=== PATIENT | female | born 1970 | race Caucasian/White ===

== ENCOUNTER 2021-09-10 06:50 | Emergency (ER) | payer OTHER ==
[2021-09-10 07:25] LABS: Absolute Lymphocytes (CBC) 0.8 K/uL (0.7-4.9); Hematocrit 40.3 % (36.0-45.0); Lymphocytes % 9.8 % (15.3-44.8); MCV 96.4 fL (80-100); MPV 9.3 fL (7.6-11.3); RBC Red Blood Cell Count 4.18 M/uL (3.86-4.86)
--- NOTE | 2021-09-10 07:39 | RAD REPORT ---
EXAM DESCRIPTION: RAD - Chest Single View - 09/10/2021 7:24 am CLINICAL HISTORY: SOB COMPARISON: No comparisons FINDINGS: Lines: None. Lungs: Mild ill-defined basilar airspace disease. Pleural: No significant pleural effusions or pneumothorax. Cardiac: The heart size is within normal limits. Bones: No acute fractures. Other: IMPRESSION: Mild ill-defined basilar airspace disease could reflect pneumonia/pneumonitis.
[2021-09-10 07:45] LABS: Potassium 3.9 mmol/L (3.5-5.1); Troponin High Sensitivity 9.9 pg/mL (<58.9)
[2021-09-10] MEDS ORDERED: ACETAMINOPHEN 500 MG TAB ONE (07:46)
[2021-09-10] MEDS ORDERED: ASPIRIN EC 81 MG TAB PO ONE (07:47)
[2021-09-10] MEDS ORDERED: CEFTRIAXONE 1000 MG/VIAL ONE (07:47)
[2021-09-10] MEDS ORDERED: NA CHLORIDE 0.9% 1,000 ML ONE (07:47)
[2021-09-10] MEDS ORDERED: FAMOTIDINE 20 MG TAB ONE ×2 (07:47→07:57)
[2021-09-10] MEDS ORDERED: AZITHROMYCIN 250 MG TAB ONE (07:47)
[2021-09-10] MEDS ORDERED: BUDESONIDE 0.5 MG/2 ML NEB IH ONE (08:00)
--- NOTE | 2021-09-10 08:23 | RAD REPORT ---
EXAM DESCRIPTION: CT - Chest For Pe Angio - 09/10/2021 8:13 am CLINICAL HISTORY: dyspnea COMPARISON: Chest Single View dated 09/10/2021; Follow Up Breast Axilla Comp dated 05/27/2021; 3D SCR CALEB BILAT W/CAD dated 03/24/2021 TECHNIQUE: Dynamically enhanced axial 3 mm thick images of the chest were obtained during administra tion of <100> mL Isovue 370 IV contrast. Coronal and oblique reconstruction images were generated and reviewed. Exam utilizes a protocol for optimal evaluation of pulmonary arterial tree. Maximum intensity projections 3D imaging was utilized All CT scans are performed using dose optimization technique as appropriate and may include automated exposure control or mA/KV adjustment according to patient size. FINDINGS: Chest Wall: Right breast masses which have been previously evaluated with mammography and ultrasound. Lungs: Mild atelectasis in lung bases likely accounting for the chest radiograph findings. No acute p rocess identified. Pleura: No significant effusions or pneumothorax. Mediastinum/mynor: No pathologic lymphadenopathy. Pulmonary arteries/Aorta: No filling defect identified. No aortic aneurysm. Heart: No significant pericardial effusion. Normal heart size. Multi-vessel coronary artery disease. Upper abdomen: No acute abnormality. Bones: No acute abnormality. IMPRESSION: Negative for pulmonary embolism. No other acute findings present within the chest.
--- NOTE | 2021-09-10 08:41 | RAD REPORT ---
EXAM DESCRIPTION: US - Extrem Venous W Compress Royce - 09/10/2021 8:29 am CLINICAL HISTORY: PAIN COMPARISON: No comparisons TECHNIQUE: Real-time sonographic evaluation of the lower extremity deep venous systems was performed using color Doppler, grayscale, and compression. FINDINGS: Bilateral lower extremities. Normal compressibility, flow augmentation, phasic flow and spontaneous flow is identified in both the left and right lower extremity deep venous systems. No intraluminal filling defects seen. IMPRESSION: No DVT in either lower extremity.
--- NOTE | 2021-09-10 09:03 | ER ---
Nurse's Notes [facility] Name: Angelika Broderick Age: 51 yrs Sex: Female : 1970 Arrival Date: 09/10/2021 Time: 06:51 Bed 30 Private MD: Diagnosis: Dyspnea;Fever, unspecified;Coronavirus infection, unspecified;SARS-associated coronavirus as the cause of diseases classified elsewhere;Acute upper respiratory infection, unspecified Presentation: 09/10 07:01 Chief complaint: EMS states: pt is here for SOB that began yesterday. her sister tested kd3 positive for COVID recently. Pt denies n/v, headache an diarrhea. pt had a fever of 101.9 en route. 1 gram of Tylenol administered. 07:05 Coronavirus screen: Vaccine status: Patient reports being unvaccinated. Ebola Screen: kd3 No symptoms or risks identified at this time. Initial Sepsis Screen: Does the patient meet any 2 criteria? No. Patient's initial sepsis screen is negative. Does the patient have a suspected source of infection? No. Patient's initial sepsis screen is negative. Risk Assessment: Do you want to hurt yourself or someone else? Patient reports no desire to harm self or others. Onset of symptoms was September 10, 2021. 07:05 Method Of Arrival: EMS: [facility] kd3 07:05 Acuity: MICHAEL 3 kd3 Triage Assessment: 07:06 General: Appears in no apparent distress. Behavior is calm, cooperative. Pain: Denies kd3 pain. 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 - Social history:: Smoking status: unknown. Screenin:07 Abuse screen: Denies threats or abuse. Denies injuries from another. Nutritional kd3 screening: No deficits noted. Tuberculosis screening: No symptoms or risk factors identified. Fall Risk IV access (20 points). Assessment: 07:05 General: SEE TRIAGE NOTE. RECD REPORT FROM JHONY CAVANAUGH. 51YO WF P/W COVID EXPOSURE AND SOB.bp 08:50 Reassessment: PT RETURNED FROM CT. bp Vital Signs: 07:05 BP 117 / 70; Pulse 107; Resp 24; Pulse Ox 98% on R/A; Weight 105.69 kg; Height 5 ft. 9 kd3 in. (175.26 cm); Pain 0/10; 07:10 Temp 101.5(O); kd3 08:50 BP 97 / 56; Pulse 97; Resp 25; Pulse Ox 98% ; bp 07:05 Body Mass Index 34.41 (105.69 kg, 175.26 cm) kd3 ED Course: 06:51 Patient arrived in ED. kd3 06:54 Jhony White, MAO is Primary Nurse. as6 07:05 Inserted saline lock: 22 gauge in right forearm, using aseptic technique. Blood bp collected. 07:06 Triage completed. kd3 07:06 Arm band placed on right wrist. kd3 07:07 Patient has correct armband on for positive identification. kd3 07:22 Mukesh Alvarez MD is Attending Physician. dona 07:25 Primary Nurse role handed off by Jhony White RN 07:26 XRAY Chest (1 view) In Process Unspecified. EDMS 07:29 Faustino Guerrero, MAO is Primary Nurse. bp 08:14 CT Chest For PE Angio In Process Unspecified. EDMS 08:29 US Extremity Venous W Compression Royce In Process Unspecified. EDMS Administered Medications: 07:45 Drug: NS 0.9% 1000 ml Route: IV; Rate: 1 bolus; Site: right forearm; bp 07:45 Drug: Pepcid (famotidine) 40 mg Route: PO; bp 07:45 Drug: Zithromax (azithromycin) 500 mg Route: PO; bp 07:45 Drug: Rocephin (cefTRIAXone) 1 grams Route: IV; Rate: per protocol; Site: right forearm;bp 07:45 Drug: Aspirin 162 mg Route: PO; bp 07:45 Drug: Tylenol 1000 mg Route: PO; bp 07:57 Not Given (Duplicate Order): Budesonide Inhaler 180 mcg/actuation 2 inhalations dona Inhalation once Outcome: 09:03 Discharge ordered by . dona 11:22 Patient left the ED. kj1 Signatures: Dispatcher [employer] EDMS Mukesh Alvarez MD MD cha Peltier, Brian, RN RN bp Aimee Pizarro Kandis kj1 Jhony White RN RN as6 Jennifer Scanlon RN RN kd3 Corrections: (The following items were deleted from the chart) 07:07 07:06 Allergies: No Known Allergies; kd3 kd3 07:56 07:05 General: SEE TRIAGE NOTE. RECD REPORT FROM JHONY CAVANAUGH. 51YO WF P/W COVID EXPOSURE bp AND N/V. bp
--- NOTE | 2021-09-10 09:03 | EDPHYS ---
Physician Documentation [facility] Name: Angelika Broderick Age: 51 yrs Sex: Female : 1970 Arrival Date: 09/10/2021 Time: 06:51 Bed 30 Private MD: ED Physician Mukesh Alvarez HPI: 09/10 08:57 This 51 yrs old Female presents to ER via EMS with complaints of Shortness Of dona Breath. 08:57 The patient has shortness of breath at rest, with light activity. Onset: The dona symptoms/episode began/occurred 2 day(s) ago. Duration: The symptoms are continuous, and are steadily getting worse. The patient's shortness of breath is aggravated by coughing. Associated signs and symptoms: Pertinent positives: non-productive cough. Severity of symptoms: At their worst the symptoms were mild in the emergency department the symptoms are unchanged. The patient has experienced a previous episode. 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 - Social history:: Smoking status: unknown. ROS: 09:00 Constitutional: Negative for fever, chills, and weight loss, Eyes: Negative for injury, dona pain, redness, and discharge, ENT: Negative for injury, pain, and discharge, Neck: Negative for injury, pain, and swelling, Cardiovascular: Negative for chest pain, palpitations, and edema, Abdomen/GI: Negative for abdominal pain, nausea, vomiting, diarrhea, and constipation, Back: Negative for injury and pain, : Negative for injury, bleeding, discharge, and swelling, MS/Extremity: Negative for injury and deformity, Skin: Negative for injury, rash, and discoloration, Neuro: Negative for headache, weakness, numbness, tingling, and seizure, Psych: Negative for depression, anxiety, suicide ideation, homicidal ideation, and hallucinations, Allergy/Immunology: Negative for hives, rash, and allergies, Endocrine: Negative for neck swelling, polydipsia, polyuria, polyphagia, and marked weight changes, Hematologic/Lymphatic: Negative for swollen nodes, abnormal bleeding, and unusual bruising. 09:00 Constitutional: Positive for chills, fatigue, fever, malaise, poor PO intake. 09:00 Respiratory: Positive for cough, shortness of breath, at rest. Exam: 09:00 Head/Face: Normocephalic, atraumatic. Eyes: Pupils equal round and reactive to light, dona extra-ocular motions intact. Lids and lashes normal. Conjunctiva and sclera are non-icteric and not injected. Cornea within normal limits. Periorbital areas with no swelling, redness, or edema. ENT: Nares patent. No nasal discharge, no septal abnormalities noted. Tympanic membranes are normal and external auditory canals are clear. Oropharynx with no redness, swelling, or masses, exudates, or evidence of obstruction, uvula midline. Mucous membranes moist. Neck: Trachea midline, no thyromegaly or masses palpated, and no cervical lymphadenopathy. Supple, full range of motion without nuchal rigidity, or vertebral point tenderness. No Meningismus. Chest/axilla: Normal chest wall appearance and motion. Nontender with no deformity. No lesions are appreciated. Cardiovascular: Regular rate and rhythm with a normal S1 and S2. No gallops, murmurs, or rubs. Normal PMI, no JVD. No pulse deficits. Abdomen/GI: Soft, non-tender, with normal bowel sounds. No distension or tympany. No guarding or rebound. No evidence of tenderness throughout. Back: No spinal tenderness. No costovertebral tenderness. Full range of motion. Skin: Warm, dry with normal turgor. Normal color with no rashes, no lesions, and no evidence of cellulitis. MS/ Extremity: Pulses equal, no cyanosis. Neurovascular intact. Full, normal range of motion. Neuro: Awake and alert, GCS 15, oriented to person, place, time, and situation. Cranial nerves II-XII grossly intact. Motor strength 5/5 in all extremities. Sensory grossly intact. Cerebellar exam normal. Normal gait. Psych: Awake, alert, with orientation to person, place and time. Behavior, mood, and affect are within normal limits. 09:00 Constitutional: The patient appears febrile. 09:09 ECG was reviewed by the Attending Physician. [facility] Vital Signs: 07:05 BP 117 / 70; Pulse 107; Resp 24; Pulse Ox 98% on R/A; Weight 105.69 kg; Height 5 ft. 9 kd3 in. (175.26 cm); Pain 0/10; 07:10 Temp 101.5(O); kd3 08:50 BP 97 / 56; Pulse 97; Resp 25; Pulse Ox 98% ; bp 07:05 Body Mass Index 34.41 (105.69 kg, 175.26 cm) kd3 MDM: 07:22 Patient medically screened. dona 09:08 Differential diagnosis: asthma, Bronchitis CHF exacerbation, bronchitis, flu, URI, dona viral Infection, bacterial infection, URI, bronchitis, pneumonia UTI, gastroenteritis, pneumonia, Pneumothorax pulmonary edema, Pulmonary Embolism Sepsis. Antibiotic administration: The patient is discharged and will get outpatient antibiotics, Zithromax. The patient's Wells Deep Vein Thrombosis Score was calculated as follows: Heart Rate >100 BPM (1.5 Pts) Total Score: 0-2 Pts- Low Risk. The patient's pulmonary embolism risk score was calculated as follows: the patients heart rate is greater than 100 beats per minute (1.5 Pts) Total Score: 0-2 points. This patient was found to be at low risk for a pulmonary embolism by using the Well's assessment criteria. Immunization status: Influenza vaccine:. Data reviewed: vital signs, nurses notes, lab test result(s), EKG, radiologic studies, plain films. Data interpreted: butcherette: rate is 97 beats/min, rhythm is regular. Test interpretation: by ED physician or midlevel provider: ECG, plain radiologic studies. Counseling: I had a detailed discussion with the patient and/or guardian regarding: the historical points, exam findings, and any diagnostic results supporting the discharge/admit diagnosis, lab results, radiology results, the need for outpatient follow up, for definitive care, a family practitioner. 09/10 07:00 Order name: SARS-COV-2 RT PCR (Document "Date of Onset" if Symptomatic); Complete Time: kd3 09:10 09/10 07:00 Order name: Basic Metabolic Panel; Complete Time: 07:55 kd3 09/10 07:00 Order name: CBC with Diff; Complete Time: :55 kd3 09/10 07:00 Order name: Troponin HS; Complete Time: 07:55 kd3 09/10 07:00 Order name: XRAY Chest (1 view); Complete Time: 07:55 kd3 09/10 07:27 Order name: D-Dimer; Complete Time: 07:55 [facility] 09/10 07:55 Order name: US Extremity Venous W Compression Royce; Complete Time: 08:54 [facility] 09/10 07:55 Order name: CT Chest For PE Angio; Complete Time: 08:54 [facility] 09/10 07:00 Order name: EKG; Complete Time: 07:01 09/10 07:00 Order name: Cardiac monitoring; Complete Time: 07:00 3 09/10 07:00 Order name: EKG - Nurse/Tech; Complete Time: 07:00 09/10 07:00 Order name: IV Saline Lock; Complete Time: 07:08 09/10 07:00 Order name: Labs collected and sent; Complete Time: 07:08 09/10 07:00 Order name: O2 Per Protocol; Complete Time: 07:00 09/10 07:00 Order name: O2 Sat Monitoring; Complete Time: 07:00 EC:09 Rate is 109 beats/min. Rhythm is regular. QRS Lamar is Normal. WA interval is normal. dona QRS interval is normal. QT interval is normal. No Q waves. T waves are Normal. No ST changes noted. Clinical impression: LVH, Sinus tachycardia, and No evidence of ischemia. Interpreted by me. Reviewed by me. Administered Medications: 07:45 Drug: NS 0.9% 1000 ml Route: IV; Rate: 1 bolus; Site: right forearm; bp 07:45 Drug: Pepcid (famotidine) 40 mg Route: PO; bp 07:45 Drug: Zithromax (azithromycin) 500 mg Route: PO; bp 07:45 Drug: Rocephin (cefTRIAXone) 1 grams Route: IV; Rate: per protocol; Site: right forearm;bp 07:45 Drug: Aspirin 162 mg Route: PO; bp 07:45 Drug: Tylenol 1000 mg Route: PO; bp 07:57 Not Given (Duplicate Order): Budesonide Inhaler 180 mcg/actuation 2 inhalations dona Inhalation once Disposition Summary: 09/10/21 09:03 Discharge Ordered Location: Home dona Problem: new dona Symptoms: have improved dona Condition: Stable dona Diagnosis - Dyspnea dona - Fever, unspecified dona - Coronavirus infection, unspecified dona - SARS-associated coronavirus as the cause of diseases classified elsewhere dona - Acute upper respiratory infection, unspecified dona Followup: dona - With: Private Physician - When: 2 - 3 days - Reason: Recheck today's complaints, Continuance of care, Re-evaluation by your physician Discharge Instructions: - Discharge Summary Sheet [facility] - Fever, Adult dona - Upper Respiratory Infection, Adult dona - Cool Mist Vaporizer dona - Upper Respiratory Infection, Adult, [id number] dona - Aspirin and Your Heart dona - Cough, Adult dona - Fever, Adult, [id number] dona - COVID-19 [facility] - COVID-19 Frequently Asked Questions [facility] - Things to Know about the COVID-19 Pandemic - [facility] [place] - 10 Things You Can Do to Manage Your COVID-19 Symptoms at Home - [facility] [place] - COVID-19: Quarantine vs. Isolation - [facility] [place] - Prevent the Spread of COVID-19 if You Are Sick - [facility] [place] Forms: - Medication Reconciliation Form [facility] - Thank You Letter [facility] - Antibiotic Education [facility] - Prescription Opioid Use [facility] Prescriptions: - Pepcid 20 mg Oral Tablet - take 1 tablet by ORAL route every 12 hours for 21 days; 42 tablet; Refills: 0, dona Product Selection Permitted - Zithromax Z-Josh 250 mg Oral Tablet - take 1 tablet by ORAL route as directed for 5 days Day 1 - take two (2) tablets [facility] one time. Day 2, 3, 4 , 5 take one (1) tablet once daily.; 6 tablet; Refills: 0, Product Selection Permitted - budesonide 180 mcg/actuation Inhalation aerosol powdr breath activated - inhale 1 puff by INHALATION route 2 times per day; 1 Inhaler; Refills: 0, cp Product Selection Permitted Signatures: Dispatcher [employer] Mukesh Stuart MD MD cha Peltier, Brian, RN RN bp Doucette, Kyli, RN RN kd3 Corrections: (The following items were deleted from the chart) 07:07 07:06 Allergies: No Known Allergies; kd3 kd3
[2021-09-10 11:43] VITALS: O2SAT 98
[2021-09-10 11:44] VITALS: TEMP 101.5
[2021-09-10 11:46] VITALS: BP 97/56
--- NOTE | 2021-09-11 09:53 | EKG ---
Test Date: 2021-09-10 Test Time: 07:02:12 Assembler Skylights: JOSEPH MEASUREMENT RESULTS: Intervals: Rate: 109 NC: 152 QRSD: 90 QT: 328 QTc: 441 [place]bird: P: 34 NC: 152 QRS: 35 T: 37 INTERPRETIVE STATEMENTS: Sinus tachycardia Minimal voltage criteria for LVH, may be normal variant Nonspecific ST and T wave abnormality Abnormal ECG No previous ECG available for comparison Electronically Signed On 09-11-21 09:48:52 CDT by Lee Adams
== END 2021-09-10 11:22 | disposition home or self-care (01) ==
LOC: ER 06:50
DX: U07.1 COVID-19 (principal); J06.9 Acute upper respiratory infection, unspecified; R50.9 Fever, unspecified; Z88.5 Allergy status to narcotic agent; Z88.8 Allergy status to other drugs, medicaments and biological substances
CPT/HCPCS: 93005; 85025; 80048; 36415; 85379; 84484; 71275; 71045; 93970; 96374; 99284; U0003; Q9967; J7030

== ENCOUNTER 2021-12-14 08:40 | Emergency (ER) | payer OTHER ==
[2021-12-14] MEDS ORDERED: IBUPROFEN 200 MG TAB PO ONE (08:55)
[2021-12-14] MEDS ORDERED: IBUPROFEN 400 MG TAB ONE (08:56)
--- NOTE | 2021-12-14 09:48 | RAD REPORT ---
EXAM DESCRIPTION: RAD - Hand Right 3 View - 12/14/2021 9:27 am CLINICAL HISTORY: PAIN COMPARISON: No comparisons FINDINGS: Mild osteopenia. Mild arthritic changes are present. No acute fracture or dislocation seen .
--- NOTE | 2021-12-14 10:13 | ER ---
Nurse's Notes [facility] Name: Angelika Broderick Age: 51 yrs Sex: Female : 1970 Arrival Date: 12/14/2021 Time: 08:42 Bed 8 Private MD: Diagnosis: Contusion of right hand;Abrasion of right hand Presentation: 12/14 09:01 Chief complaint: Patient states: Was seen yesterday in ED for fall injury, sister ph states, " They did a CT of her head but did not xray her hand. Today it is swollen and bruised and she says it hurts." Abrasions, bruising and swelling noted to R index, middle fingers and thumb. Coronavirus screen: Vaccine status: Patient reports being unvaccinated. Ebola Screen: No symptoms or risks identified at this time. Initial Sepsis Screen: Does the patient meet any 2 criteria? No. Patient's initial sepsis screen is negative. Does the patient have a suspected source of infection? No. Patient's initial sepsis screen is negative. Risk Assessment: Do you want to hurt yourself or someone else? Patient reports no desire to harm self or others. Onset of symptoms was December 14, 2021. 09:01 Method Of Arrival: Ambulatory 09:01 Acuity: MICHAEL 4 ph Triage Assessment: 09:05 General: Appears in no apparent distress. comfortable, Behavior is calm, cooperative, ph appropriate for age. Pain: Complains of pain in right hand. Neuro: Level of Consciousness is awake, alert, obeys commands, Oriented to person, place, time, situation. Cardiovascular: Capillary refill < 3 seconds in bilateral fingers Patient's skin is warm and dry. Respiratory: Airway is patent Respiratory effort is even, unlabored. Derm: Bruising that is dark purple, on dorsal aspect of distal phalanx of right thumb, dorsal aspect of middle phalanx of right index finger, dorsal aspect of proximal phalanx of right index finger, dorsal aspect of middle phalanx of right middle finger and dorsal aspect of proximal phalanx of right middle finger. Derm: Bruising that is on left eye. Musculoskeletal: Circulation, motion, and sensation intact. Range of motion: intact in all extremities, Swelling present in right hand. 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 - Social history:: Smoking status: Patient denies any tobacco usage or history of. Screenin:08 Abuse screen: Denies threats or abuse. Denies injuries from another. Nutritional ph screening: No deficits noted. Tuberculosis screening: No symptoms or risk factors identified. Fall Risk Fall in past 12 months (25 points). Secondary diagnosis (15 points) seizures, No IV (0 pts). Ambulatory Aid- None/Bed Rest/Nurse Assist (0 pts). Gait- Normal/Bed Rest/Wheelchair (0 pts) Mental Status- Oriented to own ability (0 pts). Total Ornelas Fall Scale indicates Low Risk Score (25-44 pts). Fall prevention measures have been instituted. Side Rails Up X 2 Placed close to Nursing Station Family Present and informed to notify staff if they need to leave bedside As available Patient and Family Educated on Fall Prevention Program and strategies. Assessment: 10:00 Reassessment: Patient appears in no apparent distress at this time. No changes from db previously documented assessment. Patient and/or family updated on plan of care and expected duration. Pain level reassessed. Patient is alert, oriented x 3, equal unlabored respirations, skin warm/dry/pink. Patient denies pain at this time. General: Appears. General: Appears in no apparent distress. comfortable, Behavior is calm, cooperative, appropriate for age, quiet. Pain: Denies pain. Neuro: No deficits noted. Neuro: Level of Consciousness is awake, alert, obeys commands, Oriented to person, place, time. Cardiovascular: No deficits noted. Reports None. Respiratory: No deficits noted. Respiratory: Reports shortness of breath. GI: No deficits noted. : No deficits noted. EENT: No deficits noted. Derm: No deficits noted. Musculoskeletal: No deficits noted. 10:00 Neuro: Speech is normal, Pupils are PERRLA. Cardiovascular: Capillary refill < 3 db seconds. Respiratory: Airway is patent Respiratory effort is even, unlabored, Respiratory pattern is regular. GI: Abdomen is flat. EENT: No signs and/or symptoms were reported regarding the EENT system. 10:38 Reassessment: Patient appears in no apparent distress at this time. Patient and/or ph family updated on plan of care and expected duration. Pain level reassessed. Patient is alert, oriented x 3, equal unlabored respirations, skin warm/dry/pink. Vital Signs: 09:01 BP 131 / 65; Pulse 87; Resp 18; Temp 98.2; Pulse Ox 99% on R/A; Weight 102.06 kg; ph Height 5 ft. 9 in. (175.26 cm); 10:00 BP 100 / 66; Pulse 72; Resp 18; Pulse Ox 97% ; db 09:01 Body Mass Index 33.23 (102.06 kg, 175.26 cm) ph ED Course: 08:42 Patient arrived in ED. rg4 08:44 Crissy Garzon FNP-C [facility]. kb 08:44 Bruce Dorman MD is Attending Physician. kb 09:01 Roseann Finney, RN is Primary Nurse. ph 09:04 Triage completed. ph 09:08 Arm band placed on Patient placed in an exam room, on a stretcher. ph 09:09 Patient has correct armband on for positive identification. Bed in low position. Call ph light in reach. Side rails up X 1. Pulse ox on. NIBP on. Door closed. Noise minimized. Warm blanket given. 10:32 No provider procedures requiring assistance completed. Patient did not have IV access db during this emergency room visit. Administered Medications: 09:09 Drug: Ibuprofen 600 mg Route: PO; ph 10:36 Follow up: Response: No adverse reaction db Medication: 09:09 VIS not applicable for this client. ph Outcome: 10:13 Discharge ordered by . kb 10:33 Discharged to home ambulatory. db 10:33 Condition: stable 10:33 Discharge instructions given to patient, family, Instructed on discharge instructions, Prescriptions given X 1. 10:39 Patient left the ED. ph Signatures: Crissy Garzon FNP-C TEXTILE DESIGNER-Ckb Roseann Finney, RN RN Fe Caldwell rg4 Fabby Merida RN RN db
--- NOTE | 2021-12-14 10:13 | EDPHYS ---
Physician Documentation [facility] Name: Angelika Broderick Age: 51 yrs Sex: Female : 1970 Arrival Date: 12/14/2021 Time: 08:42 Bed 8 Private MD: ED Physician Bruce Dorman HPI: 12/14 10:39 This 51 yrs old Female presents to ER via Ambulatory with complaints of Hand Injury, kb Fall Injury. 10:39 The patient has not experienced similar symptoms in the past. The patient has been kb recently seen at the [facility] Emergency Department, yesterday, for similar complaints. 10:39 The patient or guardian reports decreased range of motion, injury, pain, swelling, kb tenderness. The complaints affect the right middle finger and Right index finger. Context: The problem was sustained outdoors, resulted from a fall. Onset: The symptoms/episode began/occurred yesterday. Modifying factors: The symptoms are alleviated by nothing, the symptoms are aggravated by movement. Associated signs and symptoms: The patient has no apparent associated signs or symptoms. Severity of symptoms: At their worst the symptoms were moderate, in the emergency department the symptoms are unchanged. Pt states she fell yesterday while walking on the sidewalk. Reports she was seen here for head injury and laceration, but failed to get an x-ray of right hand. c/o pain, swelling, decreased rom and bruising to right second and third digits. . ADMINISTRATIVE DIRECTOR: 10:37 LMP N/A - db Historical: - Allergies: 09:04 Mysoline; ph 09:04 Phenobarbital; ph - Home Meds: 09:04 Depakote ER Oral [Active]; ph - PMHx: 09:04 Seizure; ph - Immunization history:: Adult Immunizations unknown. - Social history:: Smoking status: Patient denies any tobacco usage or history of. ROS: 10:36 Constitutional: Negative for fever, chills, and weight loss. kb 10:36 MS/extremity: Positive for ecchymosis, pain, swelling, tenderness, of the right middle finger and Right index finger. 10:36 All other systems are negative. Exam: 10:36 Constitutional: This is a well developed, well nourished patient who is awake, alert, kb and in no acute distress. ENT: Moist Mucous membranes Respiratory: Respirations even and unlabored. No increased work of breathing. Talking in full sentences Neuro: Awake and alert, GCS 15, oriented to person, place, time, and situation. Moves all extremities. Normal gait. Psych: Awake, alert, with orientation to person, place and time. Behavior, mood, and affect are within normal limits. 10:36 Head/face: Noted is no obvious of injury or deformity except ecchymosis, that is moderate, of the left eye, repaired laceration to right eyebrow with sutures in place. 10:36 Musculoskeletal/extremity: Extremities: grossly normal except: noted in the right middle finger and Right index finger: decreased ROM, ecchymosis, pain, swelling, tenderness, ROM: limited active range of motion due to pain, in the right middle finger and Right index finger, Circulation is intact in all extremities. Sensation intact. 10:36 Skin: injury, abrasion(s), very small abrasion noted, of the right middle finger and Right index finger, contusion(s), that are superficial, of the left knee. Vital Signs: 09:01 BP 131 / 65; Pulse 87; Resp 18; Temp 98.2; Pulse Ox 99% on R/A; Weight 102.06 kg; ph Height 5 ft. 9 in. (175.26 cm); 10:00 BP 100 / 66; Pulse 72; Resp 18; Pulse Ox 97% ; db 09:01 Body Mass Index 33.23 (102.06 kg, 175.26 cm) ph MDM: 08:46 Patient medically screened. kb 10:36 Data reviewed: vital signs, nurses notes. Data interpreted: Pulse oximetry: on room air kb is 97 %. Interpretation: normal. Counseling: I had a detailed discussion with the patient and/or guardian regarding: the historical points, exam findings, and any diagnostic results supporting the discharge/admit diagnosis, radiology results, the need for outpatient follow up, a family practitioner, to return to the emergency department if symptoms worsen or persist or if there are any questions or concerns that arise at home. 12/14 08:50 Order name: Hand Right 3 View XRAY kb 12/14 09:49 Order name: RAD; Complete Time: 09:59 EDMS Administered Medications: 09:09 Drug: Ibuprofen 600 mg Route: PO; ph 10:36 Follow up: Response: No adverse reaction db Disposition: 11:08 PA/PULP GR[employer]ER AND BLENDER's history reviewed, patient interviewed, and examined. I agree with assessment [id number] and care plan and confirm the diagnosis (es) above. Attestation: The patient's history, exam findings, diagnostics, and a summary of any interventions or procedures was reviewed in detail with Crissy HIGGINBOTHAM. Disposition Summary: 12/14/21 10:13 Discharge Ordered Location: Home kb Condition: Stable kb Diagnosis - Contusion of right hand kb - Abrasion of right hand kb Followup: kb - With: Emergency Department - When: As needed - Reason: Worsening of condition Followup: kb - With: Private Physician - When: 2 - 3 days - Reason: Recheck today's complaints, Continuance of care, Re-evaluation by your physician Discharge Instructions: - Discharge Summary Sheet kb - Hand Contusion, [id number] kb Forms: - Medication Reconciliation Form kb - Thank You Letter kb - Antibiotic Education kb - Prescription Opioid Use kb Prescriptions: - Diclofenac Sodium 75 mg Oral tablet,delayed release (DR/EC) - take 1 tablet by ORAL route 2 times per day As needed; 30 tablet; Refills: 0, kb Product Selection Permitted Signatures: Dispatcher [employer] EDMS Crissy Garzon FNP-C FNP-Roseann Nowak, RN RN ph Bruce Dorman MD MD [id number] Fabby Merida RN db Corrections: (The following items were deleted from the chart) 10:41 10:36 Skin: injury, abrasion(s), very small abrasion noted, of the right middle finger kb and Right index finger, kb
[2021-12-14 11:07] VITALS: TEMP 98.2
[2021-12-14 11:11] VITALS: BP 100/66; O2SAT 97
== END 2021-12-14 10:39 | disposition home or self-care (01) ==
LOC: ER 08:40
DX: S60.221A Contusion of right hand, initial encounter (principal); S60.511A Abrasion of right hand, initial encounter; W19.XXXA Unspecified fall, initial encounter; Y93.9 Activity, unspecified; Y92.9 Unspecified place or not applicable
CPT/HCPCS: 99283

== ENCOUNTER 2021-12-29 11:38 | Emergency (ER) | payer OTHER ==
--- OUTSIDE RECORDS SUMMARY | 2021-12-29 11:42 | XMS REPORT | Continuity of Care Document ---
:1970 Author Organization [facility] t Address [address] [place] [address] [place] [address] Care Team Providers Name Role Phone Krista Wise Attending Clinician Unavailable SHANTELLE ASKEW Attending Clinician Unavailable Payers Payer Name Policy Type Policy Number Effective Date Expiration Date Hawk lee [facility] 53 [id number] 2020 [facility] ADVANTAGE 00:00:00 - [facility] MEDICAID OF [id number] 2018 [place] 00:00:00 Problems Condition Condition Condition Status Onset Resolution Last Treating Co mments Source Name Details Category Date Date Treatment Clinician Date [id number] Abnormal Problem Comm on mammogram [facility] [id number] Encounter Problem Com mon for Spirit screening - [facility] for other [facility] [id number] Mentally Problem Comm on disabled [facility] [id number] Bipolar [address] [facility] [id number] Anxiety Problem Common 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:45:08 l cognitive cognitive Herm joseph impairment impairment Active Problem 02/05/2021 [facility] Encounter Encounter Problem Active 2021-02-05 Memoria for for 03:45:08 l long-term long-term Herm joseph (current) (current) use of use of other other medication medication s s Active Problem 02/05/2021 [facility] Malignant Malignant Problem Active 2021-02-05 Memoria neoplasm neoplasm 03:45:08 l of of [place] unspecifie unspecifie d ovary d ovary Active Problem 02/05/2021 [facility] Epilepsy Epilepsy Problem Active 2021-02-05 Memoria Active 03:45:08 l Problem [place] 02/05/2021 [facility] 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 Rajesh n Active Problem 02/05/2021 [facility] Depression Depressio Problem Active 2021-02-05 Memoria n Active 03:45:08 l Problem [place] 02/05/2021 [facility] Hyperglyce Hyperglyc Diagnosis Active 2020-11-06 Memoria satnam emia 02:45:15 l Active [place] Diagnosis 11/06/2020 [facility] Tobacco Tobacco Diagnosis Active 2020-09-06 Memoria non-user non-user 02:46:23 l Active [place] Diagnosis 09/06/2020 [facility] Tremor Tremor Problem Active 2021-02-05 Seymour deloris Active 03:45:08 l Problem [place] 02/05/2021 [facility] Intellectu Intellect Problem Active 2021-02-05 Memoria al ual 03:45:08 l disability disability He rmann Active Problem 02/05/2021 [facility] Iron Iron Problem Active 2021-02-05 Memor ia deficiency deficiency 03:45:08 l anemia, anemia, Jose unspecifie unspecifie d iron d iron deficiency deficiency anemia anemia type type Active Problem 02/05/2021 [facility] Allergies, Adverse Reactions, Alerts Allergy Allergy Status Severity Reaction(s) Onset Inactive Treating Comm ents Source Name Type Date Date Clinician Tegretol Tegretol Active Info Not 2021-1 Seymour deloris Available 03-30 l 00:00: Phenobar Phenobar Active Info Not 2020-03 Seymour deloris bital bital Available 03-30 l 00:00: Dilantin Dilantin Active Info Not 2020-03 Seymour deloris Available 03-30 l 00:00: PHENYTOI DRUG Active Hives 2018- Univers N SODIUM INGREDI 7-18 ity of EXTENDED 00:00: [address] PHENOBAR DRUG Active Unknown-Cmnt Un katina BITAL INGREDI 1-20 ity of 00:00: [address] CARBAMAZ DRUG Active Unknown-Cmnt Un katina EPINE INGREDI 1-20 ity of 00:00: [address] Social History Social Habit Start Date Stop Date Quantity Comments Source History of Tobacco Use Co mmon [facility] Sex Assigned At Com [facility] Smoking Status Start Date Stop Date Source Never Smoker Common [facility] Medications Ordered Filled Start Stop Current Ordering Indication Dosage Frequency Signature Comments Components Source Medication Medication Date Date Medication? Clinician (SIG) Name Name Rosuvastati Rosuvastati No 1{table QD Rosuvastat n Calcium n Calcium 8-11 t} in Calcium 20 MG 20 MG 00:00: 20 MG 00 Rosuvastati Rosuvastati No 1{table QD Rosuvastat n Calcium n Calcium 8-11 t} in Calcium 20 MG 20 MG 00:00: 20 MG 00 Rosuvastati Rosuvastati No 1{table QD Rosuvastat n Calcium n Calcium 8-11 t} in Calcium 20 MG 20 MG 00:00: 20 MG 00 Vimpat 2020-03 Yes Edda 1 tablet Memori a 1-24 Palvadi l 00:00: Depakote 2020-03 Yes Edda 1 tablet Seymour deloris - Palvadi l 03:45: [place] 10 Citalopram 2020-03 Yes Edda 1 tablet Me moria Hydrobromid -19 Palvadi l e 03:45: [place] 10 Keppra 2020-03 Yes Edda 2 tablets Memor ia -19 Palvadi l 03:45: [place] Keppra 2020-03 Yes Edda 1 tablet Memori a 1-19 Palvadi l 03:45: [place] 10 Zonegran 2020-03 Yes Edda 3 capsule Mem oria 1-19 Palvadi qhs l 03:45: Jose 10 Acyclovir 2020-03 Yes Edda 1 tablet Mem oria 1-19 Palvadi l 03:45: Jose 10 Vimpat Yes Edda 1 tablet Memori a 8-25 Palvadi l 00:00: Vimpat Yes Michelle 1 tablet Seymour deloris 7-17 Melgar l 02:47: Depakote Yes Edda 1 tablet Seymour deloris 9-04 Palvadi l 00:00: Citalopram Citalopram Yes Krista 1 tablet Common Hydrobromid Hydrobromid [place] [facility] e e - [facility] Vimpat Vimpat Yes Krista 1 tablet Common [place] [facility] Keppra Keppra Yes Krista 2 [address] [place] [facility] Ibuprofen Ibuprofen Yes Krista 1 tablet Common [place] with food Spirit or milk as - [facility] needed [facility] Yes Krista [address] [facility] Zonegran Zonegran Yes Krista [address] [facility] Imodium A-D Imodium A-D Yes Krista 1 tablet Common [place] as needed [facility] Tylenol Tylenol Yes Krista 2 tablets Com mon [place] as needed [facility] - [facility] Widener Widener Yes Krista 1 tablet Common [place] as needed [facility] Acyclovir Acyclovir Yes Krista 2 capsules Common [place] [facility] No 2{table Depakote 500 MG 500 MG ts} 500 MG Vimpat 200 Vimpat 200 No 1{table BID Vimpat 200 MG MG t} MG Zonegran Zonegran No 3{capsu Zonegran 100 MG 100 MG les} 100 MG Keppra 750 Keppra 750 No 2{table Keppra 750 MG MG ts} MG Imodium A-D Imodium A-D No 1{table BID Imodium 2 MG 2 MG t_as_ne A-D 2 MG eded} Citalopram Citalopram No 1{table Citalopram Hydrobromid Hydrobromid t} Hydrobromi e 20 MG e 20 MG de 20 MG Ibuprofen Ibuprofen No QID Ibuprofen 600 MG 600 MG 600 MG Depakote Depakote No 2{table Depakote 500 MG 500 MG ts} 500 MG Vimpat 200 Vimpat 200 No 1{table BID Vimpat 200 MG MG t} MG Zonegran Zonegran No 3{capsu Zonegran 100 MG 100 MG les} 100 MG Keppra 750 Keppra 750 No 2{table Keppra 750 MG MG ts} MG Imodium A-D Imodium A-D No 1{table BID Imodium 2 MG 2 MG t_as_ne A-D 2 MG eded} Citalopram Citalopram No 1{table Citalopram Hydrobromid Hydrobromid t} Hydrobromi e 20 MG e 20 MG de 20 MG Ibuprofen Ibuprofen No QID Ibuprofen 600 MG 600 MG 600 MG Depakote Depakote No 2{table Depakote 500 MG 500 MG ts} 500 MG Vimpat 200 Vimpat 200 No 1{table BID Vimpat 200 MG MG t} MG Zonegran Zonegran No 3{capsu Zonegran 100 MG 100 MG les} 100 MG Keppra 750 Keppra 750 No 2{table Keppra 750 MG MG ts} MG Imodium A-D Imodium A-D No 1{table BID Imodium 2 MG 2 MG t_as_ne A-D 2 MG eded} Oxybutynin Oxybutynin No Oxybutynin Chloride ER Chloride ER Chloride 5 MG 5 MG ER 5 MG Depakote Depakote No 2{table Depakote 500 MG 500 MG ts} 500 MG Keppra 750 Keppra 750 No 2{table Keppra 750 MG MG ts} MG Imodium A-D Imodium A-D No 1{table BID Imodium 2 MG 2 MG t_as_ne A-D 2 MG eded} Citalopram Citalopram No 1{table Citalopram Hydrobromid Hydrobromid t} Hydrobromi e 20 MG e 20 MG de 20 MG Zonegran Zonegran No 3{capsu Zonegran 100 MG 100 MG les} 100 MG Vimpat 200 Vimpat 200 No 1{table BID Vimpat 200 MG MG t} MG Ibuprofen Ibuprofen No QID Ibuprofen 600 MG 600 MG 600 MG Zonegran Zonegran No 3{capsu Zonegran 100 MG 100 MG les} 100 MG Depakote Depakote No 2{table Depakote 500 MG 500 MG ts} 500 MG Keppra 750 Keppra 750 No 2{table Keppra 750 MG MG ts} MG Imodium A-D Imodium A-D No 1{table BID Imodium 2 MG 2 MG t_as_ne A-D 2 MG eded} Citalopram Citalopram No 1{table Citalopram Hydrobromid Hydrobromid t} Hydrobromi e 20 MG e 20 MG de 20 MG Vimpat 200 Vimpat 200 No 1{table BID Vimpat 200 MG MG t} MG Ibuprofen Ibuprofen No QID Ibuprofen 600 MG 600 MG 600 MG Depakote Depakote No 2{table Depakote 500 MG 500 MG ts} 500 MG Keppra 750 Keppra 750 No 2{table Keppra 750 MG MG ts} MG Imodium A-D Imodium A-D No 1{table BID Imodium 2 MG 2 MG t_as_ne A-D 2 MG eded} Citalopram Citalopram No 1{table Citalopram Hydrobromid Hydrobromid t} Hydrobromi e 20 MG e 20 MG de 20 MG Zonegran Zonegran No 3{capsu Zonegran 100 MG 100 MG les} 100 MG Vimpat 200 Vimpat 200 No 1{table BID Vimpat 200 MG MG t} MG Ibuprofen Ibuprofen No QID Ibuprofen 600 MG 600 MG 600 MG Depakote Depakote No 2{table Depakote 500 MG 500 MG ts} 500 MG Ibuprofen Ibuprofen No QID Ibuprofen 600 MG 600 MG 600 MG Keppra 750 Keppra 750 No 2{table Keppra 750 MG MG ts} MG Zonegran Zonegran No 3{capsu Zonegran 100 MG 100 MG les} 100 MG Citalopram Citalopram No 1{table Citalopram Hydrobromid Hydrobromid t} Hydrobromi e 20 MG e 20 MG de 20 MG Vimpat 200 Vimpat 200 No 1{table BID Vimpat 200 MG MG t} MG Imodium A-D Imodium A-D No 1{table BID Imodium 2 MG 2 MG t_as_ne A-D 2 MG eded} Vimpat 200 Vimpat 200 No 1{table BID Vimpat 200 MG MG t} MG Zonegran Zonegran No 3{capsu Zonegran 100 MG 100 MG les} 100 MG Citalopram Citalopram No 1{table Citalopram Hydrobromid Hydrobromid t} Hydrobromi e 20 MG e 20 MG de 20 MG Keppra 750 Keppra 750 No 2{table Keppra 750 MG MG ts} MG Ibuprofen Ibuprofen No QID Ibuprofen 600 MG 600 MG 600 MG Imodium A-D Imodium A-D No 1{table BID Imodium 2 MG 2 MG t_as_ne A-D 2 MG eded} Depakote Depakote No 2{table Depakote 500 MG 500 MG ts} 500 MG Vimpat 200 Vimpat 200 No 1{table BID Vimpat 200 MG MG t} MG Zonegran Zonegran No 3{capsu Zonegran 100 MG 100 MG les} 100 MG Citalopram Citalopram No 1{table Citalopram Hydrobromid Hydrobromid t} Hydrobromi e 20 MG e 20 MG de 20 MG Keppra 750 Keppra 750 No 2{table Keppra 750 MG MG ts} MG Ibuprofen Ibuprofen No QID Ibuprofen 600 MG 600 MG 600 MG Imodium A-D Imodium A-D No 1{table BID Imodium 2 MG 2 MG t_as_ne A-D 2 MG eded} Depakote Depakote No 2{table Depakote 500 MG 500 MG ts} 500 MG Depakote Depakote No 2{table Depakote 500 MG 500 MG ts} 500 MG Ibuprofen Ibuprofen No QID Ibuprofen 600 MG 600 MG 600 MG Citalopram Citalopram No 1{table Citalopram Hydrobromid Hydrobromid t} Hydrobromi e 20 MG e 20 MG de 20 MG Vimpat 200 Vimpat 200 No 1{table BID Vimpat 200 MG MG t} MG Zonegran Zonegran No 3{capsu Zonegran 100 MG 100 MG les} 100 MG Imodium A-D Imodium A-D No 1{table BID Imodium 2 MG 2 MG t_as_ne A-D 2 MG eded} Keppra 750 Keppra 750 No 2{table Keppra 750 MG MG ts} MG Depakote Depakote No 2{table Depakote 500 MG 500 MG ts} 500 MG Ibuprofen Ibuprofen No QID Ibuprofen 600 MG 600 MG 600 MG Citalopram Citalopram No 1{table Citalopram Hydrobromid Hydrobromid t} Hydrobromi e 20 MG e 20 MG de 20 MG Vimpat 200 Vimpat 200 No 1{table BID Vimpat 200 MG MG t} MG Zonegran Zonegran No 3{capsu Zonegran 100 MG 100 MG les} 100 MG Imodium A-D Imodium A-D No 1{table BID Imodium 2 MG 2 MG t_as_ne A-D 2 MG eded} Keppra 750 Keppra 750 No 2{table Keppra 750 MG MG ts} MG Depakote Depakote No 2{table Depakote 500 MG 500 MG ts} 500 MG Ibuprofen Ibuprofen No QID Ibuprofen 600 MG 600 MG 600 MG Citalopram Citalopram No 1{table Citalopram Hydrobromid Hydrobromid t} Hydrobromi e 20 MG e 20 MG de 20 MG Vimpat 200 Vimpat 200 No 1{table BID Vimpat 200 MG MG t} MG Zonegran Zonegran No 3{capsu Zonegran 100 MG 100 MG les} 100 MG Imodium A-D Imodium A-D No 1{table BID Imodium 2 MG 2 MG t_as_ne A-D 2 MG eded} Keppra 750 Keppra 750 No 2{table Keppra 750 MG MG ts} MG Citalopram Citalopram No 1{table Citalopram Hydrobromid Hydrobromid t} Hydrobromi e 20 MG e 20 MG de 20 MG Ibuprofen Ibuprofen No QID Ibuprofen 600 MG 600 MG 600 MG Depakote Depakote No 2{table Depakote 500 MG 500 MG ts} 500 MG Vimpat 200 Vimpat 200 No 1{table BID Vimpat 200 MG MG t} MG Zonegran Zonegran No 3{capsu Zonegran 100 MG 100 MG les} 100 MG Keppra 750 Keppra 750 No 2{table Keppra 750 MG MG ts} MG Imodium A-D Imodium A-D No 1{table BID Imodium 2 MG 2 MG t_as_ne A-D 2 MG eded} Citalopram Citalopram No 1{table Citalopram Hydrobromid Hydrobromid t} Hydrobromi e 20 MG e 20 MG de 20 MG Ibuprofen Ibuprofen No QID Ibuprofen 600 MG 600 MG 600 MG Depakote Depakote No 2{table Depakote 500 MG 500 MG ts} 500 MG Vimpat 200 Vimpat 200 No 1{table BID Vimpat 200 MG MG t} MG Zonegran Zonegran No 3{capsu Zonegran 100 MG 100 MG les} 100 MG Keppra 750 Keppra 750 No 2{table Keppra 750 MG MG ts} MG Imodium A-D Imodium A-D No 1{table BID Imodium 2 MG 2 MG t_as_ne A-D 2 MG eded} Citalopram Citalopram No 1{table Citalopram Hydrobromid Hydrobromid t} Hydrobromi e 20 MG e 20 MG de 20 MG Ibuprofen Ibuprofen No QID Ibuprofen 600 MG 600 MG 600 MG Oxybutynin Oxybutynin 2021- No Oxybutynin Chloride ER Chloride ER 07-04 Chloride 5 MG 5 MG 00:00 ER 5 MG :00 Oxybutynin Oxybutynin 2021- No Oxybutynin Chloride ER Chloride ER 07-04 Chloride 5 MG 5 MG 00:00 ER 5 MG :00 Oxybutynin Oxybutynin 2021- No Oxybutynin Chloride ER Chloride ER 06-07 Chloride 5 MG 5 MG 00:00 ER 5 MG :00 Vital Signs Vital Name Observation Time Observation Value Comments Source height 2021-07-20 08:40:00 69 [in_i] [facility] weight 2021-07-20 08:40:00 222.8 [lb_av] [facility] temperature 2021-07-20 08:40:00 97.0 [degF] [facility] bmi 2021-07-20 08:40:00 32.9 kg/m2 [facility] oximetry 2021-07-20 08:40:00 94 % Common [facility] respiratory rate 2021-07-20 08:40:00 16 /min Comm on [facility] blood pressure 2021-07-20 08:40:00 99 mm[Hg] Common [facility] - systolic [facility] blood pressure 2021-07-20 08:40:00 56 mm[Hg] Common [facility] - diastolic [facility] height 2021-02-18 15:40:00 69 [in_i] Common [facility] weight 2021-02-18 15:40:00 209.2 [lb_av] [facility] temperature 2021-02-18 15:40:00 97.5 [degF] [facility] bmi 2021-02-18 15:40:00 30.89 kg/m2 [facility] oximetry 2021-02-18 15:40:00 96 % [facility] respiratory rate 2021-02-18 15:40:00 16 /min Comm on [facility] blood pressure 2021-02-18 15:40:00 132 mm[Hg] Common [facility] - systolic [facility] blood pressure 2021-02-18 15:40:00 70 mm[Hg] Common [facility] diastolic [facility] height 2021-02-18 15:20:00 69 [in_i] Common [facility] weight 2021-02-18 15:20:00 209.2 [lb_av] [facility] temperature 2021-02-18 15:20:00 97.5 [degF] [facility] bmi 2021-02-18 15:20:00 30.89 kg/m2 [facility] oximetry 2021-02-18 15:20:00 96 % [facility] respiratory rate 2021-02-18 15:20:00 16 /min Comm on [facility] blood pressure 2021-02-18 15:20:00 132 mm[Hg] [facility] - systolic [facility] blood pressure 2021-02-18 15:20:00 70 mm[Hg] [facility] - diastolic [facility] Weight 2020-06-27 15:00:00 [facility] [place] Height 2020-06-27 15:00:00 [facility] [place] [facility] Rate 2020-06-27 15:00:00 [facility] [place] Weight 2020-03-28 14:00:00 [facility] [place] Height 2020-03-28 14:00:00 [facility] [place] Heart Rate 2020-03-28 14:00:00 [facility] [place] Weight 2019-04-25 15:00:00 [facility] [place] Height 2019-04-25 15:00:00 [facility] [place] Heart Rate 2019-04-25 15:00:00 [facility] [place] Procedures This patient has no known procedures. Encounters Start End Encounter Admission Attending Care Care Encounter Source Date/Time Date/Time Type Type Clinicians Facility Department ID 2021-12-29 Outpatient [id number] Memoria 11:41:25 [id number] [place] [id number] 2021-10-20 Outpatient [place], STLMLC STLMLC [id number] Common 10:41:[address] [facility] 2021-10-16 Outpatient [place], STLMLC STLMLC [id number] Common 08:16:[address] [facility] 2021-08-06 Outpatient [place], STLMLC STLMLC [id number] Common 09:01:[address] [facility] 2021-07-20 Outpatient [place], STLMLC STLMLC [id number] Common 08:34:[address] [facility] 2021-07-16 Outpatient [place], STLMLC STLMLC [id number] Common 13:15:[address] [facility] 2021-06-15 Outpatient [place], STLMLC STLMLC [id number] Common 11:02:[address] [facility] 2021-05-15 Outpatient [place], STLMLC STLMLC [id number] Common 14:49:[address] [facility] 2021-04-08 Outpatient [place], STLMLC STLMLC [id number] Common 11:38:[id number] [facility] 2021-04-08 Outpatient [place], STLMLC STLMLC [id number] Common 11:37:[id number] [facility] 2021-04-08 Outpatient [place], STLMLC STLMLC [id number] Common 11:37:[id number] [facility] 2021-10-22 2021-10-22 (TEL) STLMLC STLMLC [id number] Co mmon 00:00:00 00:00:00 [facility] 2021-10-21 2021-10-21 (TEL) STLMLC STLMLC [id number] Co mmon 00:00:00 00:00:00 [facility] 2021-09-18 2021-09-18 OFFICE STLMLC STLMLC [id number] Co mmon 00:00:00 00:00:00 VISIT Spirit ESTAB PT - [facility] LEVEL 2 [facility] 2021-09-18 2021-09-18 (TEL) STLMLC STLMLC [id number] Co mmon 00:00:00 00:00:00 [facility] 2021-07-20 2021-07-20 OFFICE STLMLC STLMLC [id number] Co mmon 00:00:00 00:00:00 VISIT EST Spir it PT LEVEL 3 - [facility] 2021-05-28 2021-05-28 (TEL) STLMLC STLMLC [id number] Co mmon 00:00:00 00:00:00 [facility] 2021-05-20 2021-05-20 (TEL) STLMLC STLMLC [id number] Co mmon 00:00:00 00:00:00 [facility] 2021-05-15 2021-05-15 (TEL) STLMLC STLMLC [id number] Co mmon 00:00:00 00:00:00 [facility] 2021-04-16 2021-04-16 (TEL) STLMLC STLMLC [id number] Co mmon 00:00:00 00:00:00 [facility] 2021-04-14 2021-04-14 (TEL) STLMLC STLMLC [id number] Co mmon 00:00:00 00:00:00 [facility] 2021-02-20 2021-02-20 (TEL) STLMLC STLMLC [id number] Co mmon 00:00:00 00:00:00 [facility] 2021-02-18 2021-02-18 SUB ANNUAL STLMLC STLMLC [id number] Common 00:00:00 00:00:00 MCR [facility] VISIT [facility] 2021-02-18 2021-02-18 OFFICE STLMLC STLMLC [id number] Co mmon 00:00:00 00:00:00 VISIT EST Spir it PT LEVEL 3 [facility] 2021-02-03 2021-02-03 Outpatient [facility] [id number] eClinic 20:38:00 20:38:00 [facility] 2021-01-28 2021-01-28 Outpatient [facility] [id number] eClinic 14:20:00 14:20:00 Neurologi [facility]rolog[facility] 2020-11-05 2020-11-05 Outpatient [facility] [id number] eClinic 12:04:00 12:04:00 Neurologi Neurologica [facility]Works [facility] 2020-11-05 2020-11-05 Outpatient [facility] [id number] eClinic 11:00:00 11:00:[facility] 2020-07-06 2020-07-06 Outpatient [facility] [id number] eClinic 20:40:00 20:40:00 Neurologi [facility]rolog[facility] 2020-06-27 2020-06-27 Outpatient [facility] [id number] eClinic 10:00:00 10:00:00 Neurologi Neurologica [facility]Works [facility] [address] [facility] [address] 2020-05-30 2020-05-30 Outpatient [facility] [id number] eClinic 12:10:00 12:10:00 Neurologi Neurologica alWorks [facility] 2020-04-24 2020-04-24 Outpatient [facility] [id number] eClinic 13:34:00 13:34:00 Neurologi Neurologica alWorks yazan l [facility] 2020-04-09 2020-04-09 Outpatient [facility] [id number] eClinic 09:30:00 09:30:00 Sleep Sleep alWork [facility] 2020-03-28 2020-03-28 Outpatient [facility] [id number] eClinic 09:00:00 09:00:00 Neurologi Neurologica alWorks y[facility]an [facility] 2020-03-27 2020-03-27 Outpatient [facility] [id number] eClinic 09:13:00 09:13:00 Neurologi Neurologica alWorks yazan l [facility] 2020-03-19 2020-03-19 Outpatient [facility] [id number] eClinic 15:22:00 15:22:00 Neurologi Neurologica alWorks y[facility]an [facility] 2020-02-28 2020-02-28 Outpatient [facility] [id number] eClinic 10:02:00 10:02:00 Neurologi Neurologica alWorks ayzan l [facility] 2020-02-20 2020-02-20 Outpatient [facility] [id number] eClinic 13:53:00 13:53:00 Neurologi Neurologica alWorks y[facility]an [facility] 2020-02-18 2020-02-18 Outpatient Mem Mem [id number] eClinic 10:35:[facility] 2020-02-11 2020-02-11 Outpatient [facility] [id number] eClinic 15:26:00 15:26:00 Neurologi Neurologica alWorks y[facility]an [facility] 2020-01-30 2020-01-30 Outpatient [facility] [id number] eClinic 10:24:00 10:24:00 Neurologi Neurologica alWorks y[facility] 2020-01-12 2020-01-12 Outpatient [facility] [id number] eClinic 10:46:00 10:46:00 Neurologi Neurologica alWorks [facility] 2019-12-11 2019-12-11 Outpatient [facility] [id number] eClinic 13:57:00 13:57:00 Neurologi Neurologica alWorks [facility] 2019-12-11 2019-12-11 Emergency X AZAR, [facility] ERT [id number] Univers 10:04:00 10:04:00 SHANTELLE lacy [facility] 2019-12-11 2019-12-11 [facility] [id number] Common 00:00:00 00:00:00 [facility] 2019-11-16 2019-11-16 Outpatient [facility] [id number] eClinic 19:02:00 19:02:00 Neurologi Neurologica alWorks [facility] 2019-11-16 2019-11-16 Outpatient [facility] [id number] eClinic 08:01:00 08:01:00 Neurologi Neurologica alWorks yazan l [facility] 2019-11-15 2019-11-15 [id number] Common 12:40:00 12:40:00 t [facility] 2019-11-13 2019-11-13 Outpatient [facility] [id number] eClinic 09:01:00 09:01:00 Neurologi Neurologica alWorks y[facility]an [facility] 2019-11-07 2019-11-07 Outpatient [facility] [id number] Common 10:27:00 10:27:00 [facility] 2019-10-29 2019-10-29 Outpatient [facility] [id number] eClinic 15:12:00 15:12:00 Neurologi Neurologica alWorks yazan l [facility] 2019-10-29 2019-10-29 [facility] [id number] Common 13:20:00 13:20:00 t [facility] 2019-10-24 2019-10-24 Outpatient [facility] [id number] eClinic 08:40:00 08:40:00 Neurologi Neurologica alWorks [facility] [address] 2019-10-22 2019-10-22 Outpatient [facility] [id number] eClinic 15:39:00 15:39:00 Neurologi Neurologica alWorks yazan l [facility] 2019-10-16 2019-10-16 Outpatient [facility] [id number] eClinic 11:13:00 11:13:00 Neurologi Neurologica Audrey hand [facility] 2019-04-25 2019-04-25 Outpatient [facility] [id number] eClinic 10:00:00 10:00:00 [facility] [address] 2018-10-26 2018-10-26 Outpatient [facility] [id number] eClinic 10:32:00 10:32:00 Neurologi Neurolog[facility] 2018-09-11 2018-09-11 [id number] Common 13:15:00 13:15:[address] [facility] [address] [facility] [address] [facility] 2018-08-28 2018-08-28 [facility] [id number] Common 14:45:00 14:45:00 t Urgent [facility] 2018-06-01 2018-06-01 [facility] [id number] Common 11:15:00 11:15:[address] [facility] 2018-02-20 2018-02-20 [id number] Common 11:42:00 11:42:[address] [facility] Results Test Description Test Time Test Comments Results Result Comments Source SARS-COV 2 Antigen SARS-COV 2 [facility]
--- NOTE | 2021-12-29 12:12 | ER ---
Nurse's Notes [facility] Name: Angelika Brdoerick Age: 51 yrs Sex: Female : 1970 Arrival Date: 12/29/2021 Time: 11:43 Bed 9 Private MD: Krista Wise Diagnosis: Encounter for removal of sutures Presentation: 12/29 11:53 Chief complaint: Patient states: Needs sutures removed from L eyebrow, placed here 2 ll1 weeks ago. No fever or pain. Coronavirus screen: Vaccine status: Patient reports receiving the 2nd dose of the covid vaccine. Client denies travel out of the [place] in the last 14 days. At this time, the client does not indicate any symptoms associated with coronavirus-19. Ebola Screen: Patient denies travel to an Ebola-affected area in the 21 days before illness onset. Initial Sepsis Screen: Does the patient meet any 2 criteria? No. Patient's initial sepsis screen is negative. Does the patient have a suspected source of infection? Yes: Skin breakdown/wound. Risk Assessment: Do you want to hurt yourself or someone else? Patient reports no desire to harm self or others. Onset of symptoms was December 16, 2021. 11:53 Method Of Arrival: Ambulatory ll1 11:53 Acuity: MICHAEL 5 ll1 Triage Assessment: 11:54 General: Appears in no apparent distress. Behavior is calm, cooperative. Pain: Denies ll1 pain. EENT: Reports need stitches removed from L eyebrow. 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 - Social history:: Smoking status: Patient denies any tobacco usage or history of. Screenin:02 Abuse screen: Denies threats or abuse. Denies injuries from another. Nutritional kb3 screening: No deficits noted. Tuberculosis screening: No symptoms or risk factors identified. Fall Risk None identified. Assessment: 12:02 General: Appears in no apparent distress. Behavior is calm, cooperative, Received care kb3 of pt from triage. See triage assessment. 12:02 Reassessment: No changes from previously documented assessment. kb3 Vital Signs: 11:53 BP 136 / 106; Pulse 99; Resp 17; Temp 98.1; Pulse Ox 95% ; Weight 102.06 kg; Height 5 ll1 ft. 9 in. (175.26 cm); Pain 0/10; 11:53 Body Mass Index 33.23 (102.06 kg, 175.26 cm) ll1 ED Course: 11:43 Patient arrived in ED. mr 11:44 Krista Wise is Private Physician. mr 11:50 Jayesh Blackmon PA is PHCP. lanre 11:50 Mukesh Alvarez MD is Attending Physician. [facility] 11:54 Triage completed. ll1 11:55 Arm band placed on. ll1 11:58 Kalyani Min, RN is Primary Nurse. kb3 12:02 Patient has correct armband on for positive identification. Bed in low position. kb3 12:02 Suture removal kit to bedside. RN standby for pt comfort measures. Patient did not have kb3 IV access during this emergency room visit. 12:11 Krista Wise is Referral Physician. [facility] Administered Medications: No medications were administered Medication: 12:02 VIS not applicable for this client. kb3 Outcome: 12:11 Discharge ordered by . [facility] 12:25 Discharged to home ambulatory. kb3 12:25 Condition: stable 12:25 Discharge instructions given to patient, family, Instructed on discharge instructions, follow up and referral plans. wound care, Demonstrated understanding of instructions, follow-up care, wound care. 12:25 Patient left the ED. kb3 Signatures: Jayesh Blackmon PA PA jm Pricilla MonzonJanel, RN RN ll1 Kalyani Min, RN RN kb3 Corrections: (The following items were deleted from the chart) 12:10 12:02 IV discontinued, kb3 kb3
--- NOTE | 2021-12-29 12:12 | EDPHYS ---
Physician Documentation [facility] Name: Angelika Broderick Age: 51 yrs Sex: Female : 1970 Arrival Date: 12/29/2021 Time: 11:43 Bed 9 Private MD: Krista Wise ED Physician Mukesh Alvarez HPI: 12/29 12:08 This 51 yrs old Female presents to ER via Ambulatory with complaints of Suture Removal. jmm 12:08 The patient has sutures on the middle aspect of left eyebrow. Sutures/sade progress: jmm The patient has no c/o's. The wound is well-healing with no redness, swelling, discharge, or dehiscence reported. The patient has not experienced similar symptoms in the past. 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 - Social history:: Smoking status: Patient denies any tobacco usage or history of. ROS: 12:08 Eyes: Positive for jmm 12:08 Skin: Positive for laceration(s). 12:08 All other systems are negative. Exam: 12:08 Constitutional: This is a well developed, well nourished patient who is awake, alert, jmm and in no acute distress. 12:08 Cardiovascular: Regular rate and rhythm. No edema appreciated Respiratory: Normal respirations, no respiratory distress appreciated Abdomen/GI: Non distended Back: Normal ROM 12:08 Head/face: Noted is healing laceration noted to the left eyebrow. 12:08 Skin: Healing laceration of the left eyebrow. No purulent drainage, no induration appreciated. 12:08 Neuro: Orientation: is normal, Mentation: is normal, Memory: is normal. 12:08 Psych: Behavior/mood is pleasant, cooperative. Vital Signs: 11:53 BP 136 / 106; Pulse 99; Resp 17; Temp 98.1; Pulse Ox 95% ; Weight 102.06 kg; Height 5 ll1 ft. 9 in. (175.26 cm); Pain 0/10; 11:53 Body Mass Index 33.23 (102.06 kg, 175.26 cm) ll1 Procedures: 12:11 Suture/Staple removal: Removed 7 sutures, from middle aspect of left eyebrow, site jmm appears well healed, dressed with Patient tolerated well. MDM: 12:07 Patient medically screened. [facility] 12:11 Data reviewed: vital signs, nurses notes. Counseling: I had a detailed discussion with diaz the patient and/or guardian regarding: the historical points, exam findings, and any diagnostic results supporting the discharge/admit diagnosis, the need for outpatient follow up, to return to the emergency department if symptoms worsen or persist or if there are any questions or concerns that arise at home. Administered Medications: No medications were administered Disposition Summary: 12/29/21 12:11 Discharge Ordered Location: Home [facility] Condition: Stable [facility] Diagnosis - Encounter for removal of sutures [facility] Followup: [facility] - With: Krista Wise - When: As needed - Reason: Recheck today's complaints, Continuance of care, Re-evaluation by your physician Discharge Instructions: - Discharge Summary Sheet [facility] - Suture Removal, Care After [facility] Forms: - Medication Reconciliation Form [facility] - Thank You Letter [facility] - Antibiotic Education [facility] - Prescription Opioid Use [facility] Signatures: Jayesh Blackmon PA PA jmm Lewis, Lynsay, RN RN ll1 Kalyani Min, RN RN kb3
[2021-12-29 12:37] VITALS: BP 136/106; TEMP 98.1; O2SAT 95
== END 2021-12-29 12:25 | disposition home or self-care (01) ==
LOC: ER 11:38
DX: Z48.02 Encounter for removal of sutures (principal)
CPT/HCPCS: 99281

== ENCOUNTER 2022-07-27 09:23 | Emergency (ER) | payer OTHER ==
--- OUTSIDE RECORDS SUMMARY | 2022-07-27 09:33 | XMS REPORT | Continuity of Care Document ---
:1970 Author Organization [facility] t Address [address] [place] [address] Care Team Providers Name Role Phone Krista Wise Primary Care Physician Krista Wise Attending Clinician Unavailable SANCHEZ CHINCHILLA Attending Clinician Unavailable Sanchez Chinchilla MD Attending Clinician SHANTELLE ASKEW Attending Clinician Unavailable Payers Payer Name Policy Type Policy Number Effective Date Expiration Date Hawk lee [facility] [id number] 2022 DUAL COMP HMO D 00:00:00 [facility] MEDICAID OF [id number] 2018 [place] 00:00:00 [facility] [id number] 2020 [facility] ADVANTAGE 00:00:00 - [facility] Problems Condition Condition Condition Status Onset Resolution Last Treating Co mments Source Name Details Category Date Date Treatment Clinician Date Malignant Malignant Problem Active 2021-02-05 Memoria neoplasm neoplasm 03:45:08 l 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 Active Problem 02/05/2021 [facility] Epilepsy Epilepsy Problem Active 2021-02-05 Memoria Active 03:45:08 l Problem [place] 02/05/2021 [facility] 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 Rajesh n Active Problem 02/05/2021 [facility] Depression Depressio Problem Active 2021-02-05 Memoria n Active 03:45:08 l Problem [place] 02/05/2021 [facility] Hyperglyce Hyperglyc Diagnosis Active 2020-11-06 Memoria satnam emia 02:45:15 l Active Jose Diagnosis 11/06/2020 [facility] Patient Patient Diagnosis Active 2020-09-06 Memoria had no had no 02:46:23 l falls in falls in Rajesh n past year past year Active Diagnosis 09/06/2020 [facility] Tremor Tremor Problem Active 2021-02-05 Seymour deloris Active 03:45:08 l Problem [place] 02/05/2021 [facility] Intellectu Intellect Problem Active 2021-02-05 Memoria al ual 03:45:08 l disability disability He rmann Active Problem 02/05/2021 [facility] Iron Iron Problem Active 2021-02-05 Memor ia deficiency deficiency 03:45:08 l anemia, anemia, Jose unspecifie unspecifie d iron d iron deficiency deficiency anemia anemia type type Active Problem 02/05/2021 [facility] 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:45:08 l cognitive cognitive Herm joseph impairment impairment Active Problem 02/05/2021 [facility] [id number] Abnormal Problem Comm on mammogram [facility] [id number] Encounter Problem Com mon for [facility] screening - [facility] for other [facility] [id number] Intrinsic Problem Comm on eczema [facility] [id number] Mentally Problem Comm on disabled [facility] [id number] Bipolar 1 Problem Com mon disorder [facility] [id number] Anxiety Problem Common [facility] [id number] Mixed Problem Common stress and Spirit urge - [facility] urinary [facility] [id number] Seizures Problem Commo n Spirit - [facility] [id number] Petit mal Problem Commo n seizure Spirit status - [facility] [id number] Right-side Problem Co mmon d low back Spirit pain - [facility] without [facility] chronicity [id number] Generalize Problem Com mon d weakness [facility] - [facility] Encounter Encounter Problem Active 2021-02-05 Memoria for for 03:45:08 l long-term long-term Herm joseph (current) (current) use of use of other other medication medication s s Active Problem 02/05/2021 [facility] Allergies, Adverse Reactions, Alerts Allergy Allergy Status Severity Reaction(s) Onset Inactive Treating Comm ents Source Name Type Date Date Clinician Tegretol Tegretol Active Info Not 2020-03 Seymour deloris Available 17 l 00:00: Phenobar Phenobar Active Info Not 2020-03 Seymour deloris bital bital Available 17 l 00:00: Dilantin Dilantin Active Info Not 2020-03 Seymour deloris Available 17 l 00:00: Phenytoi Propensi Active Hives 2019-0 Univer s n Sodium ty to 7-18 ity of Extended adverse 00:00: [place] reaction 00 Medical s Branch PHENYTOI DRUG Active Hives 2019-0 Univers N SODIUM INGREDI 7-18 ity of EXTENDED 00:00: [place] 00 Medical Branch Phenobar Propensi Active Unknown - 2019-0 Uni vers bital ty to See comments 1-20 ity of adverse 00:00: [place] reaction 00 Medical s Branch Carbamaz Propensi Active Unknown - 2019-0 Uni vers epine ty to See comments 1-20 ity of adverse 00:00: [place] reaction 00 Medical s Branch PHENOBAR DRUG Active Unknown-Cmnt 2019-0 Un katina BITAL INGREDI 1-20 ity of 00:00: [place] 00 Medical Branch CARBAMAZ DRUG Active Unknown-Cmnt 2019-0 Un katina EPINE INGREDI 1-20 ity of 00:00: [place] 00 Medical Branch Social History Social Habit Start Date Stop Date Quantity Comments Source History of Tobacco [facility] - [facility] Use [facility] Exposure to 2022-04-19 2022-04-29 Not sure [facility] SARS-CoV-2 (event) 00:00:00 12:41:00 [facility] Sex Assigned At [birth year] [facility] [place] 00:00:00 00:00:00 Medical Branch Smoking Status Start Date Stop Date Source Tobacco smoking consumption [facility] [place] [facility] unknown Branch Never Smoker [facility] Medications Ordered Filled Start Stop Current Ordering Indication Dosage Frequency Signature Comments Components Source Medication Medication Date Date Medication? Clinician (SIG) Name Name amoxicillin 2022- No 1{tbl} 1 tablet, Univers -clavulanat 04-29 Oral, ONCE i ty of e 21:15: 20:30 NOW, 1 [place] (AUGMENTIN) 00 :00 dose, On [facility] 875-125 mg Hayley Branch per tablet 04/29/22 at 1 tablet 1515, Routine
Reason for Anti-Infec tive: Documented Infection< br>Documen tj Infection Site: HEENT
D uration of Therapy: Other (see Comments) ketorolac No 20mg 20 mg, Unive rs (TORADOL) 04-29 Oral, ONCE ity of tablet 20 20:00: 19:13 NOW, 1 [place] mg 00 :00 [facility] 04/29/22 at 1400, SANJEEV loratadine No 10mg 10 mg, Univ ers (CLARITIN) 04-29 Oral, ONCE it y of tablet 10 20:00: 19:13 NOW, 1 [place] mg 00 :00 [facility], [facility] 04/29/22 at 1400, SANJEEV dextrometho 2022- No 10mL 10 mL, Uni vers rphan-guaif 04-29 Oral, ONCE i ty of enesin 20:00: 19:15 NOW, 1 [place] (ROBITUSSIN 00 :00 dose, On [facility] DM) 10-100 Hayley Branch mg/5 mL 04/29/22 at solution 10 1400, mL Routine meloxicam Yes [id number] 15mg Take 1 Un katina 15 mg 2-16 tablet by ity of tablet 00:00: mouth in [place] 00 the Medical morning. Branch dextrometho Yes [id number] 1{tbl} Take 1 Univers rphan-guaif 2-16 tablet by ity of enesin 00:00: mouth in [place] (MUCINEX 00 the Medical DM) 30-600 morning Branch mg per and 1 tablet tablet in the evening. acetaminoph Yes [id number] 650mg Take 1 Univers en (TYLENOL 2-16 tablet by ity of ARTHRITIS 00:00: mouth [place] PAIN) 650 00 every 8 Medical mg CR (eight) Branch tablet hours as needed for Pain. amoxicillin 2022- Yes [id number] 1{tbl} Take 1 Univers -clavulanat 2-16 02-27 tablet by it y of e 875-125 00:00: 05:59 mouth [place] mg per 00 :00 every 12 Medical tablet (twelve) Branch hours for 10 days. Oxybutynin Oxybutynin 2021-03- No 1{table BID Oxybutynin Chloride 5 Chloride 5 03-21 t} Chloride 5 MG MG 00:00: 00:00 MG 00 :00 Oxybutynin Oxybutynin 2021-03- No 1{table BID Oxybutynin Chloride 5 Chloride 5 03-21 t} Chloride 5 MG MG 00:00: 00:00 MG 00 :00 Betamethaso Betamethaso 2021-03- No 1{appli QD Betamethas ne ne 03-21 cation} one Dipropionat Dipropionat 00:00: 00:00 Dipropiona e 0.05 % e 0.05 % 00 :00 te 0.05 % Rosuvastati Rosuvastati No 1{table QD Rosuvastat n [...] tablet Memori a 1-24 Palvadi l 00:00: Jose Vimpat 2020-03 Yes Edda 1 tablet Memori a 1-24 Palvadi l 00:00: Jose Keppra 2020-03 Yes Edda 1 tablet Memori a 1-19 Palvadi l 03:45: Jose [facility] 2020-03 Yes Edda 3 capsule Mem oria 1-19 Palvadi qhs l 03:45: Jose Acyclovir 2020-03 Yes Edda 1 tablet Mem oria 1-19 Palvadi l 03:45: Jose Depakote 2020-03 Yes Edda 1 tablet Seymour deloris 1-19 Palvadi l 03:45: Jose Citalopram 2020-03 Yes Edda 1 tablet Me moria Hydrobromid 1-19 Palvadi l e 03:45: Jose ppra 2020-03 Yes Edda 2 tablets Memor ia 1-19 Palvadi l 03:45: [facility] Edda 1 tablet Memori a 1-19 Palvadi l 03:45: Jose [facility] 2020-03 Yes Edda 3 capsule Mem oria 1-19 Palvadi qhs l 03:45: Jose Acyclovir 2020-03 Yes Edda 1 tablet Mem oria 1-19 Palvadi l 03:45: Jose Depakote 2020-03 Yes Edda 1 tablet Seymour deloris 1-19 Palvadi l 03:45: Jose Citalopram 2020-03 Yes Edda 1 tablet Me moria Hydrobromid 1-19 Palvadi l e 03:45: Jose Keppra 2020-03 Yes Edda 2 tablets Memor ia 1-19 Palvadi l 03:45: [facility] Memori a 8-25 Palvadi l 00:00: [facility] 1 tablet Memori a 8-25 Palvadi l 00:00: [facility] Michelle 1 tablet Seymour deloris 7-17 Melgar l 02:47: Vimpat Yes Michelle 1 tablet Seymour deloris 7- Melgar l 02:47: Depakote Yes Edda 1 tablet Seymour deloris 11-15 Palvadi l 00:00: Depakote Yes Edda 1 tablet Seymour deloris 11-15 Palvadi l 00:00: Citalopram Citalopram Yes Krista 1 tablet Common Hydrobromid Hydrobromid [facility] - [facility] Vimpat Vimpat Yes Krista 1 tablet Common [facility] Keppra Keppra Yes Krista 2 tablets Commo n [facility] Ibuprofen Ibuprofen Yes Krista 1 tablet Common [facility] with food Spirit or milk as - [facility] needed [facility] Depakote Depakote Yes Krista 2 tablets C ommon [facility] Zonegran Zonegran Yes Krista 3 capsules Common [facility] Imodium A-D Imodium A-D Yes Krista 1 tablet Common [facility] as needed [facility] Tylenol Tylenol Yes Krista 2 tablets Com mon [facility] as needed [facility] Randolph Randolph Yes Krista 1 tablet Common [facility] as needed [facility] Acyclovir Acyclovir Yes Krista 2 capsules Common [facility] Depakote Depakote No 2{table Depakote 500 MG [...] 2{table Keppra 750 MG MG ts} MG Vimpat 200 Vimpat 200 No 1{table BID Vimpat 200 MG MG t} MG Citalopram Citalopram No 1{table Citalopram Hydrobromid [...] 500 MG 500 MG ts} 500 MG Imodium A-D Imodium A-D No 1{table BID Imodium 2 MG 2 MG t_as_ne A-D 2 MG eded} Keppra 750 Keppra 750 No 2{table Keppra 750 MG MG ts} MG Imodium A-D Imodium A-D No 1{table BID Imodium 2 MG 2 MG t_as_ne A-D 2 MG eded} Ibuprofen Ibuprofen No QID Ibuprofen 600 MG 600 MG 600 MG Citalopram Citalopram No 1{table Citalopram Hydrobromid Hydrobromid t} Hydrobromi e 20 MG e 20 MG de 20 MG Depakote Depakote No 2{table Depakote 500 [...] Name Observation Time Observation Value Comments Source Systolic blood 2022-04-29 20:31:28 145 mm[Hg] [facility] Diastolic blood 2022-04-29 20:31:28 77 mm[Hg] [facility] Heart rate 2022-04-29 20:31:28 100 /min [facility] Respiratory rate 2022-04-29 20:31:28 16 /min [facility] Oxygen saturation in 2022-04-29 20:31:28 94 /min [facility] blood by [facility] Pulse oximetry Branch Body temperature 2022-04-29 18:42:00 37.61 Marilyn [facility] Body height 2022-04-29 18:42:00 175.3 cm [facility] Body weight 2022-04-29 18:42:00 111.131 kg [facility] BMI 2022-04-29 18:42:00 36.18 kg/m2 [facility] height 2022-01-19 10:40:00 69 [in_i] Common [facility] weight 2022-01-19 10:40:00 240.8 [lb_av] Common [facility] temperature 2022-01-19 10:40:00 97.5 [degF] Common [facility] bmi 2022-01-19 10:40:00 35.56 kg/m2 [facility] oximetry 2022-01-19 10:40:00 97 % [facility] respiratory rate 2022-01-19 10:40:00 16 /min Comm on [facility] blood pressure 2022-01-19 10:40:00 130 mm[Hg] Common [facility] - systolic [facility] blood pressure 2022-01-19 10:40:00 72 mm[Hg] Common [facility] - diastolic [facility] height 2021-07-20 08:40:00 69 [in_i] Common S pirit [facility] weight 2021-07-20 08:40:00 222.8 [lb_av] Common [facility] temperature 2021-07-20 08:40:00 97.0 [degF] [facility] bmi 2021-07-20 08:40:00 32.9 kg/m2 [facility] oximetry 2021-07-20 08:40:00 94 % Common [facility] respiratory rate 2021-07-20 08:40:00 16 /min Comm on [facility] blood pressure 2021-07-20 08:40:00 99 mm[Hg] Common [facility] - systolic [facility] blood pressure 2021-07-20 08:40:00 56 mm[Hg] Common [facility] - diastolic [facility] height 2021-02-18 15:40:00 69 [in_i] Common [facility] weight 2021-02-18 15:40:00 209.2 [lb_av] [facility] temperature 2021-02-18 15:40:00 97.5 [degF] Common S pirit [facility] bmi 2021-02-18 15:40:00 30.89 kg/m2 Common S [facility] oximetry 2021-02-18 15:40:00 96 % Common S [facility] respiratory rate 2021-02-18 15:40:00 16 /min Comm on [facility] blood pressure 2021-02-18 15:40:00 132 mm[Hg] Common [facility] - systolic [facility] blood pressure 2021-02-18 15:40:00 70 mm[Hg] Common [facility] - diastolic [facility] height 2021-02-18 15:20:00 69 [in_i] Common [facility] weight 2021-02-18 15:20:00 209.2 [lb_av] [facility] temperature 2021-02-18 15:20:00 97.5 [degF] Common [facility] bmi 2021-02-18 15:20:00 30.89 kg/m2 [facility] oximetry 2021-02-18 15:20:00 96 % [facility] respiratory rate 2021-02-18 15:20:00 16 /min Comm on [facility] blood pressure 2021-02-18 15:20:00 132 mm[Hg] Common [facility] - systolic [facility] blood pressure 2021-02-18 15:20:00 70 mm[Hg] Common [facility] - diastolic [facility] Weight 2020-06-27 15:00:00 [facility] Height 2020-06-27 15:00:00 [facility] Heart Rate 2020-06-27 15:00:00 [facility] Weight 2020-03-28 14:00:00 [facility] Height 2020-03-28 14:00:00 [facility] Heart Rate 2020-03-28 14:00:00 [facility] Weight 2019-04-25 15:00:00 [facility] [place] Height 2019-04-25 15:00:[address] [facility] [place] Heart Rate 2019-04-25 15:00:00 [facility] Procedures Procedure Date / Time Performed Performing Clinician [facility] e RAPID STREP SCREEN 2022-04-29 19:11:00 [facility] RAPID INFLUENZA A/B 2022-04-29 19:11:00 Sanchez Chinchilla [facility] Medical Branch COVID-19 (ID NOW 2022-04-29 19:11:00 Sanchez Chinchilla [facility] RAPID TESTING) Medical Branch CONSENT/REFUSAL FOR 2022-04-29 18:38:14 [facility], [facility] AND Name Medical Branch TREATMENT Encounters Start End Encounter Admission Attending Care Care Encounter Source Date/Time Date/Time Type Type Clinicians Facility Department ID 2022-07-27 Outpatient [id number] Memoria 09:30:48 [id number] Outpatient Burton, STLMLC STLMLC [id number] Common 13:37:00 Krista 16389 [facility] 2022-07-01 Outpatient [facility], STLMLC STLMLC [id number] Common 10:31:00 Krista 56346 [facility] 2022-04-13 Outpatient [facility], STLMLC STLMLC [id number] Common 11:04:02 Krista 38363 [facility] 2022-04-09 Outpatient [facility], STLMLC STLMLC [id number] Common 08:48:01 Krista 05899 [facility] 2021-12-29 Outpatient [id number] Memoria 11:41:25 [id number] 2021-10-20 Outpatient [facility], STLMLC STLMLC [id number] Common 10:41:00 Krista [facility] 2021-10-16 Outpatient [facility], STLMLC STLMLC [id number] Common 08:16:00 Krista [facility] 2021-08-06 Outpatient [facility], STLMLC STLMLC [id number] Common 09:01:00 Krista [facility] 2021-07-20 Outpatient [facility], STLMLC STLMLC [id number] Common 08:34:01 Krista [facility] 2021-07-16 Outpatient [facility], STLMLC STLMLC [id number] Common 13:15:01 Krista [facility] 2021-06-15 Outpatient [facility], STLMLC STLMLC [id number] Common 11:02:01 Krista [facility] 2021-05-15 Outpatient [facility], STLMLC STLMLC [id number] Common 14:49:00 Krista [facility] 2021-04-08 Outpatient [facility], STLMLC STLMLC [id number] Common 11:38:47 Krista [facility] 2021-04-08 Outpatient [facility], STLMLC STLMLC [id number] Common 11:37:31 Krista 89121 [facility] 2021-04-08 Outpatient [facility], STLMLC STLMLC [id number] Common 11:37:08 Krista 52832 [facility] 2022-04-29 2022-04-29 Emergency X RENÉE, RUST ERT [id number] Univers 12:43:00 14:37:00 SANCHEZ lacy [facility] 2022-04-29 2022-04-29 Emergency Renée, RUST [id number] Univers 12:43:00 14:37:00 Sanchez CHATTERJEE [id number] i [facility] [id number] [facility] [id number] [address] 2022-01-20 2022-01-20 (TEL) STLMLC STLMLC [id number] Co mmon 00:00:00 00:00:00 [facility] 2022-01-19 2022-01-19 OFFICE STLMLC STLMLC [id number] Co mmon 00:00:00 00:00:00 VISIT EST Spir it PT LEVEL 3 - [facility] 2021-10-22 2021-10-22 (TEL) STLMLC STLMLC [id number] Co mmon 00:00:00 00:00:00 [facility] 2021-10-21 2021-10-21 (TEL) STLMLC STLMLC [id number] Co mmon 00:00:00 00:00:00 [facility] 2021-09-18 2021-09-18 OFFICE STLMLC STLMLC [id number] Co mmon 00:00:00 00:00:00 VISIT Spirit ESTAB PT [facility] LEVEL 2 [facility] 2021-09-18 2021-09-18 (TEL) STLMLC STLMLC [id number] Co mmon 00:00:00 00:00:00 [facility] 2021-07-20 2021-07-20 OFFICE STLMLC STLMLC [id number] Co mmon 00:00:00 00:00:00 VISIT EST Spir it PT LEVEL 3 [facility] 2021-05-28 2021-05-28 (TEL) STLMLC STLMLC [id number] Co mmon 00:00:00 00:00:00 [facility] 2021-05-20 2021-05-20 (TEL) STLMLC STLMLC [id number] Co mmon 00:00:00 00:00:00 [facility] 2021-05-15 2021-05-15 (TEL) STLMLC STLMLC [id number] Co mmon 00:00:00 00:00:00 [facility] 2021-04-16 2021-04-16 (TEL) STLMLC STLMLC [id number] Co mmon 00:00:00 00:00:00 [facility] 2021-04-14 2021-04-14 (TEL) STLMLC STLMLC [id number] Co mmon 00:00:00 00:00:00 [facility] 2021-02-20 2021-02-20 (TEL) STLMLC STLMLC [id number] Co mmon 00:00:00 00:00:00 [facility] 2021-02-18 2021-02-18 SUB ANNUAL STLMLC STLMLC [id number] Common 00:00:00 00:00:00 MCR Spirit WELLNESS - [facility]I VISIT [facility] 2021-02-18 2021-02-18 OFFICE STLMLC STLMLC [id number] Co mmon 00:00:00 00:00:00 VISIT EST Spir it PT LEVEL 3 - [facility] 2021-02-03 2021-02-03 Outpatient [facility] [id number] eClinic 20:38:00 20:38:00 Neurologi [facility] yazan l Norden Norden 2021-01-28 2021-01-28 Outpatient [facility] [id number] eClinic 14:20:00 14:20:00 [facility]rolog[facility] yazan l Norden Norden PL 2020-11-05 2020-11-05 Outpatient [facility] [id number] eClinic 12:04:00 12:04:00 [facility]rologi [facility] yazan l Norden Norden 2020-11-05 2020-11-05 Outpatient [facility] [id number] eClinic 11:00:00 11:00:00 [facility]rolog[facility] yazan l Norden Norden PL 2020-07-06 2020-07-06 Outpatient [facility] [id number] eClinic 20:40:00 20:40:00 [facility]rologi [facility] yazan l Norden Norden 2020-06-27 2020-06-27 Outpatient [facility] [id number] eClinic 10:00:00 10:00:00 [facility]rologi [facility] yazan l Norden Norden PL PL 2020-05-30 2020-05-30 Outpatient [facility] [id number] eClinic 12:10:00 12:10:00 [facility]rologi [facility] yazan l Norden Norden 2020-04-24 2020-04-24 Outpatient [facility] [id number] eClinic 13:34:00 13:34:00 Neurologi [facility] yazan l Norden Norden 2020-04-09 2020-04-09 Outpatient [facility] [id number] eClinic 09:30:00 09:30:00 Sleep Sleep alWork s Disorder Disorder [facility] PL 2020-03-28 2020-03-28 Outpatient [facility] [id number] eClinic 09:00:00 09:00:00 Neurologi [facility] yazan l Norden Norden PL PL 2020-03-27 2020-03-27 Outpatient [facility] [id number] eClinic 09:13:00 09:13:00 Neurologi [facility] yazan l Norden Norden 2020-03-19 2020-03-19 Outpatient [facility] [id number] eClinic 15:22:00 15:22:00 Neurologi Neurologica al[facility] 2020-02-28 2020-02-28 Outpatient [facility] [id number] eClinic 10:02:00 10:02:00 Neurologi Neurologica alR [facility] 2020-02-20 2020-02-20 Outpatient [facility] [id number] eClinic 13:53:00 13:53:00 Neurologi Neurologica alR [facility] 2020-02-18 2020-02-18 Outpatient Mem Mem [id number] eClinic 10:35:00 10:35:00 [facility] [place] [facility] 2020-02-11 2020-02-11 Outpatient [facility] [id number] eClinic 15:26:00 15:26:00 Neurologi Neurologica alR [facility] 2020-01-30 2020-01-30 Outpatient [facility] [id number] eClinic 10:24:00 10:24:00 Neurologi Neurologica alR [facility] 2020-01-12 2020-01-12 Outpatient [facility] [id number] eClinic 10:46:00 10:46:00 Neurologi Neurologica [facility] 2019-12-11 2019-12-11 Outpatient [facility] [id number] eClinic 13:57:00 13:57:00 Neurologi Neurologica alR [facility] 2019-12-11 2019-12-11 Emergency X ASKEW, RUST ERT [id number] Univers 10:04:00 10:04:00 SHANTELLE lacy [facility] 2019-12-11 2019-12-11 Outpatient [facility] [id number] Common 00:00:00 00:00:00 [facility] 2019-11-16 2019-11-16 Outpatient [facility] [id number] eClinic 19:02:00 19:02:00 Neurologi Neurologica al[facility] 2019-11-16 2019-11-16 Outpatient [facility] [id number] eClinic 08:01:00 08:01:00 Neurologi Neurologica alR [facility] 2019-11-15 2019-11-15 [id number] Common 12:40:00 12:40:[address] Spir it [facility] 2019-11-13 2019-11-13 Outpatient [facility] [id number] eClinic 09:01:00 09:01:00 Neurologi [facility] yazan l Norden Norden 2019-11-07 2019-11-07 Outpatient [facility] [id number] Common 10:27:00 10:27:[address] [facility] [facility] 2019-10-29 2019-10-29 Outpatient [facility] [id number] eClinic 15:12:00 15:12:00 [facility] yazan l Norden Norden 2019-10-29 2019-10-29 [id number] Common 13:20:00 13:20:00 [facility] 2019-10-24 2019-10-24 Outpatient [facility] [id number] eClinic 08:40:00 08:40:00 [facility] [address] 2019-10-22 2019-10-22 Outpatient [facility] [id number] eClinic 15:39:00 15:39:00 [facility] yazan l Norden Norden 2019-10-16 2019-10-16 Outpatient [facility] [id number] eClinic 11:13:00 11:13:00 [facility] yazan l Norden Norden 2019-04-25 2019-04-25 Outpatient [facility] [id number] eClinic 10:00:00 10:00:00 [facility] yazan l Norden Norden [facility] 2018-10-26 2018-10-26 Outpatient [facility] [id number] eClinic 10:32:00 10:32:00 [facility] yazan l Norden Norden 2018-09-11 2018-09-11 [facility] [id number] Common 13:15:00 13:15:00 [facility] 2018-08-28 2018-08-28 [facility] [id number] Common 14:45:00 14:45:00 t [facility] 2018-06-01 2018-06-01 [facility] [id number] Common 11:15:00 11:15:[address] [facility] 2018-02-20 2018-02-20 [facility] [id number] Common 11:42:00 11:42:[address] [facility] [address] [facility] [address] [facility] Results Test Description Test Time Test Comments Results Result Comments Source SARS-COV 2 Antigen SARS-COV 2 Antigen
[2022-07-27] MEDS ORDERED: LIDOCAINE 1% MPF 5 ML VIAL ONE (10:09)
--- NOTE | 2022-07-27 10:48 | EDPHYS ---
Physician Documentation [facility] Name: Angelika Broderick Age: 52 yrs Sex: Female : 1970 Arrival Date: 07/27/2022 Time: 09:23 Bed 12 Private MD: ED Physician Charles Hook HPI: 07/27 10:39 This 52 yrs old Female presents to ER via Wheelchair with complaints of Foreign Body - rn in foot, Puncture Wound To Foot - glass 3 days ago. 10:39 The patient or guardian reports the patient has a suspected foreign body, foot. The rn reported likely foreign body is a fragment of glass. Onset: The symptoms/episode began/occurred 5 day(s) ago. Current symptoms: foreign body sensation. The patient has not experienced similar symptoms in the past. Pt reports stepped on broken glass 5 days ago, increased pain and swelling to bottom of left foot. . 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 - Social history:: Smoking status: . - Family history:: not pertinent. - Hospitalizations: : No recent hospitalization is reported. ROS: 10:39 Constitutional: Negative for fever, chills, and weight loss, Skin: + foreign body rn sensation to bottom of left foot. Exam: 10:39 Constitutional: This is a well developed, well nourished patient who is awake, alert, rn and in no acute distress. MS/ Extremity: Pulses equal, no cyanosis. Neurovascular intact. Full, normal range of motion. Equal circumference. 0.5cm area of swelling and tenderness plantar surface of left foot. Vital Signs: 09:44 BP 133 / 52; Pulse 75; Resp 16; Temp 98.1; Pulse Ox 100% on R/A; iw Procedures: 10:39 Foreign Body Removal: a fragment of glass, from the left foot, by incising to remove, rn using lidocaine 1% without epinephrine to anesthesize the area, tweezers, Dressing: bandaid, The patient tolerated the removal well, Using ultrasound guidance, fragment of glass identified along with much smaller glass dust, only single piece of glass identified. Glass fragment removed and given to patient, post ultrasound at bedside show only remaining punctate pieces of glass. Small amount of purulence on initial incision, and wound cleaned/irrigated with betadine after procedure complete. . MDM: 09:28 Patient medically screened. rn 10:39 Data reviewed: vital signs, nurses notes, radiologic studies, ultrasound, and as a rn result, I will discharge patient. Counseling: I had a detailed discussion with the patient and/or guardian regarding: the historical points, exam findings, and any diagnostic results supporting the discharge/admit diagnosis, radiology results, the need for outpatient follow up, to return to the emergency department if symptoms worsen or persist or if there are any questions or concerns that arise at home. Response to treatment: the patient's symptoms have markedly improved after treatment, and as a result, I will discharge patient. Special discussion: I discussed with the patient/guardian in detail that at this point there is no indication for admission to the hospital. It is understood, however, that if the symptoms persist or worsen the patient needs to return immediately for re-evaluation. Based on the history and exam findings, there is no indication for further emergent testing or inpatient evaluation. I discussed with the patient/guardian the need to see the release of information specialist for further evaluation of the symptoms. I discussed with the patient/guardian the need to see the primary care provider for further evaluation of the symptoms. ED course: Pt improved, singular glass fragment approx a few mm in size removed, told patient multiple punctate pieces of glass still in foot, will give abx for signs of infection and to see hemp fiber taker off if continues to give problems. Patient thankful and pain decreased significantly. . 07/27 10:01 Order name: Suture Tray at Bedside; Complete Time: 11:06 rn Administered Medications: 10:50 Drug: Lidocaine Infiltration (1 %) 1 vials Volume: 5 ml; Route: Infiltration; iw 11:00 Follow up: Response: No adverse reaction iw Disposition Summary: 07/27/22 10:46 Discharge Ordered Location: Home rn Problem: new rn Symptoms: have improved rn Condition: Stable rn Diagnosis - Puncture wound with foreign body, left foot rn Followup: rn - With: Judd Riley DPM - When: As needed - Reason: Recheck today's complaints, Re-evaluation by your physician Discharge Instructions: - Discharge Summary Sheet rn - Hand or Foot Foreign Body, Adult rn Forms: - Medication Reconciliation Form rn - Thank You Letter rn - Antibiotic sport intern - Prescription Opioid Use rn Prescriptions: - Clindamycin HCl 300 mg Oral Capsule - take 1 capsule by ORAL route every 6 hours for 10 days; 40 capsule; Refills: 0, rn Product Selection Permitted Signatures: Alexandria Gutiérrez RN RN Charles Rodriguez MD MD rn
--- NOTE | 2022-07-27 10:48 | ER ---
Nurse's Notes [facility] Name: Angelika Broderick Age: 52 yrs Sex: Female : 1970 Arrival Date: 07/27/2022 Time: 09:23 Bed 12 Private MD: Diagnosis: Puncture wound with foreign body, left foot Presentation: 07/27 09:44 Chief complaint: Patient states: believes there is s piece of glass stuck in her left iw foot X 3-4 days. Coronavirus screen: At this time, the client does not indicate any symptoms associated with coronavirus-19. Ebola Screen: Patient negative for fever greater than or equal to 101.5 degrees Fahrenheit, and additional compatible Ebola Virus Disease symptoms Patient denies exposure to infectious person. Patient denies travel to an Ebola-affected area in the 21 days before illness onset. No symptoms or risks identified at this time. Initial Sepsis Screen: Does the patient meet any 2 criteria? No. Patient's initial sepsis screen is negative. Does the patient have a suspected source of infection? No. Patient's initial sepsis screen is negative. Risk Assessment: Do you want to hurt yourself or someone else? Patient reports no desire to harm self or others. Onset of symptoms was July 24, 2022. 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 - Social history:: Smoking status: . - Family history:: not pertinent. - Hospitalizations: : No recent hospitalization is reported. Screenin:10 [facility] ED Fall Risk Assessment (Adult) History of falling in the last 3 months, iw including since admission. Abuse screen: Denies threats or abuse. Denies injuries from another. Nutritional screening: No deficits noted. Tuberculosis screening: No symptoms or risk factors identified. Assessment: 10:09 General: Appears in no apparent distress. Behavior is calm, cooperative. Pain: iw Complains of pain in left foot. Neuro: Level of Consciousness is awake, alert, obeys commands, Oriented to person, place, time, situation, Moves all extremities. Cardiovascular: Patient's skin is warm and dry. Respiratory: Respiratory effort is even, unlabored, Respiratory pattern is regular, symmetrical. Derm: Skin is intact. Musculoskeletal: Range of motion: intact in all extremities. Vital Signs: 09:44 BP 133 / 52; Pulse 75; Resp 16; Temp 98.1; Pulse Ox 100% on R/A; iw ED Course: 09:25 Patient arrived in ED. am2 09:28 Charles Hook MD is Attending Physician. rn 09:45 Triage completed. iw 09:45 Arm band placed on. iw 10:06 Alexandria Gutiérrez RN is Primary Nurse. iw 10:09 Patient has correct armband on for positive identification. iw 10:46 Judd Riley DPM is Referral Physician. rn 11:00 Assist provider with foreign body removal from left foot. iw 11:05 Patient did not have IV access during this emergency room visit. iw Administered Medications: 10:50 Drug: Lidocaine Infiltration (1 %) 1 vials Volume: 5 ml; Route: Infiltration; iw 11:00 Follow up: Response: No adverse reaction iw Medication: 10:10 VIS not applicable for this client. iw Outcome: 10:46 Discharge ordered by . rn 11:06 Discharged to home via wheelchair. iw 11:06 Condition: good 11:06 Discharge instructions given to patient, Instructed on discharge instructions, follow up and referral plans. medication usage, Demonstrated understanding of instructions, follow-up care, medications, Prescriptions given X 1. 11:07 Patient left the ED. iw Signatures: Alexandria Gutiérrez RN RN Charles Hook MD MD rn Moreno, Amanda am2 Corrections: (The following items were deleted from the chart) 15:23 12:00 Assist provider with foreign body removal from left foot iw iw
[2022-07-27 11:17] VITALS: BP 133/52; TEMP 98.1; O2SAT 100
== END 2022-07-27 11:07 | disposition home or self-care (01) ==
LOC: ER 09:23
PROC: 0JCR3ZZ Extirpation of Matter from Left Foot Subcutaneous Tissue and Fascia, Percutaneous Approach (ICD-10-PCS; principal; 2022-07-27)
DX: S91.342A Puncture wound with foreign body, left foot, initial encounter (principal); Z88.5 Allergy status to narcotic agent; Z88.8 Allergy status to other drugs, medicaments and biological substances
CPT/HCPCS: 99283; 10120; J2001

== ENCOUNTER 2022-09-20 08:39 | Inpatient (IN) | payer OTHER ==
--- OUTSIDE RECORDS SUMMARY | 2022-09-20 08:43 | XMS REPORT | Continuity of Care Document ---
:1970 Author Organization [facility] t Address [address] [facility] [address] [place] [address] Care Team Providers Name Role Phone Krista Wise Primary Care Physician Krista Wise Attending Clinician Unavailable SANCHEZ CHINCHILLA Attending Clinician Unavailable Sanchez Chinchilla MD Attending Clinician SHANTELLE ASKEW Attending Clinician Unavailable Payers Payer Name Policy Type Policy Number Effective Date Expiration Date Hawk lee [facility] [id number] 2022 DUAL COMP HMO D 00:00:00 [facility] MEDICAID OF [id number] 2018 [place] 00:00:00 [facility] [id number] 2020 [facility] ADVANTAGE 00:00:00 - [facility] Problems Condition Condition Condition Status Onset Resolution Last Treating Co mments Source Name Details Category Date Date Treatment Clinician Date Malignant Malignant Problem Active 2021-02-05 Memoria neoplasm neoplasm 03:45:08 l of of [place] unspecifie unspecifie d ovary d ovary Active Problem 02/05/2021 [facility] Epilepsy Epilepsy Problem Active 2021-02-05 Memoria Active 03:45:08 l Problem [place] 02/05/2021 [facility] 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 Rajesh n Active Problem 02/05/2021 [facility] Depression Depressio Problem Active 2021-02-05 Memoria n Active 03:45:08 l Problem [place] 02/05/2021 [facility] Hyperglyce Hyperglyc Diagnosis Active 2020-11-06 Memoria satnam emia 02:45:15 l Active [place] Diagnosis 11/06/2020 [facility] [id number] Abnormal Problem Comm on mammogram [facility] [id number] Encounter Problem Com mon for Spirit screening - [facility] for other [facility] [id number] Intrinsic Problem Comm on eczema [facility] [id number] Mentally Problem Comm on disabled [facility] [id number] Bipolar 1 Problem Com mon disorder [facility] [id number] Anxiety Problem Common [facility] [id number] Mixed Problem Common stress and Spirit urge - [facility] urinary [facility] Patient Patient Diagnosis Active 2020-09-06 Memoria had no had no 02:46:23 l falls in falls in Rajesh n past year past year Active Diagnosis 09/06/2020 [facility] [id number] Seizures Problem Commo n [facility] [id number] Petit mal Problem Commo n seizure [facility] [id number] Right-side Problem Co mmon d low back [facility] pain - [facility] without [facility] chronicity [id number] Generalize Problem Com mon d weakness [facility] Tremor Tremor Problem Active 2021-02-05 Seymour deloris Active 03:45:08 l Problem [place] 02/05/2021 [facility] Intellectu Problem Active 2021-02-05 M emoria al Intellectu 03:45:08 l disability al Rajesh n disability Active Problem 02/05/2021 [facility] Iron Iron Problem Active 2021-02-05 Memor ia deficiency deficiency 03:45:08 l anemia, anemia, [place] unspecifie unspecifie d iron d iron deficiency deficiency anemia anemia type type Active Problem 02/05/2021 [facility] 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:45:08 l cognitive cognitive Herm joseph impairment impairment Active Problem 02/05/2021 [facility] Encounter Encounter Problem Active 2021-02-05 Memoria for for 03:45:08 l long-term long-term Herm joseph (current) (current) use of use of other other medication medication s s Active Problem 02/05/2021 [facility] Allergies, Adverse Reactions, Alerts [...] 17 l 00:00: Phenytoi Propensi Active Hives 2018-0 Univer s n Sodium ty to 7-18 ity of Extended adverse 00:00: [place] reaction 00 Medical s Branch PHENYTOI DRUG Active Hives 2018-0 Univers N SODIUM INGREDI 7-18 ity of [...] of Tobacco [facility] - [facility] Use [facility] Exposure to 2022-04-19 2022-04-29 Not sure [facility] SARS-CoV-2 (event) 00:00:00 12:41:00 Medica l Branch Sex Assigned At [birth year] [facility] [place] 00:00[facility]00 00:00:00 Medical Branch Smoking Status Start Date Stop Date Source Tobacco [facility] Never Smoker [facility] Medications Ordered Filled Start Stop Current Ordering Indication Dosage Frequency Signature Comments Components Source Medication Medication Date Date Medication? Clinician (SIG) Name Name amoxicillin 2022- No 1{tbl} 1 tablet, Univers -clavulanat 04-29 Oral, ONCE i ty of e 21:15: 20:30 NOW, 1 [place] (AUGMENTIN) 00 :00 dose, On [facility] 875-125 mg Hay[place] Branch per tablet 04/29/22 at 1 tablet 1515, Routine
Reason for Anti-Infec tive: Documented Infection< br>Documen tj Infection Site: HEENT
D uration of Therapy: Other (see Comments) ketorolac 2022- No 20mg 20 mg, Unive rs (TORADOL) 04-29 Oral, ONCE ity of tablet 20 20:00: 19:13 NOW, 1 [place] mg 00 :00 dose, On Medical [place] Branch 04/29/22 at 1400, SANJEEV loratadine 2022- No 10mg 10 mg, Univ ers (CLARITIN) 04-29 Oral, ONCE it y of tablet 10 20:00: 19:13 NOW, 1 [place] mg 00 :00 dose, On Medical [place] Branch 04/29/22 at 1400, SANJEEV dextrometho 2022- No 10mL 10 mL, Uni vers rphan-guaif 04-29 Oral, ONCE i ty of enesin 20:00: 19:15 NOW, 1 [place] (ROBITUSSIN 00 :00 dose, On [facility] DM) 10-100 Hayley Branch mg/5 mL 04/29/22 at solution 10 1400, mL Routine meloxicam Yes [id number] 15mg Take 1 Un katina 15 mg 2-16 tablet by ity of tablet 00:00: mouth in [place] 00 the Medical morning. Branch dextrometho Yes [id number] 1{tbl} Take 1 Univers rphan-guaif 2-16 tablet by ity of enesin 00:00: mouth in [place] (MUCINEX 00 the Medical DM) 30-600 morning Branch mg per and 1 tablet tablet in the evening. acetaminoph Yes [id number] 650mg Take 1 Univers en (TYLENOL 2-16 tablet by ity of ARTHRITIS 00:00: mouth [place] PAIN) 650 00 every 8 Medical mg CR (eight) Branch tablet hours as needed for Pain. amoxicillin 2022- No [id number] 1{tbl} Take 1 Univers -clavulanat 2-16 -27 tablet by it y of e 875-125 [...] MG 20 MG 00:00: 20 MG [facility] Edda 1 tablet Memori a 1-24 Palvadi l 00:00: [facility] Edda 1 tablet Memori a 1-24 Palvadi l 00:00: Jose [facility] Yes Edda 1 tablet Memori a 1-24 Palvadi l 00:00: [place] 00 Citalopram 2020-03 Yes Edda 1 tablet Me moria Hydrobromid 1-19 Palvadi l e 03:45: [facility] Edda 2 tablets Memor ia 1-19 Palvadi l 03:45: Jose [facility]-03 Yes Edda 1 tablet Memori a 1-19 Palvadi l 03:45: Jose [facility] 2020-03 Yes Edda 3 capsule Mem oria 1-19 Palvadi qhs l 03:45: Jose Acyclovir 2020-03 Yes Edda 1 tablet Mem oria 1-19 Palvadi l 03:45: [facility] Yes Edda 1 tablet Seymour deloris 1-19 Palvadi l 03:45: Jose 10 Citalopram 2020-03 Yes Edda 1 tablet Me moria Hydrobromid 1-19 Palvadi l e 03:45: Jose [facility]2020-03 Yes Edda 2 tablets Memor ia 1-19 Palvadi l 03:45: Jose [facility]2020-03 Yes Edda 1 tablet Memori a 1-19 Palvadi l 03:45: Jose [facility] 2020-03 Yes Edda 3 capsule Mem oria 1-19 Palvadi qhs l 03:45: [place] 10 Acyclovir 2020-03 Yes Edda 1 tablet Mem oria 1-19 Palvadi l 03:45: [facility] Edda 1 tablet Seymour deloris 1-19 Palvadi l 03:45: Jose Citalopram 2020-03 Yes Edda 1 tablet Me moria Hydrobromid 1-19 Palvadi l e 03:45: Jose [facility]1 Yes Edda 2 tablets Memor ia 1-19 Palvadi l 03:45: Jose Zonegran 2020-03 Yes Edda 3 capsule Mem oria 1-19 Palvadi qhs l 03:45: Jose Keppra 2020-03 Yes Edda 1 tablet Memori a 1-19 Palvadi l 03:45: Jose Acyclovir 2020-03 Yes Edda 1 tablet Mem oria 1-19 Palvadi l 03:45: Jose Depakote 2020-03 Yes Edda 1 tablet Seymour deloris 1-19 Palvadi l 03:45: Jose Vimpat Yes Edda 1 tablet Memori a 8-25 Palvadi l 00:00: Vimpat Yes Edda 1 tablet Memori a 8-25 Palvadi l 00:00: [facility] Yes Edda 1 tablet Memori a 8-25 Palvadi l 00:00: Vimpat Yes Michelle 1 tablet Seymour deloris 7-17 Melgar l 02:47: Vimpat Yes Michelle 1 tablet Seymour deloris 7-17 Melgar l 02:47: [facility] Yes Michelle 1 tablet Seymour deloris 7-17 Melgar l 02:47: Depakote Yes Edda 1 tablet Seymour deloris 9-04 Palvadi l 00:00: Depakote Yes Edda 1 tablet Seymour deloris 9-04 Palvadi l 00:00: Depakote Yes Edda 1 tablet Seymour deloris 9-04 Palvadi l 00:00: Citalopram Citalopram Yes Krista 1 tablet Common Hydrobromid Hydrobromid [facility] Vimpat Vimpat Yes Krista 1 tablet Common [facility] Keppra Kera Yes Krista 2 tablets Commo n [facility] Ibuprofen Ibuprofen Yes Krista 1 tablet Common [facility] with food Spirit or milk as - [facility] needed [facility] Depakote Depakote Yes Krista 2 tablets C ommon [facility] Zonegran Zonegran Yes Krista 3 capsules Common [facility] Imodium A-D Imodium A-D Yes Krista 1 tablet Common [facility] as needed [facility] Tylenol Tylenol Yes Krista 2 tablets Com mon [facility] as needed [facility] Rawson Rawson Yes Krista 1 tablet Common [facility] as needed [facility] Acyclovir Acyclovir Yes Krista 2 capsules Common [facility] Depakote Depakote No 2{table Depakote 500 [...] blood 2022-04-29 20:31:28 145 mm[Hg] Univer [facility] Diastolic blood 2022-04-29 20:31:28 77 mm[Hg] [facility] 2022-04-29 20:31:28 100 /min [facility] Respiratory rate 2022-04-29 20:31:28 16 /min [facility] Oxygen saturation in 2022-04-29 20:31:28 94 /min University Arterial blood by [facility] [place] [facility] Pulse oximetry Branch Body temperature 2022-04-29 18:42:00 37.61 Marilyn [facility] Body height 2022-04-29 18:42:00 175.3 cm Universi ty [facility] Body weight 2022-04-29 18:42:00 111.131 kg Universi [facility] [place] BMI 2022-04-29 18:42:00 36.18 kg/m2 Universi [facility] [place] height 2022-01-19 10:40:00 69 [in_i] Common [facility] weight 2022-01-19 10:40:00 240.8 [lb_av] [facility] temperature 2022-01-19 10:40:00 97.5 [degF] [facility] bmi 2022-01-19 10:40:00 35.56 kg/m2 [facility] oximetry 2022-01-19 10:40:00 97 % [facility] respiratory rate 2022-01-19 10:40:00 16 /min Comm on [facility] blood pressure 2022-01-19 10:40:00 130 mm[Hg] Common [facility] - systolic [facility] blood pressure 2022-01-19 10:40:00 72 mm[Hg] Common [facility] - diastolic [facility] height 2021-07-20 08:40:00 69 [in_i] Common [facility] weight 2021-07-20 08:40:00 222.8 [lb_av] [facility] temperature 2021-07-20 08:40:00 97.0 [degF] [facility] bmi 2021-07-20 08:40:00 32.9 kg/m2 [facility] oximetry 2021-07-20 08:40:00 94 % Common S pirit [facility] respiratory rate 2021-07-20 08:40:00 16 /min Comm on [facility] blood pressure 2021-07-20 08:40:00 99 mm[Hg] Common [facility] - systolic [facility] blood pressure 2021-07-20 08:40:00 56 mm[Hg] Common [facility] - diastolic [facility] height 2021-02-18 15:40:00 69 [in_i] [facility] weight 2021-02-18 15:40:00 209.2 [lb_av] [facility] temperature 2021-02-18 15:40:00 97.5 [degF] Common [facility] bmi 2021-02-18 15:40:00 30.89 kg/m2 [facility] oximetry 2021-02-18 15:40:00 96 % Common [facility] respiratory rate 2021-02-18 15:40:00 16 /min Comm on [facility] blood pressure 2021-02-18 15:40:00 132 mm[Hg] Common [facility] - systolic [facility] blood pressure 2021-02-18 15:40:00 70 mm[Hg] Common [facility] - diastolic [facility] height 2021-02-18 15:20:00 69 [in_i] Common [facility] weight 2021-02-18 15:20:00 209.2 [lb_av] [facility] temperature 2021-02-18 15:20:00 97.5 [degF] Common [facility] bmi 2021-02-18 15:20:00 30.89 kg/m2 Common [facility] oximetry 2021-02-18 15:20:00 96 % [facility] respiratory rate 2021-02-18 15:20:00 16 /min Comm on [facility] blood pressure 2021-02-18 15:20:00 132 mm[Hg] [facility] - systolic [facility] blood pressure 2021-02-18 15:20:00 70 mm[Hg] [facility] - diastolic [facility] Weight 2020-06-27 15:00:00 [facility] [place] Height 2020-06-27 15:00:00 [facility] [place] Heart Rate 2020-06-27 15:00:00 [facility] Jose Weight 2020-03-28 14:00:00 [facility] [place] Height 2020-03-28 14:00:00 [facility] [place] Heart Rate 2020-03-28 14:00:00 [facility] Jose Weight 2019-04-25 15:00:00 [facility] [place] Height 2019-04-25 15:00:00 [facility] 2019-04-25 15:00:00 [facility] Procedures Procedure Date / Time Performed Performing Clinician [facility] e RAPID STREP SCREEN 2022-04-29 19:11:00 Sanchez Chinchilla [facility] FOR GROUP A Medical Branch RAPID INFLUENZA A/B 2022-04-29 19:11:00 Sanchez Chinchilla [facility] Medical Branch COVID-19 (ID NOW 2022-04-29 19:11:00 Sanchez Chinchilla [facility] RAPID TESTING) Medical Branch CONSENT/REFUSAL FOR 2022-04-29 18:38:14 Doctor Unassigned, No Un [facility] DIAGNOSIS AND Name Medical Branch TREATMENT Encounters Start End Encounter Admission Attending Care Care Encounter Source Date/Time Date/Time Type Type Clinicians Facility Department ID 2022-09-20 Outpatient [id number] Memoria 08:41:54 [id number] Jose [id number] 2022-07-27 Outpatient [id number] Memoria 09:30:48 [id number] [place] [id number] Outpatient Barber, STLMLC STLMLC [id number] Common 13:37:00 Krista [id number] [facility] 2022-07-01 Outpatient Barber, STLMLC STLMLC [id number] Common 10:31:00 Krista 83923 [facility] 2022-04-13 Outpatient Barber, STLMLC STLMLC [id number] Common 11:04:02 Krista 71203 [facility] 2022-04-09 Outpatient Barber, STLMLC STLMLC [id number] Common 08:48:01 Krista [facility] 2021-12-29 Outpatient [id number] Memoria 11:41:25 [id number] [place] [id number] 2021-10-20 Outpatient Barber, STLMLC STLMLC [id number] Common 10:41:00 Krista [facility] 2021-10-16 Outpatient Barber, STLMLC STLMLC [id number] Common 08:16:00 Krista [facility] 2021-08-06 Outpatient Barber, STLMLC STLMLC [id number] Common 09:01:00 Krista [facility] 2021-07-20 Outpatient Barber, STLMLC STLMLC [id number] Common 08:34:01 Krista [facility] 2021-07-16 Outpatient Barber, STLMLC STLMLC [id number] Common 13:15:01 Krista [facility] 2021-06-15 Outpatient Barber, STLMLC STLMLC [id number] Common 11:02:01 Krista [facility] 2021-05-15 Outpatient Barber, STLMLC STLMLC [id number] Common 14:49:00 Krista [facility] 2021-04-08 Outpatient Barber, STLMLC STLMLC [id number] Common 11:38:47 Krista [id number] [facility] 2021-04-08 Outpatient Barber, STLMLC STLMLC [id number] Common 11:37:31 Krista 47061 [facility] 2021-04-08 Outpatient Barber, STLMLC STLMLC [id number] Common 11:37:08 Krista 10624 [facility] 2022-04-29 2022-04-29 Emergency X RENÉE, [facility] ERT [id number] Univers 12:43:00 14:37:00 SANCHEZ lacy [facility] 2022-04-29 2022-04-29 Emergency Renée, [facility] [id number] Univers 12:43:00 14:37:00 Sanchez CHATTERJEE [id number] i [facility] [place] [place] [id number] [facility] [id number] [address] 2022-01-20 2022-01-20 (TEL) STLMLC STLMLC [id number] Co mmon 00:00:00 00:00:00 [facility] 2022-01-19 2022-01-19 OFFICE STLMLC STLMLC [id number] Co mmon 00:00:00 00:00:00 VISIT EST Spir it PT LEVEL 3 - [facility] 2021-10-22 2021-10-22 (TEL) STLMLC STLMLC [id number] Co mmon 00:00:00 00:00:00 [facility] 2021-10-21 2021-10-21 (TEL) STLMLC STLMLC [id number] Co mmon 00:00:00 00:00:00 [facility] 2021-09-18 2021-09-18 OFFICE STLMLC STLMLC [id number] Co mmon 00:00:00 00:00:00 VISIT Spirit [facility] PT [facility] LEVEL 2 [facility] 2021-09-18 2021-09-18 (TEL) STLMLC STLMLC [id number] Co mmon 00:00:00 00:00:00 [facility] 2021-07-20 2021-07-20 OFFICE STLMLC STLMLC [id number] Co mmon 00:00:00 00:00:00 VISIT EST Spir it PT LEVEL 3 - [facility] 2021-05-28 2021-05-28 (TEL) STLMLC STLMLC [id number] Co mmon 00:00:00 00:00:00 [facility] 2021-05-20 2021-05-20 (TEL) STLMLC STLMLC [id number] Co mmon 00:00:00 00:00:00 [facility] 2021-05-15 2021-05-15 (TEL) STLMLC STLMLC [id number] Co mmon 00:00:00 00:00:00 [facility] 2021-04-16 2021-04-16 (TEL) STLMLC STLMLC [id number] Co mmon 00:00:00 00:00:00 [facility] 2021-04-14 2021-04-14 (TEL) STLMLC STLMLC [id number] Co mmon 00:00:00 00:00:00 [facility] 2021-02-20 2021-02-20 (TEL) STLMLC STLMLC [id number] Co mmon 00:00:00 00:00:00 [facility] 2021-02-18 2021-02-18 SUB ANNUAL STLMLC STLMLC [id number] Common 00:00:00 00:00:00 MCR [facility] VISIT [facility] 2021-02-18 2021-02-18 OFFICE STLMLC STLMLC [id number] Co mmon 00:00:00 00:00:00 VISIT EST Spir it PT LEVEL 3 - [facility] 2021-02-03 2021-02-03 Outpatient [facility] [id number] eClinic 20:38:00 20:38:00 Neurologi [facility] 2021-01-28 2021-01-28 Outpatient [facility] [id number] eClinic 14:20:00 14:20:00 Neurologi [facility] yazan l [address] 2020-11-05 2020-11-05 Outpatient [facility] [id number] eClinic 12:04:00 12:04:00 Neurologi [facility] yazan l [facility] 2020-11-05 2020-11-05 Outpatient [facility] [id number] eClinic 11:00:00 11:00:00 Neurologi [facility] yazan l [address] 2020-07-06 2020-07-06 Outpatient [facility] [id number] eClinic 20:40:00 20:40:00 Neurologi [facility] yazan l [place] [facility] 2020-06-27 2020-06-27 Outpatient [facility] [id number] eClinic 10:00:00 10:00:00 Neurologi [facility] yazan l [address] 2020-05-30 2020-05-30 Outpatient [facility] [id number] eClinic 12:10:00 12:10:00 Neurologi [facility] yazan l [facility] 2020-04-24 2020-04-24 Outpatient [facility] [id number] eClinic 13:34:00 13:34:00 Neurologi [facility] yazan l [place] [facility] 2020-04-09 2020-04-09 Outpatient [facility] [id number] eClinic 09:30:00 09:30:00 Sleep Sleep alWork s Disorder Disorder Center [facility] 2020-03-28 2020-03-28 Outpatient [facility] [id number] eClinic 09:00:00 09:00:00 Neurologi [facility] yazan l [address] 2020-03-27 2020-03-27 Outpatient [facility] [id number] eClinic 09:13:00 09:13:00 Neurologi [facility]rolog[facility]Works yazan l [place] [facility] 2020-03-19 2020-03-19 Outpatient [facility] [id number] eClinic 15:22:00 15:22:00 Neurologi [facility] yazan l [facility] 2020-02-28 2020-02-28 Outpatient [facility] [id number] eClinic 10:02:00 10:02:00 Neurologi [facility]rolog[facility]Works yazan l [facility] 2020-02-20 2020-02-20 Outpatient [facility] [id number] eClinic 13:53:00 13:53:00 Neurologi [facility]Works yazan l [place] [facility] 2020-02-18 2020-02-[address] [facility] [id number] eClinic 10:35:00 10:35:00 [facility] [place] 2020-02-11 2020-02-11 Outpatient [facility] [id number] eClinic 15:26:00 15:26:00 Neurologi Neurologica [facility]Works yazan l [facility] 2020-01-30 2020-01-30 Outpatient [facility] [id number] eClinic 10:24:00 10:24:00 Neurologi [facility]rolog[facility]Works yazan l [facility] 2020-01-12 2020-01-12 Outpatient [facility] [id number] eClinic 10:46:00 10:46:00 Neurologi [facility]Works yazan l [facility] 2019-12-11 2019-12-11 Outpatient [facility] [id number] eClinic 13:57:00 13:57:00 [facility] 2019-12-11 2019-12-11 Emergency X ASKEW, [facility] ERT [id number] Univers 10:04:00 10:04:00 SHANTELLE lacy [facility] 2019-12-11 2019-12-11 Outpatient STLMLC STLMLC [id number] Common 00:00:00 00:00:00 [facility] 2019-11-16 2019-11-16 Outpatient [facility] [id number] eClinic 19:02:00 19:02:00 Neurologi Neurologica [facility] 2019-11-16 2019-11-16 Outpatient [facility] [id number] eClinic 08:01:00 08:01:[address] [facility] [address] [facility] [address] [facility] 2019-11-15 2019-11-15 [id number] Common 12:40:00 12:40:00 t [facility] 2019-11-13 2019-11-13 Outpatient [facility] [id number] eClinic 09:01:00 09:01:00 [facility] 2019-11-07 2019-11-07 Outpatient [facility] [address] [id number] Common 10:27:00 10:27:00 [facility] Medical [facility] Medical Group [facility] 2019-10-29 2019-10-29 Outpatient [facility] [id number] eClinic 15:12:00 15:12:00 Neurologi Neurologica alTellme yazan l [place] 2019-10-29 2019-10-29 [facility] [id number] Common 13:20:00 13:20:00 t [facility] [address] Spir [address] [facility] 2019-10-24 2019-10-24 Outpatient [facility] [id number] eClinic 08:40:00 08:40:00 Neurologi Neurologica alTellme yazan l [address] 2019-10-22 2019-10-22 Outpatient [facility] [id number] eClinic 15:39:00 15:39:00 Neurologi Neurologica alTellme yazan l [place] 2019-10-16 2019-10-16 Outpatient [facility] [id number] eClinic 11:13:00 11:13:00 Neurologi Neurologica alTellme yazan l [place] [facility] 2019-04-25 2019-04-25 Outpatient [facility] [id number] eClinic 10:00:00 10:00:00 Neurologi Neurologica alTellme yazan l [place] [facility] 2018-10-26 2018-10-26 Outpatient [facility] [id number] eClinic 10:32:00 10:32:00 Neurologi Neurologica alTellme yazan l [place] 2018-09-11 2018-09-11 [facility] [id number] Common 13:15:00 13:15:00 t [facility] Spir [address] [facility] 2018-08-28 2018-08-28 Outpatient [facility] [place] [id number] Common 14:45:00 14:45:00 t [facility] 2018-06-01 2018-06-01 [facility] [id number] Common 11:15:00 11:15:[address] [facility] 2018-02-20 2018-02-20 [facility] [place] [id number] Common 11:42:00 11:42:00 t [facility] [address] [facility] Results Test Description Test Time Test Comments Results Result Comments Source SARS-COV 2 Antigen SARS-COV 2 Antigen
[2022-09-20] MEDS ORDERED: NA CHLORIDE 0.9% 1,000 ML ONE ×3 (09:08→17:42)
[2022-09-20 09:20] LABS: Hematocrit 37.8 % (36.0-45.0); Lymphocytes % 20.8 % (15.3-44.8); MCV 97.6 fL (80-100); MPV 10.2 fL (7.6-11.3); RBC Red Blood Cell Count 3.87 M/uL (3.86-4.86)
[2022-09-20 09:40] LABS: Albumin 3.2 g/dL (3.4-5.0); Bilirubin Total 0.2 mg/dL (0.2-1.0); Potassium 3.9 mEq/L (3.5-5.1); Protein, Total 6.8 g/dL (6.4-8.2)
[2022-09-20 10:32] LABS: Specific Gravity 1.013 (1.005-1.030); Urine Bilirubin NEGATIVE (Negative); Urine Blood Negative (Negative); Urine Clarity Clear (Clear); Urine Color Light-Yellow (Yellow); Urine Glucose NEGATIVE (Negative); Urine Protein NEGATIVE (Negative); Urine Urobilinogen Normal (Normal); Urine pH 5.5 (5.0-7.0)
--- NOTE | 2022-09-20 11:21 | RAD REPORT ---
EXAM DESCRIPTION: CT - Abdomen Pelvis W Contrast - 09/20/2022 9:56 am CLINICAL HISTORY: Abd pain;Nausea / vomiting COMPARISON: No comparisons TECHNIQUE: Thin cut axial CT imaging of the abdomen and pelvis was performed following intravenous a dministration of 100 mL Isovue 300. Multiplanar reformats were generated and reviewed. All CT scans are performed using dose optimization technique as appropriate and may include automated exposure control or mA/KV adjustment according to patient size. FINDINGS: Motion artifact at the level of the mid abdomen limits evaluation. No suspicious findings in the lung bases. The liver, spleen, and pancreas show no suspicious findings. Gallbladder and biliary tree are also wi thout suspicious finding. Symmetric renal function is seen with no hydronephrosis or suspicious renal mass. Bilateral small neal al cysts as well as an exophytic left renal mid pole 4.4 centimeter fluid density cyst. Long segment wall thickening with mild adjacent fat stranding involving the tortuous proximal to mid sigmoid colon. Sequelae of distal small bowel resection and probable enterocolic anastomosis, closely approximating the anterior abdominal wall near the midline. No free air, free fluid, fluid collectio ns, or inflammatory stranding. No hernia, mass or bulky lymphadenopathy. The urinary bladder is witho ut significant finding. No suspicious bony findings. IMPRESSION: Long segment wall thickening with mild adjacent fat stranding involving the tortuous pro ximal to mid sigmoid colon, most suggestive of segmental infectious or inflammatory colitis. No evide nce of complications. .
[2022-09-20] MEDS ORDERED: METRONIDAZOLE 500mg IVPB 500 MG/100 ML BAG IV ONE (12:11)
[2022-09-20] MEDS ORDERED: CIPROFLOXACIN 400mg IV 400 MG/200 ML BAG IV ONE (12:11)
--- NOTE | 2022-09-20 12:18 | ER ---
Nurse's Notes [facility] [place] Name: Angelika Broderick Age: 52 yrs Sex: Female : 1970 Arrival Date: 09/20/2022 Time: 08:39 Bed 14 Private MD: Diagnosis: Diverticulitis of large intestine without perforation or abscess without bleeding;Hypotension, unspecified;Dehydration;Muscle weakness (generalized) Presentation: 09/20 08:45 Chief complaint: EMS states: paged out for nausea, vomiting and low blood pressure. ko1 Patient lives at home and has a caregiver. Coronavirus screen: At this time, the client does not indicate any symptoms associated with coronavirus-19. Ebola Screen: No symptoms or risks identified at this time. Initial Sepsis Screen: Does the patient meet any 2 criteria? No. Patient's initial sepsis screen is negative. Does the patient have a suspected source of infection? No. Patient's initial sepsis screen is negative. Risk Assessment: Do you want to hurt yourself or someone else? Patient reports no desire to harm self or others. Onset of symptoms was September 20, 2022. Care prior to arrival: Medication(s) given: Normal saline infusion, 200cc out of 1000cc bag. zofran 4 mg, IV initiated. 20 GA, in the right antecubital area. 08:45 Method Of Arrival: EMS: [facility] ko1 08:45 Acuity: MICHAEL 3 ko1 Triage Assessment: 09:08 General: Appears in no apparent distress. uncomfortable, Behavior is calm, cooperative, ko1 appropriate for age. Pain: Complains of pain in abdomen. Historical: - Allergies: 09:08 Mysoline; ko1 09:08 Phenobarbital; ko1 - Home Meds: 09:08 Depakote ER Oral [Active]; ko1 - PMHx: 09:08 Seizure; ko1 - Immunization history:: Adult Immunizations unknown. - Social history:: Smoking status: Patient denies any tobacco usage or history of. - Family history:: not pertinent. - Hospitalizations: : No recent hospitalization is reported. Screenin:09 [facility] ED Fall Risk Assessment (Adult) History of falling in the last 3 months, ko1 including since admission No falls in past 3 months (0 pts) Confusion or Disorientation No (0 pts) Intoxicated or Sedated No (0 pts) Impaired Gait No (0 pts) Mobility Assist Device Used No (0 pt) Altered Elimination No (0 pt) Score/Fall Risk Level 0 - 2 = Low Risk Oriented to surroundings, Maintained a safe environment, Educated pt \T\ family on fall prevention, incl call for assistance when getting out of bed, Assessed \T\ reinforced patient's understanding of fall precautions, Provided non-skid footwear, Hourly rounding (assess needs \T\ fall precautionary measures) done, Used ambulatory aids as needed (educated on \T\ assisted with), Used gait belt as appropriate. Abuse screen: Denies threats or abuse. Denies injuries from another. Nutritional screening: No deficits noted. Tuberculosis screening: No symptoms or risk factors identified. Assessment: 09:09 Neuro: No deficits noted. Cardiovascular: No deficits noted. Respiratory: No deficits ko1 noted. GI: Reports lower abdominal pain, constipation, diarrhea, nausea, vomiting. : No deficits noted. EENT: No deficits noted. Derm: No deficits noted. Musculoskeletal: No deficits noted. 10:37 Reassessment: Patient ambulated to bathroom, states she had a bowel movement that was ko1 very painful (due to constipation). 19:16 Reassessment: Assumed care of pt from MAO [place]. PT states she brought her own medicine vc1 and would like to use it instead of being charged for medications here. Pt took home night time medications. Vital Signs: 08:45 BP 99 / 60; Pulse 67; Resp 18; Temp 98.8(O); Pulse Ox 100% ; ko1 09:15 BP 95 / 56; Pulse 86; Resp 18; Pulse Ox 99% ; ko1 10:39 BP 100 / 78; Pulse 78; Resp 18; Pulse Ox 99% ; ko1 19:17 BP 115 / 52; Pulse 62; Resp 17; Pulse Ox 97% ; vc1 ED Course: 08:43 Patient arrived in ED. em1 08:45 Charles Hook MD is Attending Physician. rn 08:54 Julienne Sullivan, MAO is Primary Nurse. ko1 09:08 Triage completed. ko1 09:08 Arm band placed on right wrist. Patient placed in an exam room, on a stretcher, on ko1 production assistant, on pulse oximetry, Patient notified of wait time. 09:09 Patient has correct armband on for positive identification. Bed in low position. Call ko1 light in reach. Side rails up X2. Client placed on continuous cardiac and pulse oximetry monitoring. NIBP monitoring applied. music library assistant on. Door closed. Noise minimized. Warm blanket given. 09:09 Maintain EMS IV. Dressing intact. Site clean \T\ dry. Gauge \T\ site: 20g R AC. ko 1 09:13 CBC with Diff Sent. ko1 09:13 CMP Sent. ko1 09:13 Lipase Sent. ko1 09:14 Missed attempt(s): 22 gauge in left forearm. Bleeding controlled, band aid applied, ds4 catheter tip intact. 09:15 Provided Education on: IV start/labs. ko1 09:58 CT Abd/Pelvis - IV Contrast Only In Process Unspecified. EDMS 10:39 No provider procedures requiring assistance completed. ko1 12:17 Mauricio Hook MD is Hospitalizing Provider. rn 13:00 First set of blood cultures drawn by me, Second set of blood cultures drawn by me. ds4 13:06 Inserted saline lock: 22 gauge in left upper arm, using aseptic technique. Blood ds4 collected. 13:30 Blood Culture Adult (2) Sent. ko1 13:30 Lactate w/ 2H reflex if indic. Sent. ko1 19:51 Patient admitted, IV remains in place. vc1 Administered Medications: 08:59 Drug: NS 0.9% IV 1000 ml Route: IV; Rate: 1 bolus; Site: right antecubital; ko1 10:13 Follow up: Response: No adverse reaction; IV Status: Completed infusion; IV Intake: ko1 1000ml 13:30 Drug: Ciprofloxacin IVPB 400 mg Volume: 200 ml; Route: IVPB; Infused Over: 60 mins; ko1 Site: right antecubital; 13:30 Drug: NS 0.9% IV 1000 ml Route: IV; Rate: 1000 ml; Site: right antecubital; ko1 13:52 Drug: metroNIDAZOLE IVPB 500 mg Volume: 100 ml; Route: IVPB; Rate: 200 ml/hr; Infused ko1 Over: 30 mins; Site: right antecubital; Medication: 10:39 VIS not applicable for this client. ko1 Intake: 10:13 IV: 1000ml; Total: 1000ml. ko1 Outcome: 12:18 Decision to Hospitalize by Provider. rn 19:51 Admitted to Med/surg accompanied by tech, via wheelchair, room 212, Report called to omid Auguste RN 19:51 Condition: good 19:51 Instructed on the need for admit. 19:59 Patient left the ED. [facility] Signatures: Dispatcher [employer] EDCharles Man MD MD rn Martinez, Eric em1 Swanson, Donovan ds4 Rubi Chun RN RN vc1 Julienne Sullivan RN RN ko1 Corrections: (The following items were deleted from the chart) 12:10 12:06 Ciprofloxacin IVPB 400 mg 200 ml IVPB in right antecubital over 60 mins ko1 ko1
--- NOTE | 2022-09-20 12:18 | EDPHYS ---
Physician Documentation [facility] Name: Angelika Broderick Age: 52 yrs Sex: Female : 1970 Arrival Date: 09/20/2022 Time: 08:39 Bed 14 Private MD: ED Physician Charles Hook HPI: 09/20 10:15 This 52 yrs old Female presents to ER via EMS with complaints of abd pain. rn 10:15 The patient presents with abdominal pain right lower quadrant, in the left lower rn quadrant. Onset: The symptoms/episode began/occurred last night. The symptoms do not radiate. Associated signs and symptoms: Pertinent positives: nausea and vomiting, constipation, Pertinent negatives: fever. The symptoms are described as intermittent, sharp. Modifying factors: The symptoms are alleviated by nothing, the symptoms are aggravated by touching the area. Severity of pain: At its worst the pain was moderate in the emergency department the pain is unchanged. The patient has not experienced similar symptoms in the past. The patient has not recently seen a physician. Historical: - Allergies: 09:08 Mysoline; ko1 09:08 Phenobarbital; ko1 - Home Meds: 09:08 Depakote ER Oral [Active]; ko1 - PMHx: 09:08 Seizure; ko1 - Immunization history:: Adult Immunizations unknown. - Social history:: Smoking status: Patient denies any tobacco usage or history of. - Family history:: not pertinent. - Hospitalizations: : No recent hospitalization is reported. ROS: 10:15 Constitutional: Negative for fever, chills, and weight loss, Eyes: Negative for injury, rn pain, redness, and discharge, Neck: Negative for injury, pain, and swelling, Cardiovascular: Negative for chest pain, palpitations, and edema, Respiratory: Negative for shortness of breath, cough, wheezing, and pleuritic chest pain, Abdomen/GI: + abd pain and nausea/vomiting MS/Extremity: Negative for injury and deformity, Skin: Negative for injury, rash, and discoloration, Neuro: + generalized weakness Exam: 10:15 Constitutional: This is a well developed, well nourished patient who is awake, alert, rn appears in pain Cardiovascular: Regular rate and rhythm. No pulse deficits. Respiratory: No increased work of breathing, no retractions or nasal flaring. Abdomen/GI: soft, + LLQ and suprapubic tenderness, no rebound Skin: Warm, dry MS/ Extremity: Pulses equal, no cyanosis. Neuro: Awake and alert, GCS 15 Vital Signs: 08:45 BP 99 / 60; Pulse 67; Resp 18; Temp 98.8(O); Pulse Ox 100% ; ko1 09:15 BP 95 / 56; Pulse 86; Resp 18; Pulse Ox 99% ; ko1 10:39 BP 100 / 78; Pulse 78; Resp 18; Pulse Ox 99% ; ko1 19:17 BP 115 / 52; Pulse 62; Resp 17; Pulse Ox 97% ; vc1 MDM: 08:45 Patient medically screened. rn 12:15 Differential diagnosis: bowel obstruction, diverticulitis, non-specific abd pain, rn pancreatitis, Peritonitis, Pyelonephritis, Ureterolithiasis, urinary tract infection. Data reviewed: vital signs, nurses notes, lab test result(s), radiologic studies, CT scan, and as a result, I will admit patient. Consideration of Admission/Observation Patient was admitted/placed on observation. Escalation of care including admission/observation considered. Counseling: I had a detailed discussion with the patient and/or guardian regarding: the historical points, exam findings, and any diagnostic results supporting the discharge/admit diagnosis, lab results, radiology results, the need for further work-up and treatment in the hospital. Response to treatment: the patient's symptoms have mildly improved after treatment. ED course: Ct shows colitis/diverticulitis, presented with hypotension, BP improving with fluids, still borderline, lactate ordered and pending, abx ordered to be given after blood cultures obtained. . 09/20 08:53 Order name: CBC with Diff; Complete Time: 09:46 rn 09/20 08:53 Order name: CMP; Complete Time: 09:46 rn 09/20 08:53 Order name: Lipase; Complete Time: 09:46 rn 09/20 08:53 Order name: Urinalysis w/ reflexes; Complete Time: 10:40 rn 09/20 12:09 Order name: Blood Culture Adult (2) rn 09/20 12:09 Order name: Lactate w/ 2H reflex if indic.; Complete Time: 13:51 rn 09/20 17:11 Order name: Phosphorus EDMS 09/20 17:11 Order name: Magnesium EDMS 09/20 17:40 Order name: Hemoglobin A1c EDMS 09/20 08:53 Order name: CT Abd/Pelvis - IV Contrast Only; Complete Time: 11:59 rn 09/20 08:53 Order name: IV Saline Lock; Complete Time: 08:59 rn 09/20 08:53 Order name: Labs collected and sent; Complete Time: 09:13 rn 09/20 16:41 Order name: Labs - recollect needed: recollect all please; Complete Time: 17:27 em1 Administered Medications: 08:59 Drug: NS 0.9% IV 1000 ml Route: IV; Rate: 1 bolus; Site: right antecubital; ko1 10:13 Follow up: Response: No adverse reaction; IV Status: Completed infusion; IV Intake: ko1 1000ml 13:30 Drug: Ciprofloxacin IVPB 400 mg Volume: 200 ml; Route: IVPB; Infused Over: 60 mins; ko1 Site: right antecubital; 13:30 Drug: NS 0.9% IV 1000 ml Route: IV; Rate: 1000 ml; Site: right antecubital; ko1 13:52 Drug: metroNIDAZOLE IVPB 500 mg Volume: 100 ml; Route: IVPB; Rate: 200 ml/hr; Infused ko1 Over: 30 mins; Site: right antecubital; Disposition Summary: 09/20/22 12:18 Hospitalization Ordered Hospitalization Status: Inpatient Admission rn Provider: Mauricio Hook rn [facility] rn Condition: Stable rn Problem: new rn Symptoms: have improved rn Bed/Room Type: Standard rn Room Assignment: [facility](09/20/22 18:42) em1 Diagnosis - Diverticulitis of large intestine without perforation or abscess without bleeding rn - Hypotension, unspecified rn - Dehydration rn - Muscle weakness (generalized) rn Forms: - Medication Reconciliation Form rn - SBAR form rn Signatures: Dispatcher [employer] [facility] Charles Hook MD MD rn Martinez, Eric emJulienne Diallo RN RN ko1 Corrections: (The following items were deleted from the chart) 18:42 12:18 rn em1
[2022-09-20] MEDS ORDERED: ACETAMINOPHEN 325 MG TABLET PO PRN (14:02)
[2022-09-20] MEDS ORDERED: MORPHINE 2 MG/ML SYR IV PRN (14:04)
[2022-09-20] MEDS ORDERED: ONDANSETRON 4 MG/2 ML VIAL IV PRN (15:21)
--- NOTE | 2022-09-20 15:31 | P.HP ---
Certification for Inpatient Patient admitted to: Inpatient With expected LOS: >2 Midnights Patient will require the following post-hospital care: None Practitioner: I am a practitioner with admitting privileges, knowledge of patient current condition, hospital course, and medical plan of care. Services: Services provided to patient in accordance with Admission requirements found in Title 42 Section 412.3 of the Code of Federal Regulations Patient History Date of Service: 09/20/22 Reason for admission: Nausea and generalized abdominal pain History of Present Illness: Patient is a 52-year-old female with a past medical history significant for seizure presents with complaint of nausea and generalized abdominal pain onset yesterday. Patient rated pain as 10/10 in severity and described as aching\stabbing in quality. Patient reported associated signs and symptoms of dizziness. Patient denies any other signs and symptoms. Symptoms are a ggravated or relieved by nothing. Patient decided to present to the hospital due to worsening symptoms. Of note, patient reported that she had a partial colectomy and hysterectomy status post uterine cancer. Allergies phenobarbital Allergy (Mild, Verified 01/04/12 22:54) Hives phenytoin sodium [From Dilantin] Allergy (Mild, Verified 01/04/12 22:54) Hives phenytoin sodium extended [From Dilantin] Allergy (Mild, Verified 01/04/12 22:54) Hives sertraline Allergy (Mild, Verified 01/04/12 22:54) Rash sertraline HCl [From Zoloft] Allergy (Mild, Verified 01/04/12 22:54) Hives/Rash topiramate [From Topamax] Allergy (Mild, Verified 01/04/12 22:54) Hives Home Medications: Lacosamide [Vimpat] 200 mg PO DAILY 01/04/12 Quetiapine Fumarate [Seroquel] 25 mg PO BID #60 tablet 01/08/12 Divalproex [Depakote Delayed Release*] 1,000 mg PO DAILY 01/11/18 Levetiracetam [Keppra] 1,500 mg PO BID 01/11/18 Mirtazapine [Remeron] 15 mg PO DAILY 01/11/18 - Past Medical/Surgical History Diabetic: No -: epilectic siezures -: cognitive delay -: R knee replacement -: Hysterectomy cancer removed 10inch mass - Social History Smoking Status: Never smoker Alcohol use: No CD- Drugs: No Caffeine use: Yes Place of Residence: Home Review of Systems General: Unremarkable Eyes: Unremarkable ENT: Unremarkable Respiratory: Unremarkable Cardiovascular: Unremarkable Gastrointestinal: Nausea, Abdominal Pain Genitourinary: Unremarkable Musculoskeletal: Unremarkable Integumentary: Unremarkable Neurological: Other (Dizziness) Lymphatics: Unremarkable Physical Examination - Physical Exam General: Alert, In no apparent distress, Oriented x3, Cooperative HEENT: Atraumatic, PERRLA, Mucous membr. moist/pink, EOMI, Sclerae nonicteric Neck: Supple, 2+ carotid pulse no bruit, No LAD, Without JVD or thyroid abnormality Respiratory: Clear to auscultation bilaterally, Normal air movement Cardiovascular: No edema, Regular rate/rhythm, Normal S1 S2 Capillary refill: <2 Seconds Gastrointestinal: Normal bowel sounds, Non-distended, Tenderness Musculoskeletal: No clubbing, No contractures, No tenderness Integumentary: No rashes, No significant lesion Neurological: Normal speech, Normal strength at 5/5 x4 extr, Normal tone, Normal affect Lymphatics: No axilla or inguinal lymphadenopathy - Studies Laboratory Data (last 24 hrs) 09/20/22 09:11: Sodium 142, Potassium 3.9, BUN 24 H, Creatinine 0.91, Glucose 157 H, Total Bilirubin 0.2, AST 11 L, ALT 21, Alkaline Phosphatase 68, Lipase 38 09/20/22 09:11: WBC 9.40, Hgb 12.2, Hct 37.8, Plt Count 175 Assessment and Plan - Plan --Colitis. CT imaging indicates Long segment wall thickening with mild adjacent fat stranding involving the tortuous proximal to mid sigmoid colon, most suggestive of segmental infectious or inflammatory colitis. Blood cultures pending. Patient placed on antibiotics and IV hydration. Continue supportive care. --Dehydration. Continue with IV hydration. --Nausea. Antiemetics on board. Continue IV hydration. --Acute pain. We will manage pain on current pain medication regimen. -- CKD 2. Stable. We will continue to monitor renal functions. --History of seizures. Seizure precautions. Continue home medications. --History of cognitive delay. Continue supportive care. --DVT prophylaxis with Lovenox subQ. Discharge Plan: Home Plan to discharge in: Greater than 2 days - Advance Directives Does patient have a Living Will: No Does patient have a Durable POA for Healthcare: No - Code Status/Comfort Care Code Status Assessed: Yes Physician Review: Patient Assessed, Agree with Above Assessment and Plan Critical Care: No
[2022-09-20] MEDS: ENOXAPARIN 40 MG/0.4 ML SQ SCH (16:00)
[2022-09-20] MEDS: NA CHLORIDE 0.9% 1,000 ML IV SCH ×2 (16:00→20:17)
[2022-09-20] MEDS ORDERED: METRONIDAZOLE 500mg IVPB 500 MG/100 ML BAG IV SCH (17:00)
[2022-09-20 17:10] LABS: Magnesium 1.9 mg/dL (1.6-2.4); Phosphorus 2.8 mg/dL (2.5-4.9)
[2022-09-20] MEDS ORDERED: ENOXAPARIN 40 MG/0.4 ML SQ ONE (17:42)
[2022-09-20] MEDS: CIPROFLOXACIN 400mg IV 400 MG/200 ML BAG IV SCH (20:17)
--- NOTE | 2022-09-20 20:35 | P.PN ---
Date of Service: 09/21/22 Subjective: ROS: 10 point ROS as noted above, otherwise negative Physical Exam: Gen: Alert, NAD, AOx3 HEENT: normal conjunctiva, sclera anicteric CV: regular rate & rhythm, no edema Pulm: non-labored respirations on room air, clear bilaterally Abd: soft, non-tender, non-distended MSK: no joint tenderness Neuro: normal speech, normal affect, moves all extremities Problem List: 1. Colitis 2. Dehydration 3. Nausea 4. CKD 2 5. History of seizures 6. History of cognitive delay. PLAN CT imaging indicates Long segment wall thickening with mild adjacent fat stranding involving the tortuous proximal to mid sigmoid colon, most suggestive of segmental infectious or inflammatory colitis. Blood cultures pending. Continue cipro and flagyl (09/20-) Continue IVF Clear liquids Antiemetics on board. PRN pain medication Renal function stable. Continue to monitor Seizure precautions. Continue home medications. Continue supportive care. VTE: Lovenox sq
[2022-09-20 21:01] VITALS: BMI 34.7
[2022-09-21] MEDS: METRONIDAZOLE 500mg IVPB 500 MG/100 ML BAG IV SCH ×3 (01:29→16:04)
[2022-09-21 04:12] LABS: Absolute Lymphocytes (CBC) 2.3 K/uL (0.7-4.9); Hematocrit 32.2 % (36.0-45.0); Lymphocytes % 35.3 % (15.3-44.8); MCV 96.9 fL (80-100); MPV 11.1 fL (7.6-11.3); RBC Red Blood Cell Count 3.33 M/uL (3.86-4.86)
[2022-09-21 05:12] LABS: Potassium 3.6 mEq/L (3.5-5.1)
[2022-09-21] MEDS: NA CHLORIDE 0.9% 1,000 ML IV SCH ×2 (06:01→20:27)
[2022-09-21] MEDS: ASPIRIN 81 MG CHEWABLE TABLET PO SCH (08:26)
[2022-09-21] MEDS: ENOXAPARIN 40 MG/0.4 ML SQ SCH (08:26)
[2022-09-21] MEDS: CIPROFLOXACIN 400mg IV 400 MG/200 ML BAG IV SCH ×2 (08:27→20:06)
[2022-09-21] MEDS ORDERED: POTASSIUM CL SA 10 MEQ TAB PO ONE (09:00)
[2022-09-22] MEDS: METRONIDAZOLE 500mg IVPB 500 MG/100 ML BAG IV SCH ×2 (00:42→08:03)
[2022-09-22 03:56] LABS: Potassium 3.8 mEq/L (3.5-5.1)
[2022-09-22 04:10] LABS: Absolute Lymphocytes (CBC) 2.8 K/uL (0.7-4.9); Hematocrit 33.8 % (36.0-45.0); Lymphocytes % 48.5 % (15.3-44.8); MCV 96.5 fL (80-100); MPV 9.8 fL (7.6-11.3)
[2022-09-22] MEDS: ASPIRIN 81 MG CHEWABLE TABLET PO SCH (08:02)
[2022-09-22] MEDS: ENOXAPARIN 40 MG/0.4 ML SQ SCH (08:02)
[2022-09-22] MEDS: CIPROFLOXACIN 400mg IV 400 MG/200 ML BAG IV SCH (08:04)
[2022-09-22] MEDS: NA CHLORIDE 0.9% 1,000 ML IV SCH (08:09)
[2022-09-22 08:42] VITALS: O2SAT 98
[2022-09-22] MEDS ORDERED: POTASSIUM CL SA 10 MEQ TAB PO ONE (09:00)
[2022-09-22 15:45] VITALS: BP 113/51; TEMP 97.9
[2022-09-22] MEDS ORDERED: MUPIROCIN 2% OINT 22GM TUBE TOP SCH (21:00)
== END 2022-09-22 16:40 | disposition home or self-care (01) | DRG 392 ==
LOC: ER 08:39 → ERHOLD 14:01 → 2ND 19:19
PROVIDERS: ADMIT Hospitalist; ATTEND Hospitalist
DX: K57.32 Diverticulitis of large intestine without perforation or abscess without bleeding (principal); E86.0 Dehydration; N18.2 Chronic kidney disease, stage 2 (mild); K52.9 Noninfective gastroenteritis and colitis, unspecified; I95.9 Hypotension, unspecified; Z88.8 Allergy status to other drugs, medicaments and biological substances; Z90.49 Acquired absence of other specified parts of digestive tract; Z90.710 Acquired absence of both cervix and uterus; Z79.899 Other long term (current) drug therapy; Z96.651 Presence of right artificial knee joint
CPT/HCPCS: 36415; 74177; 80048; 80053; 80061; 81003; 83036; 83605; 83690; 83735; 84100; 85025; 87040; 96361; 96374; 96375; 99285; J0744; J1650; J7030; Q9967

== ENCOUNTER 2022-10-20 05:26 | Emergency (ER) | payer OTHER ==
--- OUTSIDE RECORDS SUMMARY | 2022-10-20 05:31 | XMS REPORT | Continuity of Care Document ---
:1970 Author Organization [facility] t Address [address] [facility] [address] [place] [address] Care Team Providers Name Role Phone Krista Wise Primary Care Physician Krista Wise Attending Clinician Unavailable [email or web address] Attending Clinician Unavailable SANCHEZ CHINCHILLA Attending Clinician Unavailable Sanchez Chinchilla MD Attending Clinician SHANTELLE ASKEW Attending Clinician Unavailable [email or web address] Admitting Clinician Unavailable Payers Payer Name Policy Type Policy Number Effective Date Expiration Date S jesus [employer]/[facility] [id number] 2022 DUAL COMP HMO D 00:00:00 [facility] MEDICAID [place] [id number] 2018 [place] 00:00:00 [id number] 2020 [facility] ADVANTAGE 00:00:00 [facility] Problems Condition Condition Condition Status Onset Resolution Last Treating Co mments Source Name Details Category Date Date Treatment Clinician Date [id number] Abnormal Problem Comm on mammogram [facility] [id number] Encounter Problem Com mon for Spirit screening [facility] for other [facility] [id number] Intrinsic Problem Comm on eczema [facility] [id number] Mentally Problem Comm on disabled [facility] [id number] Bipolar 1 Problem Com mon disorder [facility] [id number] Anxiety Problem Common [facility] [id number] Mixed Problem Common stress and Spirit urge - [facility] urinary [facility] [id number] Seizures Problem Commo n [facility] [id number] Petit mal Problem Commo n seizure Spirit status - [facility] [id number] Right-side Problem Co mmon d low back Spirit pain - 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 Rajesh n Active Problem 02/05/2021 [facility] Encounter Encounter Problem Active 2021-02-05 Memoria for for 03:45:08 l long-term long-term Herm joseph (current) (current) use of use of other other medication medication s s Active Problem 02/05/2021 [facility] Depression Depressio Problem Active 2021-02-05 Memoria n Active 03:45:08 l Problem [place] 02/05/2021 [facility] Hyperglyce Hyperglyc Diagnosis Active 2020-11-06 Memoria satnam emia 02:45:15 l Active [place] Diagnosis 11/06/2020 [facility] Patient Patient Diagnosis Active 2020-09-06 Memoria had no had no 02:46:23 l falls in falls in Rajesh n past year past year Active Diagnosis 09/06/2020 [facility] Tremor Tremor Problem Active 2021-02-05 Seymour deloris Active 03:45:08 l Problem [place] 02/05/2021 [facility] Intellectu Problem Active 2021-02-05 M emoria al Intellectu 03:45:08 l disability al Rajesh n disability Active Problem 02/05/2021 [facility] Iron Iron Problem Active 2021-02-05 Memor ia deficiency deficiency 03:45:08 l anemia, anemia, [place] unspecifie unspecifie d iron d iron deficiency deficiency anemia anemia type type Active Problem 02/05/2021 [facility] 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:45:08 l cognitive cognitive Herm joseph impairment impairment Active Problem 02/05/2021 [facility] Allergies, Adverse Reactions, Alerts [...] of Extended adverse 00:00: [place] reaction 00 [facility] [place] PHENYTOI DRUG Active Hives 2019-0 Univers N SODIUM INGREDI 7-18 ity of EXTENDED 00:00: [place] 00 Medical [place] Phenobar Propensi Active Unknown - 2019-0 Uni vers bital ty to See comments 1-20 ity of adverse 00:00: [place] reaction 00 [facility] [place] Carbamaz Propensi Active Unknown - 2019-0 Uni vers epine ty to See comments 1-20 ity of adverse 00:00: [place] reaction 00 [facility] [place] PHENOBAR DRUG Active Unknown-Cmnt 2019-0 Un katina BITAL INGREDI 1-20 ity of 00:00: [place] 00 Medical [place] CARBAMAZ DRUG Active Unknown-Cmnt 2019-0 Un katina EPINE INGREDI 1-20 ity of 00:00: [place] 00 Medical [place] Social History Social Habit Start Date Stop Date Quantity Comments Source History of Tobacco [facility] Use [facility] Exposure to 2022-04-19 2022-04-29 Not sure [facility] SARS-CoV-2 (event) 00:00:00 12:41:00 Medica l Branch Sex Ass[birth year] [facility] [place] 00:00:00 00:00:00 Medical Branch Smoking Status Start Date Stop Date Source Tobacco smoking consumption [facility] Branch Never Smoker [facility] Medications Ordered Filled Start Stop Current Ordering Indication Dosage Frequency Signature Comments Components Source Medication Medication Date Date Medication? Clinician (SIG) Name Name amoxicillin 2022- No 1{tbl} 1 tablet, Univers -clavulanat 04-29 Oral, ONCE i ty of e 21:15: 20:30 NOW, 1 [place] (AUGMENTIN) 00 :00 dose, On Medi yazan 875-125 mg [place] Branch per tablet 04/29/22 [...] ty of enesin 20:00: 19:15 NOW, 1 [place] (ROBITUSSIN 00 :00 dose, On Medi yazan DM) 10-100 [facility] mg/5 mL 04/29/22 at solution 10 1400, mL Routine meloxicam Yes [id number] 15mg Take 1 Un katina 15 mg 2-16 tablet by ity of tablet 00:00: mouth in [place] 00 the Medical morning. Branch dextrometho Yes [id number] 1{tbl} Take 1 Univers rphan-guaif 2-16 tablet by ity of enesin 00:00: mouth in [place] (MUCINEX 00 the Medical DM) 30-600 morning Branch mg per and 1 tablet tablet in the evening. acetaminoph Yes [id number] 650mg Take 1 Univers en (TYLENOL 2-16 tablet by ity of ARTHRITIS 00:00: mouth [place] PAIN) 650 00 every 8 Medical mg CR (eight) Branch tablet hours as needed for Pain. amoxicillin 2022- No [id number] 1{tbl} Take 1 Univers -clavulanat 2-16 - tablet by it y of e 875-125 [...] MG 20 MG 00:00: 20 MG 00 [facility] 2020-03 Yes Edda 1 tablet Memori a 1-24 Palvadi l 00:00: [facility] 2020-03 Yes Edda 1 tablet Memori a 1-24 Palvadi l 00:00: [facility] 2020-03 Yes Edda 1 tablet Memori a 1-24 Palvadi l 00:00: [facility] 2020-03 Yes Edda 1 tablet Memori a 1-24 Palvadi l 00:00: [facility] 2020-03 Yes Edda 1 tablet Seymour deloris 1-19 Palvadi l 03:45: [place] 10 Citalopram 2020-03 Yes Edda 1 tablet Me moria Hydrobromid 1-19 Palvadi l e 03:45: [facility] Edda 2 tablets Memor ia 1-19 Palvadi l 03:45: [facility] Yes Edda 1 tablet Memori a 1-19 Palvadi l 03:45: Jose 10 [facility] 2020-03 Yes Edda 3 capsule Mem oria 1-19 Palvadi qhs l 03:45: Acyclovir 2020-03 Yes Edda 1 tablet Mem oria 1-19 Palvadi l 03:45: [place] [facility] Yes Edda 1 tablet Seymour deloris 1-19 Palvadi l 03:45: [place] 10 Citalopram 2020-03 Yes Edda 1 tablet Me moria Hydrobromid 1-19 Palvadi l e 03:45: Jose 10 Keppra 2020-03 Yes Edda 2 tablets Memor ia 1-19 Palvadi l 03:45: [facility] Yes Edda 1 tablet Memori a 1-19 Palvadi l 03:45: Jose 10 [facility] 2020-03 Yes Edda 3 capsule Mem oria 1-19 Palvadi qhs l 03:45: [place] 10 Acyclovir 2020-03 Yes Edda 1 tablet Mem oria 1-19 Palvadi l 03:45: Jose Depakote 2020-03 Yes Edda 1 tablet Seymour deloris 1-19 Palvadi l 03:45: Jose Citalopram 2020-03 Yes Edda 1 tablet Me moria Hydrobromid 1-19 Palvadi l e 03:45: Jose Keppra 2020-03 Yes Edda 2 tablets Memor ia 1-19 Palvadi l 03:45: Jose [facility] 2020-03 Yes Edda 3 capsule Mem oria [...] Memor ia 1-19 Palvadi l 03:45: Jose [facility] 2020-03 Yes Edda 3 capsule Mem oria 1-19 Palvadi qhs l 03:45: Jose Keppra 2020-03 Yes Edda 1 tablet Memori a 1-19 Palvadi l 03:45: Jose Acyclovir 2020-03 Yes Edda 1 tablet Mem oria 1-19 Palvadi l 03:45: Jose Vimpat 0 Yes Edda 1 tablet Memori a 8-25 Palvadi l 00:00: Jose Vimpat 0 Yes Edda 1 tablet Memori a 8-25 Palvadi l 00:00: Jose Vimpat 0 Yes Edda 1 tablet Memori a 8-25 Palvadi l 00:00: Jose Vimpat 0 Yes Edda 1 tablet Memori a 8-25 Palvadi l 00:00: Jose Vimpat 2021-0 Yes Michelle 1 tablet Seymour deloris 7-17 [...] Yes Krista 1 tablet Common Hydrobromid Hydrobromid [place] Spirit e e - [facility] Vimpat Vimpat Yes Krista 1 tablet Common Hesperus [facility] Keppra Keppra Yes Krista 2 tablets Commo n Hesperus [facility] Ibuprofen Ibuprofen Yes Krista 1 tablet Common [place] with food Spirit or milk as - [facility] Krista 2 tablets C ommon [facility] Zonegran Zonegran Yes Krista 3 capsules Common [facility] Imodium A-D Imodium A-D Yes Krista 1 tablet Common [place] as needed [facility] Tylenol Tylenol Yes Krista 2 tablets Com mon [place] as needed [facility] [place]win Irwin Yes Krista 1 tablet Common [place] as needed [facility] Acyclovir Acyclovir Yes Krista 2 capsules Common [place] [facility] Depakote Depakote No 2{table Depakote 500 [...] blood 2022-04-29 20:31:28 145 mm[Hg] Univer [facility] Diastolic blood 2022-04-29 20:31:28 77 mm[Hg] [facility] Heart rate 2022-04-29 20:31:28 100 /min [facility] Respiratory rate 2022-04-29 20:31:28 16 /min [facility] Oxygen saturation in 2022-04-29 20:31:28 94 /min [facility] Arterial blood by [facility] Pulse oximetry Branch Body temperature 2022-04-29 18:42:00 37.61 Marilyn [facility] Body height 2022-04-29 18:42:[address] [facility] Body weight 2022-04-29 18:42:[address] [facility] BMI 2022-04-29 18:42:00 36.18 kg/m2 [facility] height 2022-01-19 10:40:00 69 [in_i] Common S pirit [facility] weight 2022-01-19 10:40:00 240.8 [lb_av] Common [facility] temperature 2022-01-19 10:40:00 97.5 [degF] [facility] 2022-01-19 10:40:00 35.56 kg/m2 Common [facility] oximetry 2022-01-19 10:40:00 97 % Common S [facility] respiratory rate 2022-01-19 10:40:00 16 /min Comm on [facility] blood pressure 2022-01-19 10:40:00 130 mm[Hg] Common [facility] - systolic [facility] blood pressure 2022-01-19 10:40:00 72 mm[Hg] Common [facility] - diastolic [facility] height 2021-07-20 08:40:00 69 [in_i] Common [facility] weight 2021-07-20 08:40:00 222.8 [lb_av] [facility] temperature 2021-07-20 08:40:00 97.0 [degF] Common S [facility] bmi 2021-07-20 08:40:00 32.9 kg/m2 [facility] oximetry 2021-07-20 08:40:00 94 % Common [facility] respiratory rate 2021-07-20 08:40:00 16 /min Comm on [facility] blood pressure 2021-07-20 08:40:00 99 mm[Hg] [facility] - systolic [facility] blood pressure 2021-07-20 08:40:00 56 mm[Hg] Common [facility] - diastolic [facility] height 2021-02-18 15:40:00 69 [in_i] Common [facility] weight 2021-02-18 15:40:00 209.2 [lb_av] [facility] temperature 2021-02-18 15:40:00 97.5 [degF] Common S pirit [facility] bmi 2021-02-18 15:40:00 30.89 kg/m2 Common S [facility] oximetry 2021-02-18 15:40:00 96 % Common [facility] respiratory rate 2021-02-18 15:40:00 16 /min Comm on [facility] blood pressure 2021-02-18 15:40:00 132 mm[Hg] Common [facility] - systolic [facility] blood pressure 2021-02-18 15:40:00 70 mm[Hg] Common [facility] - diastolic [facility] height 2021-02-18 15:20:00 69 [in_i] Common [facility] weight 2021-02-18 15:20:00 209.2 [lb_av] [facility] temperature 2021-02-18 15:20:00 97.5 [degF] Common [facility] bmi 2021-02-18 15:20:00 30.89 kg/m2 Common S [facility] oximetry 2021-02-18 15:20:00 96 % Common [facility] respiratory rate 2021-02-18 15:20:00 16 /min Comm on [facility] blood pressure 2021-02-18 15:20:00 132 mm[Hg] Common [facility] - systolic [facility] blood pressure 2021-02-18 15:20:00 70 mm[Hg] Common [facility] - diastolic [facility] Weight 2020-06-27 15:00:00 [facility] Height 2020-06-27 15:00:00 [facility] Heart Rate 2020-06-27 15:00:00 [facility] [place] Weight 2020-03-28 14:00:00 [facility] [place] Height 2020-03-28 14:00:00 [facility] [place] Heart Rate 2020-03-28 14:00:00 Memorial [place] Weight 2019-04-25 15:00:00 [facility] [place] Height 2019-04-25 15:00:00 [facility] [place] Heart Rate 2019-04-25 15:00:00 [facility] [place] Procedures Procedure Date / Time Performed Performing Clinician Sour e RAPID STREP SCREEN 2022-04-29 19:11:00 Sanchez Chinchilla [facility] FOR GROUP A Medical Branch RAPID INFLUENZA A/B 2022-04-29 19:11:00 Sanchez Chicnhilla [facility] Medical Branch COVID-19 (ID NOW 2022-04-29 19:11:00 Sanchez Chinchilla [facility] RAPID TESTING) Medical Branch CONSENT/REFUSAL FOR 2022-04-29 18:38:14 Doctor Unassigned, No Un [facility] DIAGNOSIS AND Name Medical Branch TREATMENT Encounters Start End Encounter Admission Attending Care Care Encounter Source Date/Time Date/Time Type Type Clinicians Facility Department ID 2022-10-20 Outpatient [id number] Memoria 05:29:23 [id number] 2022-09-20 Outpatient Hesperus [facility] [id number] Common 09:40:00 Krista [id number] [facility] 2022-09-20 Outpatient [id number] Memoria 08:41:53 [id number] Jose [id number] 2022-07-27 Outpatient [id number] Memoria 09:30:48 [id number] 1760-04-24 Outpatient Billie [facility] [id number] Common 13:37:00 Krista [id number] [facility] 2022-07-01 Outpatient [place], STLMLC STLMLC [id number] Common 10:31:00 Krista [id number] [facility] 2022-04-13 Outpatient [place], STLMLC STLMLC [id number] Common 11:04:02 Krista 21374 [facility] 2022-04-09 Outpatient [place], STLMLC STLMLC [id number] Common 08:48:01 Krista [facility] 2021-12-29 Outpatient [id number] Memoria 11:41:25 [id number] [place] [id number] 2021-10-20 Outpatient [place]us, STLMLC STLMLC [id number] Common 10:41:00 Krista [facility] 2021-10-16 Outpatient [place], STLMLC STLMLC [id number] Common 08:16:00 Krista [facility] 2021-08-06 Outpatient [place], STLMLC STLMLC [id number] Common 09:01:00 Krista [facility] 2021-07-20 Outpatient [place], STLMLC STLMLC [id number] Common 08:34:01 Krista [facility] 2021-07-16 Outpatient [place], STLMLC STLMLC [id number] Common 13:15:01 Krista [facility] 2021-06-15 Outpatient [place], STLMLC STLMLC [id number] Common 11:02:01 Krista [facility] 2021-05-15 Outpatient [place], STLMLC STLMLC [id number] Common 14:49:00 Krista [facility] 2021-04-08 Outpatient [place], STLMLC STLMLC [id number] Common 11:38:47 Krista [facility] 2021-04-08 Outpatient Billie, STLMLC STLMLC [id number] Common 11:37:31 Krista [id number] [facility] 2021-04-08 Outpatient Billie, STDAMONLC STLMLC [id number] Common 11:37:08 Krista [id number] [facility] 2022-10-01 2022-10-01 Outpatient [email or web address] PRIV PRIV [id number] [facility] 00:00:00 00:00:00 Intire_E [id number] Medic al 2022-04-29 2022-04-29 Emergency X RENÉE, [facility] ERT [id number] Univers 12:43:00 14:37:00 SANCHEZ lacy [facility] 2022-04-29 2022-04-29 Emergency Renée, [facility] [id number] Univers 12:43:00 14:37:00 Sanchez CHATTERJEE [id number] i [facility] [id number] [facility] [id number] [address] 2022-01-20 2022-01-20 (TEL) STLMLC STLMLC [id number] Co mmon 00:00:00 00:00:00 [facility] 2022-01-19 2022-01-19 OFFICE STLMLC STLMLC [id number] Co mmon 00:00:00 00:00:00 VISIT EST Spir it PT LEVEL 3 - [facility] 2021-10-22 2021-10-22 (TEL) STLMLC STLMLC [id number] Co mmon 00:00:00 00:00:00 [facility] 2021-10-21 2021-10-21 (TEL) STLMLC STLMLC [id number] Co mmon 00:00:00 00:00:00 [facility] 2021-09-18 2021-09-18 OFFICE STLMLC STLMLC [id number] Co mmon 00:00:00 00:00:00 VISIT Spirit ESTAB PT - CHI LEVEL 2 [facility] 2021-09-18 2021-09-18 (TEL) STLMLC STLMLC [id number] Co mmon 00:00:00 00:00:00 [facility] 2021-07-20 2021-07-20 OFFICE STLMLC STLMLC [id number] Co mmon 00:00:00 00:00:00 VISIT EST Spir it PT LEVEL 3 - CHI [facility] 2021-05-28 2021-05-28 (TEL) STLMLC STLMLC [id number] Co mmon 00:00:00 00:00:00 [facility] 2021-05-20 2021-05-20 (TEL) STLMLC STLMLC [id number] Co mmon 00:00:00 00:00:00 [facility] 2021-05-15 2021-05-15 (TEL) STLMLC STLMLC [id number] Co mmon 00:00:00 00:00:00 [facility] 2021-04-16 2021-04-16 (TEL) STLMLC STLMLC [id number] Co mmon 00:00:00 00:00:00 [facility] 2021-04-14 2021-04-14 (TEL) STLMLC STLMLC [id number] Co mmon 00:00:00 00:00:00 [facility] 2021-02-20 2021-02-20 (TEL) STLMLC STLMLC [id number] Co mmon 00:00:00 00:00:00 [facility] 2021-02-18 2021-02-18 SUB ANNUAL STLMLC STLMLC [id number] Common 00:00:00 00:00:00 MCR [facility] VISIT [facility] 2021-02-18 2021-02-18 OFFICE STLMLC STLMLC [id number] Co mmon 00:00:00 00:00:00 VISIT EST Spir it PT LEVEL 3 - [facility] 2021-02-03 2021-02-03 Outpatient [facility] [id number] eClinic 20:38:00 20:38:00 [facility] 2021-01-28 2021-01-28 Outpatient [facility] [id number] eClinic 14:20:00 14:20:00 Neurologi Neurologica alWorks [place]an [place] [address] 2020-11-05 2020-11-05 Outpatient [facility] [id number] eClinic 12:04:00 12:04:00 Neurologi Neurologica alWorks yazan l [place] 2020-11-05 2020-11-05 Outpatient [facility] [id number] eClinic 11:00:00 11:00:00 Neurologi Neurologica alWorks yazan l [place] [facility] [place] [address] 2020-07-06 2020-07-06 Outpatient [facility] [id number] eClinic 20:40:00 20:40:00 Neurologi Neurologica alWorks yazan l [place] 2020-06-27 2020-06-27 Outpatient [facility] [id number] eClinic 10:00:00 10:00:00 Neurologi Neurologica alWorks yazan l [place] [facility] 2020-05-30 2020-05-30 Outpatient [facility] [id number] eClinic 12:10:00 12:10:00 Neurologi Neurologica alWorks yazan l [place] 2020-04-24 2020-04-24 Outpatient [facility] [id number] eClinic 13:34:00 13:34:00 Neurologi Neurologica alWorks yazan l [place] 2020-04-09 2020-04-09 Outpatient [facility] [id number] eClinic 09:30:00 09:30:00 Sleep Sleep alWork s [facility] 2020-03-28 2020-03-28 Outpatient [facility] [id number] eClinic 09:00:00 09:00:00 Neurologi Neurologica alWorks yazan l [place] [facility] 2020-03-27 2020-03-27 Outpatient [facility] [id number] eClinic 09:13:00 09:13:00 Neurologi Neurologica alWorks yazan l [place] 2020-03-19 2020-03-19 Outpatient [facility] [id number] eClinic 15:22:00 15:22:00 Neurologi Neurologica alWorks yazan l [place] 2020-02-28 2020-02-28 Outpatient [facility] [id number] eClinic 10:02:00 10:02:00 Neurologi Neurologica alWorks yazan l [place] 2020-02-20 2020-02-20 Outpatient [facility] [id number] eClinic 13:53:00 13:53:00 Neurologi Neurologica alWorks yazan l [facility] 2020-02-18 2020-02-18 Outpatient [facility] [id number] eClinic 10:35:00 10:35:00 [facility] [place] 2020-02-11 2020-02-11 Outpatient [facility] [id number] eClinic 15:26:00 15:26:00 Neurologi Neurologica alWorks yazan l [facility] 2020-01-30 2020-01-30 Outpatient [facility] [id number] eClinic 10:24:00 10:24:00 Neurologi Neurologica alWorks [facility] 2020-01-12 2020-01-12 Outpatient [facility] [id number] eClinic 10:46:00 10:46:00 [facility] 2019-12-11 2019-12-11 Outpatient [facility] [id number] eClinic 13:57:00 13:57:00 [facility] 2019-12-11 2019-12-11 Emergency X ASKEW, [facility] ERT [id number] Univers 10:04:00 10:04:00 SHANTELLE lacy [facility] 2019-12-11 2019-12-11 Outpatient STLMLC STLMLC [id number] Common 00:00:00 00:00:00 [facility] 2019-11-16 2019-11-16 Outpatient [facility] [id number] eClinic 19:02:00 19:02:00 Neurologi Neurologica [facility] 2019-11-16 2019-11-16 Outpatient [facility] [id number] eClinic 08:01:00 08:01:00 [facility] 2019-11-15 2019-11-15 [id number] Common 12:40:00 12:40:00 [address] [facility] [address] [facility] 2019-11-13 2019-11-13 Outpatient [facility] [id number] eClinic 09:01:00 09:01:00 [facility] 2019-11-07 2019-11-[address] [facility] [id number] Common 10:27:00 10:27:00 [facility] 2019-10-29 2019-10-29 Outpatient [facility] [id number] eClinic 15:12:00 15:12:00 Neurologi Neurologica alWorks yazan l [place] 2019-10-29 2019-10-29 [facility] [id number] Common 13:20:00 13:20:[address] [facility] 2019-10-24 2019-10-24 Outpatient [facility] [id number] eClinic 08:40:00 08:40:00 Neurologi Neurologica alAppSpotr yazan l [place] [facility] 2019-10-22 2019-10-22 Outpatient [facility] [id number] eClinic 15:39:00 15:39:00 Neurologi Neurologica alAppSpotr yazan l [place] 2019-10-16 2019-10-16 Outpatient [facility] [id number] eClinic 11:13:00 11:13:00 Neurologi Neurologica al[employer] yazan l [place] 2019-04-25 2019-04-25 Outpatient [facility] [id number] eClinic 10:00:00 10:00:00 Neurologi Neurologica alAppSpotr yazan l [place] [facility] 2018-10-26 2018-10-26 Outpatient [facility] [id number] eClinic 10:32:00 10:32:00 Neurologi Neurologica alAppSpotr yazan l [place] 2018-09-11 2018-09-11 [id number] Common 13:15:00 13:15:[address] [facility] [address] [facility] [address] [facility] 2018-08-28 2018-08-28 [id number] Common 14:45:00 14:45:00 t [facility] 2018-06-01 2018-06-01 [facility] [id number] Common 11:15:00 11:15:[address] [facility] 2018-02-20 2018-02-20 [facility] [id number] Common 11:42:00 11:42:[address] [facility] [address] [facility] Results Test Description Test Time Test Comments Results Result Comments Source SARS-COV 2 Antigen SARS-COV 2 Antigen
[2022-10-20] MEDS ORDERED: NA CHLORIDE 0.9% 1,000 ML ONE (06:05)
[2022-10-20] MEDS ORDERED: LORazepam 2 MG/ML VIAL ONE (06:05)
[2022-10-20] MEDS ORDERED: NA CHLORIDE 0.9% 100 ML ONE (06:08)
[2022-10-20] MEDS ORDERED: VALPROATE NA 500 MG/5 ML INJ IV ONE (06:08)
[2022-10-20 06:30] LABS: Absolute Lymphocytes (CBC) 1.5 K/uL (0.7-4.9); Lymphocytes % 19.3 % (15.3-44.8); MCV 96.3 fL (80-100); MPV 9.8 fL (7.6-11.3); Platelets 188 thou/uL (152-406); RBC Red Blood Cell Count 4.16 M/uL (3.86-4.86)
[2022-10-20 06:33] LABS: Protime INR 0.96
[2022-10-20 06:50] LABS: ALT/SGPT 32 U/L (13-56); AST/SGOT 22 U/L (15-37); Albumin 3.7 g/dL (3.4-5.0); Alkaline Phosphatase 65 U/L (45-117); BUN Blood Urea Nitrogen 18 mg/dL (7-18); Bicarbonate 24 mEq/L (21-32); Bilirubin Total 0.2 mg/dL (0.2-1.0); Glomerular Filtration Rate 75 ml/min (=/>90); Glucose Level 159 mg/dL (74-106); NT PRO-BNP 269 pg/mL (<125); Potassium 3.4 mEq/L (3.5-5.1); Protein, Total 7.6 g/dL (6.4-8.2); Sodium Level 139 mEq/L (136-145); Troponin High Sensitivity 29.6 pg/mL (<58.9)
[2022-10-20 06:52] LABS: Bilirubin Direct < 0.1 mg/dL (0-0.2); Bilirubin Indirect, Calculated ND mg/dL (0.2-0.8)
--- NOTE | 2022-10-20 07:15 | ER ---
Nurse's Notes [facility] Name: Angelika Broderick Age: 52 yrs Sex: Female : 1970 Arrival Date: 10/20/2022 Time: 05:26 Bed 19 Private MD: Diagnosis: Other seizures;Breakthrough seizures, epilepsy Presentation: 10/20 05:28 Chief complaint: Patient states: seizures x 4 episodes [employer]EIGN CORRESPONDENT. [facility] stated pf1 witnessed patient having 1 seizure FOREIGN CORRESPONDENT and patient stated has 3 seizures before they arrived. Patient C/O right foot pain and right posterior head pain of 5. Patient stated fell from couch when having a seizure. Patient stated is currently does not have her seizure medication,since her daughter threw it in the [place] yesterday. 05:28 Coronavirus screen: Vaccine status: Patient reports being unvaccinated. Client denies pf1 travel out of the [place] in the last 14 days. At this time, the client does not indicate any symptoms associated with coronavirus-19. Ebola Screen: Patient negative for fever greater than or equal to 101.5 degrees Fahrenheit, and additional compatible Ebola Virus Disease symptoms. Initial Sepsis Screen: Does the patient meet any 2 criteria? No. Patient's initial sepsis screen is negative. Does the patient have a suspected source of infection? No. Patient's initial sepsis screen is negative. Risk Assessment: Do you want to hurt yourself or someone else? Patient reports no desire to harm self or others. 05:28 Method Of Arrival: EMS: [facility] pf1 05:28 Acuity: MICHAEL 3 pf1 Historical: - Allergies: 06:24 Mysoline; pf1 06:24 Phenobarbital; pf1 - PMHx: 06:24 Seizure; ovarian cancer; pf1 - PSHx: 06:24 None; pf1 - Immunization history:: Adult Immunizations up to date, Client reports having NOT received the Covid vaccine. Last tetanus immunization: < 5 years ago Flu vaccine is up to date. - Social history:: Smoking status: Patient denies any tobacco usage or history of. Patient/guardian denies using alcohol, street drugs. - Family history:: not pertinent. Screenin:28 [facility] ED Fall Risk Assessment (Adult) History of falling in the last 3 months, ha1 including since admission No falls in past 3 months (0 pts) Confusion or Disorientation No (0 pts) Intoxicated or Sedated No (0 pts) Impaired Gait No (0 pts) Mobility Assist Device Used No (0 pt) Altered Elimination No (0 pt) Score/Fall Risk Level 0 - 2 = Low Risk Oriented to surroundings, Maintained a safe environment, Educated pt \T\ family on fall prevention, incl call for assistance when getting out of bed. Abuse screen: Denies threats or abuse. Denies injuries from another. Nutritional screening: No deficits noted. Tuberculosis screening: No symptoms or risk factors identified. Assessment: 05:30 General: Appears comfortable, Behavior is calm, cooperative. Pain: Denies pain. Neuro: ha1 Level of Consciousness is awake, alert, obeys commands, Oriented to person, place, time, situation. Neuro: Reports seizure activities . Cardiovascular: Patient's skin is warm and dry. Rhythm is sinus rhythm. Respiratory: Airway is patent Respiratory effort is even, unlabored, Respiratory pattern is regular, symmetrical. GI: No signs and/or symptoms were reported involving the gastrointestinal system. Abdomen is round non-distended. 06:27 Reassessment: Elisa Vásquez (sister) [phone]. pf1 07:00 Reassessment: Patient appears in no apparent distress at this time. No changes from [facility] previously documented assessment. Patient is alert, oriented x 3, equal unlabored respirations, skin warm/dry/pink. Patient denies pain at this time. Patient states feeling better. Patient states symptoms have improved. 07:20 Reassessment: d/c pending [facility] completion. order faxed to [facility]. [facility] 08:00 Reassessment: Patient appears in no apparent distress at this time. No changes from [facility] previously documented assessment. Patient and/or family updated on plan of care and expected duration. Pain level reassessed. Patient is alert, oriented x 3, equal unlabored respirations, skin warm/dry/pink. Patient denies pain at this time. Patient states feeling better. Patient states symptoms have improved. 08:19 Reassessment: attempted to call britni Jj and sister Elisa in regards to pt getting 6 a ride home. no answer at this time. 08:46 Reassessment: was able to contact britni Jj. stated she will be here around 10am. 6 MAO Ibrahim notified. 09:00 Reassessment: Patient appears in no apparent distress at this time. No changes from kc6 previously documented assessment. Patient and/or family updated on plan of care and expected duration. Pain level reassessed. Patient is alert, oriented x 3, equal unlabored respirations, skin warm/dry/pink. Vital Signs: 05:28 BP 126 / 71; Pulse 84; Resp 16; Temp 98.4; Pulse Ox 97% on R/A; Weight 106.14 kg; pf1 Height 5 ft. 9 in. ; Pain 5/10; 05:34 BP 126 / 71; Pulse 80; Resp 18 S; Pulse Ox 94% on R/A; ha1 06:00 BP 126 / 76; Pulse 78; Resp 16; Pulse Ox 97% on R/A; ha1 08:46 BP 153 / 85; Pulse 76; Resp 20 S; Pulse Ox 100% on R/A; kc6 09:38 BP 123 / 72; Pulse 76; Resp 21 S; Pulse Ox 94% on R/A; kc6 05:28 Body Mass Index 34.56 (106.14 kg, 175.26 cm) pf1 05:28 Pain Scale: Adult pf1 ED Course: 05:28 Patient arrived in ED. rv1 05:28 Arm band placed on right wrist. ha1 05:28 Patient has correct armband on for positive identification. Placed in gown. Bed in low ha1 position. Call light in reach. Side rails up X2. Seizure precautions initiated. 05:39 Luis Angel Solis MD is Attending Physician. sp4 05:40 No provider procedures requiring assistance completed. Inserted saline lock: 20 gauge pf1 in right antecubital area, using aseptic technique. Blood collected. 06:08 Foot Right 3 View XRAY In Process Unspecified. EDMS 06:24 Triage completed. pf1 06:42 CT Head Brain wo Cont In Process Unspecified. EDMS 06:46 Basic Metabolic Panel Sent. ha1 06:46 LFT's Sent. ha1 06:46 Magnesium Sent. ha1 06:46 NT PRO-BNP Sent. ha1 06:46 Troponin HS Sent. ha1 07:00 Report received from Viviana Mclean RN. kc6 10:36 IV discontinued, intact, bleeding controlled, No redness/swelling at site. Pressure kc6 dressing applied. Administered Medications: 06:05 Drug: Ativan IVP 1 mg Route: IVP; Site: right antecubital; pf1 07:54 Follow up: Response: No adverse reaction; RASS: Drowsy (-1) kc6 06:05 Drug: NS 0.9% IV 1000 ml Route: IV; Rate: 125 ml/hr; Site: right antecubital; pf1 06:15 Drug: Valproic Acid IV 500 mg Route: IV; Rate: calculated rate; Infused Over: 60 mins; ha1 Site: right antecubital; 07:55 Follow up: Response: No adverse reaction; IV Status: Completed infusion; IV Intake: kc6 100ml 07:54 Drug: Keppra IV 1000 mg Route: IV; Rate: calculated rate; Site: right antecubital; kc6 08:31 Follow up: Response: No adverse reaction; IV Status: Completed infusion; IV Intake: kc6 100ml Medication: 10:36 VIS not applicable for this client. kc6 Intake: 07:55 IV: 100ml; Total: 100ml. kc6 08:31 IV: 100ml; Total: 200ml. kc6 Outcome: 07:14 Discharge ordered by . sp4 10:35 Discharged to home via wheelchair. kc6 10:35 Condition: improved 10:36 Discharge instructions given to patient, Instructed on discharge instructions, follow kc6 up and referral plans. medication usage, Demonstrated understanding of instructions, follow-up care, medications, Prescriptions given X 4. 10:36 Patient left the ED. kc6 Signatures: Dispatcher [employer] EDMS Viviana Mclean RN RN 1 Nicki Adhikari RN RN kc6 Finley, Pamala, RN RN pf1 Haven Ríos rv1 Luis Angel Solis MD MD sp4 Corrections: (The following items were deleted from the chart) 08:20 07:55 Pulse 72bpm; Resp 19bpm; Spontaneous; Pulse Ox 98% RA; kc6 kc6 08:49 07:55 BP 153 / 85; Pulse 72bpm; Resp 19bpm; Spontaneous; Pulse Ox 98% RA; kc6 kc6
--- NOTE | 2022-10-20 07:15 | EDPHYS ---
Physician Documentation [facility] Name: Angelika Broderick Age: 52 yrs Sex: Female : 1970 Arrival Date: 10/20/2022 Time: 05:26 Bed 19 Private MD: ED Physician Luis Angel Solis HPI: 10/20 05:39 This 52 yrs old Female presents to ER via Unassigned with complaints of sp4 seizure. 05:39 . sp4 06:53 52-year-old female with history of seizure disorder on Vimpat and Depakote, presents sp4 with EMS for 4 seizures at home.. Patient sustained 3 seizures at home and then EMS witnessed another seizure in the route. EMS administered intranasal Versed 5 mg. Patient states that her daughter threw away her seizure medications. Patient has not taken any past seizure medication for the past 24 hours. . 06:59 Patient reports that she fell on a couch while having a seizure and injured her head sp4 and her right great toe. Historical: - Allergies: 06:24 Mysoline; pf1 06:24 Phenobarbital; pf1 - PMHx: 06:24 Seizure; ovarian cancer; pf1 - PSHx: 06:24 None; pf1 - Immunization history:: Adult Immunizations up to date, Client reports having NOT received the Covid vaccine. Last tetanus immunization: < 5 years ago Flu vaccine is up to date. - Social history:: Smoking status: Patient denies any tobacco usage or history of. Patient/guardian denies using alcohol, street drugs. - Family history:: not pertinent. ROS: 06:59 Constitutional: Negative for fever, chills, and weight loss, positive seizure x 4 sp4 Neuro: Negative for headache, weakness, numbness, tingling, positive seizure x 4 06:59 All other systems are negative. Exam: 06:59 Constitutional: This is a well developed, well nourished patient who is awake, alert, sp4 and in no acute distress. Head/Face: Normocephalic, atraumatic. Eyes: Pupils equal round and reactive to light, extra-ocular motions intact. Lids and lashes normal. Conjunctiva and sclera are not injected. Cornea within normal limits. Periorbital areas with no swelling, redness, or edema. ENT: Nares patent. No nasal discharge, no septal abnormalities noted. Tympanic membranes are normal and external auditory canals are clear. Oropharynx with no redness, swelling, or masses, exudates, or evidence of obstruction, uvula midline. Mucous membranes moist. Neck: Trachea midline, no thyromegaly or masses palpated, and no cervical lymphadenopathy. Supple, full range of motion without nuchal rigidity, or vertebral point tenderness. Chest/axilla: Normal chest wall appearance and motion. Nontender with no deformity. No lesions are appreciated. Cardiovascular: Regular rate and rhythm with a normal S1 and S2. No gallops, murmurs, or rubs. Normal PMI, no JVD. No pulse deficits. Respiratory: Lungs have equal breath sounds bilaterally, clear to auscultation and percussion. No rales, rhonchi or wheezes noted. No increased work of breathing, no retractions or nasal flaring. Abdomen/GI: Soft, non-tender, with normal bowel sounds. No distension or tympany. No guarding or rebound. No evidence of tenderness throughout. Back: No spinal tenderness. No costovertebral tenderness. Skin: Warm, dry with normal turgor. Normal color with no rashes, no lesions, and no evidence of cellulitis. MS/ Extremity: Pulses equal, no cyanosis. Neurovascular intact. Full, normal range of motion. Positive right great toe contusion and mild discoloration Neuro: Awake and alert, GCS 15, oriented to person, place, time, and situation. Cranial nerves II-XII grossly intact. Motor strength 5/5 in all extremities. Sensory grossly intact. Psych: Awake, alert, with orientation to person, place and time. Behavior, mood, and affect are within normal limits 07:19 ECG was reviewed by the Attending Physician. There is normal sinus rhythm at the rate sp4 of 74, no ST elevation or depression, no ectopy, EKG time 0 620 Rene left ventricular hypertrophy Vital Signs: 05:28 BP 126 / 71; Pulse 84; Resp 16; Temp 98.4; Pulse Ox 97% on R/A; Weight 106.14 kg; pf1 Height 5 ft. 9 in. ; Pain 5/10; 05:34 BP 126 / 71; Pulse 80; Resp 18 S; Pulse Ox 94% on R/A; ha1 06:00 BP 126 / 76; Pulse 78; Resp 16; Pulse Ox 97% on R/A; ha1 08:46 BP 153 / 85; Pulse 76; Resp 20 S; Pulse Ox 100% on R/A; kc6 09:38 BP 123 / 72; Pulse 76; Resp 21 S; Pulse Ox 94% on R/A; kc6 05:28 Body Mass Index 34.56 (106.14 kg, 175.26 cm) pf1 05:28 Pain Scale: Adult pf1 MDM: 05:51 Patient medically screened. sp4 07:01 ED course: COMPARISONS: None FINDINGS: There is no evidence of fracture or dislocation. sp4 There is no significant arthritis or degenerative change. No focal lytic or sclerotic bone lesions are seen. There is a small plantar calcaneal spur and small posterior calcaneal enthesophyte. There are minimal degenerative changes involving the first metatarsal phalangeal joint. Bone mineralization is normal. No acute soft tissue abnormalities are identified. IMPRESSION: No evidence of acute osseous injury involving the right foot. There are minimal degenerative changes as described above.. 07:19 Differential Diagnosis altered mental status, sepsis, flu. Data reviewed: vital signs, sp4 nurses notes, EMS record, old medical records, lab test result(s), EKG, radiologic studies. 07:19 Consideration of Admission/Observation Escalation of care including sp4 admission/observation considered. ED course: CT head is unremarkable. Right foot x-ray is unremarkable. Patient will be given loading doses for her medications specifically Depakote and Keppra. Patient will be provided refills for her medications for 1 months duration until she can see her primary care or neurologist for refill on her medications.. 10/20 05:49 Order name: Basic Metabolic Panel; Complete Time: 06:59 sp4 10/20 05:49 Order name: CBC with Diff; Complete Time: 06:59 sp4 10/20 05:49 Order name: LFT's; Complete Time: 06:59 sp4 10/20 05:49 Order name: Magnesium; Complete Time: 06:59 sp4 10/20 05:49 Order name: NT PRO-BNP; Complete Time: 06:59 sp4 10/20 05:49 Order name: PT-INR; Complete Time: 06:59 sp4 10/20 05:49 Order name: Troponin HS; Complete Time: 06:59 sp4 10/20 05:49 Order name: CT Head Brain wo Cont sp4 10/20 05:50 Order name: Foot Right 3 View XRAY sp4 10/20 05:49 Order name: EKG; Complete Time: 05:50 sp4 10/20 05:49 Order name: Cardiac monitoring; Complete Time: 06:11 sp4 10/20 05:49 Order name: EKG - Nurse/Tech; Complete Time: 06:43 sp4 10/20 05:49 Order name: IV Saline Lock; Complete Time: 06:11 sp4 10/20 05:49 Order name: Labs collected and sent; Complete Time: 06:46 sp4 10/20 05:49 Order name: O2 Per Protocol; Complete Time: 06:11 sp4 10/20 05:49 Order name: O2 Sat Monitoring; Complete Time: 06:11 sp4 EC:19 Rate is 74 beats/min. Rhythm is regular, Normal Sinus Rhythm. QRS [place] is Normal. [place] sp4 interval is normal. QRS interval is normal. QT interval is normal. T waves are Normal. No ST changes noted. Clinical impression: No evidence of ischemia. Interpreted by me. Administered Medications: 06:05 Drug: Ativan IVP 1 mg Route: IVP; Site: right antecubital; pf1 07:54 Follow up: Response: No adverse reaction; RASS: Drowsy (-1) kc6 06:05 Drug: NS 0.9% IV 1000 ml Route: IV; Rate: 125 ml/hr; Site: right antecubital; pf1 06:15 Drug: Valproic Acid IV 500 mg Route: IV; Rate: calculated rate; Infused Over: 60 mins; ha1 Site: right antecubital; 07:55 Follow up: Response: No adverse reaction; IV Status: Completed infusion; IV Intake: kc6 100ml 07:54 Drug: Keppra IV 1000 mg Route: IV; Rate: calculated rate; Site: right antecubital; kc6 08:31 Follow up: Response: No adverse reaction; IV Status: Completed infusion; IV Intake: kc6 100ml Disposition Summary: 10/20/22 07:14 Discharge Ordered Location: Home sp4 Problem: new sp4 Symptoms: have improved sp4 Condition: Stable sp4 Diagnosis - Other seizures sp4 - Breakthrough seizures, epilepsy sp4 Followup: sp4 - With: Private Physician - When: 7 - 10 days - Reason: Recheck today's complaints Discharge Instructions: - Discharge Summary Sheet sp4 - Epilepsy sp4 Forms: - Patient Portal Instructions sp4 Prescriptions: - Depakote ER 500 mg Oral Tablet, Extended Release 24 hr - take 2 tablet by ORAL route daily; 60 tablet; Refills: 0, Product Selection sp4 Permitted - Seroquel 25 mg Oral tablet - take 1 tablet by ORAL route every 12 hours; 60 tablet; Refills: 0, Product sp4 Selection Permitted - lacosamide 200 mg Oral tablet - take 1 tablet by ORAL route daily; 30 tablet; Refills: 0, Product Selection sp4 Permitted - Keppra 750 mg Oral Tablet - take 2 tablet by ORAL route every 12 hours; 60 tablet; Refills: 0, Product sp4 Selection Permitted Signatures: Dispatcher [employer] Viviana Hawkins RN RN ha1 Nicki Adhikari RN RN [id number] Kaela Bang RN RN pf1 Luis Angel Solis MD MD sp4
[2022-10-20] MEDS ORDERED: levETIRAcetam 1,000 MG in NA CHLORIDE 0.9% 100 ML IV ONE (07:30)
--- NOTE | 2022-10-20 07:42 | RAD REPORT ---
EXAM DESCRIPTION: CT - Head Brain Wo Cont - 10/20/2022 6:41 am CLINICAL HISTORY: seizure , head injury COMPARISON: Facial Bones W/ Mpr dated 12/13/2021; HEAD BRAIN W O CONTRAST dated 01/03/2012 TECHNIQUE: Noncontrast head CT images were obtained without IV contrast. Multiplanar reformats were generated and reviewed. All CT scans are performed using dose optimization technique as appropriate and may include automated exposure control or mA/KV adjustment according to patient size. FINDINGS: No intracranial hemorrhage, mass, or edema. Midline structures are unremarkable. Normal ventricular caliber for age. Tapia-white matter differentiation is preserved, without evidence of acute infarct. No abnormal extra- axial fluid collections. Mastoid air cells and visualized portions of the paranasal sinuses are clear. No acute bony findings. IMPRESSION: No evidence of an acute intracranial process.
[2022-10-20 10:52] VITALS: TEMP 98.4
[2022-10-20 11:08] VITALS: BP 123/72; O2SAT 94
--- NOTE | 2022-10-20 13:59 | RAD REPORT ---
EXAM DESCRIPTION: RAD - Foot Right 3 View - 10/20/2022 6:06 am CLINICAL HISTORY: 52 years Female foot injury TECHNIQUE: Three x-ray views of the right foot were performed on 10/20/2022 at 6:01 AM. COMPARISON: None FINDINGS: There is no evidence of fracture or dislocation. There is no significant arthritis or dege nerative change. No focal lytic or sclerotic bone lesions are seen. There is a small plantar calcan eal spur and small posterior calcaneal enthesophyte. There are minimal degenerative changes involving the first metatarsal phalangeal joint. Bone mineralization is normal. No acute soft tissue abnormalities are identified. IMPRESSION: No evidence of acute osseous injury involving the right foot. There are minimal degenera tive changes as described above. Electronically signed by: Charity Schmidt DO 10/20/2022 6:39 AM CDT Due to temporary technical issues with the PACS/Fluency reporting system, reports are being signed by the in house radiologist without review as a courtesy to ensure prompt reporting. The interpreting r adiologist is fully responsible for the content of the report.
--- NOTE | 2022-10-20 18:07 | EKG ---
Test Date: 2022-10-20 Test Time: 06:20:25 Criminal Defense Lawyer: CALVIN MEASUREMENT RESULTS: Intervals: Rate: 74 MT: 162 QRSD: 92 QT: 388 QTc: 430 [place]: P: 12 MT: 162 QRS: 12 T: 19 INTERPRETIVE STATEMENTS: Normal sinus rhythm Voltage criteria for left ventricular hypertrophy Nonspecific T wave abnormality Abnormal ECG Compared to ECG 09/10/2021 07:02:12 T-wave abnormality now present Sinus tachycardia no longer present ST (T wave) deviation no longer present Electronically Signed On 10-20-22 18:06:08 CDT by Crispin Posey
== END 2022-10-20 10:36 | disposition home or self-care (01) ==
LOC: ER 05:26
DX: G40.802 Other epilepsy, not intractable, without status epilepticus (principal); Z88.5 Allergy status to narcotic agent; Z88.8 Allergy status to other drugs, medicaments and biological substances
CPT/HCPCS: 93005; 85025; 80048; 36415; 83735; 85610; 80076; 84484; 83880; 70450; 73630; J1953; J7030

== ENCOUNTER → 2023-03-09 | Emergency (ER) | payer OTHER ==
[~2023-03-09] MED LIST: BACI/NEOMYCIN/POLY OINT 15GM TOP ONE; NA CHLORIDE 0.9% 1,000 ML ONE; NA CHLORIDE 0.9% 50 ML ONE; VALPROATE NA 500 MG/5 ML INJ IV ONE
--- NOTE | 2023-03-09 21:43 | RAD REPORT ---
EXAM DESCRIPTION: CT - [id number] - 03/09/2023 9:32 pm CLINICAL HISTORY: Trauma, head and neck injury. TRAUMA COMPARISON: Head C Spine Mpr Wo Con dated 12/13/2021 TECHNIQUE: Axial 5 mm thick images of the head were obtained. Axial 2 mm thick images of the cervical spine were obtained with sagittal and coronal reconstruction images generated and reviewed. All CT scans are performed using dose optimization technique as appropriate and may include automated exposure control or mA/KV adjustment according to patient size. FINDINGS: CT HEAD WITHOUT CONTRAST: No acute hemorrhage, hydrocephalus or extra-axial collection is identified.No areas of brain edema or midline shift. The paranasal sinuses and mastoids are clear.The calvarium is intact. CT CERVICAL SPINE WITHOUT CONTRAST: No fracture or subluxation.No prevertebral soft tissues swelling is identified. IMPRESSION: No acute intracranial or cervical spine findings.
[2023-03-09 21:50] LABS: Absolute Lymphocytes (CBC) 3.3 K/uL (0.7-4.9); Hematocrit 39.1 % (36.0-45.0); MCV 95.7 fL (80-100); MPV 9.7 fL (7.6-11.3); Platelets 224 thou/uL (152-406); RBC Red Blood Cell Count 4.09 M/uL (3.86-4.86)
[2023-03-09 22:01] LABS: Bilirubin Total 0.3 mg/dL (0.2-1.0); Protein, Total 6.8 g/dL (6.4-8.2); Valproic Acid (Depakene) Level 88.5 mcg/mL (50.0-100.0)
--- NOTE | 2023-03-09 22:04 | RAD REPORT ---
EXAM DESCRIPTION: RAD - Knee Right 3 View - 03/09/2023 9:55 pm CLINICAL HISTORY: PAIN Fall, pain COMPARISON: <Comparisons> FINDINGS: Right total knee arthroplasty. No evidence of fracture. Soft tissue swelling is seen anter ior to the patellar tendon.
--- NOTE | 2023-03-09 22:05 | RAD REPORT ---
EXAM DESCRIPTION: RAD - Knee Left 3 View - 03/09/2023 9:55 pm CLINICAL HISTORY: PAIN COMPARISON: No comparisons FINDINGS: Soft tissue swelling is seen along the anterior knee. No fracture or dislocation seen. No joint effusion.
[2023-03-09 22:12] LABS: Potassium 3.9 mEq/L (3.5-5.1)
--- NOTE | 2023-03-09 23:22 | EDPHYS ---
Physician Documentation [facility] Name: Angelika Broderick Age: 52 yrs Sex: Female : 1970 Arrival Date: 03/09/2023 Time: 20:48 Bed 16 Private MD: ED Physician Mukesh Alvarez HPI: 03/09 23:13 This 52 yrs old Female presents to ER via EMS with complaints of Fall Injury. dona 23:13 Details of fall: The patient fell from an upright position, while walking. Onset: The dona symptoms/episode began/occurred just prior to arrival. Associated injuries: The patient sustained injury to the head, right leg and left leg, decreased range of motion, painful injury, swelling. Severity of symptoms: At their worst the symptoms were mild, in the emergency department the symptoms are unchanged. The patient has not experienced similar symptoms in the past. Historical: - Allergies: 20:57 Phenobarbital; tm6 20:57 Mysoline; tm6 20:57 Dilantin; tm6 20:57 Tegretol; tm6 - PMHx: 20:57 ovarian cancer; Seizure; tm6 - Immunization history:: Adult Immunizations up to date. - Social history:: Smoking status: unknown. ROS: 23:15 Constitutional: Negative for fever, chills, and weight loss, Eyes: Negative for injury, dona pain, redness, and discharge, ENT: Negative for injury, pain, and discharge, Neck: Negative for injury, pain, and swelling, Cardiovascular: Negative for chest pain, palpitations, and edema, Respiratory: Negative for shortness of breath, cough, wheezing, and pleuritic chest pain, Abdomen/GI: Negative for abdominal pain, nausea, vomiting, diarrhea, and constipation, Back: Negative for injury and pain, : Negative for injury, bleeding, discharge, and swelling, Skin: Negative for injury, rash, and discoloration, Neuro: Negative for headache, weakness, numbness, tingling, and seizure, Psych: Negative for depression, anxiety, suicide ideation, homicidal ideation, and hallucinations, Allergy/Immunology: Negative for hives, rash, and allergies, Endocrine: Negative for neck swelling, polydipsia, polyuria, polyphagia, and marked weight changes, Hematologic/Lymphatic: Negative for swollen nodes, abnormal bleeding, and unusual bruising, 23:15 MS/extremity: Positive for abrasion, decreased range of motion, pain, swelling, tenderness, of the right leg and left leg, Exam: 23:15 Constitutional: This is a well developed, well nourished patient who is awake, alert, dona and in no acute distress. Head/Face: Normocephalic, atraumatic. Eyes: Pupils equal round and reactive to light, extra-ocular motions intact. Lids and lashes normal. Conjunctiva and sclera are non-icteric and not injected. Cornea within normal limits. Periorbital areas with no swelling, redness, or edema. ENT: Nares patent. No nasal discharge, no septal abnormalities noted. Tympanic membranes are normal and external auditory canals are clear. Oropharynx with no redness, swelling, or masses, exudates, or evidence of obstruction, uvula midline. Mucous membranes moist. Neck: Trachea midline, no thyromegaly or masses palpated, and no cervical lymphadenopathy. Supple, full range of motion without nuchal rigidity, or vertebral point tenderness. No Meningismus. Chest/axilla: Normal chest wall appearance and motion. Nontender with no deformity. No lesions are appreciated. Cardiovascular: Regular rate and rhythm with a normal S1 and S2. No gallops, murmurs, or rubs. Normal PMI, no JVD. No pulse deficits. Respiratory: Lungs have equal breath sounds bilaterally, clear to auscultation and percussion. No rales, rhonchi or wheezes noted. No increased work of breathing, no retractions or nasal flaring. Abdomen/GI: Soft, non-tender, with normal bowel sounds. No distension or tympany. No guarding or rebound. No evidence of tenderness throughout. Back: No spinal tenderness. No costovertebral tenderness. Full range of motion. Female : Normal external genitalia. Skin: Warm, dry with normal turgor. Normal color with no rashes, no lesions, and no evidence of cellulitis. Neuro: Awake and alert, GCS 15, oriented to person, place, time, and situation. Cranial nerves II-XII grossly intact. Motor strength 5/5 in all extremities. Sensory grossly intact. Cerebellar exam normal. Normal gait. Psych: Awake, alert, with orientation to person, place and time. Behavior, mood, and affect are within normal limits. 23:15 Musculoskeletal/extremity: ROM: intact in all extremities, full active range of motion, full passive range of motion, Circulation is intact in all extremities. Sensation intact. Compartment Syndrome exam of affected extremity: is normal. Joints: All joints appear normal with full range of motion. Weight bearing: able to fully bear weight, DVT Exam: negative Homans' sign noted on exam, no appreciated bluish discoloration, no erythema, no increased warmth, pain, swelling, tenderness, Vital Signs: 20:55 BP 130 / 69; Pulse 81; Resp 17; Pulse Ox 96% ; Weight 110.68 kg; Height 5 ft. 9 in. ; tm6 Pain 8/10; 22:15 BP 132 / 67; Pulse 71; Resp 17; Temp 98.2; Pulse Ox 100% on R/A; tm6 23:41 BP 123 / 52; Pulse 69; Resp 21; Pulse Ox 100% on R/A; tm6 20:55 Body Mass Index 36.03 (110.68 kg, 175.26 cm) tm6 20:55 Pain Scale: Adult tm6 [place] Coma Score: 23:17 Eye Response: spontaneous(4). Motor Response: obeys commands(6). Verbal Response: dona oriented(5). Total: 15. MDM: 20:52 Patient medically screened. dona 23:17 Differential diagnosis: abrasion, closed head injury, contusion, fracture, laceration, dona multiple trauma, sprain, strain. Data reviewed: vital signs, nurses notes, lab test result(s), radiologic studies. Consideration of Admission/Observation Escalation of care including admission/observation considered. I considered the following discharge prescriptions or medication management in the emergency department Medications were administered in the Emergency Department. See MAR. Independent interpretation of the following test(s) in the Emergency Department CT Scan: My interpretation is ct head and c spine. Test considered but Not performed: CT: no ct chest/abd/pelvis. 03/09 20:54 Order name: CBC with Diff; Complete Time: 23:06 [facility] 03/09 20:54 Order name: Comprehensive Metabolic Panel; Complete Time: 23:06 [facility] 03/09 20:54 Order name: Depakote; Complete Time: 23:06 [facility] 03/09 20:54 Order name: Knee Right 3 View XRAY; Complete Time: 23:06 [facility] 03/09 20:54 Order name: Knee Left 3 View XRAY; Complete Time: 23:06 [facility] 03/09 20:54 Order name: CT Head C Spine; Complete Time: 23:06 [facility] 03/09 20:54 Order name: Seizure Precautions; Complete Time: 21:28 [facility] 03/09 20:54 Order name: Ice pack; Complete Time: 23:14 dona Administered Medications: 22:13 Drug: NS 0.9% IV 1000 ml IV at 1 bolus Per protocol; 1000 mL bolus Route: IV; Rate: 1 tm6 bolus; Site: right forearm; 23:41 Follow up: Response: No adverse reaction; IV Intake: 1000ml tm6 22:13 Drug: Depacon IV 500 mg 5 ml IV at calculated rate once Volume: 5 ml; Route: IV; Rate: tm6 calculated rate; Site: right forearm; 23:40 Drug: Gvwqfjgj-Kitldbpvej-Caokudkih Topical Ointment 1 application Topical once Route: tm6 Topical; Site: wound; Disposition Summary: 03/09/23 23:21 Discharge Ordered Notes: Location: Home dona Problem: new dona Symptoms: have improved dona Condition: Stable dona Diagnosis - Fall on same level, unspecified dona - Abrasion of lower leg dona - Unspecified injury of head, initial encounter dona - Contusion of lower leg dona - Contusion of unspecified part of head - forehaed and chin dona Followup: dona - With: Private Physician - When: 2 - 3 days - Reason: Recheck today's complaints, Continuance of care, Re-evaluation by your physician Followup: dona - With: Jamir Trevizo MD - When: 2 - 3 days - Reason: Recheck today's complaints, Re-evaluation by your physician Discharge Instructions: - Discharge Summary Sheet dona - Abrasion dona - Contusion dona - Head Injury, Adult dona - Knee Sprain, Adult dona - Contusion, Ldwr-ay-[id number] dona - Abrasion, Pdnq-tz-Wftr dona - Knee Sprain, Adult, Tota-ql-Kefz dona - Head Injury, Adult, Xkxt-iq-Jfub dona Forms: - Medication Reconciliation Form [facility] - Thank You Letter [facility] - Antibiotic Education dona - Prescription Opioid Use dona - Patient Portal Instructions [facility] - Leadership Thank You Letter [facility] Prescriptions: - acetaminophen-codeine 300-30 mg Oral tablet - take 1 tablet ORAL route every 4-6 hours as needed for pain; 20 tablet; [facility] Refills: 0, Product Selection Permitted Signatures: Dispatcher [employer] Mukesh Stuart MD MD cha Masterson, Tawney, RN RN tm6
--- NOTE | 2023-03-09 23:22 | ER ---
Nurse's Notes [facility] Name: Angelika Broderick Age: 52 yrs Sex: Female : 1970 Arrival Date: 03/09/2023 Time: 20:48 Bed 16 Private MD: Diagnosis: Fall on same level, unspecified;Abrasion of lower leg;Unspecified injury of head, initial encounter;Contusion of lower leg;Contusion of unspecified part of head-forehaed and chin Presentation: 03/09 20:55 Chief complaint: EMS states: patient fell in parking lot. Abrasion to left forehead. tm6 Complaining of bilateral knee pain. Coronavirus screen: Client denies travel out of the [place] in the last 14 days. Ebola Screen: Patient negative for fever greater than or equal to 101.5 degrees Fahrenheit, and additional compatible Ebola Virus Disease symptoms Patient denies exposure to infectious person. Patient denies travel to an Ebola-affected area in the 21 days before illness onset. No symptoms or risks identified at this time. Initial Sepsis Screen: Does the patient meet any 2 criteria? No. Patient's initial sepsis screen is negative. Does the patient have a suspected source of infection? No. Patient's initial sepsis screen is negative. Risk Assessment: Do you want to hurt yourself or someone else? Patient reports no desire to harm self or others. Onset of symptoms was March 09, 2023. 20:55 Method Of Arrival: EMS: [facility] tm6 20:55 Acuity: MICHAEL 3 tm6 Triage Assessment: 21:28 General: Appears in no apparent distress. Behavior is calm, cooperative. Pain: tm6 Complains of pain in forehead, lateral aspect of right knee, posterior aspect of right knee, medial aspect of right knee and right knee Pain currently is 8 out of 10 on a pain scale. EENT: No signs and/or symptoms were reported regarding the EENT system. Neuro: Level of Consciousness is awake, alert, obeys commands, Oriented to person, place, time, situation, Cardiovascular: Capillary refill < 3 seconds Patient's skin is warm and dry. Respiratory: Airway is patent Respiratory effort is even, unlabored, Respiratory pattern is regular, symmetrical. GI: Abdomen is round non-distended. : No signs and/or symptoms were reported regarding the genitourinary system. Derm: Skin abrasion to forehead and bilateral knees. Musculoskeletal: No signs and/or symptoms reported regarding the musculoskeletal system. Historical: - Allergies: 20:57 Phenobarbital; tm6 20:57 Mysoline; tm6 20:57 Dilantin; tm6 20:57 Tegretol; tm6 - PMHx: 20:57 ovarian cancer; Seizure; tm6 - Immunization history:: Adult Immunizations up to date. - Social history:: Smoking status: unknown. Screenin:34 [facility] ED Fall Risk Assessment (Adult) History of falling in the last 3 months, tm6 including since admission Yes- single mechanical fall (1 pt). Abuse screen: Denies threats or abuse. Denies injuries from another. Nutritional screening: No deficits noted. Tuberculosis screening: No symptoms or risk factors identified. Assessment: 21:34 Reassessment: see triage assessment. tm6 22:49 Reassessment: No changes from previously documented assessment. Patient and/or family vc1 updated on plan of care and expected duration. Pain level reassessed. Patient is alert, oriented x 3, equal unlabored respirations, skin warm/dry/pink. 23:41 Reassessment: No changes from previously documented assessment. tm6 Vital Signs: 20:55 BP 130 / 69; Pulse 81; Resp 17; Pulse Ox 96% ; Weight 110.68 kg; Height 5 ft. 9 in. ; tm6 Pain 8/10; 22:15 BP 132 / 67; Pulse 71; Resp 17; Temp 98.2; Pulse Ox 100% on R/A; tm6 23:41 BP 123 / 52; Pulse 69; Resp 21; Pulse Ox 100% on R/A; tm6 20:55 Body Mass Index 36.03 (110.68 kg, 175.26 cm) tm6 20:55 Pain Scale: Adult tm6 [place] Coma Score: 23:17 Eye Response: spontaneous(4). Motor Response: obeys commands(6). Verbal Response: dona oriented(5). Total: 15. ED Course: 20:49 Patient arrived in ED. cm10 20:52 Mukesh Alvarez MD is Attending Physician. dona 20:54 Ronnell Walden, MAO is Primary Nurse. tm6 20:57 Triage completed. tm6 21:28 Arm band placed on right wrist. tm6 21:34 CT Head C Spine In Process Unspecified. EDMS 21:34 Patient has correct armband on for positive identification. Bed in low position. Call tm6 light in reach. Side rails up X2. Seizure precautions initiated. Provided Education on: plan of care. Client placed on continuous cardiac and pulse oximetry monitoring. NIBP monitoring applied. monitor technician on. Door closed. Noise minimized. Warm blanket given. 21:34 No provider procedures requiring assistance completed. Inserted saline lock: 20 gauge tm6 in right forearm, using aseptic technique. 21:57 Knee Right 3 View XRAY In Process Unspecified. EDMS 21:57 Knee Left 3 View XRAY In Process Unspecified. EDMS 23:20 Jamir Trevizo MD is Referral Physician. dona 23:46 IV discontinued, intact, bleeding controlled, No redness/swelling at site. Pressure tm6 dressing applied. Administered Medications: 22:13 Drug: NS 0.9% IV 1000 ml IV at 1 bolus Per protocol; 1000 mL bolus Route: IV; Rate: 1 tm6 bolus; Site: right forearm; 23:41 Follow up: Response: No adverse reaction; IV Intake: 1000ml tm6 22:13 Drug: Depacon IV 500 mg 5 ml IV at calculated rate once Volume: 5 ml; Route: IV; Rate: tm6 calculated rate; Site: right forearm; 23:40 Drug: Qpatetvh-Aaqskvakgv-Wefrkqozz Topical Ointment 1 application Topical once Route: tm6 Topical; Site: wound; Medication: 21:34 VIS not applicable for this client. tm6 Intake: 23:41 IV: 1000ml; Total: 1000ml. tm6 Outcome: 23:21 Discharge ordered by . dona 23:45 Discharged to home via wheelchair, tm6 23:45 Condition: stable 23:45 Discharge instructions given to patient, Instructed on discharge instructions, follow up and referral plans. medication usage, Demonstrated understanding of instructions, follow-up care, medications, Prescriptions given X 1, 23:58 Patient left the ED. tm6 Signatures: Dispatcher [employer] Mukesh Stuart MD MD cha Calcote, Vanessa RN RN vc1 Daiana Gonzalez RN RN cm10 Ronnell Walden RN RN tm6
[2023-03-10 05:15] VITALS: TEMP 98.2; O2SAT 100
[2023-03-10 05:22] VITALS: BP 123/52
== END ==
LOC: ER 20:48
DX: S80.812A Abrasion, left lower leg, initial encounter (principal); S80.811A Abrasion, right lower leg, initial encounter; S00.83XA Contusion of other part of head, initial encounter; S80.12XA Contusion of left lower leg, initial encounter; S80.11XA Contusion of right lower leg, initial encounter; W18.30XA Fall on same level, unspecified, initial encounter; Z88.5 Allergy status to narcotic agent; Z88.8 Allergy status to other drugs, medicaments and biological substances
CPT/HCPCS: 85025; 36415; 80164; 80053; 70450; 72125; 73562 ×2; 96374; 99285; J7030

== ENCOUNTER 2024-06-01 15:30 | Emergency (ER) | payer OTHER ==
[2024-06-01] MEDS ORDERED: LEVETIRACETAM 500 MG/5 ML VIAL IV ONE ×2 (16:16→16:19)
[2024-06-01] MEDS ORDERED: NA CHLORIDE 0.9% 100 ML ONE (16:17)
[2024-06-01 16:48] LABS: Hematocrit 40.8 % (36.0-45.0); Hemoglobin 13.9 g/dL (12.0-15.0); MCH 32.1 pg (27.0-35.0); MCHC 34.1 g/dL (32.0-36.0); MPV 11.2 fL (7.6-11.3); Platelets 145 thou/uL (152-406); RBC Red Blood Cell Count 4.34 M/uL (3.86-4.86); Red Cell Distribution Width 13.8 % (12.1-15.2)
[2024-06-01 16:53] LABS: Blood Morphology Comment NOT SEEN (NOT SEEN); Platelet Estimate DECR; White Blood Cell Scan OK (OK)
--- NOTE | 2024-06-01 17:49 | EDPHYS ---
Physician Documentation [facility] Name: Angelika Broderick Age: 54 yrs Sex: Female : 1970 Arrival Date: 06/01/2024 Time: 15:30 Bed 18 Private MD: ED Physician Dyana Felix Historical: - Allergies: 06/01 15:28 Dilantin; db 15:28 Phenobarbital; db 15:28 Mysoline; db 15:28 Tegretol; db - PMHx: 15:28 ovarian cancer; Seizure; db - PSHx: 15:28 R knee surgery (e); db - Immunization history:: Adult Immunizations unknown. - Infectious Disease History:: Denies. - Social history:: Smoking status: Patient denies any tobacco usage or history of. Vital Signs: 15:28 BP 110 / 56; Pulse 71; Resp 16; Temp 98; Pulse Ox 99% ; Weight 97.98 kg; Height 5 ft. 9 db in. ; 16:00 BP 114 / 62; Pulse 62; Resp 16; Pulse Ox 100% ; db 16:30 BP 125 / 74; Pulse 63; Resp 18; Pulse Ox 99% on R/A; db 17:30 BP 112 / 60; Pulse 53; Resp 16; Pulse Ox 100% on R/A; db 15:28 Body Mass Index 31.90 (97.98 kg, 175.26 cm) db MDM: 15:39 Medical Screening Exam initiated 1 06/01 16:10 Order name: CBC w/o diff; Complete Time: 17:31 [facility] 06/01 16:10 Order name: BMP; Complete Time: 17:31 [facility] 06/01 16:53 Order name: CBC Smear Scan; Complete Time: 17:31 EDMS Administered Medications: 17:20 Drug: Keppra IV 1500 mg IV at bolus once Route: IV; Rate: bolus; Site: right forearm; db 18:06 Follow up: Response: No adverse reaction; IV Status: Completed infusion; IV Intake: db 100ml 17:56 CANCELLED (Other Intervention Used): tetanus-diphtheria toxoidadult 0.5 ml IM once; gb1 Provide Vaccine Information Statement (VIS). Disposition Summary: 06/01/24 17:49 Discharge Ordered Notes: Location: Home gb1 Problem: an ongoing problem gb1 Symptoms: have improved gb1 Condition: Stable gb1 Diagnosis - Epileptic seizures related to external causes, not intractable gb1 - Patient's other noncompliance with medication regimen gb1 Followup: gb1 - With: Private Physician - When: - Reason: Further diagnostic work-up Discharge Instructions: - Discharge Summary Sheet gb1 - Seizure, Adult, Lywx-gt-Eabp gb1 Forms: - Medication Reconciliation Form gb1 - Antibiotic Education gb1 - Prescription Opioid Use gb1 - Patient Portal Instructions gb1 - Leadership Thank You Letter gb1 Signatures: Dispatcher [employer] Fabby Fernandez, RN RN db Dyana Felix MD MD gb1 Corrections: (The following items were deleted from the chart) 17:56 17:55 Tetanus-Diphtheria Toxoid IM Adult 0.5 ml IM once; Provide Vaccine Information gb1 Statement (VIS). ordered. gb1
--- NOTE | 2024-06-01 17:49 | ER ---
Nurse's Notes [facility] Name: Angelika Broderick Age: 54 yrs Sex: Female : 1970 Arrival Date: 06/01/2024 Time: 15:30 Bed 18 Private MD: Diagnosis: Epileptic seizures related to external causes, not intractable;Patient's other noncompliance with medication regimen Presentation: 06/01 15:28 Chief complaint: EMS states: POSSIBLE SEIZURE. PT WAS TALKING ON THE PHONE PERSON ON db THE OTHER LINE CALLED 911 DUE TO PT ALTERED AND HAD POSSIBLE SEIZURE. PT WAS ORIENTED FOR EMS. UPON ARRIVAL PT BECAME CONFUSED DURING TRIAGE PULLED OUT IV AND DID NOT KNOW WHAT SHE WAS DOING OR WHERE SHE WAS. BECAME ORIENTED WITHIN 2 MIN OF INCIDENT. Coronavirus screen: Client denies travel out of the [place] in the last 14 days. At this time, the client does not indicate any symptoms associated with coronavirus-19. Ebola Screen: Patient negative for fever greater than or equal to 101.5 degrees Fahrenheit, and additional compatible Ebola Virus Disease symptoms Patient denies exposure to infectious person. Patient denies travel to an Ebola-affected area in the 21 days before illness onset. No symptoms or risks identified at this time. Initial Sepsis Screen: Does the patient meet any 2 criteria? No. Patient's initial sepsis screen is negative. Does the patient have a suspected source of infection? No. Patient's initial sepsis screen is negative. Risk Assessment: Do you want to hurt yourself or someone else? Patient reports no desire to harm self or others. Onset of symptoms was June 01, 2024. Care prior to arrival: IV initiated. 20 GA, in the right hand, Glucose check: 67. 15:28 Method Of Arrival: EMS: [facility] db 15:28 Acuity: MICHAEL 2 db Triage Assessment: 15:28 General: Appears in no apparent distress. comfortable, Behavior is cooperative. Pain: db Denies pain. Neuro: Level of Consciousness is awake, alert, obeys commands, Oriented to person. Respiratory: Airway is patent Respiratory effort is even, unlabored, Respiratory pattern is regular, symmetrical. Historical: - Allergies: 15:28 Dilantin; db 15:28 Phenobarbital; db 15:28 Mysoline; db 15:28 Tegretol; db - PMHx: 15:28 ovarian cancer; Seizure; db - PSHx: 15:28 R knee surgery (e); db - Immunization history:: Adult Immunizations unknown. - Infectious Disease History:: Denies. - Social history:: Smoking status: Patient denies any tobacco usage or history of. Screenin:04 [facility] ED Fall Risk Assessment (Adult) History of falling in the last 3 months, db including since admission No falls in past 3 months (0 pts) Confusion or Disorientation No (0 pts) Intoxicated or Sedated No (0 pts) Impaired Gait No (0 pts) Mobility Assist Device Used No (0 pt) Altered Elimination No (0 pt) Score/Fall Risk Level 0 - 2 = Low Risk Oriented to surroundings, Maintained a safe environment. Abuse screen: Denies threats or abuse. Denies injuries from another. Nutritional screening: No deficits noted. Tuberculosis screening: No symptoms or risk factors identified. Assessment: 15:52 Reassessment: SEE TRIAGE FOR INITIAL ASSESSMENT. db 15:52 Reassessment: PT REMOVED IV FROM RIGHT HAND. CATHETER INTACT. BANDAGE APPLIED. db 18:04 Reassessment: Patient appears in no apparent distress at this time. Patient and/or db family updated on plan of care and expected duration. Pain level reassessed. Patient is alert, oriented x 3, equal unlabored respirations, skin warm/dry/pink. General: Appears in no apparent distress. comfortable, Behavior is calm, cooperative. Neuro: Level of Consciousness is awake, alert, obeys commands, Oriented to person, place, time, situation. Respiratory: Airway is patent Respiratory effort is even, unlabored, Respiratory pattern is regular, symmetrical. Vital Signs: 15:28 BP 110 / 56; Pulse 71; Resp 16; Temp 98; Pulse Ox 99% ; Weight 97.98 kg; Height 5 ft. 9 db in. ; 16:00 BP 114 / 62; Pulse 62; Resp 16; Pulse Ox 100% ; db 16:30 BP 125 / 74; Pulse 63; Resp 18; Pulse Ox 99% on R/A; db 17:30 BP 112 / 60; Pulse 53; Resp 16; Pulse Ox 100% on R/A; db 15:28 Body Mass Index 31.90 (97.98 kg, 175.26 cm) db ED Course: 15:28 Arm band placed on Patient placed in an exam room. db 15:34 Patient arrived in ED. db 15:35 Dyana Felix MD is Attending Physician. gb1 15:51 Triage completed. db 16:34 Initial lab(s) drawn, sent to lab. db 16:40 Fabby Merida RN is Primary Nurse. db 16:40 Missed attempt(s): 22 gauge in right hand. Bleeding controlled, band aid applied, db catheter tip intact. 17:00 Missed attempt(s): 22 gauge in left antecubital area. BY STOCK SORTER. Bleeding controlled, db band aid applied, catheter tip intact. 17:20 Inserted saline lock: 24 gauge in right forearm, using aseptic technique. Blood db collected. Flushed with 10 mL NS. 18:04 Patient has correct armband on for positive identification. Bed in low position. Call db light in reach. Side rails up X 1. Seizure precautions initiated. Provided Education on: DISCHARGE AND FOLLOWUP. Client placed on continuous cardiac and pulse oximetry monitoring. NIBP monitoring applied. box strapper on. Pulse ox on. NIBP on. Warm blanket given. Pillow given. 18:04 No provider procedures requiring assistance completed. IV discontinued, intact, db bleeding controlled, No redness/swelling at site. Administered Medications: 17:20 Drug: Keppra IV 1500 mg IV at bolus once Route: IV; Rate: bolus; Site: right forearm; db 18:06 Follow up: Response: No adverse reaction; IV Status: Completed infusion; IV Intake: db 100ml 17:56 CANCELLED (Other Intervention Used): tetanus-diphtheria toxoidadult 0.5 ml IM once; gb1 Provide Vaccine Information Statement (VIS). Medication: 18:04 VIS not applicable for this client. db Intake: 18:06 IV: 100ml; Total: 100ml. db Outcome: 17:49 Discharge ordered by . gb1 18:04 Discharged to home ambulatory, with family, db 18:04 Condition: stable 18:04 Discharge instructions given to patient, Instructed on discharge instructions, follow up and referral plans. 18:06 Patient left the ED. db Signatures: Fabby Merida, RN RN db Dyana Feilx MD MD gb1
[2024-06-01 18:13] VITALS: BP 112/60; O2SAT 100
== END 2024-06-01 18:06 | disposition home or self-care (01) ==
LOC: ER 15:30
DX: G40.509 Epileptic seizures related to external causes, not intractable, without status epilepticus (principal); Z91.148 Patient's other noncompliance with medication regimen for other reason
CPT/HCPCS: 96365; 80048; 36415; 85027; 99285; J1953 ×2

== ENCOUNTER 2024-08-06 13:10 | Emergency (ER) | payer OTHER ==
--- OUTSIDE RECORDS SUMMARY | 2024-08-06 13:16 | XMS REPORT | Continuity of Care Document ---
Author Name Unknown Address [address] [facility] [address] [place] [address] [facility] Address [address] [facility] [address] [place] [address] Care Team Providers Care Bow Maker Gift Wrapping Name Role Phone Krista Wise Primary Care Physician [phone] Krista Wise Attending Clinician Unavailable Екатерина Sutton MA Attending Clinician UnavailDalila Baker MD Attending Clinician [phone] NP Attending Clinician [phone] DALILA MCCLURE Attending Clinician Unavailable Judith Paige MD Attending Clinician + Mishel Hall Attending Clinician [phone] Adry Alvarado MA Attending Clinician Unavail able MISHEL HAYNES L Attending Clinician Unavailabl e [email or web address] Attending Clinician SANCHEZ Bui Attending Clinician Unavailable Sanchez Chinchilla MD Attending Clinician SHANTELLE ASKEW Attending Clinician Unavailable [email or web address] Admitting Clinician Cali fisher Payers Payer Name Policy Type Policy Number Effective Date Expirati on Date Source [facility] AARP MCR Advantage (HMO-POS) [id number] 2020 00:00:00 [facility] MEDICARE ADVANTAGE Medicare [id number] 2023 00:00:00 [facility] DUAL COMP HMO D SNP [id number] 2022 00:00:00 MED[place]ID [place] [id number] 2018 00:00:00 Problems Condition Name Condition Details Condition Category Status Onset Date Resolution Date Last Treatment Date Treating Clinician Comments Source 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 Disease Active 10-03 00:00: 00 Jose Martin Garcia Epic Encounter for long-term current use of medication Encounter for long-term current use of medication Disease Active 08-31 00:00: 00 Jose Martin Garcia Epic Encounter for long-term current use of medication Encounter for long-term current use of medication Disease Active 08-31 00:00: 00 Jose Martin Garcia Epic Malignant neoplasm of unspecifie d ovary Malignant neoplasm of unspecifie d ovary Active Problem 02/05/2021 [facility] Problem Active 2021-02-05 03:45:08 Jose Martin Garcia Epilepsy Epilepsy Active Problem 02/05/2021 [facility] Problem Active 2021-02-05 03:45:08 Jose Martin Garcia Complex partial epilepsy Complex partial epilepsy Active Problem 02/05/2021 [facility] Problem Active 2021-02-05 03:45:08 Jose Martin Garcia Depression Depression Active Problem 02/05/2021 [facility] Problem Active 2021-02-05 03:45:08 Jose Martin Garcia Hyperglyce satnam Hyperglyce satnam Active Diagnosis 11/06/2020 [facility] Diagnosis Active 2020-11-06 02:45:15 Jose Martin Garcia Patient had no falls in past year Patient had no falls in past year Active Diagnosis 09/06/2020 [facility] Diagnosis Active 2020-09-06 02:46:23 Jose Martin Garcia Epilepsy Epilepsy Disease Active Memjeff Garcia Epic Encounter for long-term (current) use of medication s Encounter for long-term (current) use of medication s Active Diagnosis 09/22/2020 [facility] Diagnosis Active 2020-09-22 02:47:16 Jose Martin Garcia Tremor Tremor Active Problem 02/05/2021 [facility] Problem Active 2021-02-05 03:45:08 Jose Martin Garcia Intellectu al disability Intellectu al disability Active Problem 02/05/2021 [facility] Problem Active 2021-02-05 03:45:08 Jose Martin Garcia Iron deficiency anemia, unspecifie d iron deficiency anemia type Iron deficiency anemia, unspecifie d iron deficiency anemia type Active Problem 02/05/2021 [facility] Problem Active 2021-02-05 03:45:08 Jose Martin Garcia Neurodegen erative cognitive impairment Neurodegen erative cognitive impairment Active Problem 02/05/2021 [facility] Problem Active 2021-02-05 03:45:08 Jose Martin Garcia [id number] Abnormal mammogram Problem [facility] [id number] Intrinsic eczema Problem [facility] [id number] Hx of ovarian cancer Problem [facility] [id number] Malignant neoplasm of ovary, unspecifie d laterality Problem [facility] [id number] Other fatigue Problem [facility] Gynecologi yazan examinatio n normal Well woman exam with routine gynecologi yazan exam Problem [facility] Diverticul itis Diverticul itis Problem [facility] [id number] Mixed hyperlipid emia Problem [facility] [id number] Type 2 diabetes mellitus with hyperglyce satnam, without long-term current use of insulin Problem [facility] [id number] Asymptomat ic postmenopa usal state Problem [facility] [id number] Mentally disabled Problem [facility] [id number] Bipolar 1 disorder Problem [facility] [id number] Anxiety Problem [facility] [id number] Gastroesop hageal reflux disease without esophagiti s Problem [facility] [id number] Mixed stress and urge urinary incontinen ce Problem [facility] [id number] Seizures Problem [facility] [id number] Petit mal seizure status Problem [facility] [id number] Right-side d low back pain without sciatica, unspecifie d chronicity Problem [facility] [id number] Generalize d weakness Problem [facility] [id number] Injury of left wrist, initial encounter Problem [facility] Allergies, Adverse Reactions, Alerts Allergy Name Allergy Type Status Severity Reaction(s) Onset Date Inactive Date Treating Clinician Comments Source Carbamaz epine Allergy to substanc e Active Unknown 08-31 00:00: 00 Jose Martin Garcia Epic Phenobar bital Allergy to substanc e Active Unknown 08-31 00:00: 00 Memjorge Garcia Epic Phenytoi n Allergy to substanc e Active Unknown 08-31 00:00: 00 Jose Martin Garcia Epic CARBAMAZ EPINE DRUG INGREDI Active Unknown 08-31 00:00: 00 [facility] PHENOBAR BITAL DRUG INGREDI Active Unknown 08-31 00:00: 00 [facility] PHENYTOI N DRUG INGREDI Active Unknown 08-31 00:00: 00 [facility] Tegretol Tegretol Active Info Not Available 2020-03 00:00: 00 Jose Martin Garcia Phenobar bital Phenobar bital Active Info Not Available 2020-03 00:00: 00 Jose Martin Garcia Dilantin Dilantin Active Info Not Available 2020-03 00:00: 00 Jose Martin Garcia Phenytoi n Sodium Extended Propensi ty to adverse reaction s Active Hives 18 00:00: 00 [facility] PHENYTOI N SODIUM EXTENDED DRUG INGREDI Active Hives 09-28 00:00: 00 [facility] Phenobar bital Propensi ty to adverse reaction s Active Unknown - See comments 04-02 00:00: 00 [facility] Carbamaz epine Propensi ty to adverse reaction s Active Unknown - See comments 04-02 00:00: 00 [facility] PHENOBAR BITAL DRUG INGREDI Active Unknown-Cmnt 04-02 00:00: 00 [facility] CARBAMAZ EPINE DRUG INGREDI Active Unknown-Cmnt 04-02 00:00: 00 [facility] ALLERGIE S NOT ON FILE SYSTEMIC Active [facility] NO KNOWN ALLERGIE S SYSTEMIC Active [facility] Social History Social Habit Start Date Stop Date Quantity Comments Source Gender identity 2023-06-04 06:57:01 Identifies as female gender (finding) [facility] Sexual orientation [facility] ASSERTION Possible [facility] History of Tobacco Use [facility] Alcoholic beverage intake 2024-02-29 00:00:00 2024-02-29 00:00:00 Lifetime non-drinker (finding) [facility] History of Social function 2024-02-29 00:00:00 2024-02-29 00:00:00 [facility] Tobacco use and exposure 2023-09-01 00:00:00 2023-09-01 00:00:00 Smokeless tobacco non-user [facility] Exposure to SARS-CoV-2 (event) 2022-04-19 00:00:00 2022-04-29 12:41:00 Not sure [facility] Sex Assigned At 1970 00:00:00 1970 00:00:00 [facility] Smoking Status Start Date Stop Date Source Tobacco smoking consumption unknown [facility] Never smoked tobacco Jose Martin Garcia [facility] Medications Ordered Medication Name Filled Medication Name Start Date Stop Date Current Medication? Ordering Clinician Indication Dosage Frequency Signature (SIG) Comments Components Source levETIRAcet am (Keppra) 750 MG tablet levETIRAcet am (Keppra) 750 MG tablet 5-13 00:00: 00 Yes [id number] 1500mg Q.5D Take 2 tablets by mouth in the morning and 2 tablets in the evening. Jose Martin Garcia [facility] levETIRAcet am (Keppra) 750 MG tablet levETIRAcet am (Keppra) 750 MG tablet 5-09 00:00: 00 07-23 00:00 :00 No [id number] 1500mg Q.5D Take 2 tablets by mouth in the morning and 2 tablets in the evening. Jose Martin Reardon lacosamide (Vimpat) 200 mg tablet tablet lacosamide (Vimpat) 200 mg tablet tablet -09 00:00: 00 Yes [id number] 200mg Q.5D Take 1 tablet by mouth in the morning and 1 tablet in the evening. Jose Martin Reardon lacosamide (Vimpat) 200 mg tablet tablet lacosamide (Vimpat) 200 mg tablet tablet 04-30 00:00: 00 06-20 00:00 :00 No [id number] 200mg Q.5D Take 1 tablet by mouth in the morning and 1 tablet in the evening. Jose Martin Garcia [facility] divalproex (Depakote) 500 MG EC tablet divalproex (Depakote) 500 MG EC tablet 1-20 00:00: 00 09-29 23:59 :00 No [id number] 500mg Q.5D Take 1 tablet by mouth in the morning and 1 tablet in the evening. Jose Martin Garcia [facility] zonisamide (Zonegran) 100 MG capsule zonisamide (Zonegran) 100 MG capsule 2023-0318 00:00: 00 08-27 23:59 :00 No [id number] 300mg QD Take 3 capsules by mouth 1 time each day. Jose Martin Garcia [facility] levETIRAcet am (Keppra) 750 MG tablet levETIRAcet am (Keppra) 750 MG tablet 2023-03-18 00:00: 00 07-20 00:00 :00 No [id number] 1500mg Q.5D Take 2 tablets by mouth in the morning and 2 tablets in the evening. Jose Martin Garcia [facility] divalproex (Depakote) 500 MG EC tablet divalproex (Depakote) 500 MG EC tablet 2023-03 2-18 00:00: 00 04-02 00:00 :00 No [id number] 500mg Q.5D Take 1 tablet by mouth in the morning and 1 tablet in the evening. Jose Martin Reardon zonisamide (Zonegran) 100 MG capsule zonisamide (Zonegran) 100 MG capsule 2023-03 2-11 00:00: 00 02-28 00:00 :00 No [id number] 300mg QD Take 3 capsules by mouth 1 time each day. Jose Martin Reardon lacosamide (Vimpat) 200 mg tablet tablet lacosamide (Vimpat) 200 mg tablet tablet 2023-03 0- 00:00: 00 04-30 00:00 :00 No [id number] 200mg Q.5D Take 1 tablet by mouth in the morning and 1 tablet in the evening. Jose Martin Reardon divalproex (Depakote) 500 MG EC tablet divalproex (Depakote) 500 MG EC tablet 2023-03 0- 00:00: 00 02-28 00:00 :00 No [id number] 500mg Q.5D Take 1 tablet by mouth twice daily. Jose Martin Reardon levETIRAcet am (Keppra) 750 MG tablet levETIRAcet am (Keppra) 750 MG tablet 2023-03 0-01 00:00: 00 02-28 00:00 :00 No 1500mg Q.5D Take 2 tablets by mouth in the morning and 2 tablets in the evening. Jose Martin Reardon divalproex (Depakote) 500 MG EC tablet divalproex (Depakote) 500 MG EC tablet 8-09 00:00: 00 12-12 00:00 :00 No 500mg Q.5D Take 1 tablet by mouth twice daily. Jose Martin Reardon citalopram (CeleXA) 20 MG tablet citalopram (CeleXA) 20 MG tablet 8-07 00:00: 00 Yes 20mg QD Take 1 tablet by mouth daily. Jose Martin Reardon divalproex (Depakote) 500 MG EC tablet divalproex (Depakote) 500 MG EC tablet 09-20 00:00: 00 10-20 00:00 :00 No 500mg Q.5D Take 1 tablet by mouth twice daily. Jose Martin Reardon lacosamide (Vimpat) 200 mg tablet tablet lacosamide (Vimpat) 200 mg tablet tablet 09-18 00:00: 00 12-12 00:00 :00 No [id number] 200mg Q.5D Take 1 tablet by mouth twice daily. Jose Martin Reardon metFORMIN, OSM, (Fortamet) 500 MG 24 hr tablet metFORMIN, OSM, (Fortamet) 500 MG 24 hr tablet 08-31 13:50: 06 02-28 00:00 :00 No 500mg Take 500 mg by mouth in the evening. Take with meals.. Do not crush, chew, or split. Jose Martin Reardon oxybutynin XL (Ditropan-X L) 10 MG 24 hr tablet oxybutynin XL (Ditropan-X L) 10 MG 24 hr tablet 08-31 13:49: 21 Yes 1{tbl} Q12H 1 tablet Orally twice a day Jose Martin Reardon rosuvastati n (Crestor) 20 MG tablet rosuvastati n (Crestor) 20 MG tablet 08-31 13:49: 21 Yes 1{tbl} 1 tablet Orally Once a day for 30 days Jose Martin Reardon levETIRAcet am (Keppra) 750 MG tablet levETIRAcet am (Keppra) 750 MG tablet 08-31 13:49: 21 02-28 00:00 :00 No 2{tbl} Q12H Take 2 tablets by mouth twice daily. for 90 days Jose Martin Reardon zonisamide (Zonegran) 100 MG capsule zonisamide (Zonegran) 100 MG capsule 08-31 13:49: 21 02-21 00:00 :00 No 3{capsu le} 3 capsules Orally at bedtime for 90 days Jose Martin Reardon citalopram (CeleXA) 20 MG tablet citalopram (CeleXA) 20 MG tablet 08-31 13:49: 21 10-18 00:00 :00 No Take 1 tablet by mouth daily. for 90 Jose Martin Reardon metFORMIN HCl ER 500 MG metFORMIN HCl ER 500 MG 08-31 00:00: 00 No 1{table t_with_ evening _meal} QD metFORMIN HCl ER 500 MG divalproex (Depakote) 500 MG EC tablet divalproex (Depakote) 500 MG EC tablet 08-21 00:00: 00 09-20 00:00 :00 No 500mg Q.5D Take 1 tablet by mouth twice daily. Jose Martin Reardon lacosamide (Vimpat) 200 mg tablet tablet lacosamide (Vimpat) 200 mg tablet tablet 06-01 00:00: 00 02-28 00:00 :00 No 1{tbl} Q12H 1 tablet Orally Twice a day for 90 days Jose Martin Reardon omeprazole (PriLOSEC) [address] capsule omeprazole (PriLOSEC) [address] capsule 2022-03 00:00: 00 Yes 1 capsule 30 minutes before morning meal Orally Once a day for 30 day(s) Jose Martin Reardon lacosamide (Vimpat) 200 mg tablet tablet lacosamide (Vimpat) 200 mg tablet tablet 2022-03 0-17 00:00: 00 02-28 00:00 :00 No 1{tbl} Q12H 1 tablet Orally Twice a day for 90 days Jose Martin Reardon amoxicillin -clavulanat e (AUGMENTIN) 875-125 mg per tablet 1 tablet -16 21:15: 00 04-29 20:30 :00 No 1{tbl} 1 tablet, Oral, ONCE NOW, 1 dose, On Tue04/29/22 at 1515, Routine
Reason for Anti-Infec tive: Documented Infection< br>Documen tj Infection Site: HEENT
D uration of Therapy: Other (see Comments) [facility] ketorolac (TORADOL) tablet 20 mg 2023-0 2-16 20:00: 00 04-29 19:13 :00 No 20mg 20 mg, Oral, ONCE NOW, 1 dose, On Hayley 04/29/22 at 1400, SANJEEV [facility] loratadine (CLARITIN) tablet 10 mg 04-29 20:00: 00 04-29 19:13 :00 No 10mg 10 mg, Oral, ONCE NOW, 1 dose, [facility]29[facility]22 [facility] 1400[facility] dextrometho rphan-guaif enesin (ROBITUSSIN DM) 10-100 mg/5 mL solution 10 mL 04-29 20:00: 00 04-29 19:15 :00 No 10mL 10 mL, Oral, ONCE NOW, 1 dose, On Hayley 04/29/22 at 1400, Routine [facility] meloxicam 15 mg tablet 04-29 00:00: 00 Yes [id number] 15mg Take 1 tablet by mouth in the morning. [facility] dextromeo rphan-guaif enesin (MUCINEX DM) 30-600 mg per tablet 04-29 00:00: 00 Yes [id number] 1{tbl} Take 1 tablet by mouth in the morning and 1 tablet in the evening. [facility] acetaminoph en (TYLENOL ARTHRITIS PAIN) 650 mg CR tablet 04-29 00:00: 00 Yes [id number] 650mg Take 1 tablet by mouth every 8 (eight) hours as needed for Pain. [facility] amoxicillin -clavulanat e 875-125 mg per tablet 04-29 00:00: 00 05-10 05:59 :00 No [id number] 1{tbl} Take 1 tablet by mouth every 12 (twelve) hours for 10 days. [facility] oxyBUTYnin Chloride 5 MG oxyBUTYnin Chloride 5 MG 2021-03 108 00:00: 00 04-19 00:00 :00 No 1{table t} BID oxyBUTYnin Chloride 5 MG Rosuvastati n Calcium 20 MG Rosuvastati n Calcium 20 MG 8-11 00:00: 00 No 1{table t} QD Rosuvastat in Calcium 20 MG Vimpat 2020-03 1 00:00: 00 Yes Dalila Palvadi 1 tablet Memjorge Garcia Depakote 2020-03 03:45: 10 Yes Dalila Palvadi 1 tablet Memjorge Garcia Citalopram Hydrobromid e 2020-03 03:45: 10 Yes Dalila Palvadi 1 tablet Memoria maurilio Garcia Keppra 2020-03 03:45: 10 Yes Dalila Palvadi 2 tablets Memoria maurilio Garcia Keppra 2020-03 03:45: 10 Yes Dalila Palvadi 1 tablet Memjorge Garcia Zonegran 2020-03 03:45: 10 Yes Dalila Palvadi 3 capsule qhs Memojrge Garcia Acyclovir 2020-03 03:45: 10 Yes Dalila Palvadi 1 tablet Memjorge Garcia Vimpat 8 00:00: 00 Yes Dalila Palvadi 1 tablet Memjorge Garcia Vimpat 7-17 02:47: 20 Yes Mishel Haynes 1 tablet Memjorge Garcia Depakote 9-04 00:00: 00 Yes Dalila Palvadi 1 tablet Memjorge Garcia Depakote 500 MG Depakote 500 MG No 2{table ts} Depakote 500 MG Vimpat 200 MG Vimpat 200 MG No 1{table t} BID Vimpat 200 MG Zonegran 100 MG Zonegran 100 MG No 3{capsu les} Zonegran 100 MG Keppra 750 MG Keppra 750 MG No 2{table ts} Keppra 750 MG Imodium A-D 2 MG Imodium A-D 2 MG No 1{table t_as_ne eded} BID Imodium A-D 2 MG Ibuprofen 600 MG Ibuprofen 600 MG No QID Ibuprofen 600 MG Immunizations Ordered Immunization Name Filled Immunization Name Date Status Comments Source Prevnar 20 (PCV20) Prevnar 20 (PCV20) Unknown Completed [facility] Prevnar 20 (PCV20) Prevnar 20 (PCV20) Unknown Completed [facility] Prevnar 20 (PCV20) Prevnar 20 (PCV20) Unknown Completed [facility] Prevnar 20 (PCV20) Prevnar 20 (PCV20) Unknown Completed [facility] Prevnar 20 (PCV20) Prevnar 20 (PCV20) Unknown Completed [facility] Prevnar 20 (PCV20) Prevnar 20 (PCV20) Unknown Completed [facility] Prevnar 20 (PCV20) Prevnar 20 (PCV20) Unknown Completed [facility] Prevnar 20 (PCV20) Prevnar 20 (PCV20) Unknown Completed [facility] Prevnar 20 (PCV20) Prevnar 20 (PCV20) Unknown Completed [facility] Prevnar 20 (PCV20) Prevnar 20 (PCV20) Unknown Completed [facility] Prevnar 20 (PCV20) Prevnar 20 (PCV20) Unknown Completed [facility] Prevnar 20 (PCV20) Prevnar 20 (PCV20) Unknown Completed [facility] Prevnar 20 (PCV20) Prevnar 20 (PCV20) Unknown Completed [facility] Prevnar 20 (PCV20) Prevnar 20 (PCV20) Unknown Completed [facility] Prevnar 20 (PCV20) Prevnar 20 (PCV20) Unknown Completed [facility] Vital Signs Vital Name Observation Time Observation Value Comments S ource Systolic blood pressure 2024-02-29 13:59:00 140 mm[Hg] [facility] Diastolic blood pressure 2024-02-29 13:59:00 84 mm[Hg] [facility] Body height 2024-02-29 13:59:00 175.3 cm [facility] Body weight 2024-02-29 13:59:00 97.977 kg [facility] BMI 2024-02-29 13:59:00 31.90 kg/m2 [facility] Systolic blood pressure 2024-02-29 13:59:00 140 mm[Hg] [facility] Diastolic blood pressure 2024-02-29 13:59:00 84 mm[Hg] [facility] Body height 2024-02-29 13:59:00 175.3 cm Seymour Garcia [facility] Body weight 2024-02-29 13:59:00 97.977 kg Seymour Garcia [facility] BMI 2024-02-29 13:59:00 31.90 kg/m2 Seymour Jimenezann [facility] height 2023-09-29 16:20:00 69 [in_i] [facility] weight 2023-09-29 16:20:00 233 [lb_av] [facility] bmi 2023-09-29 16:20:00 34.4 kg/m2 [facility] Systolic blood pressure 2023-09-01 13:43:00 122 mm[Hg] [facility] Diastolic blood pressure 2023-09-01 13:43:00 70 mm[Hg] [facility] Body height 2023-09-01 13:43:00 175.3 [facility] 2023-09-01 13:43:00 105.688 kg [facility] 2023-09-01 13:43:00 34.41 kg/m2 [facility] Sy[facility] 2023-09-01 13:43:00 122 mm[Hg] [facility] Diastolic blood pressure 2023-09-01 13:43:00 70 mm[Hg] [facility] Body height 2023-09-01 13:43:00 175.3 cm [facility] 2023-09-01 13:43:00 105.688 kg [facility]ourjesus [facility]uel [facility] BMI 2023-09-01 13:43:00 34.41 kg/m2 [facility] 2023-09-01 08:20:00 69 [in_i] [facility] weight 2023-09-01 08:20:00 233.6 [lb_av] [facility] temperature 2023-09-01 08:20:00 97.2 [degF] [facility] bmi 2023-09-01 08:20:00 34.49 kg/m2 [facility] oximetry 2023-09-01 08:20:00 98 % [facility] respiratory rate 2023-09-01 08:20:00 15 /min [facility] blood pressure systolic 2023-09-01 08:20:00 128 mm[Hg] [facility] blood pressure diastolic 2023-09-01 08:20:00 78 mm[Hg] [facility] height 2023-08-17 09:20:00 69 [in_i] [facility] weight 2023-08-17 09:20:00 234.0 [lb_av] Co [facility] temperature 2023-08-17 09:20:00 97.0 [degF] Com [facility] bmi 2023-08-17 09:20:00 34.55 kg/m2 [facility] oximetry 2023-08-17 09:20:00 95 % [facility] respiratory rate 2023-08-17 09:20:00 15 /min [facility] blood pressure systolic 2023-08-17 09:20:00 129 mm[Hg] [facility] blood pressure diastolic 2023-08-17 09:20:00 63 mm[Hg] [facility] height 2023-02-14 15:00:00 69 [in_i] [facility] weight 2023-02-14 15:00:00 244.4 [lb_av] Co [facility] temperature 2023-02-14 15:00:00 97.9 [degF] Com [facility] bmi 2023-02-14 15:00:00 36.09 kg/m2 [facility] oximetry 2023-02-14 15:00:00 95 % [facility] respiratory rate 2023-02-14 15:00:00 16 /min [facility] blood pressure systolic 2023-02-14 15:00:00 130 mm[Hg] [facility] blood pressure diastolic 2023-02-14 15:00:00 80 mm[Hg] [facility] height 2022-07-13 10:40:00 69 [in_i] [facility] weight 2022-07-13 10:40:00 239.8 [lb_av] [facility] temperature 2022-07-13 10:40:00 97.8 [degF] [facility] bmi 2022-07-13 10:40:00 35.41 kg/m2 [facility] oximetry 2022-07-13 10:40:00 96 % [facility] respiratory rate 2022-07-13 10:40:00 15 /min [facility] blood pressure systolic 2022-07-13 10:40:00 108 mm[Hg] [facility] blood pressure diastolic 2022-07-13 10:40:00 68 mm[Hg] [facility] Systolic blood pressure 2022-04-29 20:31:28 145 mm[Hg] [facility] Diastolic blood pressure 2022-04-29 20:31:28 77 mm[Hg] [facility] Heart rate 2022-04-29 20:31:28 100 /min [facility] Respiratory rate 2022-04-29 20:31:28 16 /min [facility] Oxygen saturation in Arterial blood by Pulse oximetry 2022-04-29 20:31:28 94 /min [facility] Body temperature 2022-04-29 18:42:00 37.61 Marilyn [facility] Body height 2022-04-29 18:42:00 175.3 cm [facility] Body weight 2022-04-29 18:42:00 111.131 kg [facility] BMI 2022-04-29 18:42:00 36.18 kg/m2 [facility] height 2022-04-13 10:00:00 69 [in_i] [facility] weight 2022-04-13 10:00:00 247.8 [lb_av] [facility] temperature 2022-04-13 10:00:00 97.7 [degF] [facility] bmi 2022-04-13 10:00:00 36.59 kg/m2 [facility] oximetry 2022-04-13 10:00:00 99 % [facility] respiratory rate 2022-04-13 10:00:00 17 /min [facility] blood pressure systolic 2022-04-13 10:00:00 132 mm[Hg] [facility] [place] [facility] blood pressure diastolic 2022-04-13 10:00:00 63 mm[Hg] Common [place] height 2022-01-19 10:40:00 69 [in_i] [facility] weight 2022-01-19 10:40:00 240.8 [lb_av] Co mmon [facility] temperature 2022-01-19 10:40:00 97.5 [degF] Com mon [facility] bmi 2022-01-19 10:40:00 35.56 kg/m2 Comm on [facility] oximetry 2022-01-19 10:40:00 97 % [facility] respiratory rate 2022-01-19 10:40:00 16 /min Common [facility] blood pressure systolic 2022-01-19 10:40:00 130 mm[Hg] [facility] blood pressure diastolic 2022-01-19 10:40:00 72 mm[Hg] Common [place] height 2021-07-20 08:40:00 69 [in_i] [facility] weight 2021-07-20 08:40:00 222.8 [lb_av] Co mmon [facility] temperature 2021-07-20 08:40:00 97.0 [degF] Com [facility] bmi 2021-07-20 08:40:00 32.9 kg/m2 [facility] oximetry 2021-07-20 08:40:00 94 % [facility] respiratory rate 2021-07-20 08:40:00 16 /min Common [facility] blood pressure systolic 2021-07-20 08:40:00 99 mm[Hg] [facility] [place] [facility] blood pressure diastolic 2021-07-20 08:40:00 56 mm[Hg] Common [place] height 2021-02-18 15:40:00 69 [in_i] [facility] weight 2021-02-18 15:40:00 209.2 [lb_av] Co mmon [facility] temperature 2021-02-18 15:40:00 97.5 [degF] Com [facility] bmi 2021-02-18 15:40:00 30.89 kg/m2 Comm on [facility] oximetry 2021-02-18 15:40:00 96 % [facility] respiratory rate 2021-02-18 15:40:00 16 /min Common [facility] blood pressure systolic 2021-02-18 15:40:00 132 mm[Hg] Common [facility] blood pressure diastolic 2021-02-18 15:40:00 70 mm[Hg] Common [place] height 2021-02-18 15:20:00 69 [in_i] [facility] weight 2021-02-18 15:20:00 209.2 [lb_av] Co mmon [facility] temperature 2021-02-18 15:20:00 97.5 [degF] Com mon [facility] bmi 2021-02-18 15:20:00 30.89 kg/m2 Comm on [facility] oximetry 2021-02-18 15:20:00 96 % [facility] respiratory rate 2021-02-18 15:20:00 16 /min Common [facility] blood pressure systolic 2021-02-18 15:20:00 132 mm[Hg] [facility] blood pressure diastolic 2021-02-18 15:20:00 70 mm[Hg] [facility] Weight 2020-06-27 15:00:00 [facility] Height 2020-06-27 15:00:00 [facility] [place] Heart Rate 2020-06-27 15:00:00 [facility] [place] Weight 2020-03-28 14:00:00 [facility] Height 2020-03-28 14:00:00 [facility] Heart Rate 2020-03-28 14:00:00 [facility] [place] Weight 2019-04-25 15:00:00 [facility] Height 2019-04-25 15:00:00 [facility] [place] Heart Rate 2019-04-25 15:00:00 [facility] [place] Procedures Procedure Date / Time Performed Performing Clinicia n Source Zonisamide level 2024-05-15 00:00:00 Seymour rial [place] Epic Keppra (Leveitracetam) 2024-05-15 00:00:00 [facility] Lacosamide level 2024-05-15 00:00:00 Se[facility] rial [facility] Epic ZONISAMIDE LEVEL 2024-05-11 14:11:00 Dalila Mcclure Me morial [place] Epic LACOSAMIDE LEVEL 2024-05-11 14:11:00 Dalila Mcclure [facility]ial [place] Epic ZONISAMIDE LEVEL 2023-09-09 11:51:00 Mishel Haynes [facility] [place] Epic LACOSAMIDE LEVEL 2023-09-09 11:51:00 Mishel Haynes [facility] RAPID STREP SCREEN FOR GROUP A 2022-04-29 19:11:00 Sanchez Chinchilla [facility] RAPID INFLUENZA A/B 2022-04-29 19:11:00 Greg Chinchilla [facility] COVID-19 (ID NOW RAPID TESTING) 2022-04-29 19:11:00 Sanchez Chinchilla [facility] CONSENT/REFUSAL FOR DIAGNOSIS AND TREATMENT 2022-04-29 18:38:14 Doctor Unassigned, [place] [facility] Encounters Start Date/Time End Date/Time Encounter Type Admission Type Attending [facility] Care Facility Care Department Encounter ID Source 2023-10-11 12:47:00 Outpatient Krista Wise STLMLC STLMLC [id number] [facility] 2023-10-04 13:32:00 Outpatient Krista Wise STLMLC STLMLC [id number] [facility] 2023-09-13 12:55:00 Outpatient Krista Wise STLMLC STLMLC [id number] [facility] 2023-09-08 11:08:00 Outpatient Krista Wise STLMLC STLMLC [id number] [facility] 2023-08-10 13:25:00 Outpatient Krista Wise STLMLC STLMLC [id number] [facility] 2023-06-15 08:46:00 Outpatient Krista Wise STLMLC STLMLC [id number] [facility] 2023-02-14 15:09:00 Outpatient Krista Wise STLMLC STLMLC [id number] [facility] 2022-12-28 10:37:00 Outpatient Krista Wise STLMLC STLMLC [id number] [facility] 2022-09-20 09:40:00 Outpatient Krista Wise STLMLC STLMLC [id number] [facility] 2022-07-05 13:37:00 Outpatient [place] STLMLC STLMLC [id number] [facility] 2022-07-01 10:31:00 Outpatient [place] francois STLMLC STLMLC [id number] [facility] 2022-04-13 11:04:02 Outpatient [place] francois STLMLC STLMLC [id number] [facility] 2022-04-09 08:48:01 Outpatient [place] francois STLMLC STLMLC [id number] [facility] 2021-10-20 10:41:00 Outpatient [place] franc[place] STLMLC STLMLC [id number] [facility] 2021-10-16 08:16:00 Outpatient [place] franc[place] STLMLC STLMLC [id number] [facility] 2021-08-06 09:01:00 Outpatient [place] franc[place] STLMLC STLMLC [id number] [facility] 2021-07-20 08:34:01 Outpatient [place] franc[place] STLMLC STLMLC [id number] [facility] 2021-07-16 13:15:01 Outpatient [place] franc[place] STLMLC STLMLC [id number] [facility] 2021-06-15 11:02:01 Outpatient [place] francois STLMLC STLMLC [id number] [facility] 2021-05-15 14:49:00 Outpatient [place] STLMLC STLMLC [id number] [facility] 2021-04-08 11:38:47 Outpatient [place] STLMLC STLMLC [id number] [facility] 2021-04-08 11:37:31 Outpatient [place] STLMLC STLMLC [id number] [facility] 2021-04-08 11:37:08 Outpatient Krista Wise [facility] [id number] [facility] 2024-07-23 00:00:00 2024-07-24 00:57:51 Refill Herman, Екатерина Herman, Екатерина [place] [id number] 1.2.840.114 350.1.13.70 8.2.7.2.686 [id number] [facility] 2024-07-20 00:00:00 2024-07-20 05:18:04 Refill Shweta Mcclurelupe [place] [id number] 1.2.840.114 350.1.13.70 8.2.7.2.686 [id number] [facility] 2024-05-14 00:00:00 2024-07-14 20:35:05 Results Follow-Up Palvanichelle Dalila [place] [id number] 1.2.840.114 350.1.13.70 8.2.7.2.686 [id number] [facility] 2024-06-20 00:00:00 2024-06-20 19:54:15 Refill Dalila Mcclureland [id number] 1.2.840.114 350.1.13.70 8.2.7.2.686 [id number] [facility] 2024-05-15 00:00:00 2024-06-15 23:47:58 Orders Only PalShweta garciati [place] [id number] 1.2.840.114 350.1.13.70 8.2.7.2.686 [id number] [facility] 2024-05-01 00:00:00 2024-05-01 11:54:27 Telephone PalShweta garciati [place] [id number] 1.2.840.114 350.1.13.70 8.2.7.2.686 [id number] [facility] maurilio [facility] 2024-04-30 00:00:00 2024-04-30 11:43:24 Telephone Dalila Mcclure [place] [id number] 1.2.840.114 350.1.13.70 8.2.7.2.686 [id number] [facility] 2024-03-29 00:00:00 2024-04-29 23:52:27 Telephone Mishel [place] [id number] 1.2.840.114 350.1.13.70 8.2.7.2.686 [id number] 2 [id number] [facility] 2024-03-30 00:00:00 2024-04-02 13:04:13 Telephone Dalila Mcclure [place] [id number] 1.2.840.114 350.1.13.70 8.2.7.2.686 [id number] [facility] 2024-03-08 00:00:00 2024-03-08 00:00:00 (TEL) [facility] [id number] [facility] 2024-03-05 00:00:00 2024-03-05 00:00:00 (TEL) [facility] [id number] [facility] 2024-03-02 00:00:00 2024-03-02 00:00:00 (TEL) [facility] [id number] [facility] 2024-02-29 14:00:00 2024-02-29 14:37:23 Office Visit Dalila Mcclureland [id number] 1.2.840.114 350.1.13.70 8.2.7.2.686 [id number] [facility] 2024-02-29 13:45:04 2024-02-29 14:37:23 Outpatient Elective DALILA MCCLURE EOUT EOUT [id number] [facility] 2024-02-29 00:00:00 2024-02-29 00:00:00 (TEL) [facility] [id number] [facility] 2024-02-22 00:00:00 2024-02-22 09:43:44 Refill Dalila Mcclure [id number] 1.2.840.114 350.1.13.70 8.2.7.2.686 [id number] Jose Martin [facility] 2024-02-17 00:00:00 2024-02-17 00:00:00 (TEL) [facility] [id number] [facility] 2023-12-13 00:00:00 2023-12-13 16:02:21 Refill Judith Paigeadena [id number] 1.2.840.114 350.1.13.70 8.2.7.2.686 [id number] [facility] 2023-12-13 00:00:00 2023-12-13 13:06:11 Refill Екатерина [place] [id number] 1.2.840.114 350.1.13.70 8.2.7.2.686 [id number] Jose Martin [facility] 2023-12-13 00:00:00 2023-12-13 13:04:25 Refill Heidi Dalila Tuttleadena [id number] 1.2.840.114 350.1.13.70 8.2.7.2.686 [id number] [facility] 2023-12-01 00:00:00 2023-12-01 00:00:00 (TEL) [facility] [id number] [facility] 2023-10-10 00:00:00 2023-11-10 23:52:18 Telephone Mishel Haynes [place] [id number] 1.2.840.114 350.1.13.70 8.2.7.2.686 [id number] Jose Martin thorpe [facility] 2023-11-01 00:00:00 2023-11-01 00:00:00 (TEL) STLMLC STLMLC [id number] [facility] 2023-10-27 00:00:00 2023-10-27 00:00:00 (TEL) STLMLC STLMLC [id number] [facility] 2023-10-21 00:00:00 2023-10-21 17:29:48 Refill Judith Paige [place] [id number] 1.2.840.114 350.1.13.70 8.2.7.2.686 [id number] Jose Martin thorpe [facility] 2023-10-19 00:00:00 2023-10-19 08:44:17 Refill Mishel Haynes [place] [id number] 1.2.840.114 350.1.13.70 8.2.7.2.686 [id number] Jose Martin thorpe [facility] 2023-10-14 00:00:00 2023-10-14 00:00:00 (TEL) STLMLC STLMLC [id number] [facility] 2023-10-13 00:00:00 2023-10-13 00:00:00 (TEL) STLMLC STLMLC [id number] [facility] 2023-10-05 00:00:00 2023-10-05 09:32:48 Telephone AlvaradoAdry Goldman Mayra [place] [id number] 1.2.840.114 350.1.13.70 8.2.7.2.686 [id number] 2 [id number] Jose Martin thorpe [facility] 2023-10-04 00:00:00 2023-10-04 00:00:00 (TEL) STLMLC STLMLC [id number] [facility] 2023-09-29 00:00:00 2023-09-29 00:00:00 OFFICE VISIT ESTAB PT LEVEL 4 STLMLC STLMLC [id number] [facility] 2023-09-20 00:00:00 2023-09-21 10:17:02 Refill RoyalJudith chandmel [place] [id number] 1.2.840.114 350.1.13.70 8.2.7.2.686 [id number] [facility] 2023-09-19 00:00:00 2023-09-19 19:50:06 Refill Dalila Mcclure [id number] 1.2.840.114 350.1.13.70 8.2.7.2.686 [id number] [facility] 2023-09-14 00:00:00 2023-09-14 00:00:00 (TEL) STLC STLC [id number] [facility] 2023-09-14 00:00:00 2023-09-14 00:00:00 (TEL) STLC STLMLC [id number] [facility] 2023-09-14 00:00:00 2023-09-14 00:00:00 (TEL) STLMLC STLMLC [id number] [facility] 2023-09-13 00:00:00 2023-09-13 00:00:00 (TEL) STLMLC STLMLC [id number] [facility] 2023-09-08 00:00:00 2023-09-08 00:00:00 (TEL) STLC STLMLC [id number] [facility] 2023-09-02 00:00:00 2023-09-02 09:37:58 Telephone Dalila Mcclure [id number] 1.2.840.114 350.1.13.70 8.2.7.2.686 [id number] [facility] 2023-09-01 14:00:00 2023-09-01 14:53:34 Office Visit Mishel Haynes [id number] 1.2.840.114 350.1.13.70 8.2.7.2.686 [id number] Jose Martin Garcia [facility] 2023-09-01 13:42:16 2023-09-01 14:53:34 Outpatient Elective MISHEL HAYNES [facility] [id number] [facility] 2023-09-01 00:00:00 2023-09-01 00:00:00 OFFICE VISIT ESTAB PT LEVEL 4 STLMLC STLMLC [id number] [facility] 2023-08-22 00:00:00 2023-08-22 00:00:00 (TEL) STLMLC STLMLC [id number] [facility] 2023-08-22 00:00:00 2023-08-22 00:00:00 (TEL) STLMLC STLMLC [id number] [facility] 2023-08-17 00:00:00 2023-08-17 00:00:00 OFFICE VISIT ESTAB PT LEVEL 4 STLMLC STLMLC [id number] [facility] 2023-06-08 00:00:00 2023-06-08 00:00:00 (TEL) STLMLC STLMLC [id number] [facility] 2023-04-07 00:00:00 2023-04-07 00:00:00 (TEL) STLMLC STLMLC [id number] [facility] 2023-02-14 00:00:00 2023-02-14 00:00:00 (WELLNESS) Wellness Visit STLMLC STLMLC [id number] [facility] 2022-11-18 00:00:00 2022-11-18 00:00:00 (TEL) STLMLC STLMLC [id number] [facility] 2022-10-01 00:00:00 2022-10-01 00:00:00 Outpatient GC_GCBZW_Mc Intire_E [facility] [id number] [facility] 2022-09-27 00:00:00 2022-09-27 00:00:00 (TEL) STLMLC STLMLC [id number] [facility] 2022-09-02 00:00:00 2022-09-02 00:00:00 (TEL) STLMLC STLMLC [id number] [facility] 2022-08-30 00:00:00 2022-08-30 00:00:00 (TEL) STLMLC STLMLC [id number] [facility] 2022-07-15 00:00:00 2022-07-15 00:00:00 (TEL) STLMLC STLMLC [id number] [facility] 2022-07-13 00:00:00 2022-07-13 00:00:00 OFFICE VISIT ESTAB PT LEVEL 4 STLMLC STLMLC [id number] [facility] 2022-07-05 00:00:00 2022-07-05 00:00:00 (TEL) STLMLC STLMLC [id number] [facility] 2022-07-02 00:00:00 2022-07-02 00:00:00 (TEL) STLMLC STLMLC [id number] [facility] 2022-06-21 00:00:00 2022-06-21 00:00:00 (TEL) STLMLC STLMLC [id number] [facility] 2022-05-31 00:00:00 2022-05-31 00:00:00 (TEL) STLMLC STLMLC [id number] [facility] 2022-04-29 12:43:00 2022-04-29 14:37:00 Emergency X SANCHEZ CHINCHILLA [facility] ERT [id number] [facility] 2022-04-29 12:43:00 2022-04-29 14:37:00 Emergency Sanchez Chinchilla [facility] 1.2.840.114 350.1.13.10 4.2.7.2.686 [id number] [facility] 2022-04-13 00:00:00 2022-04-13 00:00:00 OFFICE VISIT ESTAB PT LEVEL 3 STLMLC STLMLC [id number] [facility] 2022-01-20 00:00:00 2022-01-20 00:00:00 (TEL) STLMLC STLMLC [id number] [facility] 2022-01-19 00:00:00 2022-01-19 00:00:00 OFFICE VISIT EST PT LEVEL 3 STLMLC STLMLC [id number] [facility] 2021-10-22 00:00:00 2021-10-22 00:00:00 (TEL) STLMLC STLMLC [id number] [facility] 2021-10-21 00:00:00 2021-10-21 00:00:00 (TEL) STLMLC STLMLC [id number] [facility] 2021-09-18 00:00:00 2021-09-18 00:00:00 OFFICE VISIT ESTAB PT LEVEL 2 STLMLC STLMLC [id number] [facility] 2021-09-18 00:00:00 2021-09-18 00:00:00 (TEL) STLMLC STLMLC [id number] [facility] 2021-07-20 00:00:00 2021-07-20 00:00:00 OFFICE VISIT EST PT LEVEL 3 STLMLC STLMLC [id number] [facility] 2021-05-28 00:00:00 2021-05-28 00:00:00 (TEL) STLMLC STLMLC [id number] [facility] 2021-05-20 00:00:00 2021-05-20 00:00:00 (TEL) STLMLC STLMLC [id number] [facility] 2021-05-15 00:00:00 2021-05-15 00:00:00 (TEL) STLMLC STLMLC [id number] [facility] 2021-04-16 00:00:00 2021-04-16 00:00:00 (TEL) STLMLC STLMLC [id number] [facility] 2021-04-14 00:00:00 2021-04-14 00:00:00 (TEL) STLMLC STLMLC [id number] [facility] 2021-02-20 00:00:00 2021-02-20 00:00:00 (TEL) STLMLC STLMLC [id number] [facility] 2021-02-18 00:00:00 2021-02-18 00:00:00 SUB ANNUAL [facility] WELLNESS VISIT STLMLC STLMLC [id number] [facility] 2021-02-18 00:00:00 2021-02-18 00:00:00 OFFICE VISIT EST PT LEVEL 3 STLMLC STLMLC [id number] [facility] 2019-12-11 10:04:00 2019-12-11 10:04:00 Emergency X SHANTELLE ASKEW [facility] [id number] [facility] 2019-12-11 00:00:00 2019-12-11 00:00:00 Outpatient STLMLC STLMLC [id number] [facility] 2019-11-15 12:40:00 2019-11-15 12:40:00 Outpatient [facility] [id number] [facility] 2019-11-07 10:27:00 2019-11-07 10:27:[address] [facility] [id number] [facility] 2019-10-29 13:20:00 2019-10-29 13:20:00 Outpatient [facility] [id number] [facility] 2018-09-11 13:15:00 2018-09-11 13:15:00 Outpatient [facility] [id number] [facility] 2018-08-28 14:45:00 2018-08-28 14:45:00 Outpatient [facility] [id number] [facility] 2018-06-01 11:15:00 2018-06-01 11:15:00 Outpatient [facility] [id number] [facility] 2018-02-20 11:42:00 2018-02-20 11:42:00 Outpatient [facility] [id number] [facility] Results Test Description Test Time Test Comments Results Result Co mments Source [facility] EpicLacosamide [id number] 10:46:35* Test Item Value Reference Range Interpretation Comme nts Lacosamide Lvl (test code = 71445-3) mcg/mL (Note)Expected c oncentrations of Lacosamide in patients receivingrecommended daily dosages: Up to 15.0 mcg/mL.Toxic range notestablished..This test was developed and its analytical performancecharacteristics have been determined by [employer].It has not been cleared or approved by the FDA. This assayhas been validated pursuant to the CLIA regulations and isused for clinical purposes..MDFmed [id number] [place] [address],[address] [place] [address] [phone] Webster MD, PhD [facility] EpicKeppra (Leveitracetam)2024-05-15 10:46:34* Test Item Value Reference Range Interpretation Comme nts Keppra Lvl (test code = 06614-6) See_Comment H Brivaracetam (Briviact(R), Rikelta(R)) exhibits significantcross-react ivity in the Levetiracetam (Keppra(R), Spritam(R))immunoassay . If Brivaracetam has been prescribed, order TestCode 22077 Levetiracetam by LCMSMS. [Automated message] The system which generated this result transmitted reference range: 6.0 - 46.0 mcg/mL. The reference range was not used to interpret this result as normal/abnormal. Lab Interpretation (test code = 22670-3) Abnormal Mari Garcia EpicLacosamide [id number] 10:44:09* Test Item Value Reference Range Interpretation Comme nts Lacosamide Lvl (test code = 77213-4) mcg/mL Expected concent rations of Lacosamide in patientsreceiving recommended daily dosages: Up to 15.0 mcg/mL.Toxic range not established..This test was developed and its analytical performance characteristics have been determined by [employer]. It has not been cleared or approved by theFDA. This assay has been validated pursuant to the CLIA regulations and is used for clinical purposes.. DIXIE (test code = DIXIE) Mari Garcia EpicZonisamide [id number] 10:44:09* Test Item Value Reference Range Interpretation Comme nts Zonisamide Lvl (test code = 19684-8) See_Comment .This test was d princeoped and its analytical performance characteristics have been determined by [employer]. It has not been cleared or approved by theFDA. This assay has been validated pursuant to the CLIA regulations and is used for clinical purposes.. [Automated message] The system which generated this result transmitted reference range: 10.0 - 40.0 mcg/mL. The reference range was not used to interpret this result as normal/abnormal. DIXIE (test code = DIXIE) Mari Garcia EpicKeppra (Leveitracetam)2023-09-14 10:44:09* Test Item Value Reference Range Interpretation Comme nts Keppra Lvl (test code = 77887-3) See_Comment H Brivaracetam (Briviact(R), Rikelta(R)) exhibits significantcross-react ivity in the Levetiracetam (Keppra(R), Spritam(R))immunoassay . If Brivaracetam has been prescribed, order TestCode 99579 Levetiracetam by LCMSMS. [Automated message] The system which generated this result transmitted reference range: 6.0 - 46.0 mcg/mL. The reference range was not used to interpret this result as normal/abnormal. DIXIE (test code = DIXIE) Lab Interpretation (test code = 77529-2) Abnormal [facility] EpicComp. Metabolic Panel (14) (CMP)2023-08-17 00:00:00* Test Item Value Reference Range Interpretation Comme nts A/G Ratio (test code = 1759-0) 1.5 1.2-2.2 Albumin (test code = 1751-7) 4.4 g/dL See_Comment [Automated [employer]] The system which generated this result transmitted reference range: 3.8-4.9 g/dL. The reference range was not used to interpret this result as normal/abnormal. Alkaline Phosphatase (test code = 6768-6) 74 IU/L See_Comment [Automated message] The system which generated this result transmitted reference range: 44-121 IU/L. The reference range was not used to interpret this result as normal/abnormal. ALT (SGPT) (test code = 1742-6) 9 IU/L See_Comment [Automated [employer]] The system which generated this result transmitted reference range: 0-32 IU/L. The reference range was not used to interpret this result as normal/abnormal. AST (SGOT) (test code = 1920-8) 14 IU/L See_Comment [Automated [employer]] The system which generated this result transmitted reference range: 0-40 IU/L. The reference range was not used to interpret this result as normal/abnormal. Bilirubin, Total (test code = 1975-2) <0.2 mg/dL See_Comment [Automated [employer]] The system which generated this result transmitted reference range: 0.0-1.2 mg/dL. The reference range was not used to interpret this result as normal/abnormal. BUN (test code = 3094-0) 21 mg/dL See_Comment [Automated [employer]] The system which generated this result transmitted reference range: 6-24 mg/dL. The reference range was not used to interpret this result as normal/abnormal. BUN/Creatinine Ratio (test code = 3097-3) 26 9-23 H Calcium (test code = 13287-3) 9.9 mg/dL See_Comment [Automated [employer]] The system which generated this result transmitted reference range: 8.7-10.2 mg/dL. The reference range was not used to interpret this result as normal/abnormal. Carbon Dioxide, Total (test code = 2027-9) 23 mmol/L See_Comment [Automated message] The system which generated this result transmitted reference range: 20-29 mmol/L. The reference range was not used to interpret this result as normal/abnormal. Chloride (test code = 2075-0) 104 mmol/L See_Comment [Automated messa ge] The system which generated this result transmitted reference range: 96-106 mmol/L. The reference range was not used to interpret this result as normal/abnormal. Creatinine (test code = 2160-0) 0.81 mg/dL See_Comment [Automated messa ge] The system which generated this result transmitted reference range: 0.57-1.00 mg/dL. The reference range was not used to interpret this result as normal/abnormal. Globulin, Total (test code = 93570-0) 3.0 g/dL See_Comment [Automated messa ge] The system which generated this result transmitted reference range: 1.5-4.5 g/dL. The reference range was not used to interpret this result as normal/abnormal. Glucose (test code = 2345-7) 106 mg/dL See_Comment H [Automated messa ge] The system which generated this result transmitted reference range: 70-99 mg/dL. The reference range was not used to interpret this result as normal/abnormal. Potassium (test code = 2823-3) 4.3 mmol/L See_Comment [Automated messa ge] The system which generated this result transmitted reference range: 3.5-5.2 mmol/L. The reference range was not used to interpret this result as normal/abnormal. Protein, Total (test code = 2885-2) 7.4 g/dL See_Comment [Automated messa ge] The system which generated this result transmitted reference range: 6.0-8.5 g/dL. The reference range was not used to interpret this result as normal/abnormal. Sodium (test code = 2951-2) 141 mmol/L See_Comment [Automated messa ge] The system which generated this result transmitted reference range: 134-144 mmol/L. The reference range was not used to interpret this result as normal/abnormal. 3D SCR CALEB BILAT W/CAD3D SCR CALEB BILAT W/CADSARS-COV 2 AntigenSARS-COV 2 Antigen Notes Upcoming Encounters Date/Time Note Provider Source 2024-07-24 00:58:02 [facility] Due Date Last Done Comments CT Colonography 1969 Colonoscopy 1969 Colorectal Cancer Screening 1969 Diabetes: Hemoglobin A1C 1969 FIT-DNA 1969 FIT 1969 FOBT 1969 Lipid Panel 1969 Medicare Annual Wellness (AWV) 1969 Sigmoidoscopy 1969 Diabetes: Foot Exam 1979 Diabetes: Retinopathy Screening 1979 DTaP/Tdap/Td Vaccines (1 - Tdap) 1988 Diabetes: Urine Protein Screening 1988 Hepatitis B Vaccines (1 of 3 - 19+ 3-dose series) 1988 Pap Smear 1990 Cervical Cancer Screening 1999 HPV/Cotest 1999 Mammogram 2009 Zoster Vaccines (1 of 2) 2019 Influenza Vaccine (Season Ended) 2024 Respiratory Syncytial Virus (RSV) Adult Series (1 - 1-dose 75+ series) 2044 Pneumococcal Vaccine: 50+ Years Completed 3 Pneumococcal Vaccine: Pediat rics (0 to 5 Years) and At-Risk Patients (6 to 64 Years) Aged Out 04/13/2022 No longer eligible b ased on patient's age to complete this topic HIB Vaccines Aged Out No longer eligi ble based on patient's age to complete this topic HPV Vaccines Aged Out No longer eligi ble based on patient's age to complete this topic Hepatitis A Vaccines Aged Out No long er eligible based on patient's age to complete this topic IPV Vaccines Aged Out No longer eligi ble based on patient's age to complete this topic Meningococcal Vaccine Aged Out No huang nancy eligible based on patient's age to complete this topic Rotavirus Vaccines Aged Out No longer eligible based on patient's age to complete this topic [facility]Ikikdvl0961-47-72 00:58:02 Diagnosis Other generalized epilepsy a nd epileptic syndromes, not intractable, without status epilepticus (CMS/HCC) (HCC) [facility] CenterFehvndd2473-35-30 00:58:02 [facility] CenterSsxramk6651-10-43 05:18:15* [facility] CenterEkmucjn9805-45-43 05:18:15Upcoming Encounters Health Maintenance Due Date Last Done Comments CT Colonography 1969 Colonoscopy 1969 Colorectal Cancer Screening 1969 Diabetes: Hemoglobin A1C 1969 FIT-DNA 1969 FIT 1969 FOBT 1969 Lipid Panel 1969 Medicare Annual Wellness (AWV) 1969 Sigmoidoscopy 1969 Diabetes: Foot Exam 1979 Diabetes: Retinopathy Screening 1979 DTaP/Tdap/Td Vaccines (1 - Tdap) 1988 Diabetes: Urine Protein Screening 1988 Hepatitis B Vaccines (1 of 3 - 19+ 3-dose series) 1988 Pap Smear 1990 Cervical Cancer Screening 1999 HPV/Cotest 1999 Mammogram 2009 Zoster Vaccines (1 of 2) 2019 Influenza Vaccine (Season Ended) 2024 Respiratory Syncytial Virus (RSV) Adult Series (1 - 1-dose 75+ series) 2044 Pneumococcal Vaccine: 50+ Years Completed Pneumococcal Vaccine: Pediat rics (0 to 5 Years) and At-Risk Patients (6 to 64 Years) Aged Out 04/13/2022 No longer eligible b ased on patient's age to complete this topic HIB Vaccines Aged Out No longer eligi ble based on patient's age to complete this topic HPV Vaccines Aged Out No longer eligi ble based on patient's age to complete this topic Hepatitis A Vaccines Aged Out No long er eligible based on patient's age to complete this topic IPV Vaccines Aged Out No longer eligi ble based on patient's age to complete this topic Meningococcal Vaccine Aged Out No huang nancy eligible based on patient's age to complete this topic Rotavirus Vaccines Aged Out No longer eligible based on patient's age to complete this topic [facility] CenterEhnbzji1768-49-99 05:18:15 Diagnosis Other generalized epilepsy a nd epileptic syndromes, not intractable, without status epilepticus (CMS/HCC) (HCC) [facility] CenterOaqeerj2540-21-07 05:18:15 [facility] CenterNnleppg5376-96-68 20:37:27Upcoming Encounters Health Maintenance Due Date Last Done Comments CT Colonography 1969 Colonoscopy 1969 Colorectal Cancer Screening 1969 Diabetes: Hemoglobin A1C 1969 FIT-DNA 1969 FIT 1969 FOBT 1969 Lipid Panel 1969 Medicare Annual Wellness (AWV) 1969 Sigmoidoscopy 1969 Diabetes: Foot Exam 1979 Diabetes: Retinopathy Screening 1979 DTaP/Tdap/Td Vaccines (1 - Tdap) 1988 Diabetes: Urine Protein Screening 1988 Hepatitis B Vaccines (1 of 3 - 19+ 3-dose series) 1988 Pap Smear 1990 Cervical Cancer Screening 1999 HPV/Cotest 1999 Mammogram 2009 Zoster Vaccines (1 of 2) 2019 Influenza Vaccine (Season Ended) 2024 Respiratory Syncytial Virus (RSV) Adult Series (1 - 1-dose 75+ series) 2044 Pneumococcal Vaccine: 50+ Years Completed 3 Pneumococcal Vaccine: Pediat rics (0 to 5 Years) and At-Risk Patients (6 to 64 Years) Aged Out 04/13/2022 No longer eligible b ased on patient's age to complete this topic HIB Vaccines Aged Out No longer eligi ble based on patient's age to complete this topic HPV Vaccines Aged Out No longer eligi ble based on patient's age to complete this topic Hepatitis A Vaccines Aged Out No long er eligible based on patient's age to complete this topic IPV Vaccines Aged Out No longer eligi ble based on patient's age to complete this topic Meningococcal Vaccine Aged Out No huang nancy eligible based on patient's age to complete this topic Rotavirus Vaccines Aged Out No longer eligible based on patient's age to complete this topic [facility]akhfk5978[facility] 20:37:27 [facility]Sstsryq2653-16-37 19:54:15* [facility]Obmcgff4335-29-46 19:54:15Upcoming Encounters Health Maintenance Due Date Last Done Comments CT Colonography 1969 Colonoscopy 1969 Colorectal Cancer Screening 1969 Diabetes: Hemoglobin A1C 1969 FIT-DNA 1969 FIT 1969 FOBT 1969 Lipid Panel 1969 Medicare Annual Wellness (AWV) 1969 Sigmoidoscopy 1969 Diabetes: Foot Exam 1979 Diabetes: Retinopathy Screening 1979 DTaP/Tdap/Td Vaccines (1 - Tdap) 1988 Diabetes: Urine Protein Screening 1988 Hepatitis B Vaccines (1 of 3 - 19+ 3-dose series) 1988 Pap Smear 1990 Cervical Cancer Screening 1999 HPV/Cotest 1999 Mammogram 2009 Zoster Vaccines (1 of 2) 2019 Influenza Vaccine (Season Ended) 2024 Respiratory Syncytial Virus (RSV) Adult Series (1 - 1-dose 75+ series) 2044 Pneumococcal Vaccine: 50+ Years Completed Pneumococcal Vaccine: Pediat rics (0 to 5 Years) and At-Risk Patients (6 to 64 Years) Aged Out 04/13/2022 No longer eligible b ased on patient's age to complete this topic HIB Vaccines Aged Out No longer eligi ble based on patient's age to complete this topic HPV Vaccines Aged Out No longer eligi ble based on patient's age to complete this topic Hepatitis A Vaccines Aged Out No long er eligible based on patient's age to complete this topic IPV Vaccines Aged Out No longer eligi ble based on patient's age to complete this topic Meningococcal Vaccine Aged Out No huang nancy eligible based on patient's age to complete this topic Rotavirus Vaccines Aged Out No longer eligible based on patient's age to complete this topic [facility] CenterYvmvgkz6194-41-64 19:54:15 Diagnosis Other generalized epilepsy a nd epileptic syndromes, not intractable, without status epilepticus ([facility]) ([facility]) [facility] CenterZfylgyu5838-69-19 19:54:15 [facility] CenterJwokogg4870-00-46 23:49:35Upcoming Encounters Health Maintenance Due Date Last Done Comments CT Colonography 1969 Colonoscopy 1969 Colorectal Cancer Screening 1969 Diabetes: Hemoglobin A1C 1969 FIT-DNA 1969 FIT 1969 FOBT 1969 Lipid Panel 1969 Medicare Annual Wellness (AWV) 1969 Sigmoidoscopy 1969 Diabetes: Foot Exam 1979 Diabetes: Retinopathy Screening 1979 DTaP/Tdap/Td Vaccines (1 - Tdap) 1988 Diabetes: Urine Protein Screening 1988 Hepatitis B Vaccines (1 of 3 - 19+ 3-dose series) 1988 Pap Smear 1990 Cervical Cancer Screening 1999 HPV/Cotest 1999 Mammogram 2009 Zoster Vaccines (1 of 2) 2019 Influenza Vaccine (#1) 2023 Pneumococcal Vaccine: 50+ Years Completed Pneumococcal Vaccine: Pediat rics (0 to 5 Years) and At-Risk Patients (6 to 64 Years) Aged Out 04/13/2022 No longer eligible b ased on patient's age to complete this topic HIB Vaccines Aged Out No longer eligi ble based on patient's age to complete this topic HPV Vaccines Aged Out No longer eligi ble based on patient's age to complete this topic Hepatitis A Vaccines Aged Out No long er eligible based on patient's age to complete this topic IPV Vaccines Aged Out No longer eligi ble based on patient's age to complete this topic Meningococcal Vaccine Aged Out No huang nancy eligible based on patient's age to complete this topic Rotavirus Vaccines Aged Out No longer eligible based on patient's age to complete this topic [facility] CenterJziacbv0834-33-91 23:49:35 Diagnosis Generalized convulsive epilepsy (HCC) Generalized convulsive epilepsy without mention of intractable epilepsy [facility] CenterZmunzza3802-71-20 23:49:35 [place] [address]-02-18 11:54:28Upcoming Encounters Scheduled Orders Name Type Priority Associated Diagnoses Orde r Schedule Zonisamide level Lab Routine Generalized convulsive epilepsy (HCC) Expected: 05/15/2024 (Approximate), Expires: 05/01/2025 Keppra (Leveitracetam) Lab Routine Gener alized convulsive epilepsy (HCC) Expected: 05/15/2024 (Approximate), Expires: 05/01/2025 Lacosamide level Lab Routine Generalized convulsive epilepsy (HCC) Expected: 05/15/2024 (Approximate), Expires: 05/01/2025 Health Maintenance Due Date Last Done Comments CT Colonography 1969 Colonoscopy 1969 Colorectal Cancer Screening 1969 Diabetes: Hemoglobin A1C 1969 FIT-DNA 1969 FIT 1969 FOBT 1969 Lipid Panel 1969 Medicare Annual Wellness (AWV) 1969 Sigmoidoscopy 1969 Annual Physical 1972 Diabetes: Foot Exam 1979 Diabetes: Retinopathy Screening 1979 DTaP/Tdap/Td Vaccines (1 - Tdap) 1988 Diabetes: Urine Protein Screening 1988 Hepatitis B Vaccines (1 of 3 - 19+ 3-dose series) 1988 Pap Smear 1990 Cervical Cancer Screening 1999 HPV/Cotest 1999 Mammogram 2009 Zoster Vaccines (1 of 2) 2019 Influenza Vaccine (#1) 2023 Pneumococcal Vaccine: Pediat rics (0 to 5 Years) and At-Risk Patients (6 to 64 Years) Aged Out 04/13/2022 No longer eligible b ased on patient's age to complete this topic HIB Vaccines Aged Out No longer eligi ble based on patient's age to complete this topic HPV Vaccines Aged Out No longer eligi ble based on patient's age to complete this topic Hepatitis A Vaccines Aged Out No long er eligible based on patient's age to complete this topic IPV Vaccines Aged Out No longer eligi ble based on patient's age to complete this topic Meningococcal Vaccine Aged Out No huang nancy eligible based on patient's age to complete this topic Rotavirus Vaccines Aged Out No longer eligible based on patient's age to complete this topic [facility] CenterBoibali7025-98-24 11:54:28 Diagnosis Generalized convulsive epilepsy (HCC) - Primary Generalized convulsive epilepsy without mention of intractable epilepsy [facility] CenterYmpnbek2616-13-91 11:54:28 [facility] CenterJvmwyeg7829-00-66 11:43:34* [facility] CenterTdmwzpo2449-20-44 11:43:34Upcoming Encounters Health Maintenance Due Date Last Done Comments CT Colonography 1969 Colonoscopy 1969 Colorectal Cancer Screening 1969 Diabetes: Hemoglobin A1C 1969 FIT-DNA 1969 FIT 1969 FOBT 1969 Lipid Panel 1969 Medicare Annual Wellness (AWV) 1969 Sigmoidoscopy 1969 Annual Physical 1972 Diabetes: Foot Exam 1979 Diabetes: Retinopathy Screening 1979 DTaP/Tdap/Td Vaccines (1 - Tdap) 1988 Diabetes: Urine Protein Screening 1988 Hepatitis B Vaccines (1 of 3 - 19+ 3-dose series) 1988 Pap Smear 1990 Cervical Cancer Screening 1999 HPV/Cotest 1999 Mammogram 2009 Zoster Vaccines (1 of 2) 2019 Influenza Vaccine (#1) 2023 Pneumococcal Vaccine: Pediat rics (0 to 5 Years) and At-Risk Patients (6 to 64 Years) Aged Out 04/13/2022 No longer eligible b ased on patient's age to complete this topic HIB Vaccines Aged Out No longer eligi ble based on patient's age to complete this topic HPV Vaccines Aged Out No longer eligi ble based on patient's age to complete this topic Hepatitis A Vaccines Aged Out No long er eligible based on patient's age to complete this topic IPV Vaccines Aged Out No longer eligi ble based on patient's age to complete this topic Meningococcal Vaccine Aged Out No huang nancy eligible based on patient's age to complete this topic Rotavirus Vaccines Aged Out No longer eligible based on patient's age to complete this topic [facility] CenterEsktimr7154-44-45 11:43:34 Diagnosis Other generalized epilepsy a nd epileptic syndromes, not intractable, without status epilepticus (CMS/HCC) (HCC) [facility] CenterDhidnjb1533-10-64 11:43:34 [facility] CenterIgnboqg6604-16-94 09:08:17 Pt is calling asking for refill for - lacosamide (Vimpat) 200 mg tablet tablet Lion Vjtozaa7985-60-96 23:56:59* [facility]Xcbulym7032-80-45 23:56:59 Upcoming Encounters Health Maintenance Due Date Last Done Comments CT Colonography 1969 Colonoscopy 1969 Colorectal Cancer Screening 1969 Diabetes: Hemoglobin A1C 1969 FIT-DNA 1969 FIT 1969 FOBT 1969 Lipid Panel 1969 Medicare Annual Wellness (AWV) 1969 Sigmoidoscopy 1969 Annual Physical 1972 Diabetes: Foot Exam 1979 Diabetes: Retinopathy Screening 1979 DTaP/Tdap/Td Vaccines (1 - Tdap) 1988 Diabetes: Urine Protein Screening 1988 Hepatitis B Vaccines (1 of 3 - 19+ 3-dose series) 1988 Pap Smear 1990 Cervical Cancer Screening 1999 HPV/Cotest 1999 Mammogram 2009 Zoster Vaccines (1 of 2) 2019 Influenza Vaccine (#1) 2023 Pneumococcal Vaccine: Pediat rics (0 to 5 Years) and At-Risk Patients (6 to 64 Years) Aged Out 04/13/2022 No longer eligible b ased on patient's age to complete this topic HIB Vaccines Aged Out No longer eligi ble based on patient's age to complete this topic HPV Vaccines Aged Out No longer eligi ble based on patient's age to complete this topic Hepatitis A Vaccines Aged Out No long er eligible based on patient's age to complete this topic IPV Vaccines Aged Out No longer eligi ble based on patient's age to complete this topic Meningococcal Vaccine Aged Out No huang nancy eligible based on patient's age to complete this topic Rotavirus Vaccines Aged Out No longer eligible based on patient's age to complete this topic [facility]aCcxaywa9419-89-89 23:56:59 Diagnosis Partial symptomatic epilepsy with complex partial seizures, not intractable, without status epilepticus (HCC) [facility]Pavxcbc3009-15-75 23:56:59 [facility] CenterLcelhte5980-40-31 13:04:22Upcoming Encounters Health Maintenance Due Date Last Done Comments CT Colonography 1969 Colonoscopy 1969 Colorectal Cancer Screening 1969 Diabetes: Hemoglobin A1C 1969 FIT-DNA 1969 FIT 1969 FOBT 1969 Lipid Panel 1969 Medicare Annual Wellness (AWV) 1969 Sigmoidoscopy 1969 Annual Physical 1972 Diabetes: Foot Exam 1979 Diabetes: Retinopathy Screening 1979 DTaP/Tdap/Td Vaccines (1 - Tdap) 1988 Diabetes: Urine Protein Screening 1988 Hepatitis B Vaccines (1 of 3 - 19+ 3-dose series) 1988 Pap Smear 1990 Cervical Cancer Screening 1999 HPV/Cotest 1999 Mammogram 2009 Zoster Vaccines (1 of 2) 2019 Influenza Vaccine (#1) 2023 Pneumococcal Vaccine: Pediat rics (0 to 5 Years) and At-Risk Patients (6 to 64 Years) Aged Out 04/13/2022 No longer eligible b ased on patient's age to complete this topic HIB Vaccines Aged Out No longer eligi ble based on patient's age to complete this topic HPV Vaccines Aged Out No longer eligi ble based on patient's age to complete this topic Hepatitis A Vaccines Aged Out No long er eligible based on patient's age to complete this topic IPV Vaccines Aged Out No longer eligi ble based on patient's age to complete this topic Meningococcal Vaccine Aged Out No huang nancy eligible based on patient's age to complete this topic Rotavirus Vaccines Aged Out No longer eligible based on patient's age to complete this topic [facility] CenterAvwhwtn2721-42-75 13:04:22 Diagnosis Partial symptomatic epilepsy with complex partial seizures, not intractable, without status epilepticus (HCC) [facility] CenterQnaunpg7490-17-54 13:04:22 [facility] CenterRwfxwpx0140-98-25 09:18:24 Patient is calling office stating she can not take the depakote that was prescribed due to the fillers that it has in it the pills she was given are dark red and the ones she normally takes are a light pink.. She is stating the pill she is a able to take is manufactured by [employer]. Pharmacy on file was verified w patient. Pt is out of medication and needs refill to be sent. Lion Zztpytt0686-70-91 10:23:09 Patient request fill for Locosamide and Divalproex be sent to her [facility] listed in her chart. [facility] Mari GarciaAmgjyhk2278-41-04 18:31:09* [facility] CenterUlxmtyq4505-12-43 18:31:09* Audit- C Score Answer Date of Assessment Author 0 02/29/2024 10:32 AM INLETTER Arabella Austin MA * [facility] CenterVtsnhhp4924-52-61 18:31:09* Dalila Mcclure MD - 02/29/2024 2:00 PM INLETTER Images from the original note were not included. Greg Broderick 1970 BP 140/84 | Ht 1.753 m (5' 9") | Wt 98 kg (216 lb) | BMI 31.90 kg/m? Chief Complaint Patient presents with Seizures No seizure HPI -53-year-old woman with history of chronic intractable epilepsy Is here for follow-up, She has been doing well with her current medication. She states that her medications were denied and patient is upset regarding this. Her PCP filled her medications for 3 months. She lives alone and manages her own finance s. She does have a sister that she meets frequently. She has a daughter in [place] in a group foster home. She has valproic acid embropathy. Her last seizure was 7 years ago. She has care provider 7 days a week. She has a room mate who is male . She has 2 dogs. Previous Note- September 2023Encounter for long-term current use of medication - Lacosamide level; Future - Zonisamide level; Future - Keppra (Leveitracetam); Future Partial symptomatic epilepsy with complex partial seizures, not intractable, without status epilepticus (HCC) Encounter for long-term (current) use of medications Current Outpatient Medications:citalopram (CeleXA) 20 MG tablet, Take 1 tablet by mouth daily., Disp: 90 tablet, Rfl: 3 lacosamide (Vimpat) 200 mg tablet tablet, Take 1 tablet by mouth in the morning and 1 tablet in the evening., Disp: 180 tablet, Rfl: 0 omeprazole (PriLOSEC) [address] capsule, 1 capsule 30 minutes before morning meal Orally Once a day for 30 day(s), Disp: , Rfl: oxybutynin XL (Ditropan-XL) 10 MG 24 hr tablet, 1 tablet Orally twice a day, Disp: , Rfl: rosuvastatin (Crestor) 20 MG tablet, 1 tablet Orally Once a day for 30 days, Disp: , Rfl: divalproex (Depakote) 500 MG EC tablet, Take 1 tablet by mouth in the morning and 1 tablet in the evening., Disp: 180 tablet, Rfl: 1 levETIRAcetam (Keppra) 750 MG tablet, Take 2 tablets by mouth in the morning and 2 tablets in the evening., Disp: 360 tablet, Rfl: 1 zonisamide (Zonegran) 100 MG capsule, Take 3 capsules by mouth 1 time each day., Disp: 270 capsule, Rfl: 1 Past Medical History:Diagnosis Date Anxiety Depression Diabetes mellitus (HCC) Epilepsy (HCC) Ovarian cancer (HCC) No family history on file.Past Surgical History: Procedure Laterality Date SECTION, CLASSIC COLONOSCOPY HYSTERECTOMY KNEE SURGERY OMENTECTOMY TONSILLECTOMY Tobacco Use: Low Risk (02/29/2024) Patient History Smoking Tobacco Use: Never Smokeless Tobacco Use: Never Passive Exposure: Never Alcohol Use: Not At Risk (02/29/2024)AUDIT-C Frequency of Alcohol Consumption: Never Average Number of Drinks: Patient does not drink Frequency of Binge Drinking: Never Physical Activity: Not on file Review of SystemsConstitutional: Full ROS was completed by patient and reviewed by provider See attached scanned document Allergies Allergen Reactions Carbamazepine Unknown Phenobarbital Unknown Phenytoin Unknown Neurological ExamMental Status Awake, alert and oriented to person, place and time. Speech is normal. Language is fluent with no aphasia. MotorStrength is 5/5 throughout all four extremities. GaitCasual gait is normal including stance, stride, and arm swing. Physical Exam:Neurological: Motor: Motor strength is normal. Psychiatric: Speech: Speech normal. Assessment & PlanDiagnoses and all orders for this visit: Other generalized epilepsy and epileptic syndromes, not intractable, without status epilepticus (CMS/HCC) ([facility]) Comments: Her last seizure was over 7 years ago. She has been compliant with all her medications. Will refill medications today. Orders: - zonisamide (Zonegran) 100 MG capsule; Take 3 capsules by mouth 1 time each day. - levETIRAcetam (Keppra) 750 MG tablet; Take 2 tablets by mouth in the morning and 2 tablets in the evening. Partial symptomatic epilepsy with complex partial seizures, not intractable, without status epilepticus (HCC) - divalproex (Depakote) 500 MG EC tablet; Take 1 tablet by mouth in the morning and 1 tablet in the evening. [facility] [address] [place] [address] PH: [phone] [facility]2024-12-18 18:31:09Upcoming Encounters Health Maintenance Due Date Last Done Comments CT Colonography 1969 Colonoscopy 1969 Colorectal Cancer Screening 1969 Diabetes: Hemoglobin A1C 1969 FIT-DNA 1969 FIT 1969 FOBT 1969 Lipid Panel 1969 Medicare Annual Wellness (AWV) 1969 Sigmoidoscopy 1969 Annual Physical 1972 Diabetes: Foot Exam 1979 Diabetes: Retinopathy Screening 1979 DTaP/Tdap/Td Vaccines (1 - Tdap) 1988 Diabetes: Urine Protein Screening 1988 Hepatitis B Vaccines (1 of 3 - 19+ 3-dose series) 1988 Pap Smear 1990 Cervical Cancer Screening 1999 HPV/Cotest 1999 Mammogram 2009 Zoster Vaccines (1 of 2) 2019 Influenza Vaccine (#1) 2023 Pneumococcal Vaccine: Pediat rics (0 to 5 Years) and At-Risk Patients (6 to 64 Years) Aged Out 04/13/2022 No longer eligible b ased on patient's age to complete this topic HIB Vaccines Aged Out No longer eligi ble based on patient's age to complete this topic HPV Vaccines Aged Out No longer eligi ble based on patient's age to complete this topic Hepatitis A Vaccines Aged Out No long er eligible based on patient's age to complete this topic IPV Vaccines Aged Out No longer eligi ble based on patient's age to complete this topic Meningococcal Vaccine Aged Out No huang nancy eligible based on patient's age to complete this topic Rotavirus Vaccines Aged Out No longer eligible based on patient's age to complete this topic [facility] CenterZrzzqdk7433-72-74 18:31:09 Diagnosis Other generalized epilepsy a nd epileptic syndromes, not intractable, without status epilepticus (CMS/HCC) (HCC) Partial symptomatic epilepsy with complex partial seizures, not intractable, without status epilepticus (HCC) [facility] CenterPybxhgk5069-17-08 18:31:09 [facility] CenterUwfnmry8117-17-34 18:31:09* [facility] CenterVwufxpe2626-51-13 18:31:09* Audit- C Score Answer Date of Assessment Author 0 02/29/2024 10:32 AM INLETTER Arabella Austin MA * [facility] CenterWrzxqiw0012-13-85 18:31:09* Dalila Mcclure MD - 02/29/2024 2:00 PM INLETTER Images from the original note were not included. Greg Broderick 1970 BP 140/84 | Ht 1.753 m (5' 9") | Wt 98 kg (216 lb) | BMI 31.90 kg/m? Chief Complaint Patient presents with Seizures No seizure HPI -53-year-old woman with history of chronic intractable epilepsy Is here for follow-up, She has been doing well with her current medication. She states that her medications were denied and patient is upset regarding this. Her PCP filled her medications for 3 months. She lives alone and manages her own finance s. She does have a sister that she meets frequently. She has a daughter in [place] in a group foster home. She has valproic acid embropathy. Her last seizure was 7 years ago. She has care provider 7 days a week. She has a room mate who is male . She has 2 dogs. Previous Note- September 2023Encounter for long-term current use of medication - Lacosamide level; Future - Zonisamide level; Future - Keppra (Leveitracetam); Future Partial symptomatic epilepsy with complex partial seizures, not intractable, without status epilepticus (HCC) Encounter for long-term (current) use of medications Current Outpatient Medications:citalopram (CeleXA) 20 MG tablet, Take 1 tablet by mouth daily., Disp: 90 tablet, Rfl: 3 lacosamide (Vimpat) 200 mg tablet tablet, Take 1 tablet by mouth in the morning and 1 tablet in the evening., Disp: 180 tablet, Rfl: 0 omeprazole (PriLOSEC) [address] capsule, 1 capsule 30 minutes before morning meal Orally Once a day for 30 day(s), Disp: , Rfl: oxybutynin XL (Ditropan-XL) 10 MG 24 hr tablet, 1 tablet Orally twice a day, Disp: , Rfl: rosuvastatin (Crestor) 20 MG tablet, 1 tablet Orally Once a day for 30 days, Disp: , Rfl: divalproex (Depakote) 500 MG EC tablet, Take 1 tablet by mouth in the morning and 1 tablet in the evening., Disp: 180 tablet, Rfl: 1 levETIRAcetam (Keppra) 750 MG tablet, Take 2 tablets by mouth in the morning and 2 tablets in the evening., Disp: 360 tablet, Rfl: 1 zonisamide (Zonegran) 100 MG capsule, Take 3 capsules by mouth 1 time each day., Disp: 270 capsule, Rfl: 1 Past Medical History:Diagnosis Date Anxiety Depression Diabetes mellitus (HCC) Epilepsy (HCC) Ovarian cancer (HCC) No family history on file.Past Surgical History: Procedure Laterality Date SECTION, CLASSIC COLONOSCOPY HYSTERECTOMY KNEE SURGERY OMENTECTOMY TONSILLECTOMY Tobacco Use: Low Risk (02/29/2024) Patient History Smoking Tobacco Use: Never Smokeless Tobacco Use: Never Passive Exposure: Never Alcohol Use: Not At Risk (02/29/2024)AUDIT-C Frequency of Alcohol Consumption: Never Average Number of Drinks: Patient does not drink Frequency of Binge Drinking: Never Physical Activity: Not on file Review of SystemsConstitutional: Full ROS was completed by patient and reviewed by provider See attached scanned document Allergies Allergen Reactions Carbamazepine Unknown Phenobarbital Unknown Phenytoin Unknown Neurological ExamMental Status Awake, alert and oriented to person, place and time. Speech is normal. Language is fluent with no aphasia. MotorStrength is 5/5 throughout all four extremities. GaitCasual gait is normal including stance, stride, and arm swing. Physical Exam:Neurological: Motor: Motor strength is normal. Psychiatric: Speech: Speech normal. Assessment & PlanDiagnoses and all orders for this visit: Other generalized epilepsy and epileptic syndromes, not intractable, without status epilepticus (CMS/HCC) ([facility]) Comments: Her last seizure was over 7 years ago. She has been compliant with all her medications. Will refill medications today. Orders: - zonisamide (Zonegran) 100 MG capsule; Take 3 capsules by mouth 1 time each day. - levETIRAcetam (Keppra) 750 MG tablet; Take 2 tablets by mouth in the morning and 2 tablets in the evening. Partial symptomatic epilepsy with complex partial seizures, not intractable, without status epilepticus (HCC) - divalproex (Depakote) 500 MG EC tablet; Take 1 tablet by mouth in the morning and 1 tablet in the evening. [facility] [address] [place] [address] PH: [phone] [place] [id number] 18:31:09Upcoming Encounters Health Maintenance Due Date Last Done Comments CT Colonography 1969 Colonoscopy 1969 Colorectal Cancer Screening 1969 Diabetes: Hemoglobin A1C 1969 FIT-DNA 1969 FIT 1969 FOBT 1969 Lipid Panel 1969 Medicare Annual Wellness (AWV) 1969 Sigmoidoscopy 1969 Annual Physical 1972 Diabetes: Foot Exam 1979 Diabetes: Retinopathy Screening 1979 DTaP/Tdap/Td Vaccines (1 - Tdap) 1988 Diabetes: Urine Protein Screening 1988 Hepatitis B Vaccines (1 of 3 - 19+ 3-dose series) 1988 Pap Smear 1990 Cervical Cancer Screening 1999 HPV/Cotest 1999 Mammogram 2009 Zoster Vaccines (1 of 2) 2019 Influenza Vaccine (#1) 2023 Pneumococcal Vaccine: Pediat rics (0 to 5 Years) and At-Risk Patients (6 to 64 Years) Aged Out 04/13/2022 No longer eligible b ased on patient's age to complete this topic HIB Vaccines Aged Out No longer eligi ble based on patient's age to complete this topic HPV Vaccines Aged Out No longer eligi ble based on patient's age to complete this topic Hepatitis A Vaccines Aged Out No long er eligible based on patient's age to complete this topic IPV Vaccines Aged Out No longer eligi ble based on patient's age to complete this topic Meningococcal Vaccine Aged Out No huang nancy eligible based on patient's age to complete this topic Rotavirus Vaccines Aged Out No longer eligible based on patient's age to complete this topic [facility] [id number] 18:31:09 Diagnosis Other generalized epilepsy a nd epileptic syndromes, not intractable, without status epilepticus (CMS/HCC) (HCC) Partial symptomatic epilepsy with complex partial seizures, not intractable, without status epilepticus (HCC) [facility] CenterDdpynqs7247-80-20 18:31:09 [facility] CenterTkbnlmt5575-32-89 09:43:54Upcoming Encounters Health Maintenance Due Date Last Done Comments CT Colonography 1969 Colonoscopy 1969 Colorectal Cancer Screening 1969 FIT-DNA 1969 FIT 1969 FOBT 1969 Medicare Annual Wellness (AWV) 1969 Sigmoidoscopy 1969 Annual Physical 1972 DTaP/Tdap/Td Vaccines (1 - Tdap) 1988 Hepatitis B Vaccines (1 of 3 - 19+ 3-dose series) 1988 Pap Smear 1990 Cervical Cancer Screening 1999 HPV/Cotest 1999 Mammogram 2009 Zoster Vaccines (1 of 2) 2019 Influenza Vaccine (#1) 2023 HIB Vaccines Aged Out No longer eligi ble based on patient's age to complete this topic HPV Vaccines Aged Out No longer eligi ble based on patient's age to complete this topic Hepatitis A Vaccines Aged Out No long er eligible based on patient's age to complete this topic IPV Vaccines Aged Out No longer eligi ble based on patient's age to complete this topic Meningococcal Vaccine Aged Out No huang nancy eligible based on patient's age to complete this topic Pneumococcal Vaccine: Pediat rics (0 to 5 Years) and At-Risk Patients (6 to 64 Years) Aged Out No longer eligible b ased on patient's age to complete this topic Rotavirus Vaccines Aged Out No longer eligible based on patient's age to complete this topic [facility] CenterIcbrzdb3018-42-93 09:43:54 Diagnosis Other generalized epilepsy a nd epileptic syndromes, not intractable, without status epilepticus (CMS/HCC) ([facility]) - Primary [facility] CenterDgzssau6441-37-89 09:43:54 [facility] [id number] 16:02:29* [facility] Comator8898-14-02 16:02:29Upcoming Encounters Health Maintenance Due Date Last Done Comments CT Colonography 1969 Colonoscopy 1969 Colorectal Cancer Screening 1969 FIT-DNA 1969 FIT 1969 FOBT 1969 Medicare Annual Wellness (AWV) 1969 Sigmoidoscopy 1969 DTaP/Tdap/Td Vaccines (1 - Tdap) 1988 Hepatitis B Vaccines (1 of 3 - 19+ 3-dose series) 1988 Pap Smear 1990 Cervical Cancer Screening 1999 HPV/Cotest 1999 Mammogram 2009 Zoster Vaccines (1 of 2) 2019 Influenza Vaccine (#1) 2023 HIB Vaccines Aged Out No longer eligi ble based on patient's age to complete this topic HPV Vaccines Aged Out No longer eligi ble based on patient's age to complete this topic Hepatitis A Vaccines Aged Out No long er eligible based on patient's age to complete this topic IPV Vaccines Aged Out No longer eligi ble based on patient's age to complete this topic Meningococcal Vaccine Aged Out No huang nancy eligible based on patient's age to complete this topic Pneumococcal Vaccine: Pediat rics (0 to 5 Years) and At-Risk Patients (6 to 64 Years) Aged Out No longer eligible b ased on patient's age to complete this topic Rotavirus Vaccines Aged Out No longer eligible based on patient's age to complete this topic [facility]ioeugw1742[facility] 16:02:29 Diagnosis Partial symptomatic epilepsy with complex partial seizures, not intractable, without status epilepticus (HCC) - [facility] [id number] 16:02:29 [facility]aEvtogwz9716-86-84 13:06:22* [facility] Wlsbswd3093-29-78 13:06:22Upcoming Encounters Health Maintenance Due Date Last Done Comments CT Colonography 1969 Colonoscopy 1969 Colorectal Cancer Screening 1969 FIT-DNA 1969 FIT 1969 FOBT 1969 Medicare Annual Wellness (AWV) 1969 Sigmoidoscopy 1969 DTaP/Tdap/Td Vaccines (1 - Tdap) 1988 Hepatitis B Vaccines (1 of 3 - 19+ 3-dose series) 1988 Pap Smear 1990 Cervical Cancer Screening 1999 HPV/Cotest 1999 Mammogram 2009 Zoster Vaccines (1 of 2) 2019 Influenza Vaccine (#1) 2023 HIB Vaccines Aged Out No longer eligi ble based on patient's age to complete this topic HPV Vaccines Aged Out No longer eligi ble based on patient's age to complete this topic Hepatitis A Vaccines Aged Out No long er eligible based on patient's age to complete this topic IPV Vaccines Aged Out No longer eligi ble based on patient's age to complete this topic Meningococcal Vaccine Aged Out No huang nancy eligible based on patient's age to complete this topic Pneumococcal Vaccine: Pediat rics (0 to 5 Years) and At-Risk Patients (6 to 64 Years) Aged Out No longer eligible b ased on patient's age to complete this topic Rotavirus Vaccines Aged Out No longer eligible based on patient's age to complete this topic [facility] CenterLlwjoar1477-33-59 13:06:22 Diagnosis Other generalized epilepsy a nd epileptic syndromes, not intractable, without status epilepticus (CMS/HCC) (HCC) [facility] CenterLtrangy8082-77-33 13:06:22 [facility] CenterVwvpjwp3203-07-00 13:04:33* [facility] CenterUcmtluk5088-81-46 13:04:33Upcoming Encounters Health Maintenance Due Date Last Done Comments CT Colonography 1969 Colonoscopy 1969 Colorectal Cancer Screening 1969 FIT-DNA 1969 FIT 1969 FOBT 1969 Medicare Annual Wellness (AWV) 1969 Sigmoidoscopy 1969 DTaP/Tdap/Td Vaccines (1 - Tdap) 1988 Hepatitis B Vaccines (1 of 3 - 19+ 3-dose series) 1988 Pap Smear 1990 Cervical Cancer Screening 1999 HPV/Cotest 1999 Mammogram 2009 Zoster Vaccines (1 of 2) 2019 Influenza Vaccine (#1) 2023 HIB Vaccines Aged Out No longer eligi ble based on patient's age to complete this topic HPV Vaccines Aged Out No longer eligi ble based on patient's age to complete this topic Hepatitis A Vaccines Aged Out No long er eligible based on patient's age to complete this topic IPV Vaccines Aged Out No longer eligi ble based on patient's age to complete this topic Meningococcal Vaccine Aged Out No huang nancy eligible based on patient's age to complete this topic Pneumococcal Vaccine: Pediat rics (0 to 5 Years) and At-Risk Patients (6 to 64 Years) Aged Out No longer eligible b ased on patient's age to complete this topic Rotavirus Vaccines Aged Out No longer eligible based on patient's age to complete this topic [facility] CenterEpvyafa4695-93-73 13:04:33 Diagnosis Other generalized epilepsy a nd epileptic syndromes, not intractable, without status epilepticus (CMS/HCC) (HCC) [facility] CenterZtczjjl6738-92-51 13:04:33 [facility] CenterDmtjlwn8951-08-46 23:53:23Upcoming Encounters Health Maintenance Due Date Last Done Comments CT Colonography 1969 Colonoscopy 1969 Colorectal Cancer Screening 1969 FIT-DNA 1969 FIT 1969 FOBT 1969 Medicare Annual Wellness (AWV) 1969 Sigmoidoscopy 1969 DTaP/Tdap/Td Vaccines (1 - Tdap) 1988 Hepatitis B Vaccines (1 of 3 - 19+ 3-dose series) 1988 Pap Smear 1990 Cervical Cancer Screening 1999 HPV/Cotest 1999 Mammogram 2009 Zoster Vaccines (1 of 2) 2019 Influenza Vaccine (#1) 2023 HIB Vaccines Aged Out No longer eligi ble based on patient's age to complete this topic HPV Vaccines Aged Out No longer eligi ble based on patient's age to complete this topic Hepatitis A Vaccines Aged Out No long er eligible based on patient's age to complete this topic IPV Vaccines Aged Out No longer eligi ble based on patient's age to complete this topic Meningococcal Vaccine Aged Out No huang nancy eligible based on patient's age to complete this topic Pneumococcal Vaccine: Pediat rics (0 to 5 Years) and At-Risk Patients (6 to 64 Years) Aged Out No longer eligible b ased on patient's age to complete this topic Rotavirus Vaccines Aged Out No longer eligible based on patient's age to complete this topic [facility] CenterZevurpw3996-05-33 23:53:23 [facility]aReyenjn7678-51-68 17:29:58* [facility] Ydqytji1685-17-32 17:29:58Upcoming Encounters Health Maintenance Due Date Last Done Comments CT Colonography 1969 Colonoscopy 1969 Colorectal Cancer Screening 1969 FIT-DNA 1969 FIT 1969 FOBT 1969 Medicare Annual Wellness (AWV) 1969 Sigmoidoscopy 1969 DTaP/Tdap/Td Vaccines (1 - Tdap) 1988 Hepatitis B Vaccines (1 of 3 - 19+ 3-dose series) 1988 Pap Smear 1990 Cervical Cancer Screening 1999 HPV/Cotest 1999 Mammogram 2009 Zoster Vaccines (1 of 2) 2019 Influenza Vaccine (#1) 2023 HIB Vaccines Aged Out No longer eligi ble based on patient's age to complete this topic HPV Vaccines Aged Out No longer eligi ble based on patient's age to complete this topic Hepatitis A Vaccines Aged Out No long er eligible based on patient's age to complete this topic IPV Vaccines Aged Out No longer eligi ble based on patient's age to complete this topic Meningococcal Vaccine Aged Out No huang nancy eligible based on patient's age to complete this topic Pneumococcal Vaccine: Pediat rics (0 to 5 Years) and At-Risk Patients (6 to 64 Years) Aged Out No longer eligible b ased on patient's age to complete this topic Rotavirus Vaccines Aged Out No longer eligible based on patient's age to complete this topic [facility]aLjqsynb4040-64-25 17:29:58 [facility]aMwqkzpz1081-46-45 08:44:26* [facility]aUqwjzzt4834-46-93 08:44:26Upcoming Encounters Health Maintenance Due Date Last Done Comments CT Colonography 1969 Colonoscopy 1969 Colorectal Cancer Screening 1969 FIT-DNA 1969 FIT 1969 FOBT 1969 Medicare Annual Wellness (AWV) 1969 Sigmoidoscopy 1969 DTaP/Tdap/Td Vaccines (1 - Tdap) 1988 Hepatitis B Vaccines (1 of 3 - 19+ 3-dose series) 1988 Pap Smear 1990 Cervical Cancer Screening 1999 HPV/Cotest 1999 Mammogram 2009 Zoster Vaccines (1 of 2) 2019 Influenza Vaccine (#1) 2023 HIB Vaccines Aged Out No longer eligi ble based on patient's age to complete this topic HPV Vaccines Aged Out No longer eligi ble based on patient's age to complete this topic Hepatitis A Vaccines Aged Out No long er eligible based on patient's age to complete this topic IPV Vaccines Aged Out No longer eligi ble based on patient's age to complete this topic Meningococcal Vaccine Aged Out No huang nancy eligible based on patient's age to complete this topic Pneumococcal Vaccine: Pediat rics (0 to 5 Years) and At-Risk Patients (6 to 64 Years) Aged Out No longer eligible b ased on patient's age to complete this topic Rotavirus Vaccines Aged Out No longer eligible based on patient's age to complete this topic [facility] CenterRlwsboz8034-00-69 08:44:26 [facility] CenterXycwsph3219-26-10 09:32:56Upcoming Encounters Health Maintenance Due Date Last Done Comments CT Colonography 1969 Colonoscopy 1969 Colorectal Cancer Screening 1969 FIT-DNA 1969 FIT 1969 FOBT 1969 Medicare Annual Wellness (AWV) 1969 Sigmoidoscopy 1969 DTaP/Tdap/Td Vaccines (1 - Tdap) 1988 Hepatitis B Vaccines (1 of 3 - 19+ 3-dose series) 1988 Pap Smear 1990 Cervical Cancer Screening 1999 HPV/Cotest 1999 Mammogram 2009 Zoster Vaccines (1 of 2) 2019 Influenza Vaccine (#1) 2023 HIB Vaccines Aged Out No longer eligi ble based on patient's age to complete this topic HPV Vaccines Aged Out No longer eligi ble based on patient's age to complete this topic Hepatitis A Vaccines Aged Out No long er eligible based on patient's age to complete this topic IPV Vaccines Aged Out No longer eligi ble based on patient's age to complete this topic Meningococcal Vaccine Aged Out No huang nancy eligible based on patient's age to complete this topic Pneumococcal Vaccine: Pediat rics (0 to 5 Years) and At-Risk Patients (6 to 64 Years) Aged Out No longer eligible b ased on patient's age to complete this topic Rotavirus Vaccines Aged Out No longer eligible based on patient's age to complete this topic [facility] CenterYoczdkd0041-65-22 09:32:56 [facility] CenterJyqpgat2019-48-43 09:32:29 Pt informed and understood verbalized of results [facility]St[facility] CenterAgeopcg9905-93-92 09:32:25 ----- Message from ARELNE Villarreal sent at 10/04/2023 9:09 PM CDT ----- All meds in therapeutic range. There is some room to increase on the zonisamide if patient continues to have breakthrough seizures. [facility] CenterFlatdnj5518-67-66 21:11:27* [facility] CenterDqmrxei6266-38-12 21:11:27* ARLENE Bustamante - 09/01/2023 2:00 PM CDT Greg Broderick 1970 BP 122/70 | Ht 1.753 m (5' 9") | Wt 106 kg (233 lb) | BMI 34.41 kg/m? Chief Complaint Patient presents with Seizures 08/07/23 seizure Current Outpatient Medications: citalopram (CeleXA) 20 MG tablet, Take 1 tablet by mouth daily. for 90, Disp: , Rfl: lacosamide (Vimpat) 200 mg tablet tablet, 1 tablet Orally Twice a day for 90 days, Disp: , Rfl: levETIRAcetam (Keppra) 750 MG tablet, 2 tablets Orally Twice a day for 30 days, Disp: , Rfl: metFORMIN, OSM, (Fortamet) 500 MG 24 hr tablet, Take 500 mg by mouth in the evening. Take with meals.. Do not crush, chew, or split., Disp: , Rfl: omeprazole (PriLOSEC) [address] capsule, 1 capsule 30 minutes before morning meal Orally Once a day for 30 day(s), Disp: , Rfl: oxybutynin XL (Ditropan-XL) 10 MG 24 hr tablet, 1 tablet Orally twice a day, Disp: , Rfl: rosuvastatin (Crestor) 20 MG tablet, 1 tablet Orally Once a day for 30 days, Disp: , Rfl: zonisamide (Zonegran) 100 MG capsule, Take 3 capsules by mouth at bedtime. for 90, Disp: , Rfl: divalproex (Depakote) 500 MG EC tablet, Take 1 tablet by mouth twice daily., Disp: 60 tablet, Rfl: 0 lacosamide (Vimpat) 200 mg tablet tablet, 1 tablet Orally Twice a day for 90 days, Disp: , Rfl: lacosamide (Vimpat) 200 mg tablet tablet, Take 1 tablet by mouth twice daily., Disp: 180 tablet, Rfl: 0 levETIRAcetam (Keppra) 750 MG tablet, Take 2 tablets by mouth twice daily. for 90 days, Disp: , Rfl: zonisamide (Zonegran) 100 MG capsule, 3 capsules Orally at bedtime for 90 days, Disp: , Rfl: Past Medical History:Diagnosis Date Anxiety Depression Diabetes mellitus (HCC) Epilepsy (HCC) Ovarian cancer (HCC) No family history on file. Past Surgical History:Procedure Laterality Date SECTION, CLASSIC COLONOSCOPY HYSTERECTOMY KNEE SURGERY OMENTECTOMY TONSILLECTOMY Tobacco Use: Low Risk (09/01/2023) Patient History Smoking Tobacco Use: Never Smokeless Tobacco Use: Never Passive Exposure: Never Alcohol Use: Not on file AllergiesAllergen Reactions Carbamazepine Unknown Phenobarbital Unknown Phenytoin Unknown Review of SystemsConstitutional: Negative. Neurological: Positive for seizures. Alexey Broderick is a 53 y.o. female followed by the office for history of seizures and mild intellectual delay. She is alone she continues to be in independent apartment. Patient she reports that she had multiple seizures around 08/07/23. She had mulitple facial and eye blinking. There were obvious grand mal. She has found a new care provider that she has found that lives facility. She reports compliance with medicationsShe does not know if this was in the context of sugar intake or because of emotional stress from family stressors. Last note:52-year-old woman with history of mild intellectual delay and seizures is here for followup.she is here alone. She lives alone in a independent apartment and states that her sister is not talking to her any more. She stopped talking to her in December.also stopped managing her finances. She has been managing her own finances and she does not have a checking account. Her sister took Felisha back to [place] to her father and she will have to pay 50% reiimburse her. She has signed up with an agency and has a 2 careproviders- a mother and daughter who comes every day. Tue-Tuesday.gets her medications in pill pack. States that she takes it regularly. She cooks and cleans the apartment. She does not drive and uses transportation. She also plans to get involved in caodaism activities and she is excited about that. She is waiting to move to [address] in 4 years which is based on income. She had a seizure last week - care provider was driving her to the dentist and she was in the back seat and had a seizure. she states that she has been taking the medication regularly. Neurological ExamMental Status Awake, alert and oriented to person, place and time. Recent and remote memory are intact. Speech is normal. Language is fluent with no aphasia. Attention and concentration are normal. Fund of knowledge is appropriate for level of education. Cranial NervesCN III, IV, : Extraocular movements intact bilaterally. Normal lids and orbits bilaterally. Pupils equal round and reactive to light bilaterally. CN VII: Full and symmetric facial movement. CN VIII: Hearing is normal. MotorNormal muscle bulk throughout. No fasciculations present. Normal muscle tone. No abnormal involuntary movements. Strength: Functional power is normal by observation. . Coordination Normal functional movements. No tremor. GaitCasual gait is normal including stance, stride, and arm swing. Physical ExamVitals reviewed. Constitutional: General: She is not in acute distress. Appearance: Normal appearance. HENT: Head: Normocephalic and atraumatic. Eyes: General: Lids are normal. Extraocular Movements: Extraocular movements intact. Pupils: Pupils are equal, round, and reactive to light. Pulmonary: Effort: Pulmonary effort is normal. Musculoskeletal: General: Normal range of motion. Cervical back: Normal range of motion. Skin: General: Skin is warm. Psychiatric: Mood and Affect: Mood normal. Speech: Speech normal. Behavior: Behavior normal. Assessment/PlanDiagnoses and all orders for this visit: Encounter for long-term current use of medication - Lacosamide level; Future - Zonisamide level; Future - Keppra (Leveitracetam); Future Partial symptomatic epilepsy with complex partial seizures, not intractable, without status epilepticus (HCC) Encounter for long-term (current) use of medications Clinic Follow up: 3-4 months for status check Msihel Haynes, [facility] [address] [place] [id number] PH: [phone] [place] [id number] 21:11:27Upcoming Encounters Health Maintenance Due Date Last Done Comments CT Colonography 1969 Colonoscopy 1969 Colorectal Cancer Screening 1969 FIT-DNA 1969 FIT 1969 FOBT 1970 Medicare Annual Wellness (AWV) 1969 Sigmoidoscopy 1969 DTaP/Tdap/Td Vaccines (1 - Tdap) 1988 Hepatitis B Vaccines (1 of 3 - 19+ 3-dose series) 1988 Pap Smear 1990 Cervical Cancer Screening 1999 HPV/Cotest 1999 Mammogram 2009 Zoster Vaccines (1 of 2) 2019 Influenza Vaccine (#1) 2023 HIB Vaccines Aged Out No longer eligi ble based on patient's age to complete this topic HPV Vaccines Aged Out No longer eligi ble based on patient's age to complete this topic Hepatitis A Vaccines Aged Out No long er eligible based on patient's age to complete this topic IPV Vaccines Aged Out No longer eligi ble based on patient's age to complete this topic Meningococcal Vaccine Aged Out No huang nancy eligible based on patient's age to complete this topic Pneumococcal Vaccine: Pediat rics (0 to 5 Years) and At-Risk Patients (6 to 64 Years) Aged Out No longer eligible b ased on patient's age to complete this topic Rotavirus Vaccines Aged Out No longer eligible based on patient's age to complete this topic [id number] 21:11:27 Diagnosis Partial symptomatic epilepsy with complex partial seizures, not intractable, without status epilepticus (HCC) - Primary Encounter for long-term curr ent use of medication Mild intellectual disability Mild mental retardation Anxiety with depression [facility] [id number] 21:11:27 [facility] [id number] 10:17:11* [facility] [id number] 10:17:11Upcoming Encounters Health Maintenance Due Date Last Done Comments CT Colonography 1969 Colonoscopy 1969 Colorectal Cancer Screening 1969 FIT-DNA 1969 FIT 1969 FOBT 1969 Medicare Annual Wellness (AWV) 1969 Sigmoidoscopy 1969 DTaP/Tdap/Td Vaccines (1 - Tdap) 1988 Hepatitis B Vaccines (1 of 3 - 19+ 3-dose series) 1988 Pap Smear 1990 Cervical Cancer Screening 1999 HPV/Cotest 1999 Mammogram 2009 Zoster Vaccines (1 of 2) 2019 Influenza Vaccine (#1) 2023 HIB Vaccines Aged Out No longer eligi ble based on patient's age to complete this topic HPV Vaccines Aged Out No longer eligi ble based on patient's age to complete this topic Hepatitis A Vaccines Aged Out No long er eligible based on patient's age to complete this topic IPV Vaccines Aged Out No longer eligi ble based on patient's age to complete this topic Meningococcal Vaccine Aged Out No huang nancy eligible based on patient's age to complete this topic Pneumococcal Vaccine: Pediat rics (0 to 5 Years) and At-Risk Patients (6 to 64 Years) Aged Out No longer eligible b ased on patient's age to complete this topic Rotavirus Vaccines Aged Out No longer eligible based on patient's age to complete this topic [facility] [id number] 10:17:11 [facility] [id number] 19:50:11* [facility] [id number] 19:50:11Upcoming Encounters Health Maintenance Due Date Last Done Comments CT Colonography 1969 Colonoscopy 1969 Colorectal Cancer Screening 1969 FIT-DNA 1969 FIT 1969 FOBT 1969 Medicare Annual Wellness (AWV) 1969 Sigmoidoscopy 1969 DTaP/Tdap/Td Vaccines (1 - Tdap) 1988 Hepatitis B Vaccines (1 of 3 - 19+ 3-dose series) 1988 Pap Smear 1990 Cervical Cancer Screening 1999 HPV/Cotest 1999 Mammogram 2009 Zoster Vaccines (1 of 2) 2019 Influenza Vaccine (#1) 2023 HIB Vaccines Aged Out No longer eligi ble based on patient's age to complete this topic HPV Vaccines Aged Out No longer eligi ble based on patient's age to complete this topic Hepatitis A Vaccines Aged Out No long er eligible based on patient's age to complete this topic IPV Vaccines Aged Out No longer eligi ble based on patient's age to complete this topic Meningococcal Vaccine Aged Out No huang nancy eligible based on patient's age to complete this topic Pneumococcal Vaccine: Pediat rics (0 to 5 Years) and At-Risk Patients (6 to 64 Years) Aged Out No longer eligible b ased on patient's age to complete this topic Rotavirus Vaccines Aged Out No longer eligible based on patient's age to complete this topic [facility] [id number] 19:50:11 Diagnosis Other generalized epilepsy a nd epileptic syndromes, not intractable, without status epilepticus (CMS/HCC) (HCC) - Primary [facility] [id number] 19:50:11 [facility] [id number] 09:38:07Upcoming Encounters Health Maintenance Due Date Last Done Comments CT Colonography 1969 Colonoscopy 1969 Colorectal Cancer Screening 1969 FIT-DNA 1969 FIT 1969 FOBT 1969 Medicare Annual Wellness (AWV) 1969 Sigmoidoscopy 1969 DTaP/Tdap/Td Vaccines (1 - Tdap) 1988 Hepatitis B Vaccines (1 of 3 - 19+ 3-dose series) 1988 Pap Smear 1990 Cervical Cancer Screening 1999 HPV/Cotest 1999 Mammogram 2009 Zoster Vaccines (1 of 2) 2019 Influenza Vaccine (Season Ended) 2023 HIB Vaccines Aged Out No longer eligi ble based on patient's age to complete this topic HPV Vaccines Aged Out No longer eligi ble based on patient's age to complete this topic Hepatitis A Vaccines Aged Out No long er eligible based on patient's age to complete this topic IPV Vaccines Aged Out No longer eligi ble based on patient's age to complete this topic Meningococcal Vaccine Aged Out No huang nancy eligible based on patient's age to complete this topic Pneumococcal Vaccine: Pediat rics (0 to 5 Years) and At-Risk Patients (6 to 64 Years) Aged Out No longer eligible b ased on patient's age to complete this topic Rotavirus Vaccines Aged Out No longer eligible based on patient's age to complete this topic [facility] [id number] 09:38:07 [place] [id number] 09:37:43 Called patient and informed, verbalized understanding [facility]St[facility] [id number] 09:37:35 ----- Message from Dr. Dalila Mcclure MD sent at 09/01/2023 2:38 PM CDT ----- Labs show elevated keppra level but Will not change the dose as she has not had any seizures and no signs of clinical toxicity T [facility]
[2024-08-06] MEDS ORDERED: LEVETIRACETAM 500 MG/5 ML VIAL IV ONE (13:39)
[2024-08-06] MEDS ORDERED: NA CHLORIDE 0.9% 100 ML ONE (13:40)
[2024-08-06 13:43] LABS: Absolute Basophils 0.1 K/uL (0-0.5); Absolute Eosinophils 0.3 K/uL (0-0.5); Absolute Lymphocytes (CBC) 2.9 K/uL (0.7-4.9); Absolute Monocytes 0.7 K/uL (0.1-1.3); Absolute Neutrophil 3.9 K/uL (1.8-8.0); Basophils % 0.9 % (0-1.3); Eosinophils % 3.9 % (0-4.4); Hematocrit 38.1 % (36.0-45.0); Lymphocytes % 36.9 % (15.3-44.8); MCV 94.1 fL (80-100); MPV 10.1 fL (7.6-11.3); Monocytes % 9.1 % (3.3-12.3); Neutrophils % 49.2 % (41.7-73.7); Platelets 170 thou/uL (152-406); RBC Red Blood Cell Count 4.05 M/uL (3.86-4.86); Red Cell Distribution Width 14.2 % (12.1-15.2)
[2024-08-06 14:02] LABS: ALT/SGPT 15 U/L (13-56); Albumin 3.2 g/dL (3.4-5.0); Alkaline Phosphatase 63 U/L (45-117); Anion Gap 8.2 mEq/L (5.0-15.0); BUN Blood Urea Nitrogen 24 mg/dL (7-18); Bicarbonate 28 mEq/L (21-32); Bilirubin Total 0.2 mg/dL (0.2-1.0); Globulin 3.3 g/dL (2.3-3.5); Glomerular Filtration Rate 69 ml/min (=/>90); Glucose Level 135 mg/dL (74-106); Potassium 4.2 mEq/L (3.5-5.1); Protein, Total 6.5 g/dL (6.4-8.2); Sodium Level 140 mEq/L (136-145)
[2024-08-06 14:03] LABS: AST/SGOT < 10 U/L (15-37)
--- NOTE | 2024-08-06 14:45 | EDPHYS ---
Physician Documentation [facility] Name: Angelika Broderick Age: 54 yrs Sex: Female : 1970 Arrival Date: 08/06/2024 Time: 13:10 Bed 11 Private MD: ED Physician Candelario Toledo HPI: 08/06 15:56 This 54 yrs old Female presents to ER via EMS with complaints of Seizure. dr5 15:56 Patient is a 54-year-old female with history of seizures coming in with focal seizure dr5 while talking to daughter on Zoom. [facility] was called and picked up patient. [facility] states that when they arrived to her home she was not postictal. She has been alert and oriented x 4. Patient reports that she has been taking her medications as prescribed and has not missed any doses of Keppra or Depakote. Patient also reports that she does not need refills that she has enough at home. No complaints with patient in ER.. Historical: - Allergies: 13:28 Dilantin; hb 13:28 Mysoline; hb 13:28 Phenobarbital; hb 13:28 Tegretol; hb - Home Meds: 13:28 Depakote ER Oral [Active]; hb - PMHx: 13:28 ovarian cancer; Seizure; hb - PSHx: 13:28 R knee surgery; hb - Immunization history:: Adult Immunizations up to date. - Infectious Disease History:: Denies. - Social history:: Smoking status: Patient denies any tobacco usage or history of. ROS: 15:56 Constitutional: as per hpi dr5 Exam: 15:56 Constitutional: This is a well developed, well nourished patient who is awake, alert, dr5 and in no acute distress. Head/Face: Normocephalic, atraumatic. Eyes: Pupils equal round and reactive to light, extra-ocular motions intact. Lids and lashes normal. Conjunctiva and sclera are non-icteric and not injected. Cornea within normal limits. Periorbital areas with no swelling, redness, or edema. Neck: Trachea midline, no thyromegaly or masses palpated, and no cervical lymphadenopathy. Supple, full range of motion without nuchal rigidity, or vertebral point tenderness. No Meningismus. Chest/axilla: Normal chest wall appearance and motion. Nontender with no deformity. No lesions are appreciated. Cardiovascular: Regular rate and rhythm with a normal S1 and S2. Normal PMI, no JVD. No pulse deficits. Respiratory: Lungs have equal breath sounds bilaterally, clear to auscultation. No rales, rhonchi or wheezes noted. No increased work of breathing, no retractions or nasal flaring. Back: No spinal tenderness. No costovertebral tenderness. Full range of motion. Skin: Warm, dry with normal turgor. Normal color with no rashes, no lesions, and no evidence of cellulitis. Neuro: Awake and alert, GCS 15, oriented to person, place, time, and situation. Cranial nerves II-XII grossly intact. Motor strength 5/5 in all extremities. Sensory grossly intact. Cerebellar exam normal. Normal gait. Vital Signs: 13:26 BP 105 / 64; Pulse 66; Resp 16; Temp 98.4(O); Pulse Ox 100% on R/A; Weight 97.98 kg; hb Height 5 ft. 9 in. ; Pain 0/10; 14:43 BP 112 / 58; Pulse 68; Resp 16; Pulse Ox 97% on R/A; dd2 13:26 Body Mass Index 31.90 (97.98 kg, 175.26 cm) hb 13:26 Pain Scale: Adult hb [place] Coma Score: 14:35 Eye Response: spontaneous(4). Motor Response: obeys commands(6). Verbal Response: dd2 oriented(5). Total: 15. 15:05 Eye Response: spontaneous(4). Motor Response: obeys commands(6). Verbal Response: dd2 oriented(5). Total: 15. MDM: 13:23 Medical Screening Exam initiated dr5 15:56 Differential Diagnosis Focal seizure, tonic-clonic seizure, epilepsy. Data reviewed: dr5 vital signs, nurses notes, lab test result(s). I considered the following discharge prescriptions or medication management in the emergency department Medications were administered in the Emergency Department. See MAR. Care significantly affected by the following chronic conditions: Epilepsy. Care significantly affected by the following Social Determinants of Health: Poor access to healthcare and/or lack of insurance, Poor access to transportation, Problems related to employment. Counseling: I had a detailed discussion with the patient and/or guardian regarding the historical points, exam findings, and any diagnostic results supporting the discharge/admit diagnosis, the presence of at least one elevated blood pressure reading (>120/80) during this emergency department visit, lab results, the need for outpatient follow up, for definitive care, a family practitioner, a neurologist, to return to the emergency department if symptoms worsen or persist or if there are any questions or concerns that arise at home. Medication response: Keppra. Response to treatment: the patient's condition has returned to base line. ED course: Unremarkable labs. Keppra dose given IV to patient. Recommended patient follow-up with neurologist. Patient did not have seizure or any neurological changes during ER visit. Recommended patient alternate Tylenol Motrin as needed. Strict ER precautions given.. 08/06 13:23 Order name: CBC with Diff; Complete Time: : dr5 08/06 13:23 Order name: CMP; Complete Time: dr5 Administered Medications: 13:44 Drug: Keppra IV 1500 mg IV at per protocol once Route: IV; Rate: per protocol; Site: right antecubital; 14:15 Follow up: IV Status: Completed infusion dd2 Disposition: 16:56 I was immediately available on-site in the Emergency Department for consultation in the ms3 care of the patient. 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
--- NOTE | 2024-08-06 14:45 | ER ---
Nurse's Notes [facility] Name: Angelika Broderick Age: 54 yrs Sex: Female : 1970 Arrival Date: 08/06/2024 Time: 13:10 Bed 11 Private MD: Diagnosis: Localization-related (focal) (partial) idiopathic epilepsy and epileptic syndromes with seizures of localized onset Presentation: 08/06 13:26 Chief complaint: Witnessed seizure that lasted approx 1 minute, not post ictal upon hb arrival. Hx of stress induced seizures. 20g R Hand. Coronavirus screen: At this time, the client does not indicate any symptoms associated with coronavirus-19. Ebola Screen: No symptoms or risks identified at this time. Initial Sepsis Screen: Does the patient meet any 2 criteria? No. Patient's initial sepsis screen is negative. Does the patient have a suspected source of infection? No. Patient's initial sepsis screen is negative. Risk Assessment: Do you want to hurt yourself or someone else? Patient reports no desire to harm self or others. Onset of symptoms was August 06, 2024. 13:26 Method Of Arrival: EMS: [facility] hb 13:26 Acuity: MICHAEL 3 hb Historical: - Allergies: 13:28 Dilantin; hb 13:28 Mysoline; hb 13:28 Phenobarbital; hb 13:28 Tegretol; hb - Home Meds: 13:28 Depakote ER Oral [Active]; hb - PMHx: 13:28 ovarian cancer; Seizure; hb - PSHx: 13:28 R knee surgery; hb - Immunization history:: Adult Immunizations up to date. - Infectious Disease History:: Denies. - Social history:: Smoking status: Patient denies any tobacco usage or history of. Screenin:35 [facility] ED Fall Risk Assessment (Adult) History of falling in the last 3 months, dd2 including since admission No falls in past 3 months (0 pts) Confusion or Disorientation No (0 pts) Intoxicated or Sedated No (0 pts) Impaired Gait No (0 pts) Mobility Assist Device Used No (0 pt) Altered Elimination No (0 pt) Score/Fall Risk Level 0 - 2 = Low Risk Oriented to surroundings, Maintained a safe environment, Educated pt \T\ family on fall prevention, incl call for assistance when getting out of bed, Assessed \T\ reinforced patient's understanding of fall precautions, Hourly rounding (assess needs \T\ fall precautionary measures) done. Abuse screen: Denies threats or abuse. Denies injuries from another. Nutritional screening: No deficits noted. Tuberculosis screening: No symptoms or risk factors identified. Assessment: 14:35 General: Appears in no apparent distress. Behavior is calm, cooperative, appropriate dd2 for age. Pain: Denies pain. Neuro: Level of Consciousness is awake, alert, obeys commands, Oriented to person, place, time, situation, Appropriate for age Reports SEIZURE LASTING APPROX 1 MIN. Seizure activity reported prior to arrival. Type of seizure: focal seizure. Seizure lasted approximately 1 minutes. Cardiovascular: No deficits noted. Respiratory: No deficits noted. Airway is patent Respiratory effort is even, unlabored, Respiratory pattern is regular, symmetrical. GI: No deficits noted. No signs and/or symptoms were reported involving the gastrointestinal system. : No deficits noted. No signs and/or symptoms were reported regarding the genitourinary system. EENT: No deficits noted. No signs and/or symptoms were reported regarding the EENT system. Derm: No deficits noted. No signs and/or symptoms reported regarding the dermatologic system. Musculoskeletal: No deficits noted. No signs and/or symptoms reported regarding the musculoskeletal system. Vital Signs: 13:26 BP 105 / 64; Pulse 66; Resp 16; Temp 98.4(O); Pulse Ox 100% on R/A; Weight 97.98 kg; hb Height 5 ft. 9 in. ; Pain 0/10; 14:43 BP 112 / 58; Pulse 68; Resp 16; Pulse Ox 97% on R/A; dd2 13:26 Body Mass Index 31.90 (97.98 kg, 175.26 cm) hb 13:26 Pain Scale: Adult hb [place] Coma Score: 14:35 Eye Response: spontaneous(4). Motor Response: obeys commands(6). Verbal Response: dd2 oriented(5). Total: 15. 15:05 Eye Response: spontaneous(4). Motor Response: obeys commands(6). Verbal Response: dd2 oriented(5). Total: 15. ED Course: 13:21 Patient arrived in ED. sp 13:22 Zach Cabrera FNP-C [facility]. [facility] 13:22 Candelario Toledo DO is Attending Physician. dr5 13:28 Triage completed. hb 13:28 Arm band placed on. hb 13:37 Initial lab(s) drawn, by ED staff, sent to lab. Inserted saline lock: 20 gauge in right hb antecubital area, using aseptic technique. Blood collected. Flushed with 10 mL NS. 13:37 CMP Sent. hb 13:37 CBC with Diff Sent. hb 13:45 Seizure precautions initiated. dd2 14:23 HOSEA MATTSON, RN is Primary Nurse. dd2 14:35 Patient has correct armband on for positive identification. Bed in low position. Call dd2 light in reach. Side rails up X2. Client placed on continuous cardiac and pulse oximetry monitoring. NIBP monitoring applied. Door closed. Noise minimized. Warm blanket given. Pillow given. Verbal reassurance given. 14:35 No provider procedures requiring assistance completed. Patient maintains SpO2 dd2 saturation greater than 95% on room air. 15:04 IV discontinued, intact, bleeding controlled, No redness/swelling at site. Pressure dd2 dressing applied. 15:05 Provided Education on: D/C EDUCATION. dd2 Administered Medications: 13:44 Drug: Keppra IV 1500 mg IV at per protocol once Route: IV; Rate: per protocol; Site: hb right antecubital; 14:15 Follow up: IV Status: Completed infusion dd2 Medication: 14:35 VIS not applicable for this client. dd2 Outcome: 14:45 Discharge ordered by . dr5 15:04 Discharged to home ambulatory, dd2 15:04 Condition: stable 15:04 Discharge instructions given to patient, Instructed on discharge instructions, follow up and referral plans. Demonstrated understanding of instructions, follow-up care, 15:06 Patient left the ED. dd2 Signatures: Melissa Wells Heather, RN RN HOSEA MATTSON, MAO RN dd2 Zach Cabrera, BRIM STITCHER-C BRIM STITCHER-Cdr5
[2024-08-06 15:13] VITALS: TEMP 98.4
[2024-08-06 15:14] VITALS: BP 112/58; O2SAT 97
== END 2024-08-06 15:06 | disposition home or self-care (01) ==
LOC: ER 13:10
DX: G40.009 Localization-related (focal) (partial) idiopathic epilepsy and epileptic syndromes with seizures of localized onset, not intractable, without status epilepticus (principal)
CPT/HCPCS: 96365; 85025; 36415; 80053; 99284; J1953

== ENCOUNTER 2024-11-28 06:26 | Emergency (ER) | payer OTHER ==
--- OUTSIDE RECORDS SUMMARY | 2024-11-28 06:34 | XMS REPORT | Continuity of Care Document ---
Author Name Unknown Address [address] [place] [address] [facility] Address 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 Name Role Phone Krista Wise Primary Care Physician [phone] Krista Wise Attending Clinician Unavailable Estephanie Ellis Attending Clinician Unavailable Екатерина Sutton MA Attending Clinician UnavailDalila Baker MD Attending Clinician [phone] [facility] Sleep - Attending Clinician Catherine Paulino MD, Ismael Lay Attending Clinician + [phone] DALILA MCCLURE Attending Clinician Unavailable Domingo ALVARADO, Mishel Vazquez Attending Clinician [phone] Royal TAN, Judith Álvarez Attending Clinician + Mishel Hall Attending Clinician [phone] Adry Alvarado MA Attending Clinician Unavail able MISHEL HAYNES Attending Clinician UnavailSANCHEZ Ibrahim Attending Clinician Unavailable Sanchez Chinchilla MD Attending Clinician [phone] SHANTELLE ASKEW Attending Clinician Unavailable Payers Payer Name Policy Type Policy Number Effective Date Expirati on Date Source [employer] [id number] 2024 00:00:[address] [facility] AARP MCR Advantage (HMO-POS) [id number] 2020 00:00:[address] 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 Disease Active 10-03 00:00: 00 Jose Martin Reardon Encounter for long-term current use of medication Encounter for long-term current use of medication Disease Active 08-31 00:00: 00 Jose Martin Reardon Encounter for long-term current use of medication Encounter for long-term current use of medication Disease Active 08-31 00:00: 00 Jose Martin Reardon Malignant neoplasm of unspecifie d ovary Malignant neoplasm of unspecifie d ovary Active Problem 02/05/2021 [facility] Problem Active 2021-02-05 03:45:08 Jose Martin Garcia Epilepsy Epilepsy Active Problem 02/05/2021 [facility] Problem Active 2021-02-05 03:45:08 Jose Martin Garcia Complex partial epilepsy Complex partial epilepsy Active Problem 02/05/2021 [facility] Problem Active 2021-02-05 03:45:08 Jose Martin Garcia Depression Depression Active Problem 02/05/2021 [facility] Problem Active 2021-02-05 03:45:08 Jose Martin Garcia Hyperglyce satnam Hyperglyce satnam Active Diagnosis 11/06/2020 [facility] Diagnosis Active 2020-11-06 02:45:15 Jose Martin Garcia Patient had no falls in past year Patient had no falls in past year Active Diagnosis 09/06/2020 [facility] Diagnosis Active 2020-09-06 02:46:23 Jose Martin Garcia Encounter for long-term (current) use of medication s Encounter for long-term (current) use of medication s Active Diagnosis 09/22/2020 [facility] Diagnosis Active 2020-09-22 02:47:16 Jose Martin Garcia Tremor Tremor Active Problem 02/05/2021 [facility] Problem Active 2021-02-05 03:45:08 Jose Martin Garcia [id number] Abnormal mammogram Problem [facility] [id number] Intrinsic eczema Problem [facility] [id number] Hx of ovarian cancer Problem [facility] [id number] Malignant neoplasm of ovary, unspecifie d laterality Problem [facility] Intellectu al disability Intellectu al disability Active Problem 02/05/2021 [facility] Problem Active 2021-02-05 03:45:08 Jose Martin Garcia [id number] Other fatigue Problem [facility] Gynecologi yazan examinatio n normal Well woman exam with routine gynecologi yazan exam Problem [facility] Diverticul itis Diverticul itis Problem [facility] [id number] Mixed hyperlipid emia Problem [facility] [id number] Type 2 diabetes mellitus with hyperglyce satnam, without long-term current use of insulin Problem [facility] [id number] Asymptomat ic postmenopa usal state Problem [facility] [id number] Mentally disabled Problem [facility] Iron deficiency anemia, unspecifie d iron deficiency anemia type Iron deficiency anemia, unspecifie d iron deficiency anemia type Active Problem 02/05/2021 [facility] Problem Active 2021-02-05 03:45:08 Jose Martin Garcia [id number] Bipolar 1 disorder Problem [facility] [id number] Anxiety Problem [facility] [id number] Gastroesop hageal reflux disease without esophagiti s Problem [facility] [id number] Mixed stress and urge urinary incontinen ce Problem [facility] [id number] Seizures Problem [facility] [id number] Petit mal seizure status Problem [facility] Neurodegen erative cognitive impairment Neurodegen erative cognitive impairment Active Problem 02/05/2021 [facility] Problem Active 2021-02-05 03:45:08 Jose Martin Garcia [id number] Right-side d low back pain without sciatica, unspecifie d chronicity Problem [facility] [id number] Generalize d weakness Problem [facility] [id number] Injury of left wrist, initial encounter Problem [facility] Epilepsy Epilepsy Disease Active [facility] Reardon Allergies, Adverse Reactions, Alerts Allergy Name Allergy Type Status Severity Reaction(s) Onset Date Inactive Date Treating Clinician Comments Source Carbamaz epine Allergy to substanc e Active Unknown 08-31 00:00: 00 Jose Martin Garcia [facility] Phenobar bital Allergy to substanc e Active Unknown 08-31 00:00: 00 Jose Martin Garcia [facility] Phenytoi n Allergy to substanc [...] ty to adverse reaction s Active Hives 09-28 00:00: 00 [facility] PHENYTOI N SODIUM EXTENDED DRUG INGREDI Active Hives 09-28 00:00: 00 [facility] Phenobar bital Propensi ty to adverse reaction s Active Unknown - See comments 04-02 00:00: 00 [facility] Carbamaz epine Propensi ty to adverse reaction s Active Unknown - See comments 04-02 00:00: 00 [facility] PHENOBAR BITAL DRUG INGREDI Active Unknown-Cmnt 04-02 00:00: 00 [facility] CARBAMAZ EPINE DRUG INGREDI Active Unknown-Cmnt 04-02 00:00: 00 [facility] NO KNOWN ALLERGIE S SYSTEMIC Active MHEOUT ALLERGIE S NOT ON FILE SYSTEMIC Active MHEOUT Social History Social Habit Start Date Stop Date Quantity Comments Source Sexual orientation 2024-09-05 13:05:09 Heterosexual (finding) [facility] Gender identity 2023-06-04 06:57:01 Identifies as female gender (finding) [facility] History of Tobacco Use [facility] ASSERTION Possible [facility] Alcoholic beverage intake 2024-09-12 00:00:00 2024-09-12 00:00:00 Lifetime non-drinker (finding) [facility] History of Social function 2024-09-12 00:00:00 2024-09-12 00:00:00 [facility] Tobacco use and exposure 2023-09-01 00:00:00 2023-09-01 00:00:00 Smokeless tobacco non-user [facility] Sex 2023-06-04 06:57:01 2023-06-04 06:57:01 Female (finding) [facility] Exposure to SARS-CoV-2 (event) 2022-04-19 00:00:00 2022-04-29 12:41:00 Not sure [facility] Sex Assigned At 1970 00:00:00 1970 00:00:00 [facility] Smoking Status Start Date Stop Date Source Tobacco smoking consumption unknown [facility] Never smoked tobacco Jose Martin thorpe [place] [facility] Medications Ordered Medication Name Filled Medication Name Start Date Stop Date Current Medication? Ordering Clinician Indication Dosage Frequency Signature (SIG) Comments Components Source divalproex (Depakote ER) 500 MG 24 hr tablet divalproex (Depakote ER) 500 MG 24 hr tablet 9-10 00:00: 00 Yes [id number] 1500mg QD Take 3 tablets by mouth 1 time each day. Do not crush, chew, or split. Jose Martin thorpe Jose [facility] divalproex (Depakote ER) 500 MG 24 hr tablet divalproex (Depakote ER) 500 MG 24 hr tablet -08 00:00: 00 11-19 00:00 :00 No [id number] Take 3 tablets by mouth once daily. Do not crush, chew, or split. Jose Martin Garcia [facility] zonisamide (Zonegran) 100 MG capsule zonisamide (Zonegran) 100 MG capsule 8-06 00:00: 00 04-15 23:59 :00 No [id number] 400mg QD Take 4 capsules by mouth 1 time each day. Jose Martin thorpe Jose [facility] citalopram (CeleXA) 20 MG tablet citalopram (CeleXA) 20 MG tablet 09-19 00:00: 00 Yes 20mg QD Take 1 tablet by mouth 1 time each day. Jose Martin Garcia [facility] lacosamide (Vimpat) 200 mg tablet tablet lacosamide (Vimpat) 200 mg tablet tablet 09-19 00:00: 00 Yes [id number] 200mg Q.5D Take 1 tablet by mouth in the morning and 1 tablet in the evening. Jose Martin thorpe [place] [facility] lacosamide (Vimpat) 200 mg tablet tablet lacosamide (Vimpat) 200 mg tablet tablet 09-18 00:00: 00 Yes [id number] 200mg Q.5D Take 1 tablet by mouth in the morning and 1 tablet in the evening. Jose Martin thorpe Jose [facility] divalproex (Depakote ER) 500 MG 24 hr tablet divalproex (Depakote ER) 500 MG 24 hr tablet 09-13 00:00: 00 11-19 00:00 :00 No [id number] 1500mg QD Take 3 tablets by mouth 1 time each day. Do not crush, chew, or split. Jose Martin Garcia [facility] divalproex (Depakote) 500 MG EC tablet divalproex (Depakote) 500 MG EC tablet 09-13 00:00: 00 09-13 00:00 :00 No [id number] 500mg Q.5D Take 1 tablet by mouth in the morning and 1 tablet in the evening. Jose Martin Garcia [facility] metFORMIN (Glucophage ) 500 MG tablet metFORMIN (Glucophage ) 500 MG tablet 09-12 13:37: 55 Yes 500mg QD Take 500 mg by mouth in the morning. Take with meals. Jose Martin Reardon divalproex (Depakote ER) 500 MG 24 hr tablet divalproex (Depakote ER) 500 MG 24 hr tablet 09-12 00:00: 00 09-13 00:00 :00 No [id number] 1500mg QD Take 3 tablets by mouth 1 time each day. Do not crush, chew, or split. Jose Martin Garcia [facility] levETIRAcet am (Keppra) 750 MG tablet levETIRAcet am (Keppra) 750 MG tablet 08-08 00:00: 00 Yes [id number] 1500mg Q.5D Take 2 tablets by mouth in the morning and 2 tablets in the evening. Jose Martin Garcia [facility] levETIRAcet am (Keppra) 750 MG tablet levETIRAcet am (Keppra) 750 MG tablet 07-24 00:00: 00 08-08 00:00 :00 No [id number] 1500mg Q.5D Take 2 tablets by mouth in the morning and 2 tablets in the evening. Jose Martin Garcia [facility] levETIRAcet am (Keppra) 750 MG tablet levETIRAcet am (Keppra) 750 MG tablet 07-20 00:00: 00 07-23 00:00 :00 No [id number] 1500mg Q.5D Take 2 tablets by mouth in the morning and 2 tablets in the evening. Jose Martin Garcia [facility] lacosamide (Vimpat) 200 mg tablet tablet lacosamide (Vimpat) 200 mg tablet tablet 4-09 00:00: 00 09-18 00:00 :00 No [id number] 200mg Q.5D Take 1 tablet by mouth in the morning and 1 tablet in the evening. Jose Martin Garcia [facility] lacosamide (Vimpat) 200 mg tablet tablet lacosamide (Vimpat) 200 mg tablet tablet 2-17 00:00: 00 06-20 00:00 :00 No [id number] 200mg Q.5D Take 1 tablet by mouth in the morning and 1 tablet in the evening. Jose Martin Garcia [facility] divalproex (Depakote) 500 MG EC tablet divalproex (Depakote) 500 MG EC tablet 1-20 00:00: 00 09-12 00:00 :00 No [id number] 500mg Q.5D Take 1 tablet by mouth in the morning and 1 tablet in the evening. Jose Martin Garcia [facility] zonisamide (Zonegran) 100 MG capsule zonisamide (Zonegran) 100 MG capsule 2023-03 2-18 00:00: 00 10-17 00:00 :00 No [id number] 300mg QD Take 3 capsules by mouth 1 time each day. Jose Martin Garcia [facility] levETIRAcet am (Keppra) 750 MG tablet levETIRAcet am (Keppra) 750 MG tablet 2023-03 2-18 00:00: 00 07-20 00:00 :00 No [id number] 1500mg Q.5D Take 2 tablets by mouth in the morning and 2 tablets in the evening. Jose Martin Garcia [facility] divalproex (Depakote) 500 MG EC tablet divalproex (Depakote) 500 MG EC tablet 2023-03 2-18 00:00: 00 04-02 00:00 :00 No [id number] 500mg Q.5D Take 1 tablet by mouth in the morning and 1 tablet in the evening. Jose Martin Garcia [facility] zonisamide (Zonegran) 100 MG capsule zonisamide (Zonegran) 100 MG capsule 2024-1 2-11 00:00: 00 02-28 00:00 :00 No [id number] 300mg QD Take 3 capsules by mouth 1 time each day. Jose Martin Garcia [facility] lacosamide (Vimpat) 200 mg tablet tablet lacosamide (Vimpat) 200 mg tablet tablet 2023-03 0- 00:00: 00 04-30 00:00 :00 No [id number] 200mg Q.5D Take 1 tablet by mouth in the morning and 1 tablet in the evening. Jose Martin Garcia [facility] divalproex (Depakote) 500 MG EC tablet divalproex (Depakote) 500 MG EC tablet 2023-03 0- 00:00: 00 02-28 00:00 :00 No [id number] 500mg Q.5D Take 1 tablet by mouth twice daily. Jose Martin Garcia [facility] levETIRAcet am (Keppra) 750 MG tablet levETIRAcet am (Keppra) 750 MG tablet 2023-03 0- 00:00: 00 02-28 00:00 :00 No 1500mg Q.5D Take 2 tablets by mouth in the morning and 2 tablets in the evening. Jose Martin Garcia [facility] divalproex (Depakote) 500 MG EC tablet divalproex (Depakote) 500 MG EC tablet 8 00:00: 00 12-12 00:00 :00 No 500mg Q.5D Take 1 tablet by mouth twice daily. Jose Martin Garcia [facility] citalopram (CeleXA) 20 MG tablet citalopram (CeleXA) 20 MG tablet 8- 00:00: 00 09-18 00:00 :00 No 20mg QD Take 1 tablet by mouth daily. Jose Martin Garcia [facility] divalproex (Depakote) 500 MG EC tablet divalproex (Depakote) 500 MG EC tablet - 00:00: 00 10-20 00:00 :00 No 500mg Q.5D Take 1 tablet by mouth twice daily. Jose Martin Garcia [facility] lacosamide (Vimpat) 200 mg tablet tablet lacosamide (Vimpat) 200 mg tablet tablet 09-18 00:00: 00 12-12 00:00 :00 No [id number] 200mg Q.5D Take 1 tablet by mouth [...] Orally Once a day for 30 days Jos eMartin Readron levETIRAcet am (Keppra) 750 MG tablet levETIRAcet am (Keppra) 750 MG tablet 08-31 13:49: 02-28 00:00 :00 No 2{tbl} Q12H Take [...] tablet divalproex (Depakote) 500 MG EC tablet 6-10 00:00: 00 09-20 00:00 :00 No 500mg Q.5D Take 1 tablet by mouth twice daily. Jose Martin Reardon lacosamide (Vimpat) 200 mg tablet tablet lacosamide (Vimpat) 200 mg tablet tablet 3-21 00:00: 00 02-28 00:00 :00 No 1{tbl} Q12H 1 tablet Orally Twice a day for 90 days Jose Martin Reardon omeprazole (PriLOSEC) [address] capsule omeprazole (PriLOSEC) [address] capsule 2022-03 2- 00:00: 00 Yes 1 capsule 30 minutes [...] tablet, Oral, ONCE NOW, 1 dose, On Hayley 04/29/22 at 1515, Routine
Reason for Anti-Infec tive: Documented Infection< br>Documen tj Infection Site: HEENT
D uration of Therapy: Other (see Comments) [facility] ketorolac (TORADOL) tablet 20 mg -16 20:00: 00 04-29 19:13 :00 No 20mg 20 mg, Oral, ONCE NOW, 1 dose, On Hayley 04/29/22 at 1400, SANJEEV [facility] loratadine (CLARITIN) tablet 10 mg -16 20:00: 00 04-29 19:13 :00 No 10mg 10 mg, Oral, ONCE NOW, 1 dose, On Tue04/29/22 at 1400, SANJEEV [facility] dextrometho rphan-guaif enesin (ROBITUSSIN DM) 10-100 mg/5 mL solution 10 mL 04-29 20:00: 00 04-29 19:15 :00 No 10mL 10 mL, Oral, ONCE NOW, 1 dose, On Tue04/29/22 at 1400, Routine [facility] meloxicam 15 mg tablet 04-29 00:00: 00 Yes [id number] 15mg Take 1 tablet by mouth in the morning. [facility] dextromeo rphan-guaif enesin (MUCINEX DM) 30-600 mg per tablet 04-29 00:00: 00 Yes [id number] 1{tbl} Take 1 tablet by mouth in the morning and 1 tablet in the evening. [facility] acetaminoph en (TYLENOL ARTHRITIS PAIN) 650 mg CR tablet 04-29 00:00: 00 Yes [id number] 650mg Take 1 tablet by mouth every 8 (eight) hours as needed for Pain. [facility] amoxicillin -clavulanat e 875-125 mg per tablet 04-29 00:00: 00 05-10 05:59 :00 No [id number] 1{tbl} Take 1 tablet by mouth every 12 (twelve) hours for 10 days. [facility] oxyBUTYnin Chloride 5 MG oxyBUTYnin Chloride 5 MG 2021-03 00:00: 00 04-19 00:00 :00 No 1{table t} BID oxyBUTYnin Chloride 5 MG Rosuvastati n Calcium 20 MG Rosuvastati n Calcium 20 MG 8-11 00:00: 00 No 1{table t} QD Rosuvastat in Calcium 20 MG Vimpat 2020-03 1-24 00:00: 00 Yes Dalila Palvadi 1 tablet Jose Martin Garcia Depakote 2020-03 03:45: 10 Yes Dalila Palvadi 1 tablet Jose Martin Garcia Citalopram Hydrobromid e 2020-03 03:45: 10 Yes Dalila Palvadi 1 tablet Jose Martin Garcia Keppra 2020-03 03:45: 10 Yes Dalila Palvadi 2 tablets Jose Martin Garcia Keppra 2020-03 03:45: 10 Yes Dalila Palvadi 1 tablet Jose Martin Garcia Zonegran 2020-03 03:45: 10 Yes Dalila Palvadi 3 capsule qhs Jose Martin Garcia Acyclovir 2020-03 03:45: 10 Yes Dalila Palvadi 1 tablet Jose Martin Garcia Vimpat 8- 00:00: 00 Yes Dalila Palvadi 1 tablet Jose Martin Garcia Vimpat 09-27 02:47: 20 Yes Mishel Haynes 1 tablet Jose Martin Garcia Depakote 9-04 00:00: 00 Yes Dalila Palvadi 1 tablet Jose Martin Garcia Depakote 500 MG Depakote 500 MG [...] 20 (PCV20) Prevnar 20 (PCV20) Unknown Completed [facility] Prevnar 20 (PCV20) Prevnar 20 (PCV20) Unknown Completed [facility] Prevnar 20 (PCV20) Prevnar 20 (PCV20) Unknown Completed [facility] Prevnar 20 (PCV20) Prevnar 20 (PCV20) Unknown Completed [facility] Prevnar 20 (PCV20) Prevnar 20 (PCV20) Unknown Completed [facility] Prevnar 20 (PCV20) Prevnar 20 (PCV20) Unknown Completed [facility] Prevnar 20 (PCV20) Prevnar 20 (PCV20) Unknown Completed [facility] Prevnar 20 (PCV20) Prevnar 20 (PCV20) Unknown Completed [facility] Prevnar 20 (PCV20) Prevnar 20 (PCV20) Unknown Completed [facility] Prevnar 20 (PCV20) Prevnar 20 (PCV20) Unknown Completed [facility] Prevnar 20 (PCV20) Prevnar 20 (PCV20) Unknown Completed [facility] Prevnar 20 (PCV20) Prevnar 20 (PCV20) Unknown Completed [facility] Prevnar 20 (PCV20) Prevnar 20 (PCV20) Unknown Completed [facility] Prevnar 20 (PCV20) Prevnar 20 (PCV20) Unknown Completed [facility] Prevnar 20 (PCV20) Prevnar 20 (PCV20) Unknown Completed [facility] Vital Signs Vital Name Observation Time Observation Value Comments S [facility] Systolic blood pressure 2024-09-12 13:32:00 124 mm[Hg] [facility] Diastolic blood pressure 2024-09-12 13:32:00 70 mm[Hg] [facility] Heart rate 2024-09-12 13:32:00 70 /[facility] 2024-09-12 13:32:00 175.3 cm [facility] Body weight 2024-09-12 13:32:00 102.059 kg [facility] BMI 2024-09-12 13:32:00 33.23 kg/m2 [facility] Systolic blood pressure 2024-09-12 13:32:00 124 mm[Hg] [facility] Diastolic blood pressure 2024-09-12 13:32:00 70 mm[Hg] [facility] Heart rate 2024-09-12 13:32:00 70 /[facility] 2024-09-12 13:32:00 175.3 cm [facility] Body weight 2024-09-12 13:32:00 102.059 kg Seymour rial [place] [facility] BMI 2024-09-12 13:32:00 33.23 kg/m2 Seym[facility] Systolic blood pressure 2024-02-29 13:59:00 140 mm[Hg] [facility] Diastolic blood pressure 2024-02-29 13:59:00 84 mm[Hg] [facility] Body height 2024-02-29 13:59:00 175.3 cm Seymour rial Jose [facility] Body weight 2024-02-29 13:59:00 97.977 kg Seymour rial Jose [facility] BMI 2024-02-29 13:59:00 31.90 kg/m2 Seymour rial Jose [facility] Systolic blood pressure 2024-02-29 13:59:00 140 mm[Hg] [facility] Diastolic blood pressure 2024-02-29 13:59:00 84 mm[Hg] [facility] Body height 2024-02-29 13:59:00 175.3 cm Seymour rial [place] [facility] Body weight 2024-02-29 13:59:00 97.977 kg Seymour rial Jose [facility] BMI 2024-02-29 13:59:00 31.90 kg/m2 Seymour riamaurilio [place] [facility] height 2023-09-29 16:20:00 69 [in_i] Commo n [facility] weight 2023-09-29 16:20:00 233 [lb_av] Comm on [facility] bmi 2023-09-29 16:20:00 34.4 kg/m2 Commo n [facility] Systolic blood pressure 2023-09-01 13:43:00 122 mm[Hg] [facility] Diastolic blood pressure 2023-09-01 13:43:00 70 mm[Hg] [facility] Body height 2023-09-01 13:43:00 175.3 cm Seymour rial [place] [facility] Body weight 2023-09-01 13:43:00 105.688 kg Seymour rial [place] [facility] BMI 2023-09-01 13:43:00 34.41 kg/m2 Seymour rial Jose [facility] Systolic blood pressure 2023-09-01 13:43:00 122 mm[Hg] [facility] Diastolic blood pressure 2023-09-01 13:43:00 70 mm[Hg] Mari paulson [facility] Body height 2023-09-01 13:43:00 175.3 cm Seymour Garcia [facility] Body weight 2023-09-01 13:43:00 105.688 kg Seymour Garcia [facility] BMI 2023-09-01 13:43:00 34.41 kg/m2 Seymour Garcia [facility] height 2023-09-01 08:20:00 69 [in_i] Commo n [facility] weight 2023-09-01 08:20:00 233.6 [lb_av] Co mmon [facility] temperature 2023-09-01 08:20:00 97.2 [degF] Com [facility] bmi 2023-09-01 08:20:00 34.49 kg/m2 Comm on [facility] oximetry 2023-09-01 08:20:00 98 % Commo n [facility] respiratory rate 2023-09-01 08:20:00 15 /min [facility] blood pressure systolic 2023-09-01 08:20:00 128 mm[Hg] Common [facility] blood pressure diastolic 2023-09-01 08:20:00 78 mm[Hg] [facility] height 2023-08-17 09:20:00 69 [in_i] Commo n [facility] weight 2023-08-17 09:20:00 234.0 [lb_av] Co mmon [facility] temperature 2023-08-17 09:20:00 97.0 [degF] Com [facility] bmi 2023-08-17 09:20:00 34.55 kg/m2 Comm on [facility] oximetry 2023-08-17 09:20:00 95 % Commo n [facility] respiratory rate 2023-08-17 09:20:00 15 /min [facility] blood pressure systolic 2023-08-17 09:20:00 129 mm[Hg] [facility] blood pressure diastolic 2023-08-17 09:20:00 63 mm[Hg] [facility] height 2023-02-14 15:00:00 69 [in_i] Commo n [facility] weight 2023-02-14 15:00:00 244.4 [lb_av] Co mmon [facility] temperature 2023-02-14 15:00:00 97.9 [degF] Com mon [facility] bmi 2023-02-14 15:00:00 36.09 kg/m2 Comm on [facility] oximetry 2023-02-14 15:00:00 95 % Commo n [facility] respiratory rate 2023-02-14 15:00:00 16 /min [facility] blood pressure systolic 2023-02-14 15:00:00 130 mm[Hg] [facility] blood pressure diastolic 2023-02-14 15:00:00 80 mm[Hg] [facility] height 2022-07-13 10:40:00 69 [in_i] Commo n [facility] weight 2022-07-13 10:40:00 239.8 [lb_av] Co mmon [facility] temperature 2022-07-13 10:40:00 97.8 [degF] Com mon [facility] bmi 2022-07-13 10:40:00 35.41 kg/m2 Comm on [facility] oximetry 2022-07-13 10:40:00 96 % Commo n [facility] respiratory rate 2022-07-13 10:40:00 15 /min [facility] blood pressure systolic 2022-07-13 10:40:00 108 mm[Hg] [facility] blood pressure diastolic 2022-07-13 10:40:00 68 mm[Hg] [facility] Systolic blood pressure 2022-04-29 20:31:28 145 mm[Hg] [facility] Diastolic blood pressure 2022-04-29 20:31:28 77 mm[Hg] [facility] Heart rate 2022-04-29 20:31:28 100 /min [facility] Respiratory rate 2022-04-29 20:31:28 16 /min [facility] Oxygen saturation in Arterial blood by Pulse oximetry 2022-04-29 20:31:28 94 /min [facility] [facility] Body temperature 2022-04-29 18:42:00 37.61 [facility] Body height 2022-04-29 18:42:00 175.3 cm [facility] Body weight 2022-04-29 18:42:00 111.131 kg [facility] BMI 2022-04-29 18:42:00 36.18 kg/m2 [facility] height 2022-04-13 10:00:00 69 [in_i] Commo n [facility] weight 2022-04-13 10:00:00 247.8 [lb_av] Co mmon [facility] temperature 2022-04-13 10:00:00 97.7 [degF] Com mon [facility] bmi 2022-04-13 10:00:00 36.59 kg/m2 Comm on [facility] oximetry 2022-04-13 10:00:00 99 % Commo n [facility] respiratory rate 2022-04-13 10:00:00 17 /min Common [facility] blood pressure systolic 2022-04-13 10:00:00 132 mm[Hg] [facility] blood pressure diastolic 2022-04-13 10:00:00 63 mm[Hg] Common [facility] height 2022-01-19 10:40:00 69 [in_i] Commo n [facility] weight 2022-01-19 10:40:00 240.8 [lb_av] Co mmon [facility] temperature 2022-01-19 10:40:00 97.5 [degF] Com mon [facility] bmi 2022-01-19 10:40:00 35.56 kg/m2 Comm on [facility] oximetry 2022-01-19 10:40:00 97 % Commo n [facility] respiratory rate 2022-01-19 10:40:00 16 /min Common [facility] blood pressure systolic 2022-01-19 10:40:00 130 mm[Hg] [facility] blood pressure diastolic 2022-01-19 10:40:00 72 mm[Hg] [facility] height 2021-07-20 08:40:00 69 [in_i] Commo n [facility] weight 2021-07-20 08:40:00 222.8 [lb_av] Co [facility] temperature 2021-07-20 08:40:00 97.0 [degF] Com [facility] bmi 2021-07-20 08:40:00 32.9 kg/m2 Commo n [facility] oximetry 2021-07-20 08:40:00 94 % Commo n [facility] respiratory rate 2021-07-20 08:40:00 16 /min Common [facility] blood pressure systolic 2021-07-20 08:40:00 99 mm[Hg] Common Spiri t [facility] blood pressure diastolic 2021-07-20 08:40:00 56 mm[Hg] Common [facility] height 2021-02-18 15:40:00 69 [in_i] Commo n [facility] weight 2021-02-18 15:40:00 209.2 [facility]lb_av] [facility] 2021-02-18 15:40:00 97.5 [degF] Com mon [facility] bmi 2021-02-18 15:40:00 30.89 kg/m2 Comm on [facility] oximetry 2021-02-18 15:40:00 96 % Commo n [facility] respiratory rate 2021-02-18 15:40:00 16 /min Common [facility] blood pressure systolic 2021-02-18 15:40:00 132 mm[Hg] Common Spiri t [facility] blood pressure diastolic 2021-02-18 15:40:00 70 mm[Hg] [facility] height 2021-02-18 15:20:00 69 [in_i] Commo n [facility] weight 2021-02-18 15:20:00 209.2 [lb_av] Co mmon [facility] temperature 2021-02-18 15:20:00 97.5 [degF] Com mon [facility] bmi 2021-02-18 15:20:00 30.89 kg/m2 Comm on [facility] oximetry 2021-02-18 15:20:00 96 % Commo n [facility] respiratory rate 2021-02-18 15:20:00 16 /min [facility] blood pressure systolic 2021-02-18 15:20:00 132 mm[Hg] [facility] blood pressure diastolic 2021-02-18 15:20:00 70 mm[Hg] [facility] Weight 2020-06-27 15:00:00 [facility] Height 2020-06-27 15:00:00 [facility] [place] Heart Rate 2020-06-27 15:00:00 [facility] Weight 2020-03-28 14:00:00 [facility] [place] Height 2020-03-28 14:00:00 [facility] [place] Heart Rate 2020-03-28 14:00:00 [facility] Weight 2019-04-25 15:00:00 [facility] [place] Height 2019-04-25 15:00:00 [facility] Heart Rate 2019-04-25 15:00:00 [facility] Procedures Procedure Date / Time Performed Performing Clinicia n Source [facility] 2024-11-17 [facility] 2024-10-17 12:42:55 Dalila Mcclure al [place] Epic EEG 2024-09-26 00:00:00 [facility] MRI brain wo IV contrast 2024-09-26 00:00[facility] Zonisamide level 2024-05-15 00:00:[address] [facility] Epic Keppra (Leveitracetam) 2024-05-15 00:00:00 [facility] Epic Lacosamide level 2024-05-15 00:00:00 [facility] ZONISAMIDE LEV[facility] 2024-05-11 14:11:00 [facility] LACOSAMIDE LEV[facility] 2024-05-11 14:11:00 [facility] 2023-09-09 11:51:[address] [facility] Epic LACOSAMIDE LEVEL 2023-09-09 11:51:00 Mishel Haynes [facility] RAPID STREP SCREEN FOR GROUP A 2022-04-29 19:11:00 Sanchez Chinchilla [facility] RAPID INFLUENZA A/B 2022-04-29 19:11:00 Greg Chinchilla [facility] COVID-19 (ID NOW RAPID TESTING) 2022-04-29 19:11:00 Sanchez Chinchilla [facility] CONSENT/REFUSAL FOR DIAGNOSIS AND TREATMENT 2022-04-29 18:38:14 Doctor Unassigned, [place] [facility] Plan of Care Planned Activity Planned Date Details Comments Source Procedure 2024-12-13 00:00:00 Zonisamide level [facility] Procedure 2024-12-13 00:00:00 Keppra (Leveitracetam) [facility] Procedure 2024-12-13 00:00:00 Lacosamide level [facility] Procedure 2024-12-13 00:00:00 Valproic aci d level, total [facility] Encounters Start Date/Time End Date/Time Encounter Type Admission Type [facility] Care Department Encounter ID Source 2023-10-11 12:47:00 Outpatient Krista Wise STLMLC STLMLC [id number] [facility] 2023-10-04 13:32:00 Outpatient AndersonKrista francois STLMLC STLMLC [id number] [facility] 2023-09-13 12:55:00 Outpatient AndersonKrista francios STLMLC STLMLC [id number] [facility] 2023-09-08 11:08:00 Outpatient Krista Wise STLMLC STLMLC [id number] [facility] 2023-08-10 13:25:00 Outpatient Krista Wise STLMLC STLMLC [id number] [facility] 2023-06-15 08:46:00 Outpatient Krista Wise STLMLC STLMLC [id number] [facility] 2023-02-14 15:09:00 Outpatient Krista Wise STLMLC STLMLC [id number] [facility] 2022-12-28 10:37:00 Outpatient Krista Wise STLMLC STLMLC [id number] [facility] 2022-09-20 09:40:00 Outpatient Krista Wise STLMLC STLMLC [id number] [facility] 2022-07-05 13:37:00 Outpatient AndersonKrista francois STLMLC STLMLC [id number] [facility] 2022-07-01 10:31:00 Outpatient AndersonKrista francois STLMLC STLMLC [id number] [facility] 2022-04-13 11:04:02 Outpatient AndersonJesus francoisa STLMLC STLMLC [id number] [facility] 2022-04-09 08:48:01 Outpatient AndersonKrista francois STLMLC STLMLC [id number] [facility] 2021-10-20 10:41:00 Outpatient AndersonKrista francois STLMLC STLMLC [id number] [facility] 2021-10-16 08:16:00 Outpatient AndersonKrista francois STLMLC STLMLC [id number] [facility] 2021-08-06 09:01:00 Outpatient AndersonKrista francois STLMLC STLMLC [id number] [facility] 2021-07-20 08:34:01 Outpatient AndersonKrista francois STLMLC STLMLC [id number] [facility] 2021-07-16 13:15:01 Outpatient AndersonKrista francois STLMLC STLMLC [id number] [facility] 2021-06-15 11:02:01 Outpatient AndersonKrista francois STLMLC STLMLC [id number] [facility] 2021-05-15 14:49:00 Outpatient Krista Wise STLMLC STLMLC [id number] [facility] 2021-04-08 11:38:47 Outpatient AndersonKrista francois STLMLC STLMLC [id number] [facility] 2021-04-08 11:37:31 Outpatient AndersonKrista francois STLMLC STLMLC [id number] [facility] 2021-04-08 11:37:08 Outpatient AndersonKrista francois STLMLC STLMLC [id number] [facility] 2024-11-16 00:00:00 2024-11-23 15:07:49 Telephone Estephanie Fleming Norma [place] [id number] 1.2.840.114 350.1.13.70 8.2.7.2.686 [id number] [facility] 2024-11-19 00:00:00 2024-11-21 17:00:38 Refill Екатерина Sutton Tracy [place] [id number] 1.2.840.114 350.1.13.70 8.2.7.2.686 [id number] 2 [id number] Jose Martin [facility] 2024-11-17 00:00:00 2024-11-19 09:30:52 Refill Heidi [facility] [id number] 1.2.840.114 350.1.13.70 8.2.7.2.686 [id number] Jose Martin thorpe [facility] 2024-10-17 00:00:00 2024-10-17 12:42:26 Refill Heidi Dalila [place] [id number] 1.2.840.114 350.1.13.70 8.2.7.2.686 [id number] Jose Martin thorpe [facility] 2024-10-10 09:00:00 2024-10-10 13:20:14 Outside Procedure [facility] [id number] 1.2.840.114 350.1.13.70 8.2.7.2.686 [id number] Jose Martin [facility] 2024-10-10 08:19:58 2024-10-10 13:20:14 Outpatient Elective [facility] EOUT [id number] [facility] 2024-09-18 00:00:00 2024-09-19 10:44:58 Refill Ismael Paulino [place] [id number] 1.2.840.114 350.1.13.70 8.2.7.2.686 [id number] Jose Martin [facility] 2024-09-18 00:00:00 2024-09-18 15:18:27 Refill Dalila Mcclure [place] [id number] 1.2.840.114 350.1.13.70 8.2.7.2.686 [id number] Jose Martin thor[facility] 2024-09-13 00:00:00 2024-09-13 16:02:18 Telephone Dalila [place] [id number] 1.2.840.114 350.1.13.70 8.2.7.2.686 [id number] 2 [id number] Jose Martin thorpe [facility] 2024-09-13 00:00:00 2024-09-13 10:43:23 Refill Dalila Mcclure [id number] 1.2.840.114 350.1.13.70 8.2.7.2.686 [id number] 2 [id number] Jose Martin thorpe [facility] 2024-09-12 13:29:44 2024-09-12 14:07:31 Outpatient Elective [id number] 2024-09-12 13:00:00 2024-09-12 14:07:31 Office Visit Dalila [place] [id number] 1.2.840.114 350.1.13.70 8.2.7.2.686 [id number] Jose Martin thor[facility] 2024-08-08 00:00:00 2024-08-08 17:16:14 Refill Dalila Mcclure [id number] 1.2.840.114 350.1.13.70 8.2.7.2.686 [id number] Jose Martin thor[facility] 2024-08-07 00:00:00 2024-08-08 08:12:44 Telephone Dalila [place]clure[place] [id number] 1.2.840.114 350.1.13.70 8.2.7.2.686 [id number] 2 [id number] [facility] 2024-07-23 00:00:00 2024-07-24 00:57:51 Refill Herman, ЕкатеринаЕкатерина Horan [place] [id number] 1.2.840.114 350.1.13.70 8.2.7.2.686 [id number] Jose Martin [facility] 2024-07-20 00:00:00 2024-07-20 05:18:04 Refill Dalila Mcclure [place] [id number] 1.2.840.114 350.1.13.70 8.2.7.2.686 [id number] 2 [id number] Jose Martin [facility] 2024-05-14 00:00:00 2024-07-14 20:35:05 Results Follow-Up Dalila Mcclure [id number] 1.2.840.114 350.1.13.70 8.2.7.2.686 [id number] Jose Martin [facility] 2024-06-20 00:00:00 2024-06-20 19:54:15 Refill Dalila Mcclure [place] [id number] 1.2.840.114 350.1.13.70 8.2.7.2.686 [id number] 2 [id number] Jose Martin [facility] 2024-05-15 00:00:00 2024-06-15 23:47:58 Orders Only Dalila Mcclure [id number] 1.2.840.114 350.1.13.70 8.2.7.2.686 [id number] Jose Martin thorpe [facility] 2024-05-01 00:00:00 2024-05-01 11:54:27 Telephone Dalila Mcclure [id number] 1.2.840.114 350.1.13.70 8.2.7.2.686 [id number] Jose Martin thorpe [facility] 2024-04-30 00:00:00 2024-04-30 11:43:24 Telephone Dalila [place]Mclure[place] [id number] 1.2.840.114 350.1.13.70 8.2.7.2.686 [id number] 2 [id number] Jose Martin thorpe [facility] 2024-03-29 00:00:00 2024-04-29 23:52:[address] [id number] 1.2.840.114 350.1.13.70 8.2.7.2.686 [id number] 2 [id number] [facility] 2024-03-30 00:00:00 2024-04-02 13:04:13 Telephone Dalila [place]ure[place] [id number] 1.2.840.114 350.1.13.70 8.2.7.2.686 [id number] [facility] 2024-03-08 00:00:00 2024-03-08 00:00:00 [facility] [id number] [facility] 2024-03-05 00:00:00 2024-03-05 00:00:00 (TEL) [facility] [id number] [facility] 2024-03-02 00:00:00 2024-03-02 00:00:00 (TEL) [facility] [id number] [facility] 2024-02-29 14:00:00 2024-02-29 14:37:23 Office Visit Dalila Mcclure [id number] 1.2.840.114 350.1.13.70 8.2.7.2.686 [id number] [facility] 2024-02-29 13:45:04 2024-02-29 14:37:23 Outpatient Elective DALILA MCCLURE [facility] EOUT [id number] [facility] 2024-02-29 00:00:00 2024-02-29 00:00:00 ([facility]EL) [facility] [id number] [facility] 2024-02-22 00:00:00 2024-02-22 09:43:44 Refill Dalila Mcclure [id number] 1.2.840.114 350.1.13.70 8.2.7.2.686 [id number] [facility] 2024-02-17 00:00:00 2024-02-17 00:00:00 (TEL) STLC STLC [id number] [facility] 2023-12-13 00:00:00 2023-12-13 16:02:21 Refill Judith Paigemel [place] [id number] 1.2.840.114 350.1.13.70 8.2.7.2.686 [id number] [facility] 2023-12-13 00:00:00 2023-12-13 13:06:11 Refill Екатерина Sutton [place] [id number] 1.2.840.114 350.1.13.70 8.2.7.2.686 [id number] 2 [id number] [facility] 2023-12-13 00:00:00 2023-12-13 13:04:25 Refill Dalila Mcclure [place] [id number] 1.2.840.114 350.1.13.70 8.2.7.2.686 [id number] 2 [id number] [facility] 2023-12-01 00:00:00 2023-12-01 00:00:00 (TEL) STLC STLC [id number] [facility] 2023-10-10 00:00:00 2023-11-10 23:52:18 Telephone Mishel Haynes [id number] 1.2.840.114 350.1.13.70 8.2.7.2.686 [id number] [facility] 2023-11-01 00:00:00 2023-11-01 00:00:00 (TEL) STLC STLC [id number] [facility] 2023-10-27 00:00:00 2023-10-27 00:00:00 (TEL) STLC STLMLC [id number] [facility] 2023-10-21 00:00:00 2023-10-21 17:29:48 Refill Judith Paige [place] [id number] 1.2.840.114 350.1.13.70 8.2.7.2.686 [id number] [facility] 2023-10-19 00:00:00 2023-10-19 08:44:17 Refill Mishel Haynes [place] [id number] 1.2.840.114 350.1.13.70 8.2.7.2.686 [id number] [facility] 2023-10-14 00:00:00 2023-10-14 00:00:00 [facility] [id number] [facility] 2023-10-13 00:00:00 2023-10-13 00:00:00 [facility]) [facility] [id number] [facility] 2023-10-05 00:00:00 2023-10-05 09:32:48 Telephone AlvaradoAdry Goldman Mayra [place] [id number] 1.2.840.114 350.1.13.70 8.2.7.2.686 [id number] [facility] 2023-10-04 00:00:00 2023-10-04 00:00:00 [facility]TEL) [facility] [id number] [facility] 2023-09-29 00:00:00 2023-09-29 00:00:00 OFFICE VISIT ESTAB PT LEVEL 4 [facility] [id number] [facility] 2023-09-20 00:00:00 2023-09-21 10:17:02 RefJudith Neves [place] [id number] 1.2.840.114 350.1.13.70 8.2.7.2.686 [id number] [facility] 2023-09-19 00:00:00 2023-09-19 19:50:06 Refill Dalila Mcclure [id number] 1.2.840.114 350.1.13.70 8.2.7.2.686 [id number] [facility] 2023-09-14 00:00:00 2023-09-14 00:00:00 (TEL) STLC STLMLC [id number] [facility] 2023-09-14 00:00:00 2023-09-14 00:00:00 (TEL) STLMLC STLMLC [id number] [facility] 2023-09-14 00:00:00 2023-09-14 00:00:00 (TEL) STLMLC STLMLC [id number] [facility] 2023-09-13 00:00:00 2023-09-13 00:00:00 (TEL) STLMLC STLMLC [id number] [facility] 2023-09-08 00:00:00 2023-09-08 00:00:00 (TEL) STLC STLMLC [id number] [facility] 2023-09-02 00:00:00 2023-09-02 09:37:58 Telephone Dalila Mcclure [id number] 1.2.840.114 350.1.13.70 8.2.7.2.686 [id number] [facility] 2023-09-01 14:00:00 2023-09-01 14:53:34 Office Visit Mishel Haynes [facility] [id number] 1.2.840.114 350.1.13.70 8.2.7.2.686 [id number] [facility] 2023-09-01 13:42:16 2023-09-01 14:53:34 Outpatient Elective MISHEL HAYNES [facility] [id number] EOUT 2023-09-01 00:00:00 2023-09-01 00:00:00 OFFICE VISIT ESTAB PT LEVEL 4 STLMLC STLMLC [id number] [facility] 2023-08-22 00:00:00 2023-08-22 00:00:00 (TEL) STLMLC STLMLC [id number] [facility] 2023-08-22 00:00:00 2023-08-22 00:00:00 (TEL) STLMLC STLMLC [id number] [facility] 2023-08-17 00:00:00 2023-08-17 00:00:00 OFFICE VISIT ESTAB PT LEVEL 4 STLMLC STLMLC [id number] [facility] 2023-06-08 00:00:00 2023-06-08 00:00:00 (TEL) STLMLC STLMLC [id number] [facility] 2023-04-07 00:00:00 2023-04-07 00:00:00 (TEL) STLMLC STLMLC [id number] [facility] 2023-02-14 00:00:00 2023-02-14 00:00:00 (WELLNESS) Wellness Visit STLMLC STLMLC [id number] [facility] 2022-11-18 00:00:00 2022-11-18 00:00:00 (TEL) STLMLC STLMLC [id number] [facility] 2022-09-27 00:00:00 2022-09-27 00:00:00 (TEL) STLMLC STLMLC [id number] [facility] 2022-09-02 00:00:00 2022-09-02 00:00:00 (TEL) STLMLC STLMLC [id number] [facility] 2022-08-30 00:00:00 2022-08-30 00:00:00 (TEL) STLMLC STLMLC [id number] [facility] 2022-07-15 00:00:00 2022-07-15 00:00:00 (TEL) STLMLC STLMLC [id number] [facility] 2022-07-13 00:00:00 2022-07-13 00:00:00 OFFICE VISIT ESTAB PT LEVEL 4 STLMLC STLMLC [id number] [facility] 2022-07-05 00:00:00 2022-07-05 00:00:00 (TEL) STLMLC STLMLC [id number] [facility] 2022-07-02 00:00:00 2022-07-02 00:00:00 (TEL) STLMLC STLMLC [id number] [facility] 2022-06-21 00:00:00 2022-06-21 00:00:00 (TEL) STLMLC STLMLC [id number] [facility] 2022-05-31 00:00:00 2022-05-31 00:00:00 (TEL) STLMLC STLMLC [id number] [facility] 2022-04-29 12:43:00 2022-04-29 14:37:00 Emergency X SANCHEZ [facility]ILLA [facility] ERT [id number] [facility] 2022-04-29 12:43:00 2022-04-29 14:37:00 Emergency Sanchez Chinchilla [facility] 1.2.840.114 350.1.13.10 4.2.7.2.686 [id number] [facility] 2022-04-13 00:00:00 2022-04-13 00:00:00 OFFICE VISIT ESTAB PT LEVEL 3 STLMLC STLMLC [id number] [facility] 2022-01-20 00:00:00 2022-01-20 00:00:00 (TEL) STLMLC STLMLC [id number] [facility] 2022-01-19 00:00:00 2022-01-19 00:00:00 OFFICE VISIT EST PT LEVEL 3 STLMLC STLMLC [id number] [facility] 2021-10-22 00:00:00 2021-10-22 00:00:00 (TEL) STLMLC STLMLC [id number] [facility] 2021-10-21 00:00:00 2021-10-21 00:00:00 (TEL) STLMLC STLMLC [id number] [facility] 2021-09-18 00:00:00 2021-09-18 00:00:00 OFFICE VISIT ESTAB PT LEVEL 2 STLMLC STLMLC [id number] [facility] 2021-09-18 00:00:00 2021-09-18 00:00:00 (TEL) STLMLC STLMLC [id number] [facility] 2021-07-20 00:00:00 2021-07-20 00:00:00 OFFICE VISIT EST PT LEVEL 3 STLMLC STLMLC [id number] [facility] 2021-05-28 00:00:00 2021-05-28 00:00:00 (TEL) STLMLC STLMLC [id number] [facility] 2021-05-20 00:00:00 2021-05-20 00:00:00 (TEL) STLMLC STLMLC [id number] [facility] 2021-05-15 00:00:00 2021-05-15 00:00:00 (TEL) STLMLC STLMLC [id number] [facility] 2021-04-16 00:00:00 2021-04-16 00:00:00 (TEL) STLMLC STLMLC [id number] [facility] 2021-04-14 00:00:00 2021-04-14 00:00:00 (TEL) STLMLC STLMLC [id number] [facility] 2021-02-20 00:00:00 2021-02-20 00:00:00 (TEL) STLMLC STLMLC [id number] [facility] 2021-02-18 00:00:00 2021-02-18 00:00:00 SUB ANNUAL [facility] WELLNESS VISIT STLMLC STLMLC [id number] [facility] 2021-02-18 00:00:00 2021-02-18 00:00:00 OFFICE VISIT EST PT LEVEL 3 [facility] [id number] [facility] 2019-12-11 10:04:00 2019-12-11 10:04:00 Emergency X SHANTELLE ASKEW [facility] [id number] [facility] 2019-12-11 00:00:00 2019-12-11 00:00:00 Outpatient [facility] [id number] [facility] 2019-11-15 12:40:00 2019-11-15 12:40:[address] [facility] [address] [facility] [id number] [facility] 2019-11-07 10:27:00 2019-11-07 10:27:00 Outpatient [facility] [id number] [facility] 2019-10-29 13:20:00 2019-10-29 13:20:00 [facility] [address] [facility] [id number] [facility] 2018-09-11 13:15:00 2018-09-11 13:15:00 [facility] [facility] [address] [facility] [id number] [facility] 2018-08-28 14:45:00 2018-08-28 14:45:00 [facility] [id number] [facility] 2018-06-01 11:15:00 2018-06-01 11:15:00 [facility] [address] [facility] [address] [facility] [id number] [facility] 2018-02-20 11:42:00 2018-02-20 11:42:00 [facility] [address] [facility] [id number] [facility] Results Test Description Test Time Test Comments Results Result Co [facility] [id number] 10:46:35* Test Item Value Reference Range Interpretation Comme nts Lacosamide Lvl (test code = 67884-2) mcg/mL (Note)Expected c oncentrations of Lacosamide in patients receivingrecommended daily dosages: Up to 15.0 mcg/mL.Toxic range notestablished..This test was developed and its analytical performancecharacteristics have been determined by [facility].It has not been cleared or approved by the FDA. This assayhas been validated pursuant to the CLIA regulations and isused for clinical purposes..[facility] [id number] [address],[address] [place] [address] [id number] Webster MD, PhD [facility] (Leveitracetam)2024-05-15 10:46:34* Test Item Value Reference Range Interpretation Comme nts Keppra Lvl (test code = 44254-6) See_Comment H Brivaracetam (Briviact(R), Rikelta(R)) exhibits significantcross-react ivity in the Levetiracetam (Keppra(R), Spritam(R))immunoassay . If Brivaracetam has been prescribed, order TestCode 48331 Levetiracetam by LCMSMS. [Automated message] The system which generated this result transmitted reference range: 6.0 - 46.0 mcg/mL. The reference range was not used to interpret this result as normal/abnormal. Lab Interpretation (test code = 32084-7) Abnormal [facility]Lacosamide [id number] 10:44:09* Test Item Value Reference Range Interpretation Comme nts Lacosamide Lvl (test code = 48603-1) mcg/mL Expected concent rations of Lacosamide in patientsreceiving recommended daily dosages: Up to 15.0 mcg/mL.Toxic range not established..This test was developed and its analytical performance characteristics have been determined by [facility]. It has not been cleared or approved by theFDA. This assay has been validated pursuant to the CLIA regulations and is used for clinical purposes.. DIXIE (test code = DIXIE) [facility]onisamide [id number] 10:44:09* Test Item Value Reference Range Interpretation Comme nts Zonisamide Lvl (test code = 54990-7) See_Comment .This test was d ritchied and its analytical performance characteristics have been determined by [facility]. It has not been cleared or approved by theA. This assay has been validated pursuant to the CLIA regulations and is used for clinical purposes.. [Automated message] The system which generated this result transmitted reference range: 10.0 - 40.0 mcg/mL. The reference range was not used to interpret this result as normal/abnormal. DIXIE (test code = DIXIE) [facility] EpicKeppra (Leveitracetam)2023-09-14 10:44:09* Test Item Value Reference Range Interpretation Comme nts Keppra Lvl (test code = 20849-3) See_Comment H Brivaracetam (Briviact(R), Rikelta(R)) exhibits significantcross-react ivity in the Levetiracetam (Keppra(R), Spritam(R))immunoassay . If Brivaracetam has been prescribed, order TestCode 33913 Levetiracetam by LCMSMS. [Automated message] The system which generated this result transmitted reference range: 6.0 - 46.0 mcg/mL. The reference range was not used to interpret this result as normal/abnormal. DIXIE (test code = DIXIE) Lab Interpretation (test code = 11157-2) Abnormal [facility]. Metabolic Panel (14) (CMP)2023-08-17 00:00:00* Test Item Value Reference Range Interpretation Comme nts A/G Ratio (test code = 1759-0) 1.5 1.2-2.2 Albumin (test code = 1751-7) 4.4 g/dL See_Comment [Automated messa ge] The system [...] code = 1742-6) 9 IU/L See_Comment [Automated messa ge] The system which generated this result transmitted reference range: 0-32 IU/L. The reference range was not used to interpret this result as normal/abnormal. AST (SGOT) (test code = 1920-8) 14 IU/L See_Comment [Automated messa ge] The system which generated this result transmitted reference range: 0-40 IU/L. The reference range was not used to interpret this result as normal/abnormal. Bilirubin, Total (test code = 1975-2) <0.2 mg/dL See_Comment [Automated messa ge] The system which generated this result transmitted reference range: 0.0-1.2 mg/dL. The reference range was not used to interpret this result as normal/abnormal. BUN (test code = 3094-0) 21 mg/dL See_Comment [Automated messa ge] The system which generated this result transmitted reference range: 6-24 mg/dL. The reference range was not used to interpret this result as normal/abnormal. BUN/Creatinine Ratio (test code = 3097-3) 26 9-23 H Calcium (test code = 49908-7) 9.9 mg/dL See_Comment [Automated messa ge] The system [...] result as normal/abnormal. Chloride (test code = 5-0) 104 mmol/L See_Comment [Automated messa ge] The [...] as normal/abnormal. Globulin, Total (test code = 88891-5) 3.0 g/dL See_Comment [Automated messa ge] The [...] Notes Upcoming Encounters Date/Time Note Provider Source 2024-11-23 15:07:58 [facility] Due Date Last Done Comments CT Colonography [...] (1 of 2) 2019 Influenza Vaccine (#1) 2024 Respiratory Syncytial Virus (RSV) Adult Series [...] patient's age to complete this topic [facility] HospitalEyaszjc1538-06-00 15:07:58 [facility] HospitalNjqadtr8706-98-77 15:07:41 Appt has been sched [facility]Mem[facility]Bro[facility] CenterVpkczlh7536-68-45 11:37:18 Lm to sched 3 [facility] 17:00:44* [facility] HospitalMucadwh5261-76-42 17:00:44Upcoming Encounters Health Maintenance Due Date Last Done [...] (1 of 2) 2019 Influenza Vaccine (#1) 2024 Respiratory Syncytial Virus (RSV) Adult Series [...] patient's age to complete this topic 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 HospitalMazkspt8594-02-14 17:00:44 [facility] HospitalWepchiw4707-41-60 09:31:00* [facility] HospitalHczophf2420-75-43 09:31:00Upcoming Encounters Health Maintenance Due Date Last Done [...] (1 of 2) 2019 Influenza Vaccine (#1) 2024 Respiratory Syncytial Virus (RSV) Adult Series [...] patient's age to complete this topic 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 HospitalXygfddy3551-39-83 09:31:00 [facility] HospitalUxcxbpo0981-47-63 12:42:05 Lm to sched 3 hr EEG. (Schedule III hour EEG in 4 to 6 weeks. Previous 3-hour EEG was abnormal and medications have been changed) Pt was on WQ, but interface removed it from WQ. [facility] HospitalFgvedxn6078-61-84 12:44:45* * Other Medical (Routine) - Closed Specialty Diagnoses / Procedures Referred By Contac t Referred To Contact Sleep Medicine Diagnoses Transient alteration of awareness Procedures EEG Dalila Mcclure MD [address] [place] [address] Phone: tel: [place]: [place] [id number] [facility] [place] [address] Phone: tel: fax: Referral ID Status Reason Start Date Expiration Date Visits Re quested Visits Authorized [id number] Closed 09/27/2024 12/12/[address] [facility] HospitalRnkcoiv2176-21-84 12:44:45* Dalila Mcclure MD - 10/10/2024 9:00 AM CDT Prolonged Electroencephalogram Report 10/17/24 Greg Broderick Date of : 1970 Reason for Appointment Chief Complaint Patient presents with Prolonged 3 hr EEG 1. PROLONGED 3 HR EEG WITH VIDEO Assessments1. Seizure - R56.9 (Primary) Impression: This is an abnormal extended 3 hour sleep deprived EEG due to the presence of generalized spike and slow wave discharges occurring throughout the tracing . This is indicative of a primary generalized epilepsy. Clinical correlation is recommended. Treatment Procedures Technical Background: This three hour sleep deprived prolonged 18 channel EEGand telemetry recording with digital video monitoring was performed on a [employer] System. Electrodes were applied according to the standard 10-20 international measurement and placement protocol in person by an weigh boss for the purposes of long-term video EEG. Yapmo 18 channel bipolar, transverse, and referential montages were used. Low frequency filters were set at 1Hz and high frequency Filters set at 70Hz. Impedance limits of 10Kohm were used. Activation techniques of hyperventilation and photic stimulation from 1Hz to 30Hz were used at the end of the study. Digital video was recorded throughout the study with push button events recorded by the patient or electromechanical assembly technician. The test was administered by an geospatial technologist, in person, with setup, patient education and takedown. Background: The posterior dominant rhythm was 10Hz. Drowsiness was manifestedby a dropout of this posterior dominant rhythm and presence of 4-7 per second activity over the frontal central regions. Sleep: Stage 1 sleep with vertex waves was seen. Stage II Sleep was seen, manifested by sleep spindles, K-complexes, and positive occipital transients of sleep. There were generalized sharp waves occurring during sleep. Video Events: No video events were observed during this study. Clinical Events: There were no clinical events noted during this study. Electrographic seizures: There were no electrographic seizures noted during this recording. EKG: No abnormal EKG rhythms noted Electrographic abnormalities: There were frequent generalized spike and slowwave discharges occurring throughout the tracing Monitoring: Long-Term EEG with Video was monitored intermittently by a qualified geospatial technologist for the entirety of the recording; quality check-ins were performed at a minimum of of every two hours, checking, and documenting real-time data and video to ensure the integrity and quality of the recording. Diagnostic video was captured for the entirety of the recording. Dalila Mcclure MD Procedure [id number] EEG PHYS/QHP 2-12 HR W/VEEG 40273 EEG CONT REC W/VID OFFICE ADMIN 08148 VEEG 2-12 HR INTMT MNTR T [place] 836915-08-06 12:44:45Upcoming Encounters Health Maintenance Due Date Last Done [...] (1 of 2) 2019 Influenza Vaccine (#1) 2024 Respiratory Syncytial Virus (RSV) Adult Series [...] patient's age to complete this topic [facility] HospitalMdvktww9787-77-58 12:44:45 Diagnosis Transient alteration of awar eness - Primary [facility] HospitalUiougjy4434-32-05 12:44:45 [facility] HospitalDcudgdi7484-05-56 12:42:35* Neurology (Routine) - Pending Review Specialty Diagnoses / Procedures Referred By Contac t Referred To Contact Diagnoses Other generalized epilepsy and epileptic syndromes, not intractable, without status epilepticus (CMS/HCC) (HCC) Procedures EEG EEG Dalila Mcclure MD [address] [place] [address] Phone: tel: fax: Referral ID Status Reason Start Date Expiration Date V isits Requested Visits Authorized [id number] Pending Review 10/17/2024 10/12/[address] [facility] HospitalEslfupk3550-76-08 12:42:35Upcoming Encounters Scheduled Orders Name Type Priority Associated Diagnoses Orde r Schedule EEG Neurology Routine Other generaliz ed epilepsy and epileptic syndromes, not intractable, without status epilepticus (CMS/HCC) (HCC) Expected: 11/17/2024 (Approximate), Expires: 10/17/2025 Health Maintenance Due Date Last Done Comments [...] (1 of 2) 2019 Influenza Vaccine (#1) 2024 Respiratory Syncytial Virus (RSV) Adult Series [...] patient's age to complete this topic [facility] HospitalFibotjp2049-84-43 12:42:35 Diagnosis Other generalized epilepsy a nd epileptic syndromes, not intractable, without status epilepticus (CMS/HCC) ([facility]) [facility] HospitalTilxptw4505-47-66 12:42:35 [place] 836915-08-06 12:36:42 I called the patient and explained about the EEG results. She has been taking divalproex 1500 mg a day for 3 weeks. Her Depakote level is high at 129. Keppra level is slightly high at 52.3. Zonisamide and lacosamide levels are within normal. Have asked her to increase zonisamide to 4 tablets a day. Will repeat EEG in 1 month's time . Patient was agreeable to the plan [facility] HospitalRyophir3287-67-79 10:45:08* [facility] HospitalDgvhukk6220-39-14 10:45:08Upcoming Encounters Health Maintenance Due Date Last Done [...] (1 of 2) 2019 Influenza Vaccine (#1) 2024 Respiratory Syncytial Virus (RSV) Adult Series [...] patient's age to complete this topic [facility] HospitalLxcyezc1886-75-98 10:45:08 Diagnosis Other generalized epilepsy a nd epileptic syndromes, not intractable, without status epilepticus (CMS/HCC) (HCC) [facility] HospitalMitvtqx2764-34-82 10:45:08 [facility] HospitalVddyowt1513-89-54 15:18:29* [facility] HospitalBgzhwlx9957-63-17 15:18:29Upcoming Encounters Health Maintenance Due Date Last Done [...] (1 of 2) 2019 Influenza Vaccine (#1) 2024 Respiratory Syncytial Virus (RSV) Adult Series [...] patient's age to complete this topic [facility] HospitalZvudamu3240-60-33 15:18:29 Diagnosis Other generalized epilepsy a nd epileptic syndromes, not intractable, without status epilepticus ([facility]) ([facility]) [facility] HospitalNvyzkih1712-48-23 15:18:29 [facility] HospitalRjfgnrj6474-27-71 12:23:22 Palvadi patient and Greg scan rf in chart [facility] HospitalKfdcivl1711-69-99 16:02:27* [facility] HospitalMgpruvn7414-71-30 16:02:27Upcoming Encounters Health Maintenance Due Date Last Done [...] (1 of 2) 2019 Influenza Vaccine (#1) 2024 Respiratory Syncytial Virus (RSV) Adult Series [...] patient's age to complete this topic 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 HospitalJxufwsb2907-73-58 16:02:27 [facility] HospitalDczxeam9913-47-45 15:40:31 Pt called office she is stating medication instructions for Depakote 500mg read 1 tablet twice a day and she is needing that to be changed to 1 tablet 3x a day. Rebeca Lion Ulkiebz6795-53-56 13:20:41 Pt contacted office to let us know she noticed her keppra script was changed to 500mg twice a day but she's been taking 750mg twice a day she would like to know if new script for 750mg x2 day can be sent to pharmacy on file ([facility]). Pt is stating she has had seizures for the last 6 weeks at least [address] HospitalSazpmkg8647-06-97 10:43:34* [facility] HospitalZoytqyp3963-92-33 10:43:34Upcoming Encounters Health Maintenance Due Date Last Done [...] (1 of 2) 2019 Influenza Vaccine (#1) 2024 Respiratory Syncytial Virus (RSV) Adult Series [...] patient's age to complete this topic [facility] HospitalJmieupn3146-79-01 10:43:34 Diagnosis Partial symptomatic epilepsy with complex partial seizures, not intractable, without status epilepticus [facility] HospitalRpeakjn8001-30-35 10:43:34 [place] [address]-07-02 17:13:09* Imaging (Routine) - Pending Review Specialty Diagnoses / Procedures Referred By Anastasiia campa Referred To Contact Radiology Diagnoses Generalized idiopathic epilepsy and epileptic syndromes, not intractable, without status epilepticus (HCC) Procedures MRI brain wo IV contrast Dalila Mcclure MD [address] [place] [address] Phone: tel: fax: Referral ID Status Reason Start Date Expiration Date V isits Requested Visits Authorized [id number] Pending Review 09/12/2024 09/07/2025 1 1 * Neurology (Routine) - Pending Review Specialty Diagnoses / Procedures Referred By Anastasiia campa Referred To Contact Diagnoses Transient alteration of awareness Procedures EEG Dalila Mcclure MD [address] [place] [place] [address] Phone: tel: fax: Referral ID Status Reason Start Date Expiration Date V isits Requested Visits Authorized [id number] Pending Review 09/12/2024 09/07/[address] [facility] HospitalEoicmmu1299-06-35 17:13:09* * Consultation (Routine) - Authorized Specialty Diagnoses / Procedures Referred By Contac t Referred To Contact Neurology Diagnoses Generalized idiopathic epilepsy and epileptic syndromes, not intractable, without status epilepticus (HCC) Procedures Follow Up In Neurology Mendy Fuentes fax: Dalila Mcclure MD [address] [place] [address] Phone: tel: fax: Referral ID Status Reason Start Date Expiration Date V isits Requested Visits Authorized [id number] Authorized 08/15/2024 08/10/[address] [facility] HospitalSyvekbb5769-31-68 17:13:09* Dalila Mcclure MD - 09/12/2024 1:00 PM CDT Images from the original note were not included. Greg Broderick 1970 BP 124/70 | Pulse 70 | Ht 1.753 m (5' 9") | Wt 102 kg (225 lb) | BMI 33.23 kg/m? Chief Complaint Patient presents with Seizures Note provided by her correctional sergeant. States she has been having them often Went to [facility] in [place] for Seizures 08/2024 HPI 54yr old woman with h/o intractable seizures is here for follow up. Reviewed a note from her caregiver - she has had multiple seizures since may -August 2024. She is having "absence seizures"-she has always been consistent with taking her medications. She states that she has a caregiver 6 days a week. She does live by herself. She does have a pillbox and her caregiver manages her medications. Current Outpatient Medications:citalopram (CeleXA) 20 MG tablet, Take 1 tablet by mouth daily., Disp: 90 tablet, Rfl: 3 divalproex (Depakote) 500 MG EC tablet, Take 1 tablet by mouth in the morning and 1 tablet in the evening., Disp: 180 tablet, Rfl: 1 lacosamide (Vimpat) 200 mg tablet tablet, Take 1 tablet by mouth in the morning and 1 tablet in the evening., Disp: 180 tablet, Rfl: 0 levETIRAcetam (Keppra) 750 MG tablet, Take 2 tablets by mouth in the morning and 2 tablets in the evening., Disp: 360 tablet, Rfl: 1 metFORMIN (Glucophage) 500 MG tablet, Take 500 mg by mouth in the morning. Take with meals., Disp: , Rfl: omeprazole (PriLOSEC) 20 MG [...] Date Anxiety Depression Diabetes mellitus (HCC) Epilepsy Ovarian cancer (HCC) No family history on file.Past Surgical History: Procedure Laterality Date SECTION, CLASSIC COLONOSCOPY HYSTERECTOMY KNEE SURGERY OMENTECTOMY TONSILLECTOMY Tobacco Use: Low Risk (09/12/2024) Patient History Smoking Tobacco Use: Never Smokeless [...] person, place and time. Speech is normal. Cranial Nerves2-12 intact by observation. Motor Normal strength in all 4 extremities by observation.. Coordination Normal coordination in upper and lower extremities.. GaitCasual gait is normal including stance, stride, and arm swing. Physical Exam: Psychiatric:Speech: Speech normal. 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 Will repeat 3-hour EEG. She is on 4 AEDs at this time. She will be a good candidate for VNS. She does not want electrodes in her brain. DBS is also a consideration. Will obtain an MRI of the brain and AED levels in 3 months time. Orders: - Follow Up In Neurology - divalproex (Depakote ER) 500 MG 24 hr tablet; Take 3 tablets by mouth 1 time each day. Do not crush, chew, or split. - Zonisamide level; Future - Keppra (Leveitracetam); Future - Lacosamide level; Future - Valproic acid level, total; Future - MRI brain wo IV contrast; Future Mild intellectual disability Encounter for long-term current use of medication Other orders - Follow Up In Neurology; Future [facility] [address] [place] [address] PH: [phone] 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) Expected: 12/13/2024 (Approximate), Expires: 09/12/2025 Valproic acid level, total Lab Routine Generalized convulsi ve epilepsy with intractable epilepsy (HCC) Expected: 12/13/2024 (Approximate), Expires: 09/12/2025 MRI brain wo IV contrast Imaging Routine Generalized convulsi ve epilepsy with intractable epilepsy (HCC) Expected: 09/26/2024, Expires: 09/12/2025 Health Maintenance Due Date Last Done Comments [...] (1 of 2) 2019 Influenza Vaccine (#1) 2024 Respiratory Syncytial Virus (RSV) Adult Series [...] on patient's age to complete this topic [facility]Kjbrbrb3473-61-41 17:13:09 Diagnosis Transient alteration of awar eness - Primary 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 HospitalUoafuff9571-31-98 17:13:09 [facility] HospitalGzsmpik1513-70-91 17:13:08* Imaging (Routine) - Pending Review Specialty Diagnoses / Procedures Referred By Anastasiia campa Referred To Contact Radiology Diagnoses Generalized idiopathic epilepsy and epileptic syndromes, not intractable, without status epilepticus (HCC) Procedures MRI brain wo IV contrast Dalila Mcclure MD [address] [place] [address] Phone: tel: fax: Referral ID Status Reason Start Date Expiration Date V isits Requested Visits Authorized [id number] Pending Review 09/12/2024 09/07/2025 1 1 * Neurology (Routine) - Pending Review Specialty Diagnoses / Procedures Referred By Anastasiia campa Referred To Contact Diagnoses Transient alteration of awareness Procedures EEG Dalila Mcclure MD [address] [place] [address] Phone: tel: fax: Referral ID Status Reason Start Date Expiration Date V isits Requested Visits Authorized [id number] Pending Review 09/12/2024 09/07/[address] [facility] HospitalSfvgzvn2454-30-19 17:13:08* * Consultation (Routine) - Authorized Specialty Diagnoses / Procedures Referred By Anastasiia campa Referred To Contact Neurology Diagnoses Generalized idiopathic epilepsy and epileptic syndromes, not intractable, without status epilepticus (HCC) Procedures Follow Up In Neurology Mendy Fuentes fax: Dalila Mcclure MD [address] [place] [address] Phone: tel: fax: Referral ID Status Reason Start Date Expiration Date V isits Requested Visits Authorized [id number] Authorized 08/15/2024 08/10/[address] [facility] HospitalAoegpej2311-93-05 17:13:08* Dalila Mcclure MD - 09/12/2024 1:00 PM CDT Images from the original note were not included. Greg Broderick 1970 BP 124/70 | Pulse 70 | Ht 1.753 m (5' 9") | Wt 102 kg (225 lb) | BMI 33.23 kg/m? Chief Complaint Patient presents with Seizures Note provided by her correctional sergeant. States she has been having them often Went to /[facility] in [place] for Seizures 08/2024 HPI 54yr old woman with h/o intractable seizures is here for follow up. Reviewed a note from her caregiver - she has had multiple seizures since may -August 2024. She is having "absence seizures"-she has always been consistent with taking her medications. She states that she has a caregiver 6 days a week. She does live by herself. She does have a pillbox and her caregiver manages her medications. Current Outpatient Medications:citalopram (CeleXA) 20 MG tablet, Take 1 tablet by mouth daily., Disp: 90 tablet, Rfl: 3 divalproex (Depakote) 500 MG EC tablet, Take 1 tablet by mouth in the morning and 1 tablet in the evening., Disp: 180 tablet, Rfl: 1 lacosamide (Vimpat) 200 mg tablet tablet, Take 1 tablet by mouth in the morning and 1 tablet in the evening., Disp: 180 tablet, Rfl: 0 levETIRAcetam (Keppra) 750 MG tablet, Take 2 tablets by mouth in the morning and 2 tablets in the evening., Disp: 360 tablet, Rfl: 1 metFORMIN (Glucophage) 500 MG tablet, Take 500 mg by mouth in the morning. Take with meals., Disp: , Rfl: omeprazole (PriLOSEC) 20 MG [...] Date Anxiety Depression Diabetes mellitus (HCC) Epilepsy Ovarian cancer (HCC) No family history on file.Past Surgical History: Procedure Laterality Date SECTION, CLASSIC COLONOSCOPY HYSTERECTOMY KNEE SURGERY OMENTECTOMY TONSILLECTOMY Tobacco Use: Low Risk (09/12/2024) Patient History Smoking Tobacco Use: Never Smokeless [...] person, place and time. Speech is normal. Cranial Nerves2-12 intact by observation. Motor Normal strength in all 4 extremities by observation.. Coordination Normal coordination in upper and lower extremities.. GaitCasual gait is normal including stance, stride, and arm swing. Physical Exam: Psychiatric:Speech: Speech normal. 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 Will repeat 3-hour EEG. She is on 4 AEDs at this time. She will be a good candidate for VNS. She does not want electrodes in her brain. DBS is also a consideration. Will obtain an MRI of the brain and AED levels in 3 months time. Orders: - Follow Up In Neurology - divalproex (Depakote ER) 500 MG 24 hr tablet; Take 3 tablets by mouth 1 time each day. Do not crush, chew, or split. - Zonisamide level; Future - Keppra (Leveitracetam); Future - Lacosamide level; Future - Valproic acid level, total; Future - MRI brain wo IV contrast; Future Mild intellectual disability Encounter for long-term current use of medication Other orders - Follow Up In Neurology; Future [facility] [address] [place] [address] PH: [phone] [facility] Enyfsqa4826-11-63 17:13:08Upcoming Encounters Scheduled Orders Name Type Priority Associated Diagnoses Orde r Schedule EEG Neurology Routine Transient alter ation of awareness Expected: 09/26/2024 (Approximate), Expires: 09/12/2025 Zonisamide level Lab Routine 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) Expected: 12/13/2024 (Approximate), Expires: 09/12/2025 Keppra (Leveitracetam) Lab Routine Gener alized convulsive epilepsy with intractable epilepsy (HCC) Expected: 12/13/2024 (Approximate), Expires: 09/12/2025 Lacosamide level Lab Routine 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 HospitalVzqqwru2333-05-70 17:13:08 [facility] HospitalEdienjq6365-14-80 17:16:24Upcoming Encounters Health Maintenance Due Date Last Done [...] patient's age to complete this topic [facility] HospitalDotdczf8661-85-86 17:16:24 Diagnosis Other generalized epilepsy a nd epileptic syndromes, not intractable, without status epilepticus (CMS/HCC) (HCC) [facility] HospitalWrpunmw7776-37-03 17:16:24 [facility] HospitalUfwxbtd3237-50-34 08:12:52Upcoming Encounters Health Maintenance Due Date Last Done [...] on patient's age to complete this topic [facility]ra[facility]uc[facility]40 08:12:52 [facility] HospitalVhtghux4867-58-17 00:58:02* [facility] HospitalRhgwtbs1197-28-59 00:58:02Upcoming Encounters Health Maintenance Due Date Last Done [...] patient's age to complete this topic [facility] HospitalVbsnfqa1045-70-87 00:58:02 Diagnosis Other generalized epilepsy a nd epileptic syndromes, not intractable, without status epilepticus (CMS/HCC) (HCC) [facility] HospitalJujfxdy4502-02-39 00:58:02 [facility] HospitalAzfbcor6264-77-50 05:18:15* [facility] HospitalPvnfhtx8015-17-64 05:18:15Upcoming Encounters Health Maintenance Due Date Last [...] patient's age to complete this topic [facility] HospitalUjgdxwz5839-18-35 05:18:15 Diagnosis Other generalized epilepsy a nd epileptic syndromes, not intractable, without status epilepticus (CMS/HCC) (HCC) [facility] HospitalJuvoqgy6031-68-60 05:18:15 [facility] HospitalQecgqfb6612-64-59 20:37:27Upcoming Encounters Health Maintenance Due Date Last [...] patient's age to complete this topic [facility] HospitalLehfirc4489-72-37 20:37:27 [facility] HospitalUlumirx3650-14-55 19:54:15* [facility] HospitalQyrucog6369-03-00 19:54:15Upcoming Encounters Health Maintenance Due Date Last [...] patient's age to complete this topic [facility] HospitalAkljogy6002-54-58 19:54:15 Diagnosis Other generalized epilepsy a nd epileptic syndromes, not intractable, without status epilepticus (CMS/HCC) (HCC) [facility] HospitalCupoyvf0236-15-04 19:54:15 [facility] HospitalLsxdtrd5421-39-31 23:49:35Upcoming Encounters Health Maintenance Due Date Last [...] (#1) 2023 Pneumococcal Vaccine: 50+ Years Completed 3 Pneumococcal [...] patient's age to complete this topic [facility] HospitalMpiosjs8291-90-36 23:49:35 Diagnosis Generalized convulsive epilepsy (HCC) Generalized convulsive epilepsy without mention of intractable epilepsy [facility] HospitalWyeyucm4856-03-10 23:49:35 [facility] HospitalIaqfonj0441-04-19 11:54:28Upcoming Encounters Scheduled Orders Name Type Priority [...] patient's age to complete this topic [facility] HospitalRkgtdhe7910-57-17 11:54:28 Diagnosis Generalized convulsive epilepsy (HCC) - Primary Generalized convulsive epilepsy without mention of intractable epilepsy [facility] HospitalQytlppo4684-22-12 11:54:28 [place] 836915-02-17 11:43:34* [facility] HospitalGxyxmxz5824-32-10 11:43:34Upcoming Encounters Health Maintenance Due Date Last [...] patient's age to complete this topic [facility] HospitalHsnqvnx0996-88-78 11:43:34 Diagnosis Other generalized epilepsy a nd epileptic syndromes, not intractable, without status epilepticus (CMS/HCC) (HCC) [facility] HospitalKaarprq3459-82-98 11:43:34 [facility] HospitalButtzpd3596-26-44 09:08:17 Pt is calling asking for refill for - lacosamide (Vimpat) 200 mg tablet tablet NG RACK CHANGER Rebeca Lion Gyruwzs5269-19-93 23:56:59* [facility] HospitalOovlytk7888-20-84 23:56:59 Upcoming Encounters Health Maintenance Due Date [...] patient's age to complete this topic [facility] HospitalZnpyvob9723-94-17 23:56:59 Diagnosis Partial symptomatic epilepsy with complex partial seizures, not intractable, without status epilepticus (HCC) [facility] HospitalPgtnqvl3523-54-07 23:56:59 [facility] HospitalPwjcrca3089-66-25 13:04:22Upcoming Encounters Health Maintenance Due Date Last [...] patient's age to complete this topic [facility] HospitalIdzacdg3556-14-85 13:04:22 Diagnosis Partial symptomatic epilepsy with complex partial seizures, not intractable, without status epilepticus (HCC) [facility] HospitalMigvvcm5957-04-10 13:04:22 [facility] HospitalPiebogc5030-64-43 09:18:24 Patient is calling office stating she can not take the depakote that was prescribed due to the fillers that it has in it the pills she was given are dark red and the ones she normally takes are a light pink.. She is stating the pill she is a able to take is manufactured by [employer]. Pharmacy on file was verified w patient. Pt is out of medication and needs refill to be sent. NG [employer] CHANGER Rebeca [facility] CenterTouwswo2118-08-98 10:23:09 Patient request fill for Locosamide and Divalproex be sent to her [facility] listed in her chart. NG R[facility] HospitalDeabgki1734-94-00 18:31:09* [facility] HospitalUrhryus2822-65-32 18:31:09* Audit- C Score Answer Date of Assessment Author 0 02/29/2024 10:32 AM DRYING RACK CHANGER Arabella Austin MA * [facility] HospitalVrelawo5112-68-08 18:31:09* Dalila Mcclure MD - 02/29/2024 2:00 PM DRYING RACK CHANGER Images from the original note were not [...] meets frequently. She has a daughter in [place] in a group foster home. She has [...] not intractable, without status epilepticus (CMS/HCC) (HCC) Comments: Her last seizure was over 7 [...] partial seizures, not intractable, without status epilepticus ([facility]) - divalproex (Depakote) 500 MG EC tablet; Take 1 tablet by mouth in the morning and 1 tablet in the evening. [facility] [address] [place] [address] PH: [phone] [facility]2024-12-18 18:31:09Upcoming Encounters Health Maintenance Due Date [...] patient's age to complete this topic [facility] HospitalNfnsyjz7552-08-66 18:31:09 Diagnosis Other generalized epilepsy a nd epileptic syndromes, not intractable, without status epilepticus (CMS/HCC) (HCC) Partial symptomatic epilepsy with complex partial seizures, not intractable, without status epilepticus (HCC) [facility] HospitalXavhoru3139-62-21 18:31:09 [facility] HospitalYyvjroe0019-92-72 18:31:09* [facility] HospitalLbmywvc8780-33-46 18:31:09* Audit- C Score Answer Date of Assessment Author 0 02/29/2024 10:32 AM DRYING RACK CHANGER Arabella Austin MA * [facility] HospitalPlzriuh7519-47-23 18:31:09* Dalila Mcclure MD - 02/29/2024 2:00 PM DRYING RACK CHANGER Images from the original note were not [...] meets frequently. She has a daughter in [place] in a group foster home. She has [...] not intractable, without status epilepticus (CMS/HCC) (HCC) Comments: Her last seizure was over 7 [...] morning and 1 tablet in the evening. [facility] [address] [place] [address] PH: [phone] [facility]2024-12-18 18:31:09Upcoming Encounters Health Maintenance Due Date [...] patient's age to complete this topic [facility] HospitalVjqgwvv9754-93-88 18:31:09 Diagnosis Other generalized epilepsy a nd epileptic syndromes, not intractable, without status epilepticus (CMS/HCC) (HCC) Partial symptomatic epilepsy with complex partial seizures, not intractable, without status epilepticus (HCC) [facility] HospitalRrvovav4674-61-87 18:31:09 [facility] HospitalLsudttw3761-36-72 09:43:54Upcoming Encounters Health Maintenance Due Date Last [...] patient's age to complete this topic [facility] HospitalCwxrqmq9465-70-57 09:43:54 Diagnosis Other generalized epilepsy a nd epileptic syndromes, not intractable, without status epilepticus (CMS/HCC) (HCC) - Primary [facility] HospitalKjxozhr9702-22-27 09:43:54 [place] 836914-10-01 16:02:29* [facility] HospitalTwkjgux1739-28-57 16:02:29Upcoming Encounters Health Maintenance Due Date Last [...] patient's age to complete this topic [facility] HospitalXneaqgr5760-27-45 16:02:29 Diagnosis Partial symptomatic epilepsy with complex partial seizures, not intractable, without status epilepticus (HCC) - Primary [facility] HospitalJxjfqbd8856-87-78 16:02:29 [facility] HospitalZmzhykt2655-66-99 13:06:22* [facility] HospitalHtfmxmt4888-18-60 13:06:22Upcoming Encounters Health Maintenance Due Date Last [...] patient's age to complete this topic [facility] HospitalElpvosw6391-40-70 13:06:22 Diagnosis Other generalized epilepsy a nd epileptic syndromes, not intractable, without status epilepticus (CMS/HCC) ([facility]) [facility] HospitalHtjbvsi0616-41-92 13:06:22 [facility] HospitalKdkcllt2643-69-80 13:04:33* [facility] HospitalQafyqlq6535-61-95 13:04:33Upcoming Encounters Health Maintenance Due Date Last [...] patient's age to complete this topic [facility] HospitalSywqwma3157-83-89 13:04:33 Diagnosis Other generalized epilepsy a nd epileptic syndromes, not intractable, without status epilepticus (CMS/HCC) ([facility]) [facility] HospitalAsuicwq5217-54-52 13:04:33 [facility] HospitalEouiadk4669-93-84 23:53:23Upcoming Encounters Health Maintenance Due Date Last [...] patient's age to complete this topic [facility] HospitalQhwylsy8750-62-28 23:53:23 [facility] HospitalSaugozz7703-79-40 17:29:58* [facility] HospitalUaqbdme8008-96-44 17:29:58Upcoming Encounters Health Maintenance Due Date Last [...] patient's age to complete this topic [facility] HospitalGyxqciv5067-89-10 17:29:58 [facility] HospitalDvbiypg3431-03-69 08:44:26* [facility] HospitalUjawvvy5268-00-41 08:44:26Upcoming Encounters Health Maintenance Due Date Last [...] patient's age to complete this topic [facility] HospitalParukoq7112-23-83 08:44:26 [facility] HospitalCrlwpcr9425-55-85 09:32:56Upcoming Encounters Health Maintenance Due Date Last [...] patient's age to complete this topic [facility] HospitalGqqilnt5124-86-34 09:32:56 [facility] HospitalSpwuwwa0756-12-93 09:32:29 Pt informed and understood verbalized of results [facility] HospitalriBro[facility] CenterLdnxdpj6391-37-89 09:32:25 ----- Message from ARLENE Villarreal sent at 10/04/2023 9:09 PM CDT ----- All meds in therapeutic range. There is some room to increase on the zonisamide if patient continues to have breakthrough seizures. [facility] HospitalZhaxvzo1707-44-20 21:11:27* [facility] HospitalLrswcof0464-45-47 21:11:27* ARLENE Bustamante - 09/01/2023 2:00 PM [...] of SystemsConstitutional: Negative. Neurological: Positive for seizures. Subjective Greg Broderick is a 53 y.o. female followed [...] account. Her sister took Felisha back to [place] to her father and she will have [...] She also plans to get involved in uatsdin activities and she is excited about that. She is waiting to move to [place] [employer] in 4 years which is based on [...] Follow up: 3-4 months for status check [facility] [address] [place] [address] PH: [phone] [place] 392054-07-23 21:11:27Upcoming Encounters Health Maintenance Due Date Last [...] on patient's age to complete this topic [facility]Aeyaiwu5481-75-30 21:11:27 Diagnosis Partial symptomatic epilepsy with complex partial seizures, not intractable, without status epilepticus (HCC) - Primary Encounter for long-term curr ent use of medication Mild intellectual disability Mild mental retardation Anxiety with depression [facility] CenterKwfwqro4953-64-19 21:11:27 [facility] CenterAjibqqd3121-92-83 10:17:11* [facility] CenterWrdgtpc2630-32-37 10:17:11Upcoming Encounters Health Maintenance Due Date Last [...] patient's age to complete this topic [facility] HospitalUxlzxwf4715-29-50 10:17:11 [facility] HospitalQvnfkza5895-99-42 19:50:11* [facility] HospitalOxfisvu8822-19-93 19:50:11Upcoming Encounters Health Maintenance Due Date Last [...] patient's age to complete this topic [facility] HospitalPnhzbla2010-72-92 19:50:11 Diagnosis Other generalized epilepsy a nd epileptic syndromes, not intractable, without status epilepticus (CMS/HCC) (HCC) - Primary [facility] HospitalOkjzdrm8806-47-65 19:50:11 [facility] HospitalPuculuz0647-55-65 09:38:07Upcoming Encounters Health Maintenance Due Date Last [...] patient's age to complete this topic [facility] HospitalJenrgld3789-73-90 09:38:07 [facility] HospitalHusovpm8991-49-35 09:37:43 Called patient and informed, verbalized understanding [facility]2024-06-21 09:37:35 ----- Message from Dr. Dalila Mcclure MD sent at 09/01/2023 2:38 PM CDT ----- Labs show elevated keppra level but Will not change the dose as she has not had any seizures and no signs of clinical toxicity [facility]
--- NOTE | 2024-11-28 07:28 | EDPHYS ---
Physician Documentation [facility] Name: Angelika Broderick Age: 54 yrs Sex: Female : 1970 Arrival Date: 11/28/2024 Time: 06:26 Bed 7 Private MD: ED Physician Abran Looc HPI: 11/28 07:24 This 54 yrs old Female presents to ER via EMS with complaints of Eye Swelling. sp3 07:24 54-year-old female with history of seizures and prior ovarian cancer presents with sp3 bilateral eye pain, swelling and discharge. Patient went to [facility] urgent care and received eyedrops and states that it is not significantly helping. Patient does not recall or have the eyedrops with her. She has not seen an paraprofessional aide. She denies any fever, neck pain, other URI symptoms, chest pain, shortness of breath or any other signs or symptoms on ROS at this time. She does not wear contact lenses.. 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 - Infectious Disease History:: Denies. - Social history:: Smoking status: Patient denies any tobacco usage or history of. ROS: 07:25 Constitutional: Negative for fever, chills, and weight loss, ENT: Negative for injury, sp3 pain, and discharge, Neck: Negative for injury, pain, and swelling, Cardiovascular: Negative for chest pain, palpitations, and edema, Respiratory: Negative for shortness of breath, cough, wheezing, and pleuritic chest pain, Abdomen/GI: Negative for abdominal pain, nausea, vomiting, diarrhea, and constipation, Back: Negative for injury and pain, MS/Extremity: Negative for injury and deformity, Skin: Negative for injury, rash, and discoloration, Neuro: Negative for headache, weakness, numbness, tingling, and seizure, Psych: Negative for depression, anxiety, suicide ideation, homicidal ideation, and hallucinations, Allergy/Immunology: Negative for hives, rash, and allergies, Endocrine: Negative for neck swelling, polydipsia, polyuria, polyphagia, and marked weight changes, Hematologic/Lymphatic: Negative for swollen nodes, abnormal bleeding, and unusual bruising, 07:25 All other systems are negative, Exam: 07:25 Constitutional: This is a well developed, well nourished patient who is awake, alert, sp3 and in no acute distress. Head/Face: Normocephalic, atraumatic. ENT: Nares patent. No nasal discharge, no septal abnormalities noted. External auditory canals are clear. Oropharynx with no redness, swelling, or masses, exudates, or evidence of obstruction, uvula midline. Mucous membranes moist. Neck: Trachea midline, no thyromegaly or masses palpated, and no cervical lymphadenopathy. Supple, full range of motion without nuchal rigidity, or vertebral point tenderness. No Meningismus. Chest/axilla: Normal chest wall appearance and motion. Nontender with no deformity. No lesions are appreciated. Cardiovascular: Regular rate and rhythm with a normal S1 and S2. No gallops, murmurs, or rubs. Normal PMI, no JVD. No pulse deficits. Respiratory: Lungs have equal breath sounds bilaterally, clear to auscultation and percussion. No rales, rhonchi or wheezes noted. No increased work of breathing, no retractions or nasal flaring. Abdomen/GI: Soft, non-tender, with normal bowel sounds. No distension or tympany. No guarding or rebound. No evidence of tenderness throughout. Skin: Warm, dry with normal turgor. Normal color with no rashes, no lesions, and no evidence of cellulitis. Neuro: Awake and alert, GCS 15, oriented to person, place, time, and situation. Cranial nerves II-XII grossly intact. Motor strength 5/5 in all extremities. Sensory grossly intact. Cerebellar exam normal. Normal gait. Psych: Awake, alert, with orientation to person, place and time. Behavior, mood, and affect are within normal limits. 07:25 Eyes: Bilateral eyes have crusting and discharge along with conjunctival erythema. Pupils are equal round reactive bilaterally and anterior chambers are clear. Extraocular movements are intact. There is no proptosis.. Vital Signs: 06:31 BP 133 / 87; Pulse 87; Resp 16; Temp 97.5(TE); Pulse Ox 95% on R/A; Weight 100.7 kg; al5 Height 5 ft. 9 in. ; Pain 7/10; 07:45 BP 150 / 94; Pulse 74; Resp 15; Pulse Ox 98% ; bp 06:31 Body Mass Index 32.78 (100.70 kg, 175.26 cm) al5 06:31 Pain Scale: Adult al5 MDM: 07:02 Medical Screening Exam initiated sp3 07:26 Data reviewed: vital signs, nurses notes. ED course: Bilateral viral versus bacterial sp3 conjunctivitis versus iritis. I will prescribe Augmentin p.o. as well as Vigamox. Patient to follow-up with paraprofessional aide.. Administered Medications: No medications were administered Disposition Summary: 11/28/24 07:27 Discharge Ordered Notes: Location: Home sp3 Condition: Stable sp3 Diagnosis - Bilateral conjunctivitis sp3 Followup: sp3 - With: Andres Mustafa MD - When: Upon discharge from the Emergency Department - Reason: Recheck today's complaints Discharge Instructions: - Discharge Summary Sheet sp3 - Bacterial Conjunctivitis, Adult sp3 Forms: - Medication Reconciliation Form sp3 - Antibiotic Education sp3 - Prescription Opioid Use sp3 - Patient Portal Instructions sp3 - Leadership Thank You Letter sp3 Prescriptions: - Augmentin 875-125 mg Oral Tablet - take 1 tablet ORAL route every 12 hours for 10 days; 20 tablet; Refills: 0, sp3 Product Selection Permitted - Vigamox 0.5 % Ophthalmic Drops - instill 1 drop OPHTHALMIC route every 8 hours for 7 days; 5 milliliter; sp3 Refills: 0, Product Selection Permitted Signatures: Abran Loco MD MD sp3 Sonia Mireles RN RN al5
--- NOTE | 2024-11-28 07:28 | ER ---
Nurse's Notes [facility] Name: Angelika Broderick Age: 54 yrs Sex: Female : 1970 Arrival Date: 11/28/2024 Time: 06: Bed 7 Private MD: Diagnosis: Bilateral conjunctivitis Presentation: 11/28 06:31 Chief complaint: Patient states: c/o headache, light sensitivity, decreased vision, al5 nausea, and pink eye x4 days. Coronavirus screen: At this time, the client does not indicate any symptoms associated with coronavirus-19. Ebola Screen: No symptoms or risks identified at this time. Initial Sepsis Screen: Does the patient meet any 2 criteria? No. Patient's initial sepsis screen is negative. Does the patient have a suspected source of infection? No. Patient's initial sepsis screen is negative. Risk Assessment: Do you want to hurt yourself or someone else? Patient reports no desire to harm self or others. Onset of symptoms was November 24, 2024. 06:31 Method Of Arrival: EMS: [facility] al5 06:31 Acuity: MICHAEL 4 al5 Triage Assessment: 06:32 General: Appears in no apparent distress. uncomfortable, Behavior is calm, cooperative. al5 Pain: Complains of pain in head, right eye and left eye Pain currently is 7 out of 10 on a pain scale. EENT: Reports pain in right eye and left eye light sensitivity, decreased vision loss due to pink eye. Neuro: Level of Consciousness is awake, alert, obeys commands, Oriented to person, place, time, situation. Cardiovascular: Capillary refill < 3 seconds Patient's skin is warm and dry. Respiratory: Airway is patent Respiratory effort is even, unlabored, Respiratory pattern is regular, symmetrical. GI: No signs and/or symptoms were reported involving the gastrointestinal system. : No signs and/or symptoms were reported regarding the genitourinary system. Derm: Skin is intact, is healthy with good turgor, Skin is pink, warm \T\ dry. normal. Musculoskeletal: Circulation, motion, and sensation intact. Range of motion: intact in all extremities. 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 - Infectious Disease History:: Denies. - Social history:: Smoking status: Patient denies any tobacco usage or history of. Screenin:34 [facility] ED Fall Risk Assessment (Adult) History of falling in the last 3 months, al5 including since admission No falls in past 3 months (0 pts) Confusion or Disorientation No (0 pts) Intoxicated or Sedated No (0 pts) Impaired Gait Yes (1 pt) Mobility Assist Device Used No (0 pt) Altered Elimination No (0 pt) Score/Fall Risk Level 0 - 2 = Low Risk Oriented to surroundings, Maintained a safe environment, Hourly rounding (assess needs \T\ fall precautionary measures) done. Abuse screen: Denies threats or abuse. Denies injuries from another. Nutritional screening: No deficits noted. Tuberculosis screening: No symptoms or risk factors identified. Assessment: 06:34 Reassessment: see triage assessment. al5 Vital Signs: 06:31 BP 133 / 87; Pulse 87; Resp 16; Temp 97.5(TE); Pulse Ox 95% on R/A; Weight 100.7 kg; al5 Height 5 ft. 9 in. ; Pain 7/10; 07:45 BP 150 / 94; Pulse 74; Resp 15; Pulse Ox 98% ; bp 06:31 Body Mass Index 32.78 (100.70 kg, 175.26 cm) al5 06:31 Pain Scale: Adult al5 ED Course: 06:30 Patient arrived in ED. vk 06:31 Sonia Mireles, MAO is Primary Nurse. al5 06:32 Triage completed. al5 06:32 Arm band placed on right wrist. Patient placed in the treatment room, in view of staff al5 members, on pulse oximetry. 06:34 Patient has correct armband on for positive identification. Bed in low position. Call al5 light in reach. Side rails up X2. Provided Education on: plan of care. 06:34 No provider procedures requiring assistance completed. al5 07:02 Abran Loco MD is Attending Physician. sp3 07:27 Andres Mustafa MD is Referral Physician. sp3 07:45 Patient did not have IV access during this emergency room visit. bp Administered Medications: No medications were administered Medication: 06:34 VIS not applicable for this client. al5 Outcome: 07:27 Discharge ordered by . sp3 07:45 Discharged to home ambulatory, bp 07:45 Condition: stable 07:45 Discharge instructions given to patient, Instructed on discharge instructions, follow up and referral plans. medication usage, Demonstrated understanding of instructions, follow-up care, medications, Prescriptions given X 2, 07:47 Patient left the ED. bp Signatures: Faustino Guerrero, RN RN bp Abran Loco MD MD sp3 Aida Henry Amanda, RN RN al5
[2024-11-28 08:17] VITALS: BP 133/87; TEMP 97.5; O2SAT 95
== END 2024-11-28 07:47 | disposition home or self-care (01) ==
LOC: ER 06:26
DX: H10.9 Unspecified conjunctivitis (principal)
CPT/HCPCS: 99283

== ENCOUNTER 2024-12-02 15:29 | Emergency (ER) | payer OTHER ==
--- OUTSIDE RECORDS SUMMARY | 2024-12-02 15:35 | XMS REPORT | Continuity of Care Document ---
Author Name Unknown Address [address] [facility] [address] [place] [address] [facility] Address [address] [facility] [address] [place] [address] Care Team Providers Care Communications Clerk Name Role Phone Krista Wise Primary Care Physician [phone] Krista Wise Attending Clinician Unavailable Estephanie Ellis Attending Clinician Unavailable Екатерина Sutton MA Attending Clinician UnavailDalila Baker MD Attending Clinician [phone] [facility] Sleep - Attending Clinician Catherine Paulino MD, Ismael Lay Attending Clinician + [phone] DALILA MCCLURE Attending Clinician Unavailable Domingo ALVARADO, Mishel Vazquez Attending Clinician [phone] Royal TAN, Judith Álvarez Attending Clinician + Mishel Hall Attending Clinician [phone] Adry Alvarado MA Attending Clinician Unavail able MISHEL HAYNES Attending Clinician UnavailSANCHEZ Ibrahim Attending Clinician Unavailable Sanchez Chinchilla MD Attending Clinician [phone] SHANTELLE ASKEW Attending Clinician Unavailable Payers Payer Name Policy Type Policy Number Effective Date Expirati on Date Source [employer] [id number] 2024 00:00:00 [facility] AARP MCR Advantage (HMO-POS) 53 [id number] 2020 00:00:00 [facility] DUAL COMP HMO D SNP [id number] 2022 00:00:00 [place] [id number] 2018 00:00:00 Problems Condition Name Condition Details [...] of unspecifie d ovary Active Problem 02/05/2021 [facility] Problem Active 2021-02-05 03:45:08 Jose Martin Garcia Epilepsy Epilepsy Active Problem 02/05/2021 [facility] Problem Active 2021-02-05 03:45:08 Jose Martin Garcia Complex partial epilepsy Complex partial epilepsy Active Problem 02/05/2021 [facility] Problem Active 2021-02-05 03:45:08 Jose Martin Garcia Depression Depression Active Problem 02/05/2021 [facility] Problem Active 2021-02-05 03:45:08 Jose Martin Garcia Hyperglyce satnam Hyperglyce satnam Active Diagnosis 11/06/2020 [facility] Diagnosis Active 2020-11-06 02:45:15 Jose Martin Garcia Patient had no falls in past year Patient had no falls in past year Active Diagnosis 09/06/2020 [facility] Diagnosis Active 2020-09-06 02:46:23 Jose Martin Garcia Encounter for long-term (current) use of medication s Encounter for long-term (current) use of medication s Active Diagnosis 09/22/2020 [facility] Diagnosis Active 2020-09-22 02:47:16 Jose Martin Garcia Tremor Tremor Active Problem 02/05/2021 [facility] Problem Active 2021-02-05 03:45:08 Jose Martin Garcia Intellectu al disability Intellectu al disability Active Problem 02/05/2021 [facility] Problem Active 2021-02-05 03:45:08 Jose Martin Garcia Iron deficiency anemia, unspecifie d iron deficiency anemia type Iron deficiency anemia, unspecifie d iron deficiency anemia type Active Problem 02/05/2021 [facility] Problem Active 2021-02-05 03:45:08 Jose Martin Garcia Neurodegen erative cognitive impairment Neurodegen erative cognitive impairment Active Problem 02/05/2021 [facility] Problem Active 2021-02-05 03:45:08 Jose Martin Garcia [id number] Abnormal mammogram Problem [facility] [id number] Intrinsic eczema Problem [facility] [id number] Hx of ovarian cancer Problem [facility] [id number] Malignant neoplasm of ovary, unspecifie d laterality Problem [facility] [id number] Other fatigue Problem [facility] Gynecologi yazan examinatio n normal Well woman exam with routine gynecologi yazan exam Problem [facility] Diverticul itis Diverticul itis Problem [facility] [id number] Mixed hyperlipid emia Problem [facility] [id number] Type 2 diabetes mellitus with hyperglyce satnam, without long-term current use of insulin Problem [facility] [id number] Asymptomat ic postmenopa usal state Problem [facility] [id number] Mentally disabled Problem [facility] [id number] Bipolar 1 disorder Problem [facility] [id number] Anxiety Problem [facility] [id number] Gastroesop hageal reflux disease without esophagiti s Problem [facility] [id number] Mixed stress and urge urinary incontinen ce Problem [facility] [id number] Seizures Problem [facility] [id number] Petit mal seizure status Problem [facility] [id number] Right-side d low back pain without sciatica, unspecifie d chronicity Problem [facility] [id number] Generalize d weakness Problem [facility] [id number] Injury of left wrist, initial encounter Problem [facility] Epilepsy Epilepsy Disease Active [facility] Allergies, Adverse Reactions, Alerts Allergy Name [...] reaction s Active Hives 09-28 00:00: 00 [facility] PHENYTOI N SODIUM EXTENDED DRUG INGREDI Active Hives 09-28 00:00: 00 [facility] Phenobar bital Propensi ty to adverse reaction s Active Unknown - See comments 04-02 00:00: 00 [facility] Carbamaz epine Propensi ty to adverse reaction s Active Unknown - See comments 04-02 00:00: 00 [facility] PHENOBAR BITAL DRUG INGREDI Active Unknown-Cmnt 04-02 00:00: 00 [facility] CARBAMAZ EPINE DRUG INGREDI Active Unknown-Cmnt 04-02 00:00: 00 [facility] NO KNOWN ALLERGIE S SYSTEMIC Active MHEOUT ALLERGIE S NOT ON FILE SYSTEMIC Active MHEOUT Social History Social Habit Start Date Stop Date Quantity Comments Source Sexual orientation 2024-09-05 13:05:09 Heterosexual (finding) [facility] Gender identity 2023-06-04 06:57:01 Identifies as female gender (finding) [facility] History of Tobacco Use [facility] ASSERTION Possible [facility] Alcoholic beverage intake 2024-09-12 00:00:00 2024-09-12 00:00:00 Lifetime non-drinker (finding) [facility] History of Social function 2024-09-12 00:00:00 2024-09-12 00:00:00 [facility] Tobacco use and exposure 2023-09-01 00:00:00 2023-09-01 00:00:00 Smokeless tobacco non-user [facility] Sex 2023-06-04 06:57:01 2023-06-04 06:57:01 Female (finding) [facility] Exposure to SARS-CoV-2 (event) 2022-04-19 00:00:00 2022-04-29 12:41:00 Not sure [facility] Sex Assigned At 1970 00:00:00 1970 00:00:00 [facility] Smoking Status Start Date Stop Date Source Tobacco smoking consumption unknown [facility] Never smoked tobacco Jose Martin thorpe [facility] Medications Ordered Medication Name Filled Medication Name Start Date Stop Date Current Medication? Ordering Clinician Indication Dosage Frequency Signature (SIG) Comments Components Source divalproex (Depakote ER) 500 MG 24 hr tablet divalproex (Depakote ER) 500 MG 24 hr tablet 9-10 00:00: 00 Yes [id number] 1500mg QD Take 3 tablets by mouth 1 time each day. Do not crush, chew, or split. Jose Martin thorpe Jose [facility] divalproex (Depakote ER) 500 MG 24 hr tablet divalproex (Depakote ER) 500 MG 24 hr tablet -08 00:00: 00 11-19 00:00 :00 No [id number] Take 3 tablets by mouth once daily. Do not crush, chew, or split. Jose Martin Garcia [facility] zonisamide (Zonegran) 100 MG capsule zonisamide (Zonegran) 100 MG capsule 8-06 00:00: 00 04-15 23:59 :00 No [id number] 400mg QD Take 4 capsules by mouth 1 time each day. Jose Martin thorpe Jose [facility] citalopram (CeleXA) 20 MG tablet citalopram (CeleXA) 20 MG tablet 09-19 00:00: 00 Yes 20mg QD Take 1 tablet by mouth 1 time each day. Jose Martin Garcia [facility] lacosamide (Vimpat) 200 mg tablet tablet lacosamide (Vimpat) 200 mg tablet tablet 09-19 00:00: 00 Yes [id number] 200mg Q.5D Take 1 tablet by mouth in the morning and 1 tablet in the evening. Jose Martin thorpe [facility] lacosamide (Vimpat) 200 mg tablet tablet lacosamide (Vimpat) 200 mg tablet tablet 09-18 00:00: 00 Yes [id number] 200mg Q.5D Take 1 tablet by mouth in the morning and 1 tablet in the evening. Jose Martin thorpe Jose [facility] divalproex (Depakote ER) 500 MG 24 hr tablet divalproex (Depakote ER) 500 MG 24 hr tablet 09-13 00:00: 00 11-19 00:00 :00 No [id number] 1500mg QD Take 3 tablets by mouth 1 time each day. Do not crush, chew, or split. Jose Martin Garcia [facility] divalproex (Depakote) 500 MG EC tablet divalproex (Depakote) 500 MG EC tablet 09-13 00:00: 00 09-13 00:00 :00 No [id number] 500mg Q.5D Take 1 tablet by mouth [...] 09-12 00:00: 00 09-13 00:00 :00 No [id number] 1500mg QD Take 3 tablets by mouth 1 time each day. Do not crush, chew, or split. Jose Martin Garcia [facility] levETIRAcet am (Keppra) 750 MG tablet levETIRAcet am (Keppra) 750 MG tablet 08-08 00:00: 00 Yes [id number] 1500mg Q.5D Take 2 tablets by mouth in the morning and 2 tablets in the evening. Jose Martin Garcia [facility] levETIRAcet am (Keppra) 750 MG tablet levETIRAcet am (Keppra) 750 MG tablet 07-24 00:00: 00 08-08 00:00 :00 No [id number] 1500mg Q.5D Take 2 tablets by mouth in the morning and 2 tablets in the evening. Jose Martin Garcia [facility] levETIRAcet am (Keppra) 750 MG tablet levETIRAcet am (Keppra) 750 MG tablet 07-20 00:00: 00 07-23 00:00 :00 No [id number] 1500mg Q.5D Take 2 tablets by mouth in the morning and 2 tablets in the evening. Jose Martin Garcia [facility] lacosamide (Vimpat) 200 mg tablet tablet lacosamide (Vimpat) 200 mg tablet tablet 4-09 00:00: 00 09-18 00:00 :00 No [id number] 200mg Q.5D Take 1 tablet by mouth in the morning and 1 tablet in the evening. Jose Martin aGrcia Epic lacosamide (Vimpat) 200 mg tablet tablet lacosamide (Vimpat) 200 mg tablet tablet 2-17 00:00: 00 06-20 00:00 :00 No [id number] 200mg Q.5D Take 1 tablet by mouth in the morning and 1 tablet in the evening. Jose Martin Garcia Epic divalproex (Depakote) 500 MG EC tablet divalproex (Depakote) 500 MG EC tablet 1-20 00:00: 00 09-12 00:00 :00 No [id number] 500mg Q.5D Take 1 tablet by mouth in the morning and 1 tablet in the evening. Jose Martin Garcia Epic zonisamide (Zonegran) 100 MG capsule zonisamide (Zonegran) 100 MG capsule 2023-03 2-18 00:00: 00 10-17 00:00 :00 No [id number] 300mg QD Take 3 capsules by mouth 1 time each day. Jose Martin Garcia Epic levETIRAcet am (Keppra) 750 MG tablet levETIRAcet am (Keppra) 750 MG tablet 2023-03 2-18 00:00: 00 07-20 00:00 :00 No [id number] 1500mg Q.5D Take 2 tablets by mouth in the morning and 2 tablets in the evening. Jose Martin Garcia [facility] divalproex (Depakote) 500 MG EC tablet divalproex (Depakote) 500 MG EC tablet 2023-03 2-18 00:00: 00 04-02 00:00 :00 No [id number] 500mg Q.5D Take 1 tablet by mouth in the morning and 1 tablet in the evening. Jose Martin Garcia Epic zonisamide (Zonegran) 100 MG capsule zonisamide (Zonegran) 100 MG capsule 2024-1 2-11 00:00: 00 02-28 00:00 :00 No [id number] 300mg QD Take 3 capsules by mouth 1 time each day. Jose Martin Garcia Epic lacosamide (Vimpat) 200 mg tablet tablet lacosamide (Vimpat) 200 mg tablet tablet 2023-03 0- 00:00: 00 04-30 00:00 :00 No [id number] 200mg Q.5D Take 1 tablet by mouth in the morning and 1 tablet in the evening. Jose Martin Garcia Epic divalproex (Depakote) 500 MG EC tablet divalproex (Depakote) 500 MG EC tablet 2023-03 0- 00:00: 00 02-28 00:00 :00 No [id number] 500mg Q.5D Take 1 tablet by mouth [...] 09-18 00:00: 00 12-12 00:00 :00 No [id number] 200mg Q.5D Take 1 tablet by mouth [...]
D uration of Therapy: Other (see Comments) [facility] ketorolac (TORADOL) tablet 20 mg -16 20:00: 00 04-29 19:13 :00 No 20mg 20 mg, Oral, ONCE NOW, 1 dose, On Hayley 04/29/22 at 1400, SANJEEV [facility] loratadine (CLARITIN) tablet 10 mg -16 20:00: 00 04-29 19:13 :00 No 10mg 10 mg, Oral, ONCE NOW, 1 dose, On Tue04/29/22 at 1400, SANJEEV [facility] dextrometho rphan-guaif enesin (ROBITUSSIN DM) 10-100 mg/5 mL solution 10 mL 04-29 20:00: 00 04-29 19:15 :00 No 10mL 10 mL, Oral, ONCE NOW, 1 dose, On Tue04/29/22 at 1400, Routine [facility] meloxicam 15 mg tablet 04-29 00:00: 00 Yes [id number] 15mg Take 1 tablet by mouth in the morning. [facility] dextromeo rphan-guaif enesin (MUCINEX DM) 30-600 mg per tablet 04-29 00:00: 00 Yes [id number] 1{tbl} Take 1 tablet by mouth in the morning and 1 tablet in the evening. [facility] acetaminoph en (TYLENOL ARTHRITIS PAIN) 650 mg CR tablet 04-29 00:00: 00 Yes [id number] 650mg Take 1 tablet by mouth every 8 (eight) hours as needed for Pain. [facility] amoxicillin -clavulanat e 875-125 mg per tablet 04-29 00:00: 00 05-10 05:59 :00 No [id number] 1{tbl} Take 1 tablet by mouth every 12 (twelve) hours for 10 days. [facility] oxyBUTYnin Chloride 5 MG oxyBUTYnin Chloride 5 [...] 20 (PCV20) Prevnar 20 (PCV20) Unknown Completed [facility] Prevnar 20 (PCV20) Prevnar 20 (PCV20) Unknown Completed [facility] Prevnar 20 (PCV20) Prevnar 20 (PCV20) Unknown Completed [facility] Prevnar 20 (PCV20) Prevnar 20 (PCV20) Unknown Completed [facility] Prevnar 20 (PCV20) Prevnar 20 (PCV20) Unknown Completed [facility] Prevnar 20 (PCV20) Prevnar 20 (PCV20) Unknown Completed [facility] Prevnar 20 (PCV20) Prevnar 20 (PCV20) Unknown Completed [facility] Prevnar 20 (PCV20) Prevnar 20 (PCV20) Unknown Completed [facility] Prevnar 20 (PCV20) Prevnar 20 (PCV20) Unknown Completed [facility] Prevnar 20 (PCV20) Prevnar 20 (PCV20) Unknown Completed [facility] Prevnar 20 (PCV20) Prevnar 20 (PCV20) Unknown Completed [facility] Prevnar 20 (PCV20) Prevnar 20 (PCV20) Unknown Completed [facility] Prevnar 20 (PCV20) Prevnar 20 (PCV20) Unknown Completed [facility] Prevnar 20 (PCV20) Prevnar 20 (PCV20) Unknown Completed [facility] Prevnar 20 (PCV20) Prevnar 20 (PCV20) Unknown Completed [facility] Vital Signs Vital Name Observation Time Observation Value Comments [place] [facility] [place]olic blood pressure 2024-09-12 13:32:00 124 mm[Hg] [facility] Diastolic blood pressure 2024-09-12 13:32:00 70 mm[Hg] [facility] Heart rate 2024-09-12 13:32:00 70 [facility] 2024-09-12 13:32:00 175.3 cm [facility] Body weight 2024-09-12 13:32:00 102.059 kg [facility] BMI 2024-09-12 13:32:00 33.23 kg/m2 [facility] Systolic blood pressure 2024-09-12 13:32:00 124 mm[Hg] [facility] Diastolic blood pressure 2024-09-12 13:32:00 70 mm[Hg] [facility] Heart rate 2024-09-12 13:32:00 70 /min [facility] height 2024-09-12 13:32:00 175.3 cm [facility] Body weight 2024-09-12 13:32:00 102.059 kg [facility] rial [facility] BMI 2024-09-12 13:32:00 33.23 kg/m2 [facility] Jose [facility] Systolic blood pressure 2024-02-29 13:59:00 140 mm[Hg] [facility] Diastolic blood pressure 2024-02-29 13:59:00 84 mm[Hg] [facility] Body height 2024-02-29 13:59:00 175.3 cm [facility] Jose [facility] Body weight 2024-02-29 13:59:00 97.977 kg [facility] Jose [facility] BMI 2024-02-29 13:59:00 31.90 kg/m2 [facility] rial Jose [facility] Systolic blood pressure 2024-02-29 13:59:00 140 mm[Hg] [facility] Diastolic blood pressure 2024-02-29 13:59:00 84 mm[Hg] [facility] Body height 2024-02-29 13:59:00 175.3 cm Seymour rial [facility] Body weight 2024-02-29 13:59:00 97.977 kg Se[facility] rial Jose [facility] BMI 2024-02-29 13:59:00 31.90 kg/m2 Seymour riamaurilio [facility] height 2023-09-29 16:20:00 69 [in_i] Commo n [facility] weight 2023-09-29 16:20:00 233 [lb_av] Comm on [facility] bmi 2023-09-29 16:20:00 34.4 kg/m2 Commo n [facility] Systolic blood pressure 2023-09-01 13:43:00 122 mm[Hg] [facility] Diastolic blood pressure 2023-09-01 13:43:00 70 mm[Hg] [facility] Body height 2023-09-01 13:43:00 175.3 cm Seym[facility] rial [facility] Body weight 2023-09-01 13:43:00 105.688 kg Seymour rial [facility] BMI 2023-09-01 13:43:00 34.41 kg/m2 [facility] rial Jsoe Epic Systolic blood pressure 2023-09-01 13:43:00 122 mm[Hg] [facility] Diastolic blood pressure 2023-09-01 13:43:00 70 mm[Hg] Mari paulson [facility] Body height 2023-09-01 13:43:00 175.3 cm Seymour Garcia [facility] Body weight 2023-09-01 13:43:00 105.688 kg Seymour Garcia [facility] BMI 2023-09-01 13:43:00 34.41 kg/m2 Seymour Garcia [facility] height 2023-09-01 08:20:00 69 [in_i] Commo n [facility] weight 2023-09-01 08:20:00 233.6 [lb_av] Co mmon [facility] temperature 2023-09-01 08:20:00 97.2 [degF] Com [facility] bmi 2023-09-01 08:20:00 34.49 kg/m2 Comm on [facility] oximetry 2023-09-01 08:20:00 98 % Commo n [facility] respiratory rate 2023-09-01 08:20:00 15 /min [facility] blood pressure systolic 2023-09-01 08:20:00 128 mm[Hg] Common [facility] blood pressure diastolic 2023-09-01 08:20:00 78 mm[Hg] [facility] height 2023-08-17 09:20:00 69 [in_i] Commo n [facility] weight 2023-08-17 09:20:00 234.0 [lb_av] Co mmon [facility] temperature 2023-08-17 09:20:00 97.0 [degF] Com [facility] bmi 2023-08-17 09:20:00 34.55 kg/m2 Comm on [facility] oximetry 2023-08-17 09:20:00 95 % Commo n [facility] respiratory rate 2023-08-17 09:20:00 15 /min [facility] blood pressure systolic 2023-08-17 09:20:00 129 mm[Hg] [facility] blood [facility] diastolic 2023-08-17 09:20:00 63 mm[Hg] [facility] height 2023-02-14 15:00:00 69 [in_i] Commo n [facility] weight 2023-02-14 15:00:00 244.4 [lb_av] Co mmon [facility] temperature 2023-02-14 15:00:00 97.9 [degF] Com mon [facility] bmi 2023-02-14 15:00:00 36.09 kg/m2 Comm on [facility] oximetry 2023-02-14 15:00:00 95 % Commo n [facility] respiratory rate 2023-02-14 15:00:00 16 /min [facility] blood pressure systolic 2023-02-14 15:00:00 130 mm[Hg] [facility] blood pressure diastolic 2023-02-14 15:00:00 80 mm[Hg] [facility] height 2022-07-13 10:40:00 69 [in_i] Commo n [facility] weight 2022-07-13 10:40:00 239.8 [lb_av] Co mmon [facility] temperature 2022-07-13 10:40:00 97.8 [degF] Com mon [facility] bmi 2022-07-13 10:40:00 35.41 kg/m2 Comm on [facility] oximetry 2022-07-13 10:40:00 96 % Commo n [facility] respiratory rate 2022-07-13 10:40:00 15 /min [facility] blood pressure systolic 2022-07-13 10:40:00 108 mm[Hg] [facility] blood pressure diastolic 2022-07-13 10:40:00 68 mm[Hg] [facility] Systolic blood pressure 2022-04-29 20:31:28 145 mm[Hg] [facility] Diastolic blood pressure 2022-04-29 20:31:28 77 mm[Hg] [facility] Heart rate 2022-04-29 20:31:28 100 /min [facility] Respiratory rate 2022-04-29 20:31:28 16 /min [facility] Oxygen saturation in Arterial blood by Pulse oximetry 2022-04-29 20:31:28 94 /min [facility] Body temperature 2022-04-29 18:42:00 37.61 Marilyn [facility] Body height 2022-04-29 18:42:00 175.3 cm [facility] Body weight 2022-04-29 18:42:00 111.131 kg [facility] BMI 2022-04-29 18:42:00 36.18 kg/m2 [facility] height 2022-04-13 10:00:00 69 [in_i] Commo n [facility] weight 2022-04-13 10:00:00 247.8 [lb_av] Co mmon [facility] temperature 2022-04-13 10:00:00 97.7 [degF] Com mon [facility] bmi 2022-04-13 10:00:00 36.59 kg/m2 Comm on [facility] oximetry 2022-04-13 10:00:00 99 % Commo n [facility] respiratory rate 2022-04-13 10:00:00 17 /min [facility] blood pressure systolic 2022-04-13 10:00:00 132 mm[Hg] [facility] blood pressure diastolic 2022-04-13 10:00:00 63 mm[Hg] Common [facility] height 2022-01-19 10:40:00 69 [in_i] Commo n [facility] weight 2022-01-19 10:40:00 240.8 [lb_av] Co mmon [facility] temperature 2022-01-19 10:40:00 97.5 [degF] Com mon [facility] bmi 2022-01-19 10:40:00 35.56 kg/m2 Comm on [facility] oximetry 2022-01-19 10:40:00 97 % Commo n [facility] respiratory rate 2022-01-19 10:40:00 16 /min Common [facility] blood pressure systolic 2022-01-19 10:40:00 130 mm[Hg] [facility] blood pressure diastolic 2022-01-19 10:40:00 72 mm[Hg] [facility] height 2021-07-20 08:40:00 69 [in_i] Commo n [facility] weight 2021-07-20 08:40:00 222.8 [lb_av] Co [facility] temperature 2021-07-20 08:40:00 97.0 [degF] Com [facility] bmi 2021-07-20 08:40:00 32.9 kg/m2 Commo n [facility] oximetry 2021-07-20 08:40:00 94 % Commo n [facility] respiratory rate 2021-07-20 08:40:00 16 /min Common [facility] blood pressure systolic 2021-07-20 08:40:00 99 mm[Hg] [facility] blood pressure diastolic 2021-07-20 08:40:00 56 mm[Hg] Common [facility] height 2021-02-18 15:40:00 69 [in_i] Commo n [facility] weight 2021-02-18 15:40:00 209.2 [lb_av] [facility] 2021-02-18 15:40:00 97.5 [degF] Com mon [facility] bmi 2021-02-18 15:40:00 30.89 kg/m2 Comm on [facility] oximetry 2021-02-18 15:40:00 96 % Commo n [facility] respiratory rate 2021-02-18 15:40:00 16 /min Common [facility] blood pressure systolic 2021-02-18 15:40:00 132 mm[Hg] [facility] blood pressure diastolic 2021-02-18 15:40:00 70 mm[Hg] [facility] height 2021-02-18 15:20:00 69 [in_i] Commo n [facility] weight 2021-02-18 15:20:00 209.2 [lb_av] Co mmon [facility] temperature 2021-02-18 15:20:00 97.5 [degF] Com mon [facility] bmi 2021-02-18 15:20:00 30.89 kg/m2 [facility] on [facility] oximetry 2021-02-18 15:20:00 96 % Commo n [facility] respiratory rate 2021-02-18 15:20:00 16 /min [facility] blood pressure systolic 2021-02-18 15:20:00 132 mm[Hg] [facility] blood pressure diastolic 2021-02-18 15:20:00 70 mm[Hg] [facility] Weight 2020-06-27 15:00:00 [facility] Height 2020-06-27 15:00:00 [facility] [place] Heart Rate 2020-06-27 15:00:00 [facility] Weight 2020-03-28 14:00:00 [facility] [place] Height 2020-03-28 14:00:00 [facility] [place] Heart Rate 2020-03-28 14:00:00 [facility] Weight 2019-04-25 15:00:00 [facility] [place] Height 2019-04-25 15:00:00 [facility] Heart Rate 2019-04-25 15:00:00 [facility] Procedures Procedure Date / Time Performed Performing Clinicia n Source EEG 2024-11-17 00:00[facility] 2024-10-17 12:42:55 Dalila Mcclure al [place] Epic EEG 2024-09-26 00:00:00 [facility] MRI brain wo IV contrast 2024-09-26 00:00:00 [facility] Epi [facility] Zonisamide level 2024-05-15 00:00:00 Seymour [facility] Epic Keppra (Leveitracetam) 2024-05-15 00:00:00 [facility] Epic Lacosamide level 2024-05-15 00:00:00 [facility] ZONIS[facility] 2024-05-11 14:11:00 [facility] LACOSAM[facility] L[facility] 2024-05-11 14:11:00 [facility] ZONISAMIDE LEVEL 2023-09-09 11:51:00 Mishel Haynes [facility] Epic LACOSAMIDE LEVEL 2023-09-09 11:51:00 Mishel Haynes [facility] RAPID STREP SCREEN FOR GROUP A 2022-04-29 19:11:00 Sanchez Chinchilla [facility] RAPID INFLUENZA A/B 2022-04-29 19:11:00 Greg Chinchilla [facility] COVID-19 (ID NOW RAPID TESTING) 2022-04-29 19:11:00 Sanchez Chinchilla [facility] CONSENT/REFUSAL FOR DIAGNOSIS AND TREATMENT 2022-04-29 18:38:14 Doctor Unassigned, Blue Ball [facility] Plan of Care Planned Activity Planned Date Details Comments Source Procedure 2024-12-13 00:00:00 Zonisamide level [facility] Procedure 2024-12-13 00:00:00 Keppra (Leveitracetam) [facility] Procedure 2024-12-13 00:00:00 Lacosamide level [facility] Procedure 2024-12-13 00:00:00 Valproic aci d level, total [facility] Encounters Start Date/Time End Date/Time Encounter Type Admission Type [facility]ending [facility] Facility Care Department Encounter ID Source 2023-10-11 12:47:00 Outpatient Krista Wise STLMLC STLMLC [id number] [facility] 2023-10-04 13:32:00 [place] STL[facility] STLMLC [id number] [facility] 2023-09-13 12:55:00 [place]patient [place] STLMLC STLMLC [id number] [facility] 2023-09-08 11:08:00 Outpatient Krista Wise STLMLC STLMLC [id number] [facility] 2023-08-10 13:25:00 Outpatient Krista Wise STLMLC STLMLC [id number] [facility] 2023-06-15 08:46:00 Outpatient Krista Wise STLMLC STLMLC [id number] [facility] 2023-02-14 15:09:00 Outpatient Krista Wise STLMLC STLMLC [id number] [facility] 2022-12-28 10:37:00 Outpatient Krista Wise STLMLC STLMLC [id number] [facility] 2022-09-20 09:40:00 Outpatient Krista Wise STLMLC STLMLC [id number] [facility] 2022-07-05 13:37:00 [place]patient [place] STLMLC STLMLC [id number] [facility] 2022-07-01 10:31:00 Outpatient [place] STLMLC STLMLC [id number] [facility] 2022-04-13 11:04:02 Outpatient [place] fr[place]isa STLMLC STLMLC [id number] [facility] 2022-04-09 08:48:01 Outpatient [place] STLMLC STLMLC [id number] [facility] 2021-10-20 10:41:00 Outpatient [place] STLMLC STLMLC [id number] [facility] 2021-10-16 08:16:00 Outpatient [place] STLMLC STLMLC [id number] [facility] 2021-08-06 09:01:00 Outpatient [place] STLMLC STLMLC [id number] [facility] 2021-07-20 08:34:01 Outpatient [place] STLMLC STLMLC [id number] [facility] 2021-07-16 13:15:01 Outpatient [place] STLMLC STLMLC [id number] [facility] 2021-06-15 11:02:01 Outpatient [place] STLMLC STLMLC [id number] [facility] 2021-05-15 14:49:00 Outpatient Krista Wise STLMLC STLMLC [id number] [facility] 2021-04-08 11:38:47 Outpatient [place] STLMLC STLMLC [id number] [facility] 2021-04-08 11:37:31 Outpatient [place] STLMLC STLMLC [id number] [facility] 2021-04-08 11:37:08 Outpatient [place] STLMLC STLMLC [id number] [facility] 2024-11-16 00:00:00 2024-11-23 15:07:49 Telephone Estephanie Fleming Norma [place] [id number] 1.2.840.114 350.1.13.70 8.2.7.2.686 [id number] [facility] 2024-11-19 00:00:00 2024-11-21 17:00:38 Refill Екатерина Sutton Tracy [place] [id number] 1.2.840.114 350.1.13.70 8.2.7.2.686 [id number] Jose Martin [facility] 2024-11-17 00:00:00 2024-11-19 09:30:52 Refill Heidi [facility] [id number] 1.2.840.114 350.1.13.70 8.2.7.2.686 [id number] 2 [id number] Jose Martin [facility] 2024-10-17 00:00:00 2024-10-17 12:42:26 Refill Heidi Dalila [place] 4141 1.2.840.114 350.1.13.70 8.2.7.2.686 [id number] Jose Martin thorpe [facility] 2024-10-10 09:00:00 2024-10-10 13:20:14 Outside Procedure [facility] [id number] 1.2.840.114 350.1.13.70 8.2.7.2.686 [id number] 3 [id number] Jose Martin [facility] 2024-10-10 08:19:58 2024-10-10 13:20:14 Outpatient Elective [facility] EOUT [id number] [facility] 2024-09-18 00:00:00 2024-09-19 10:44:58 Refill Ismael Paulino [place] 4141 1.2.840.114 350.1.13.70 8.2.7.2.686 [id number] 0 [id number] Jose Martin [facility] 2024-09-18 00:00:00 2024-09-18 15:18:27 Refill Dalila Mcclure [place] [id number] 1.2.840.114 350.1.13.70 8.2.7.2.686 [id number] 2 [id number] Jose Martin thor[facility] 2024-09-13 00:00:00 2024-09-13 16:02:18 Telephone Dalila Mcclureland [id number] 1.2.840.114 350.1.13.70 8.2.7.2.686 [id number] 2 [id number] 5 Jose Martin thorpe [facility] 2024-09-13 00:00:00 2024-09-13 10:43:23 Refill Dalila Mcclure [id number] 1.2.840.114 350.1.13.70 8.2.7.2.686 [id number] 2 [id number] Jose Martin thorpe [facility] 2024-09-12 13:29:44 2024-09-12 14:07:31 Outpatient Elective [id number] 2024-09-12 13:00:00 2024-09-12 14:07:31 Office Visit Dalila Mcclureland [id number] 1.2.840.114 350.1.13.70 8.2.7.2.686 [id number] 2 [id number] Jose Martin thorpe [facility] 2024-08-08 00:00:00 2024-08-08 17:16:14 Refill Dalila Mcclure 4141 1.2.840.114 350.1.13.70 8.2.7.2.686 [id number] Jose Martin thorpe [facility] 2024-08-07 00:00:00 2024-08-08 08:12:44 Telephone Dalila Mcclureland [id number] 1.2.840.114 350.1.13.70 8.2.7.2.686 [id number] 2 [id number] [facility] 2024-07-23 00:00:00 2024-07-24 00:57:51 Refill Herman, ЕкатеринаЕкатерина Horan [place] 4141 1.2.840.114 350.1.13.70 8.2.7.2.686 [id number] Jose Martin thorpe [facility] 2024-07-20 00:00:00 2024-07-20 05:18:04 Refill Dalila Mcclure [place] [id number] 1.2.840.114 350.1.13.70 8.2.7.2.686 [id number] 2 [id number] Jose Martin [facility] 2024-05-14 00:00:00 2024-07-14 20:35:05 Results Follow-Up Dalila Mcclure 4141 1.2.840.114 350.1.13.70 8.2.7.2.686 [id number] Jose Martin [facility] 2024-06-20 00:00:00 2024-06-20 19:54:15 Refill Dalila Mcclure [place] [id number] 1.2.840.114 350.1.13.70 8.2.7.2.686 [id number] 2 [id number] Jose Martin [facility] 2024-05-15 00:00:00 2024-06-15 23:47:58 Orders Only Dalila Mcclure [id number] 1.2.840.114 350.1.13.70 8.2.7.2.686 [id number] 1 [id number] Jose Martin thorpe [facility] 2024-05-01 00:00:00 2024-05-01 11:54:27 Telephone Dalila Mcclure [id number] 1.2.840.114 350.1.13.70 8.2.7.2.686 [id number] 2 [id number] 2 Jose Martin thorpe [facility] 2024-04-30 00:00:00 2024-04-30 11:43:24 Telephone Dalila Mcclureland [id number] 1.2.840.114 350.1.13.70 8.2.7.2.686 [id number] 2 [id number] Jose Martin thorpe [facility] 2024-03-29 00:00:00 2024-04-29 23:52:[address] [id number] 1.2.840.114 350.1.13.70 8.2.7.2.686 [id number] 2 [id number] [facility] 2024-03-30 00:00:00 2024-04-02 13:04:13 Telephone Dalila Mcclureadena [id number] 1.2.840.114 350.1.13.70 8.2.7.2.686 [id number] 5 [id number] [facility] 2024-03-08 00:00:00 2024-03-08 00:00:00 [id number] 2024-03-05 00:00:00 2024-03-05 00:00:00 [facility]EL[facility] [id number] 2024-03-02 00:00:00 2024-03-02 00:00:00 [facility]EL[facility] [id number] [facility] 2024-02-29 14:00:00 2024-02-29 14:37:23 Office Visit Dalila Mcclure [id number] 1.2.840.114 350.1.13.70 8.2.7.2.686 [id number] 2 [id number] [facility] 2024-02-29 13:45:04 2024-02-29 14:37:23 Outpatient Elective DALILA MCCLURE [facility] EOUT [id number] [facility] 2024-02-29 00:00:00 2024-02-29 00:00:00 [facility]EL[facility] [id number] [facility] 2024-02-22 00:00:00 2024-02-22 09:43:44 Refill Dalila Mcclure [id number] 1.2.840.114 350.1.13.70 8.2.7.2.686 [id number] 2 [id number] [facility] 2024-02-17 00:00:00 2024-02-17 00:00:00 (TEL) STLC STLC [id number] [facility] 2023-12-13 00:00:00 2023-12-13 16:02:21 Refill Judith Paigemel [place]ron 4141 1.2.840.114 350.1.13.70 8.2.7.2.686 [id number] 4 [id number] [facility] 2023-12-13 00:00:00 2023-12-13 13:06:11 Refill Екатерина Sutton [place] [id number] 1.2.840.114 350.1.13.70 8.2.7.2.686 [id number] 2 [id number] [facility] 2023-12-13 00:00:00 2023-12-13 13:04:25 Refill Dalila Mcclure [place] 4141 1.2.840.114 350.1.13.70 8.2.7.2.686 [id number] 2 [id number] [facility] 2023-12-01 00:00:00 2023-12-01 00:00:00 (TEL) STLC STLC [id number] [facility] 2023-10-10 00:00:00 2023-11-10 23:52:18 Telephone Mishel Haynes [id number] 1.2.840.114 350.1.13.70 8.2.7.2.686 [id number] 3 [id number] [facility] 2023-11-01 00:00:00 2023-11-01 00:00:00 (TEL) STLC STLC [id number] [facility] 2023-10-27 00:00:00 2023-10-27 00:00:00 (TEL) STLC STLMLC [id number] [facility] 2023-10-21 00:00:00 2023-10-21 17:29:48 Refill Judith Paige [place] 4141 1.2.840.114 350.1.13.70 8.2.7.2.686 [id number] 4 [id number] [facility] 2023-10-19 00:00:00 2023-10-19 08:44:17 Refill Mishel Haynes [place] 4141 1.2.840.114 350.1.13.70 8.2.7.2.686 [id number] 1 [id number] [facility] 2023-10-14 00:00:00 2023-10-14 00:00:00 [facility] [id number] [facility] 2023-10-13 00:00:00 2023-10-13 00:00:00 [facility] [id number] [facility] 2023-10-05 00:00:00 2023-10-05 09:32:48 Telephone AlvaradoAdry Goldman Mayra [place] 4141 1.2.840.114 350.1.13.70 8.2.7.2.686 [id number] 2 [id number] [facility] 2023-10-04 00:00:00 2023-10-04 00:00:00 [facility] [id number] [facility] 2023-09-29 00:00:00 2023-09-29 00:00:00 OFFICE VISIT ESTAB PT LEVEL [address] [facility] [id number] [facility] 2023-09-20 00:00:00 2023-09-21 10:17:02 RefJudith Neves [place] 4141 1.2.840.114 350.1.13.70 8.2.7.2.686 [id number] [facility] 2023-09-19 00:00:00 2023-09-19 19:50:06 Refill Dalila Mcclure [id number] 1.2.840.114 350.1.13.70 8.2.7.2.686 [id number] 2 [id number] [facility] 2023-09-14 00:00:00 2023-09-14 00:00:00 (TEL) STLC STLMLC [id number] [facility] 2023-09-14 00:00:00 2023-09-14 00:00:00 (TEL) STLMLC STLMLC [id number] [facility] 2023-09-14 00:00:00 2023-09-14 00:00:00 (TEL) STLMLC STLMLC [id number] [facility] 2023-09-13 00:00:00 2023-09-13 00:00:00 (TEL) STLMLC STLMLC [id number] [facility] 2023-09-08 00:00:00 2023-09-08 00:00:00 (TEL) STLC STLMLC [id number] [facility] 2023-09-02 00:00:00 2023-09-02 09:37:58 Telephone Dalila Mcclure [id number] 1.2.840.114 350.1.13.70 8.2.7.2.686 [id number] [facility] 2023-09-01 14:00:00 2023-09-01 14:53:34 Office Visit Mishel Haynes [facility] [id number] 1.2.840.114 350.1.13.70 8.2.7.2.686 [id number] 2 [id number] [facility] 2023-09-01 13:42:16 2023-09-01 14:53:34 Outpatient Elective MISHEL HAYNES [facility] [id number] EOUT 2023-09-01 00:00:00 2023-09-01 00:00:00 OFFICE VISIT ESTAB PT LEVEL 4 STLMLC STLMLC [id number] [facility] 2023-08-22 00:00:00 2023-08-22 00:00:00 (TEL) STLMLC STLMLC [id number] [facility] 2023-08-22 00:00:00 2023-08-22 00:00:00 (TEL) STLMLC STLMLC [id number] [facility] 2023-08-17 00:00:00 2023-08-17 00:00:00 OFFICE VISIT ESTAB PT LEVEL 4 STLMLC STLMLC [id number] [facility] 2023-06-08 00:00:00 2023-06-08 00:00:00 (TEL) STLMLC STLMLC [id number] [facility] 2023-04-07 00:00:00 2023-04-07 00:00:00 (TEL) STLMLC STLMLC [id number] [facility] 2023-02-14 00:00:00 2023-02-14 00:00:00 (WELLNESS) Wellness Visit STLMLC STLMLC [id number] [facility] 2022-11-18 00:00:00 2022-11-18 00:00:00 (TEL) STLMLC STLMLC [id number] [facility] 2022-09-27 00:00:00 2022-09-27 00:00:00 (TEL) STLMLC STLMLC [id number] [facility] 2022-09-02 00:00:00 2022-09-02 00:00:00 (TEL) STLMLC STLMLC [id number] [facility] 2022-08-30 00:00:00 2022-08-30 00:00:00 (TEL) STLMLC STLMLC [id number] [facility] 2022-07-15 00:00:00 2022-07-15 00:00:00 (TEL) STLMLC STLMLC [id number] [facility] 2022-07-13 00:00:00 2022-07-13 00:00:00 OFFICE VISIT ESTAB PT LEVEL 4 STLMLC STLMLC [id number] [facility] 2022-07-05 00:00:00 2022-07-05 00:00:00 (TEL) STLMLC STLMLC [id number] [facility] 2022-07-02 00:00:00 2022-07-02 00:00:00 (TEL) STLMLC STLMLC [id number] [facility] 2022-06-21 00:00:00 2022-06-21 00:00:00 (TEL) STLMLC STLMLC [id number] [facility] 2022-05-31 00:00:00 2022-05-31 00:00:00 (TEL) STLMLC STLMLC [id number] [facility] 2022-04-29 12:43:00 2022-04-29 14:37:00 Emergency X SANCHEZ CHINCHILLA RUST ERT [id number] [facility] 2022-04-29 12:43:00 2022-04-29 14:37:00 Emergency Sanchez Chinchilla [facility] 1.2.840.114 350.1.13.10 4.2.7.2.686 [id number] [facility] 2022-04-13 00:00:00 2022-04-13 00:00:00 OFFICE VISIT ESTAB PT LEVEL 3 STLMLC STLMLC [id number] [facility] 2022-01-20 00:00:00 2022-01-20 00:00:00 (TEL) STLMLC STLMLC [id number] [facility] 2022-01-19 00:00:00 2022-01-19 00:00:00 OFFICE VISIT EST PT LEVEL 3 STLMLC STLMLC [id number] [facility] 2021-10-22 00:00:00 2021-10-22 00:00:00 (TEL) STLMLC STLMLC [id number] [facility] 2021-10-21 00:00:00 2021-10-21 00:00:00 (TEL) STLMLC STLMLC [id number] [facility] 2021-09-18 00:00:00 2021-09-18 00:00:00 OFFICE VISIT ESTAB PT LEVEL 2 STLMLC STLMLC [id number] [facility] 2021-09-18 00:00:00 2021-09-18 00:00:00 (TEL) STLMLC STLMLC [id number] [facility] 2021-07-20 00:00:00 2021-07-20 00:00:00 OFFICE VISIT EST PT LEVEL 3 STLMLC STLMLC [id number] [facility] 2021-05-28 00:00:00 2021-05-28 00:00:00 (TEL) STLMLC STLMLC [id number] [facility] 2021-05-20 00:00:00 2021-05-20 00:00:00 (TEL) STLMLC STLMLC [id number] [facility] 2021-05-15 00:00:00 2021-05-15 00:00:00 (TEL) STLMLC STLMLC [id number] [facility] 2021-04-16 00:00:00 2021-04-16 00:00:00 (TEL) STLMLC STLMLC [id number] [facility] 2021-04-14 00:00:00 2021-04-14 00:00:00 (TEL) STLMLC STLMLC [id number] [facility] 2021-02-20 00:00:00 2021-02-20 00:00:00 (TEL) STLMLC STLMLC [id number] [facility] 2021-02-18 00:00:00 2021-02-18 00:00:00 SUB ANNUAL [facility] WELLNESS VISIT STLMLC STLMLC [id number] [facility] 2021-02-18 00:00:00 2021-02-18 00:00:00 OFFICE VISIT EST PT LEVEL [address] [facility] [id number] [facility] 2019-12-11 10:04:00 2019-12-11 10:04:00 Emergency X SHANTELLE ASKEW [facility] [id number] [facility] 2019-12-11 00:00:00 2019-12-11 00:00:[address] [facility] [id number] [facility] 2019-11-15 12:40:00 2019-11-15 12:40:00 [facility] [address] [facility] [id number] [facility] 2019-11-07 10:27:00 2019-11-07 10:27:00 Outpatient [facility] [id number] [facility] 2019-10-29 13:20:00 2019-10-29 13:20:00 [facility] [facility] [address] [facility] [id number] [facility] 2018-09-11 13:15:00 2018-09-11 13:15:[address] [facility] [facility] [address] [facility] [id number] [facility] 2018-08-28 14:45:00 2018-08-28 14:45:00 [facility] [id number] [facility] 2018-06-01 11:15:00 2018-06-01 11:15:00 [facility] [address] [facility] [id number] [facility] 2018-02-20 11:42:00 2018-02-20 11:42:00 [facility] [address] [facility] [id number] [facility] Results Test Description Test Time Test Comments Results Result Co mments Source [facility] [id number] 10:46:35* Test Item Value Reference Range Interpretation Comme nts Lacosamide Lvl (test code = 48624-3) mcg/mL (Note)Expected c oncentrations of Lacosamide in patients receivingrecommended daily dosages: Up to 15.0 mcg/mL.Toxic range notestablished..This test was developed and its analytical performancecharacteristics have been determined by [facility].It has not been cleared or approved by the FDA. This assayhas been validated pursuant to the CLIA regulations and isused for clinical purposes..MDFmed [id number] [place] [address],[address] [place] [address] [id number] Webster MD, PhD [facility] EpicKeppra (Leveitracetam)2024-05-15 10:46:34* Test Item Value Reference Range Interpretation Comme nts Keppra Lvl (test code = 36014-5) See_Comment H Brivaracetam (Briviact(R), Rikelta(R)) exhibits significantcross-react ivity in the Levetiracetam (Keppra(R), Spritam(R))immunoassay . If Brivaracetam has been prescribed, order TestCode 37358 Levetiracetam by LCMSMS. [Automated message] The system which generated this result transmitted reference range: 6.0 - 46.0 mcg/mL. The reference range was not used to interpret this result as normal/abnormal. Lab Interpretation (test code = 88195-0) Abnormal [facility] EpicLacosamide [id number] 10:44:09* Test Item Value Reference Range Interpretation Comme nts Lacosamide Lvl (test code = 13288-8) mcg/mL Expected concent rations of Lacosamide in patientsreceiving recommended daily dosages: Up to 15.0 mcg/mL.Toxic range not established..This test was developed and its analytical performance characteristics have been determined by [employer]. It has not been cleared or approved by theFDA. This assay has been validated pursuant to the CLIA regulations and is used for clinical purposes.. DIXIE (test code = DIXIE) [facility] EpicZonisamide [id number] 10:44:09* Test Item Value Reference Range Interpretation Comme nts Zonisamide Lvl (test code = 95763-3) See_Comment .This test was d ritchied and its analytical performance characteristics have been determined by [employer]. It has not been cleared or approved by theA. This assay has been validated pursuant to the CLIA regulations and is used for clinical purposes.. [Automated message] The system which generated this result transmitted reference range: 10.0 - 40.0 mcg/mL. The reference range was not used to interpret this result as normal/abnormal. DIXIE (test code = DIXIE) [facility] EpicKeppra (Leveitracetam)2023-09-14 10:44:09* Test Item Value Reference Range Interpretation Comme nts Keppra Lvl (test code = 58655-5) See_Comment H Brivaracetam (Briviact(R), Rikelta(R)) exhibits significantcross-react ivity in the Levetiracetam (Keppra(R), Spritam(R))immunoassay . If Brivaracetam has been prescribed, order TestCode 68627 Levetiracetam by LCMSMS. [Automated message] The system which generated this result transmitted reference range: 6.0 - 46.0 mcg/mL. The reference range was not used to interpret this result as normal/abnormal. DIXIE (test code = DIXIE) Lab Interpretation (test code = 23492-9) Abnormal [facility]. Metabolic Panel (14) (CMP)2023-08-17 00:00:00* Test Item [...] 26 9-23 H Calcium (test code = 94956-8) 9.9 mg/dL See_Comment [Automated messa ge] The [...] as normal/abnormal. Globulin, Total (test code = 93904-6) 3.0 g/dL See_Comment [Automated messa ge] The [...] Encounters Date/Time Note Provider Source 2024-11-23 15:07:58 [facility] Due Date Last Done Comments CT Colonography [...] on patient's age to complete this topic [facility] 15:07:58 [facility]Tyowiwp1933-30-84 15:07:41 Appt has been sched [facility]MemoriH[facility]Iaaxubd6718-58-62 11:37:18 Lm to sched 3 hour EEG. 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 [facility]Vmvoatu4455-80-43 17:00:44 [facility] AmericaEdpovdb2993-22-61 09:31:00* [facility] AmericaEostqtu7197-29-32 09:31:00Upcoming Encounters Health Maintenance Due Date Last [...] on patient's age to complete this topic [facility]Iluepvb8233-57-92 09:31:00 Diagnosis 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 (Schedule III hour EEG in 4 to 6 weeks. Previous 3-hour EEG was abnormal and medications have been changed) Pt was on WQ, but interface removed it from WQ. [facility] AmericaPmjbrlv3508-44-92 12:44:45* * Other Medical (Routine) - Closed Specialty Diagnoses / Procedures Referred By Contac t Referred To Contact Sleep Medicine Diagnoses Transient alteration of awareness Procedures EEG Dalila Mcclure MD [address] [place] [address] Phone: tel: fax: [place] [id number] [facility] [place] [address] Phone: tel: fax: Referral ID Status Reason Start Date Expiration Date Visits Re quested Visits Authorized [id number] Closed 09/27/2024 12/12/2024 1 1 [facility] AmericaCwsnhnu2477-76-43 12:44:45* Dalila Mcclure MD - 10/10/2024 9:00 [...] digital video monitoring was performed on a [employer] System. Electrodes were applied according to the standard 10-20 international measurement and placement protocol in person by an salesperson burial plots for the purposes of long-term video EEG. [employer] English 18 channel bipolar, transverse, and referential montages [...] button events recorded by the patient or office machine technician. The test was administered by an survey technologist, in person, with setup, patient education [...] Video was monitored intermittently by a qualified survey technologist for the entirety of the recording; quality check-ins were performed at a minimum of of every two hours, checking, and documenting real-time data and video to ensure the integrity and quality of the recording. Diagnostic video was captured for the entirety of the recording. Dalila Mcclure MD Procedure [id number] EEG PHYS/QHP 2-12 HR W/VEEG 51756 EEG CONT REC W/VID CYTOPATHOLOGY TECHNOLOGIST 97810 VEEG 2-12 HR INTMT MNTR T [place] 990525-08-06 12:44:45Upcoming Encounters Health Maintenance Due Date Last [...] on patient's age to complete this topic [facility] AmericaXwjerli0727-27-33 12:44:45 Diagnosis Transient alteration of awar eness - Primary [facility] AmericaRaszbds4999-71-47 12:44:45 [facility] AmericaLzjjfsz6639-34-16 12:42:35* Neurology (Routine) - Pending Review Specialty Diagnoses / Procedures Referred By Contac t Referred To Contact Diagnoses Other generalized epilepsy and epileptic syndromes, not intractable, without status epilepticus (CMS/HCC) (HCC) Procedures EEG EEG Dalila Mcclure MD [address] [place] [address] Phone: tel: fax: Referral ID Status Reason Start Date Expiration Date V isits Requested Visits Authorized [id number] Pending Review 10/17/2024 10/12/2025 1 1 [facility] AmericaKviaotv9572-52-35 12:42:35Upcoming Encounters Scheduled Orders Name Type Priority [...] on patient's age to complete this topic [facility] AmericaQcbkzwn0857-15-59 12:42:35 Diagnosis Other generalized epilepsy a nd epileptic syndromes, not intractable, without status epilepticus (CMS/HCC) ([facility]) [facility] AmericaYmzghpw5358-15-81 12:42:35 [place] 990525-08-06 12:36:42 I called the patient and explained [...] . Patient was agreeable to the plan [facility] AmericaCpuuvgg3206-52-33 10:45:08* [facility] AmericaCawfeek9364-86-65 10:45:08Upcoming Encounters Health Maintenance Due Date Last [...] on patient's age to complete this topic [facility] AmericaVvawfzx4950-19-65 10:45:08 Diagnosis Other generalized epilepsy a nd epileptic syndromes, not intractable, without status epilepticus (CMS/HCC) (HCC) [facility] AmericaKaaxoex1538-02-05 10:45:08 [facility] AmericaKrakoyc4054-81-40 15:18:29* [facility] AmericaIprfqbf0062-92-30 15:18:29Upcoming Encounters Health Maintenance Due Date Last [...] on patient's age to complete this topic [facility] AmericaLkoyqef7877-00-39 15:18:29 Diagnosis Other generalized epilepsy a nd epileptic syndromes, not intractable, without status epilepticus ([facility]) ([facility]) [facility] AmericaGlhvojv1252-00-59 15:18:29 [facility] AmericaHjyhdho7477-16-72 12:23:22 Palvadi patient and Greg scan rf in chart [facility] AmericaDeoqzny6337-49-78 16:02:27* [facility] AmericaWwcyhcw8996-90-76 16:02:27Upcoming Encounters Health Maintenance Due Date Last [...] on patient's age to complete this topic [facility] AmericaUtefqax3505-53-32 16:02:27 Diagnosis Other generalized epilepsy a nd epileptic syndromes, not intractable, without status epilepticus (CMS/HCC) (HCC) 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 Rebeca Lion Skevini1469-08-43 13:20:41 Pt contacted office to let us [...] 6 weeks at least 2 a week. [facility] AmericaLegpxem9234-29-89 10:43:34* [facility] AmericaBhgpdwg0822-57-88 10:43:34Upcoming Encounters Health Maintenance Due Date Last [...] on patient's age to complete this topic [facility] AmericaWvznotn2263-18-77 10:43:34 Diagnosis Partial symptomatic epilepsy with complex partial seizures, not intractable, without status epilepticus [facility] AmericaDczloqf8502-47-32 10:43:34 [place] [address]-07-02 17:13:09* Imaging (Routine) - Pending Review Specialty Diagnoses / Procedures Referred By Anastasiia campa Referred To Contact Radiology Diagnoses Generalized idiopathic epilepsy and epileptic syndromes, not intractable, without status epilepticus (HCC) Procedures MRI brain wo IV contrast Dalila Mcclure MD [address] [place] [address] Phone: tel: fax: Referral ID Status Reason Start Date Expiration Date V isits Requested Visits Authorized [id number] Pending Review 09/12/2024 09/07/2025 1 1 * Neurology (Routine) - Pending Review Specialty Diagnoses / Procedures Referred By Anastasiia campa Referred To Contact Diagnoses Transient alteration of awareness Procedures EEG Dalila Mcclure MD [address] [place] [address] Phone: tel: fax: Referral ID Status Reason Start Date Expiration Date V isits Requested Visits Authorized [id number] Pending Review 09/12/2024 09/07/2025 1 1 [facility] AmericaWeehkrs5294-40-37 17:13:09* * Consultation (Routine) - Authorized Specialty Diagnoses / Procedures Referred By Contac t Referred To Contact Neurology Diagnoses Generalized idiopathic epilepsy and epileptic syndromes, not intractable, without status epilepticus (HCC) Procedures Follow Up In Neurology Mendy Fuentes fax: Dalila Mcclure MD [address] [place] [address] Phone: tel: fax: Referral ID Status Reason Start Date Expiration Date V isits Requested Visits Authorized [id number] Authorized 08/15/2024 08/10/2025 1 1 [facility] AmericaNpbyqgk6747-17-66 17:13:09* Dalila Mcclure MD - 09/12/2024 1:00 PM CDT Images from the original note were not included. Greg Broderick 1970 BP 124/70 | Pulse 70 | Ht 1.753 m (5' 9") | Wt 102 kg (225 lb) | BMI 33.23 kg/m? Chief Complaint Patient presents with Seizures Note provided by her customer care assistant. States she has been having them often Went to [facility] in [place] for Seizures 08/2024 HPI 54yr old woman [...] woman with intractable epilepsy is here for bdiefg-kb-erpb increase divalproex to 1500 mg a day. 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 Encounter for long-term curr ent use of medication [facility] AmericaRxdlnow0984-45-44 17:13:09 [facility] AmericaXfewwim1686-76-30 17:13:08* Imaging (Routine) - Pending Review Specialty Diagnoses / Procedures Referred By Anastasiia campa Referred To Contact Radiology Diagnoses Generalized idiopathic epilepsy and epileptic syndromes, not intractable, without status epilepticus (HCC) Procedures MRI brain wo IV contrast Dalila Mcclure MD [address] [place] [address] Phone: tel: fax: Referral ID Status Reason Start Date Expiration Date V isits Requested Visits Authorized [id number] Pending Review 09/12/2024 09/07/2025 1 1 * Neurology (Routine) - Pending Review Specialty Diagnoses / Procedures Referred By Anastasiia campa Referred To Contact Diagnoses Transient alteration of awareness Procedures EEG Dalila Mcclure MD [address] [place] [address] Phone: tel: fax: Referral ID Status Reason Start Date Expiration Date V isits Requested Visits Authorized [id number] Pending Review 09/12/2024 09/07/2025 1 1 [facility] AmericaLeffzvy2626-52-21 17:13:08* * Consultation (Routine) - Authorized Specialty Diagnoses / Procedures Referred By Anastasiia campa Referred To Contact Neurology Diagnoses Generalized idiopathic epilepsy and epileptic syndromes, not intractable, without status epilepticus (HCC) Procedures Follow Up In Neurology Mendy Fuentes fax: Dalila Mcclure MD [address] [place] [address] Phone: tel: fax: Referral ID Status Reason Start Date Expiration Date V isits Requested Visits Authorized [id number] Authorized 08/15/2024 08/10/2025 1 1 [facility] AmericaGkvkrqm0791-77-52 17:13:08* Dalila Mcclure MD - 09/12/2024 1:00 PM CDT Images from the original note were not included. Greg Broderick 1970 BP 124/70 | Pulse 70 | Ht 1.753 m (5' 9") | Wt 102 kg (225 lb) | BMI 33.23 kg/m? Chief Complaint Patient presents with Seizures Note provided by her customer care assistant. States she has been having them often Went to /[facility] in [place] for Seizures 08/2024 HPI 54yr old woman [...] woman with intractable epilepsy is here for fkdffr-zn-obfs increase divalproex to 1500 mg a day. 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 Mild intellectual disability Mild mental retardation Encounter for long-term curr ent use of medication [facility] AmericaGikjmrk3357-49-27 17:13:08 [facility] AmericaZmztiij3254-12-65 17:16:24Upcoming Encounters Health Maintenance Due Date Last [...] on patient's age to complete this topic [facility] AmericaRwdfdqv4513-82-88 17:16:24 Diagnosis Other generalized epilepsy a nd epileptic syndromes, not intractable, without status epilepticus (CMS/HCC) (HCC) [facility] AmericaYqqnmod6412-19-90 17:16:24 [facility] AmericaCkezcgs7203-85-56 08:12:52Upcoming Encounters Health Maintenance Due Date Last [...] on patient's age to complete this topic [facility] CenterQrlzyve7366-01-06 08:12:52 [facility] AmericaVoomemn1341-04-84 00:58:02* [facility] AmericaFbwpegw8374-56-41 00:58:02Upcoming Encounters Health Maintenance Due Date Last [...] on patient's age to complete this topic [facility] AmericaHfyhfxh0449-04-09 00:58:02 Diagnosis Other generalized epilepsy a nd epileptic syndromes, not intractable, without status epilepticus (CMS/HCC) (HCC) [facility] AmericaDijhtie2527-25-02 00:58:02 [facility] AmericaKpbignq2175-38-66 05:18:15* [facility] AmericaEryyoca3429-26-40 05:18:15Upcoming Encounters Health Maintenance Due Date Last [...] on patient's age to complete this topic [facility] AmericaXtarmsb7811-97-84 05:18:15 Diagnosis Other generalized epilepsy a nd epileptic syndromes, not intractable, without status epilepticus (CMS/HCC) (HCC) [facility] AmericaVhhzorb1347-50-54 05:18:15 [facility] AmericaBvklwhr9223-25-72 20:37:27Upcoming Encounters Health Maintenance Due Date Last [...] on patient's age to complete this topic [facility] AmericaUooacnd3724-35-90 20:37:27 [facility] AmericaYpgksqw8282-29-73 19:54:15* [facility] AmericaOuzwmgj8116-65-73 19:54:15Upcoming Encounters Health Maintenance Due Date Last [...] on patient's age to complete this topic [facility] AmericaWexkzyy2681-66-68 19:54:15 Diagnosis Other generalized epilepsy a nd epileptic syndromes, not intractable, without status epilepticus (CMS/HCC) (HCC) [facility] AmericaPnplxcj8525-74-64 19:54:15 [facility] AmericaBzpmljo3047-25-32 23:49:35Upcoming Encounters Health Maintenance Due Date Last [...] on patient's age to complete this topic [facility] AmericaTwpecvb8650-65-37 23:49:35 Diagnosis Generalized convulsive epilepsy (HCC) Generalized convulsive epilepsy without mention of intractable epilepsy [facility] AmericaWzjipaq2658-38-45 23:49:35 [facility] AmericaDeszivj1518-52-99 11:54:28Upcoming Encounters Scheduled Orders Name Type Priority [...] on patient's age to complete this topic [facility] AmericaCigligd6796-74-49 11:54:28 Diagnosis Generalized convulsive epilepsy (HCC) - Primary Generalized convulsive epilepsy without mention of intractable epilepsy [facility] AmericaDdnuzfr1359-26-26 11:54:28 [place] 990525-02-17 11:43:34* [facility] AmericaSbeypjr0458-28-56 11:43:34Upcoming Encounters Health Maintenance Due Date Last [...] on patient's age to complete this topic [facility] AmericaVabtzug0038-30-60 11:43:34 Diagnosis Other generalized epilepsy a nd epileptic syndromes, not intractable, without status epilepticus (CMS/HCC) (HCC) [facility] AmericaNijmelt6039-92-95 11:43:34 [facility] AmericaTmaltaw3347-54-68 09:08:17 Pt is calling asking for refill for - lacosamide (Vimpat) 200 mg tablet tablet ER OPERATOR Rebeca Lino Esfmoeg4304-39-26 23:56:59* [facility] AmericaUqmzwxc3615-46-41 23:56:59 Upcoming Encounters Health Maintenance Due Date [...] on patient's age to complete this topic [facility] AmericaZhsdhpu0166-16-31 23:56:59 Diagnosis Partial symptomatic epilepsy with complex partial seizures, not intractable, without status epilepticus (HCC) [facility] AmericaAnqbqco6057-63-35 23:56:59 [facility] AmericaZcsvhgx0736-42-56 13:04:22Upcoming Encounters Health Maintenance Due Date Last [...] on patient's age to complete this topic [facility] AmericaHvgrukr8391-08-27 13:04:22 Diagnosis Partial symptomatic epilepsy with complex partial seizures, not intractable, without status epilepticus (HCC) [facility] AmericaKkgajyp0232-91-56 13:04:22 [facility] AmericaVpalrrf2022-82-14 09:18:24 Patient is calling office stating she can not take the depakote that was prescribed due to the fillers that it has in it the pills she was given are dark red and the ones she normally takes are a light pink.. She is stating the pill she is a able to take is manufactured by [employer]. Pharmacy on file was verified w patient. Pt is out of medication and needs refill to be sent. ER OPERATOR Rebeca CampHCA Houston Healthcare MainlandRelkbho4192-70-70 10:23:09 Patient request fill for Locosamide and Divalproex be sent to her [facility] listed in her chart. ER OPERATOR [facility] AmericaGyjbhdm3891-39-86 18:31:09* [facility] AmericaImhyhar0581-31-37 18:31:09* Audit- C Score Answer Date of Assessment Author 0 02/29/2024 10:32 AM SEALER OPERATOR Arabella Austin MA * [facility] AmericaVycsdyu4352-53-30 18:31:09* Dalila Mcclure MD - 02/29/2024 2:00 PM SEALER OPERATOR Images from the original note were not included. rGeg Broderick 1970 BP 140/84 | Ht 1.753 [...] meets frequently. She has a daughter in [place] in a group foster home. She has [...] partial seizures, not intractable, without status epilepticus ([facility]) - divalproex (Depakote) 500 MG EC tablet; Take 1 tablet by mouth in the morning and 1 tablet in the evening. [facility] [address] [place] [address] PH: [phone] [facility]2024-12-18 18:31:09Upcoming Encounters Health Maintenance Due Date Last [...] on patient's age to complete this topic [facility] AmericaZbsmenn9395-92-25 18:31:09 Diagnosis Other generalized epilepsy a nd epileptic syndromes, not intractable, without status epilepticus (CMS/HCC) (HCC) Partial symptomatic epilepsy with complex partial seizures, not intractable, without status epilepticus (HCC) [facility] AmericaPdewkfg4172-01-85 18:31:09 [facility] AmericaMeeqesr7681-27-43 18:31:09* [facility] AmericaDrmezsm0495-70-14 18:31:09* Audit- C Score Answer Date of Assessment Author 0 02/29/2024 10:32 AM SEALER OPERATOR Arabella Austin MA * [facility] AmericaVmpbpoj4504-89-97 18:31:09* Dalila Mcclure MD - 02/29/2024 2:00 PM SEALER OPERATOR Images from the original note were not [...] meets frequently. She has a daughter in [place] in a group foster home. She has [...] morning and 1 tablet in the evening. [facility] [address] [place] [address] PH: [phone] [facility]2024-12-18 18:31:09Upcoming Encounters Health Maintenance Due Date Last [...] on patient's age to complete this topic [facility] AmericaFzoexur5080-94-28 18:31:09 Diagnosis Other generalized epilepsy a nd epileptic syndromes, not intractable, without status epilepticus (CMS/HCC) (HCC) Partial symptomatic epilepsy with complex partial seizures, not intractable, without status epilepticus (HCC) [facility] AmericaIgndzmf5172-61-53 18:31:09 [facility] AmericaAddsxln0465-65-20 09:43:54Upcoming Encounters Health Maintenance Due Date Last [...] on patient's age to complete this topic [facility] AmericaSdnqxez1095-33-30 09:43:54 Diagnosis Other generalized epilepsy a nd epileptic syndromes, not intractable, without status epilepticus (CMS/HCC) (HCC) - Primary [facility] AmericaRqebgur4110-65-46 09:43:54 [place] 990524-10-01 16:02:29* [facility] AmericaUlbepvh6831-96-56 16:02:29Upcoming Encounters Health Maintenance Due Date Last [...] on patient's age to complete this topic [facility] AmericaQzhvheg1743-16-67 16:02:29 Diagnosis Partial symptomatic epilepsy with complex partial seizures, not intractable, without status epilepticus (HCC) - Primary [facility] AmericaRjlygxf2943-65-21 16:02:29 [facility] AmericaMxjfagl7871-02-01 13:06:22* [facility] AmericaZbpzqkm4865-04-23 13:06:22Upcoming Encounters Health Maintenance Due Date Last [...] on patient's age to complete this topic [facility] AmericaLximzbf7740-92-48 13:06:22 Diagnosis Other generalized epilepsy a nd epileptic syndromes, not intractable, without status epilepticus (CMS/HCC) ([facility]) [facility] AmericaScwzazr3587-49-11 13:06:22 [facility] AmericaIfgcpms4846-29-23 13:04:33* [facility] AmericaSeotxjh7304-42-13 13:04:33Upcoming Encounters Health Maintenance Due Date Last [...] on patient's age to complete this topic [facility] AmericaFdypysg2907-56-76 13:04:33 Diagnosis Other generalized epilepsy a nd epileptic syndromes, not intractable, without status epilepticus (CMS/HCC) ([facility]) [facility] AmericaPrtmtke8833-66-27 13:04:33 [facility] AmericaMvpdcwp5524-58-16 23:53:23Upcoming Encounters Health Maintenance Due Date Last [...] on patient's age to complete this topic [facility] AmericaDkqqjiz2340-47-45 23:53:23 [facility] AmericaKrgooto6786-01-50 17:29:58* [facility] AmericaMcixfmt4793-50-31 17:29:58Upcoming Encounters Health Maintenance Due Date Last [...] on patient's age to complete this topic [facility] AmericaQyduouv0434-15-21 17:29:58 [facility] AmericaMrhwpuj9213-54-62 08:44:26* [facility] AmericaBjdcczm5455-00-53 08:44:26Upcoming Encounters Health Maintenance Due Date Last [...] on patient's age to complete this topic [facility] AmericaHtfxfpw0895-05-93 08:44:26 [facility] AmericaExfugvh0963-32-91 09:32:56Upcoming Encounters Health Maintenance Due Date Last [...] on patient's age to complete this topic [facility] AmericaZdvhwfo6205-77-85 09:32:56 [facility] AmericaBlsixrl3438-99-14 09:32:29 Pt informed and understood verbalized of results [facility]riH[facility]landZgmypro1724-84-52 09:32:25 ----- Message from ARLENE Villarreal sent at 10/04/2023 9:09 PM CDT ----- All meds in therapeutic range. There is some room to increase on the zonisamide if patient continues to have breakthrough seizures. [facility] AmericaXlljrqt1072-91-31 21:11:27* [facility] AmericaClgochl5191-42-77 21:11:27* ARLENE Bustamante - 09/01/2023 2:00 PM [...] account. Her sister took Felisha back to [place] to her father and she will have [...] She also plans to get involved in [employer] activities and she is excited about that. She is waiting to move to [place] in 4 years which is based [...] 3-4 months for status check Mishel Haynes [facility] [address] [place] [address] PH: [phone] [place] 344394-07-23 21:11:27Upcoming Encounters Health Maintenance Due Date Last [...] on patient's age to complete this topic [facility] CenterFspwbsc2048-20-95 21:11:27 Diagnosis Partial symptomatic epilepsy with complex partial seizures, not intractable, without status epilepticus (HCC) - Primary Encounter for long-term curr ent use of medication Mild intellectual disability Mild mental retardation Anxiety with depression [facility] CenterHnldfbd5698-11-40 21:11:27 [facility] CenterCdphhxt1296-28-77 10:17:11* [facility] CenterTgzlkmr1206-74-99 10:17:11Upcoming Encounters Health Maintenance Due Date Last [...] on patient's age to complete this topic [facility] AmericaZahivbf3837-37-82 10:17:11 [facility] AmericaSurdwbs4336-01-53 19:50:11* [facility] AmericaBlokalx3643-26-22 19:50:11Upcoming Encounters Health Maintenance Due Date Last [...] on patient's age to complete this topic [facility] AmericaPxgtlme0659-04-52 19:50:11 Diagnosis Other generalized epilepsy a nd epileptic syndromes, not intractable, without status epilepticus (CMS/HCC) (HCC) - [id number] 19:50:11 [facility] [id number] 09:38:07Upcoming Encounters Health Maintenance Due Date Last [...] on patient's age to complete this topic [id number] 09:38:07 [facility] [id number] 09:37:43 Called patient and informed, verbalized understanding [facility]2024-06-21 09:37:35 ----- Message from Dr. Dalila Mcclure MD sent at 09/01/2023 2:38 PM CDT ----- Labs show elevated keppra level but Will not change the dose as she has not had any seizures and no signs of clinical toxicity [facility]
--- NOTE | 2024-12-02 16:24 | ER ---
Nurse's Notes [facility] Name: Angelika Broderick Age: 54 yrs Sex: Female : 1970 Arrival Date: 12/02/2024 Time: 15:29 Bed 15 Private MD: Diagnosis: Unspecified acute conjunctivitis, bilateral Presentation: 12/02 16:07 Chief complaint: Patient states: Bilateral pink eye x 18 days. Coronavirus screen: At [facility] this time, the client does not indicate any symptoms associated with coronavirus-19. Ebola Screen: No symptoms or risks identified at this time. Initial Sepsis Screen: Does the patient meet any 2 criteria? No. Patient's initial sepsis screen is negative. Does the patient have a suspected source of infection? No. Patient's initial sepsis screen is negative. Risk Assessment: Do you want to hurt yourself or someone else? Patient reports no desire to harm self or others. Onset of symptoms is unknown. 16:07 Method Of Arrival: Ambulatory [facility] 16:07 Acuity: MICHAEL 3 [facility] Triage Assessment: 16:09 General: Appears in no apparent distress. uncomfortable, Behavior is cooperative. Pain: [facility] Complains of pain in right eye and left eye Pain currently is 9 out of 10 on a pain scale. EENT: Sclera/Cornea are reddened in right eye and left eye. 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 - Infectious Disease History:: Denies. - Social history:: Smoking status: Patient denies any tobacco usage or history of. - Family history:: not pertinent. - Hospitalizations: : No recent hospitalization is reported. Screenin:33 [facility] ED Fall Risk Assessment (Adult) History of falling in the last 3 months, db including since admission No falls in past 3 months (0 pts) Confusion or Disorientation No (0 pts) Intoxicated or Sedated No (0 pts) Impaired Gait No (0 pts) Mobility Assist Device Used No (0 pt) Altered Elimination No (0 pt) Score/Fall Risk Level 0 - 2 = Low Risk Oriented to surroundings, Maintained a safe environment. Abuse screen: Denies threats or abuse. Denies injuries from another. Nutritional screening: No deficits noted. Tuberculosis screening: No symptoms or risk factors identified. Assessment: 16:33 Reassessment: Patient appears in no apparent distress at this time. Patient and/or db family updated on plan of care and expected duration. Pain level reassessed. Patient is alert, oriented x 3, equal unlabored respirations, skin warm/dry/pink. General: Appears in no apparent distress. comfortable, Behavior is calm, cooperative. Neuro: Level of Consciousness is awake, alert, obeys commands, Oriented to person, place, time, situation. Respiratory: Airway is patent Respiratory effort is even, unlabored, Respiratory pattern is regular, symmetrical. EENT: Eyes are tearing on left eye and right eye with exudate noted from left eye and right eye. Vital Signs: 16:07 BP 120 / 83; Pulse 96; Resp 17; Temp 99.5; Pulse Ox 97% ; Weight 100.7 kg; Height 5 ft. jl7 9 in. ; Pain 9/10; 16:30 BP 125 / 76; Pulse 81; Resp 16; Pulse Ox 99% on R/A; db 16:07 Body Mass Index 32.78 (100.70 kg, 175.26 cm) jl7 16:07 Pain Scale: Adult jl7 ED Course: 15:31 Patient arrived in ED. ts1 15:37 Charles Hook MD is Attending Physician. rn 16:09 Triage completed. jl7 16:09 Arm band placed on right wrist. jl7 16:18 Fabby Merida, RN is Primary Nurse. db 16:24 Mario Mustafa MD is Referral Physician. rn 16:33 Patient has correct armband on for positive identification. Bed in low position. Call db light in reach. Side rails up X 1. Provided Education on: PRESCRIPTIONS AND FOLLOWUP. Pulse ox on. NIBP on. Warm blanket given. Pillow given. 16:36 No provider procedures requiring assistance completed. Patient did not have IV access db during this emergency room visit. Administered Medications: 16:28 Drug: Doxycycline PO 100 mg PO once Route: PO; db 16:37 Follow up: Response: No adverse reaction db Medication: 16:33 VIS not applicable for this client. db Outcome: 16:24 Discharge ordered by . rn 16:36 Discharged to home ambulatory, db 16:36 Condition: stable 16:36 Discharge instructions given to patient, Instructed on discharge instructions, follow up and referral plans. Prescriptions given X 1, 16:37 Patient left the ED. db Signatures: Charles Hook MD MD rn Leal, Jahala, RN RN jl7 Fabby Merida RN RN db Ivana Adam PAS PAS ts1
--- NOTE | 2024-12-02 16:24 | EDPHYS ---
Physician Documentation [facility] Name: Angelika Broderick Age: 54 yrs Sex: Female : 1970 Arrival Date: 12/02/2024 Time: 15:29 Bed 15 Private MD: ED Physician Charles Hook HPI: 12/02 16:21 This 54 yrs old Female presents to ER via Ambulatory with complaints of Eye Problem. rn 16:21 Patient reports seen here 4 days ago for conjunctivitis. Has been using the drops. rn Symptoms not worsening but symptoms are not going away. No vision changes. No fever. No trauma. No chemical injury.. 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 - Infectious Disease History:: Denies. - Social history:: Smoking status: Patient denies any tobacco usage or history of. - Family history:: not pertinent. - Hospitalizations: : No recent hospitalization is reported. ROS: 16:21 Constitutional: Negative for fever, chills, and weight loss, Eyes: Positive for redness rn and "goop " Cardiovascular: Negative for chest pain, palpitations, and edema, Respiratory: Negative for shortness of breath, cough, wheezing, and pleuritic chest pain, Abdomen/GI: Negative for abdominal pain, nausea, vomiting, diarrhea, and constipation, MS/Extremity: Negative for injury and deformity, Skin: Negative for injury, rash, and discoloration, Neuro: Negative for headache, weakness, numbness, tingling, and seizure, Exam: 16:21 Constitutional: This is a well developed, well nourished patient who is awake, alert, rn and in no acute distress. Head/Face: Normocephalic, atraumatic. Eyes: Bilateral conjunctival injection, negative for hypopyon, no blood in anterior chamber, pupils equally round reactive to light, no light sensitivity noted, no hyphema Vital Signs: 16:07 BP 120 / 83; Pulse 96; Resp 17; Temp 99.5; Pulse Ox 97% ; Weight 100.7 kg; Height 5 ft. jl7 9 in. ; Pain 9/10; 16:30 BP 125 / 76; Pulse 81; Resp 16; Pulse Ox 99% on R/A; db 16:07 Body Mass Index 32.78 (100.70 kg, 175.26 cm) jl7 16:07 Pain Scale: Adult jl7 MDM: 15:37 Medical Screening Exam initiated rn 16:21 Differential diagnosis: Data reviewed: vital signs, nurses notes. Data reviewed: and as rn a result, I will discharge patient. Counseling: I had a detailed discussion with the patient and/or guardian regarding the historical points, exam findings, and any diagnostic results supporting the discharge/admit diagnosis, the need for outpatient follow up, to return to the emergency department if symptoms worsen or persist or if there are any questions or concerns that arise at home. Special discussion: I discussed with the patient/guardian in detail that at this point there is no indication for admission to the hospital. It is understood, however, that if the symptoms persist or worsen the patient needs to return immediately for re-evaluation. Based on the history and exam findings, there is no indication for further emergent testing or inpatient evaluation. I discussed with the patient/guardian the need to see the opthamologist for further evaluation of the symptoms. ED course: Patient has only been on antibiotics for 4 days. Recommend continuation of her antibiotics, will add doxycycline for expanded coverage and recommend ophthalmology follow-up. Return precautions given and understood.. Administered Medications: 16:28 Drug: Doxycycline PO 100 mg PO once Route: PO; db 16:37 Follow up: Response: No adverse reaction db Disposition Summary: 12/02/24 16:24 Discharge Ordered Notes: Location: Home rn Problem: new rn Symptoms: are unchanged rn Condition: Stable rn Diagnosis - Unspecified acute conjunctivitis, bilateral rn Followup: rn - With: Mario Mustafa MD - When: 2 - 3 days - Reason: Recheck today's complaints, Re-evaluation by your physician Discharge Instructions: - Discharge Summary Sheet rn - Bacterial Conjunctivitis, Adult rn Forms: - Medication Reconciliation Form rn - Antibiotic embroidery patternmaker - Prescription Opioid Use rn - Patient Portal Instructions rn - Leadership Thank You Letter rn Prescriptions: - Doxycycline Monohydrate 100 mg Oral Tablet - take 1 tablet ORAL route every 12 hours for 10 days; 20 tablet; Refills: 0, rn Product Selection Permitted Signatures: Charles Hook MD MD rn Leal, Jahala, RN RN jlFabby Root RN RN db Corrections: (The following items were deleted from the chart) 16:22 16:21 Constitutional: Negative for fever, chills, and weight loss, Eyes: Positive for rn redness and "goop " rn
[2024-12-02] MEDS ORDERED: DOXYCYCLINE 100 MG CAP PO ONE (16:25)
[2024-12-02 16:41] VITALS: TEMP 99.5
[2024-12-02 16:43] VITALS: BP 125/76; O2SAT 99
== END 2024-12-02 16:37 | disposition home or self-care (01) ==
LOC: ER 15:29
DX: H10.33 Unspecified acute conjunctivitis, bilateral (principal)
CPT/HCPCS: 99283